=== PATIENT | female | born 1930 | race Hispanic/Latino ===

== ENCOUNTER 2016-08-31 10:36 | Inpatient (IN) | payer MEDICARE ==
[2016-08-31] MEDS ORDERED: Vancomycin 1gm in NS 250ml 250 ML IVPB STA (10:58)
[2016-08-31] MEDS ORDERED: Piperacill/Tazo 4.5gm in NS 100 ML IVPB STA (10:58)
--- NOTE | 2016-08-31 11:06 | ED PDOC ---
Arrival/HPI - General Chief Complaint: Altered Mental Status Time Seen by Provider: 08/31/16 10:58 Historian: EMS - History of Present Illness Narrative History of Present Illness (Text): 08/31/16 11:06 A 86 year old female was brought into the emergency department by EMS for lethargy, weakness and unresponsiveness. Patient unable to provide further detail. History and ROS limited. Charts reviewed, patient has a history of colon cancer. PMD: Dr. Sylvester Oncologist: Dr. Lomas Time/Duration: Prior to Arrival Symptom Course: Unchanged Quality: Other Context: Other Past Medical History - Provider Review Nursing Documentation Reviewed: Yes - Infectious Disease Hx of Infectious Diseases: None - Tetanus Immunization Tetanus Immunization: Unknown - Cardiac Hx Hypertension: Yes - Pulmonary Hx Respiratory Disorders: No - Neurological Hx Neurological Disorder: No - HEENT Hx HEENT Disorder: No - Renal Hx Renal Disorder: No - Endocrine/Metabolic Hx Endocrine Disorders: No - Hematological/Oncological Hx Anemia: Yes Hx Cancer: Yes (cecal mass) - Integumentary Hx Dermatological Disorder: No - Musculoskeletal/Rheumatological Hx Musculoskeletal Disorders: No - Gastrointestinal Hx Colostomy: Yes (colon resection, cecal mass) - Genitourinary/Gynecological Hx Incontinence: Yes (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) Other/Comment: stage III colon ca - Psychiatric Hx Psychophysiologic Disorder: No Hx Substance Use: No - Surgical History Other/Comment: colon resection/colostomy - Anesthesia Hx Anesthesia Reactions: No Hx Malignant Hyperthermia: No - Suicidal Assessment Feels Threatened In Home Enviroment: No Family/Social History - Physician Review Nursing Documentation Reviewed: Yes Family/Social History: No Known Family HX Smoking Status: Never Smoked Hx Alcohol Use: No Hx Substance Use: No Hx Substance Use Treatment: No Allergies/Home Meds Allergies/Adverse Reactions: Allergies No Known Allergies Allergy (Verified 08/31/15 11:40) Review of Systems - Review of Systems Systems not reviewed;Unavailable: Other (Unresponsive) Physical Exam Vital Signs Reviewed: Yes Vital Signs Temp Pulse Resp BP Pulse Ox 08/31/16 13:58 72 18 125/74 99 08/31/16 13:45 83 16 133/76 100 08/31/16 13:20 74 16 121/71 100 08/31/16 13:05 80 16 143/80 100 08/31/16 12:45 78 20 142/78 100 08/31/16 12:33 88 20 128/77 100 08/31/16 12:13 88 20 121/67 100 08/31/16 12:10 14 08/31/16 12:00 90 20 121/67 99 08/31/16 11:45 88 16 143/66 98 08/31/16 11:20 90 16 141/88 97 08/31/16 11:00 96.5 F L 102 H 24 141/69 97 Temperature: Afebrile Blood Pressure: Normal Pulse: Tachycardic Respiratory Rate: Normal Appearance: Positive for: Other (Foul odor) Mental Status: Positive for: other (Unresponisve) Finger Stick Blood Glucose: 191 - Systems Exam Head: Present: Atraumatic, Normocephalic Pupils: Present: Other (2-3 ml pupils, reactive to light) Conjunctiva: Present: Normal Mouth: Present: Moist Mucous Membranes Pharnyx: Present: Normal Respiratory/Chest: Present: Good Air Exchange, Other (Crackles to right lung). No: Respiratory Distress, Accessory Muscle Use Cardiovascular: Present: Regular Rate and Rhythm, Normal S1, S2. No: Murmurs Abdomen: No: Tenderness, Distention Upper Extremity: Present: NORMAL PULSES. No: Edema Lower Extremity: Present: Edema, NORMAL PULSES Neurological: Present: Other (responds to painful stimuli) Skin: Present: Warm Psychiatric: Present: Lethargic, Other (Not responding to painful stimuli) Medical Decision Making ED Course and Treatment: 08/31/16 11:06 Impression: A 86 year old female brought in unresponsive Differential Diagnosis included but are not limited to: Altered Mental Status / Unresponsive r/o Sepsis, CVA/TIA Plan: -- Head CT -- Chest xray -- EKG -- Labs -- Blood and Urine culture -- Urinalysis -- IV fluids, Vancomycin and Zosyn -- Reassess and disposition Progress Notes: 08/31/16 11:15 Spoke with patients son, who states he last saw patient well yesterday evening. He reports patient complained of feeling weak. He confirms patient has a history of colon cancer with metastasis. Spoke with patients brothers, Junior and Chandler, who state patient does not have end of life care. No DNR/DNI. They if needed to intubate her. 08/31/16 11:30 On re-evaluation, patient is responding to painful stimuli, she opens her eyes. When asked what her name is patient responds yes and nods her head. Breathing patterns mildly improved. Report Date : 08/31/2016 11:35:53 PROCEDURE: CT HEAD WITHOUT CONTRAST. Dictator : Baldev Allen MD IMPRESSION: No acute intracranial findings 08/31/2016 11:45 on reevaluation, patient is not responding well to painful stimuli. Slow breathing patter. pCO2 in the 90's. Will intubate for concern of impending respiratory failure. PROCEDURE: INTUBATION Performed by the emergency provider Time: 11:45 Timeout: A timeout to verify the correct patient, procedure, and site was performed. Pre-oxygenation: [id number] Medications: 50 of Propofol ETT Size: 7.5 mm Procedure: First attempt unsuccessful by resident Fantasma. Second attempt successful. Confirmation: Cords directly visualized as tube passed, good bilateral breath sounds, positive CO2 detector color change, tube fogging, adequate chest rise, improving pulse oximetry reading, improved skin color, and absence of gastric sounds,. ETT Secured: The cuff was inflated and the tube was secured appropriately at a distance of 22 cm at the lip. Post-Procedure: There were no immediate complications. CXR Confirmation: ET tube above magali 08/31/16 12:29\ NGT was placed by RN. Victoria placed by RN. Started on a Propofol drip. Case discussed with Dr. Tran, who accepts admission. Case discussed with Dr. Lomas, who accepts admission. Place admission under Dr. Leighton Hyatt Report Date : 08/31/2016 12:30:25 Procedure: Chest xray Dictator : Baldev Allen MD IMPRESSION: Endotracheal tube and nasogastric tube in satisfactory position Report Date : 08/31/2016 12:33:27 Procedure: Chest xray Dictator : Baldev Allen MD IMPRESSION: Small bilateral pleural effusions. Mild to moderate vascular congestion - Critical Care Critical Care Minutes: 60 minutes - Lab Interpretations Lab Results: 08/31/16 11:02 08/31/16 11:02 Lab Results 08/31/16 11:02: WBC 9.2 D, RBC 3.44 L, Hgb 10.6 L, Hct 35.4 L, MCV 102.9, MCH 30.8, MCHC 29.9 L, RDW 30.3 H, Plt Count 321, Neutrophils % (Manual) 82 H, Band Neutrophils % 6 H, Lymphocytes % (Manual) 5 L, Atypical Lymphs % 2 H, Monocytes % (Manual) 3, Eosinophils % (Manual) 1, Basophils % (Manual) 1, Toxic Granulation Slight, Platelet Evaluation Normal, Large Platelets Present, Giant Platelets Present, Polychromasia Slight, Hypochromasia 1+, Poikilocytosis ( manual 1+, Anisocytosis (manual) 2+, Macrocytosis (manual) Slight, Tear Drop Cells Slight, Ovalocytes 1+, Stomatocytes Slight, Acanthocytes (Spur) Slight, PT 11.5, INR 1.06, APTT 27.5, pO2 61 H, VBG pH 7.23 L, VBG pCO2 99.0 H*, VBG HCO3 41.5 H, VBG Total CO2 44.5 H, VBG O2 Sat (Calc) 90.8 H, VBG Base Excess 9.8 H, VBG Potassium 4.4, Glucose 176 H, Lactate 1.0, FiO2 21.0, Sodium 141.0, Potassium 4.0, Chloride 102.0, Carbon Dioxide 38 H, Anion Gap 10, BUN 28 H, Creatinine 0.5, Est GFR ( Amer) > 60, Est GFR (Non-Af Amer) > 60, Random Glucose 167 H, Calcium 8.9, Phosphorus 4.1, Magnesium 2.0, Total Bilirubin 0.8, AST 32, ALT 16, Alkaline Phosphatase 74, Troponin I 0.04, NT-Pro-B Natriuret Pep 1580 H, Total Protein 6.9, Albumin 3.9, Globulin 3.0, Albumin/Globulin Ratio 1.3, Venous Blood Potassium 4.4 08/31/16 10:55: POC Glucose (mg/dL) 191 H I have reviewed the lab results: Yes Interpretation: Abnormal lab values - RAD Interpretation Radiology Orders: 08/31/16 10:59 CHEST PORTABLE [RAD] Stat 08/31/16 11:01 HEAD W/O CONTRAST [CT] Stat 08/31/16 12:03 CHEST PORTABLE [RAD] Stat Transcription Coordinator: Radiologist - Medication Orders Current Medication Orders: Enoxaparin Sodium (Lovenox) 40 mg SC DAILY MEGAN PRN Reason: Protocol Last Admin: 08/31/16 15:21 Dose: 40 MG Subcutaneous Administrations Document 08/31/16 15:21 RAMOM (Rec: 08/31/16 15:21 RAMOM [facility]) Injection Site MAR Injection Site Left Abdomen Charges for Administration # of Subcutaneous Administrations 1 Vancomycin HCl (Vancomycin 1gm) 250 mls @ 167 mls/hr IVPB Q12H MEGAN PRN Reason: Protocol Piperacillin Sod/Tazobactam Sod (Zosyn 3.375 In Ns 100ml) 100 mls @ 200 mls/hr IV Q6H MEGAN PRN Reason: Protocol Doxycycline Hyclate 100 mg/ (Sodium Chloride) 100 mls @ 100 mls/hr IVPB Q12 MEGAN PRN Reason: Protocol Last Admin: 08/31/16 15:18 Dose: 100 MLS/HR eMAR Start Stop Document 08/31/16 15:18 RAMOM (Rec: 08/31/16 15:18 RAMOM [facility]) Intravenous Solution Start Date 08/31/16 Start Time 15:20 End Date 08/31/16 End time 16:20 Total Infusion Time 60 Propofol (Diprivan) 100 mls @ 2.041 mls/hr IV .Q24H PRN; Protocol; 5 MCG/KG/MIN PRN Reason: TITRATE PER MD ORDER Last Admin: 08/31/16 12:10 Dose: 2.041 MLS/HR Titration Intervention Document 08/31/16 12:10 FARZANA (Rec: 08/31/16 14:20 [facility] [id number]) Titration Intake Container Volume 100 Titration Dosing Titration Dose 5 IV Rate 2.041 Intake/Decrease Start eMAR Start Stop Document 08/31/16 12:10 FARZANA (Rec: 08/31/16 14:20 [facility] [id number]) Intravenous Solution Start Date 08/31/16 Start Time 12:10 Methylprednisolone (Solu-Medrol) 20 mg IVP Q12 [facility] Last Admin: 08/31/16 14:00 Dose: 20 MG IVP Administration Document 08/31/16 14:00 FARZANA (Rec: 08/31/16 14:00 [facility] [id number]) Charges for Administration # of IVP Administrations 1 Pantoprazole Sodium (Protonix Inj) 40 mg IVP DAILY [facility] Last Admin: 08/31/16 13:58 Dose: 40 MG IVP Administration Document 08/31/16 13:58 [place] (Rec: 08/31/16 13:58 [id number] Charges for Administration # of IVP Administrations 1 Discontinued Medications Furosemide (Lasix) 40 mg IVP STAT STA Stop: 08/31/16 13:23 Last Admin: 08/31/16 13:58 Dose: 40 MG MAR Blood Pressure Document 08/31/16 13:58 FARZANA (Rec: 08/31/16 14:00 [id number] Blood Pressure Blood Pressure (100/60-150/90) 125/74 IVP Administration Document 08/31/16 13:58 [place] (Rec: 08/31/16 14:00 [id number] Charges for Administration # of IVP Administrations 1 Sodium Chloride 2,040 ml/ IV (SUPPLIES) 2,040 mls @ 4,082.34 mls/hr IV ONCE ONE PRN Reason: 60 ML/KG/HR Stop: 08/31/16 10:59 Last Admin: 08/31/16 11:49 Dose: 4,082.34 MLS/HR eMAR Start Stop Document 08/31/16 11:49 SS (Rec: 08/31/16 11:49 SS [id number]) Intravenous Solution Start Date 08/31/16 Start Time 11:49 Piperacillin Sod/Tazobactam Sod (Zosyn 4.5 Gm In Ns 100ml) 100 mls @ 200 mls/ hr IVPB STAT STA PRN Reason: Protocol Stop: 08/31/16 11:27 Last Admin: 08/31/16 14:02 Dose: 200 MLS/HR eMAR Start Stop Document 08/31/16 14:02 [place] (Rec: 08/31/16 14:02 [facility] [id number]) Intravenous Solution Start Date 08/31/16 Start Time 14:02 End Date 08/31/16 End time 15:02 Total Infusion Time 60 Vancomycin HCl (Vancomycin 1gm) 250 mls @ 167 mls/hr IVPB STAT STA PRN Reason: Protocol Stop: 08/31/16 12:27 Last Admin: 08/31/16 11:44 Dose: 167 MLS/HR eMAR Start Stop Document 08/31/16 11:44 SS (Rec: 08/31/16 11:44 SS [id number]) Intravenous Solution Start Date 08/31/16 Start Time 11:44 End Date 08/31/16 End time 12:14 Total Infusion Time 30 Propofol (Diprivan) Confirm Administered Dose 100 mls @ ud .ROUTE .STK-MED ONE Stop: 08/31/16 11:57 Last Admin: 08/31/16 12:30 Dose: Propofol (Diprivan) Confirm Administered Dose 200 mg .ROUTE .STK-MED ONE Stop: 08/31/16 11:57 Last Admin: 08/31/16 12:00 Dose: 50 MG - Scribe Statement The provider has reviewed the documentation as recorded by the Kiana Bravo Provider Scribe Attestation: All medical record entries made by the Scribe were at my direction and personally dictated by me. I have reviewed the chart and agree that the record accurately reflects my personal performance of the history, physical exam, medical decision making, and the department course for this patient. I have also personally directed, reviewed, and agree with the discharge instructions and disposition. Disposition/Present on Arrival - Present on Arrival Any Indicators Present on Arrival: No History of DVT/PE: No History of Uncontrolled Diabetes: No Urinary Catheter: No History of Decub. Ulcer: No History Surgical Site Infection Following: None - Disposition Have Diagnosis and Disposition been Completed?: Yes Diagnosis: Altered mental status, Respiratory distress, Sepsis Disposition: HOSPITALIZED Disposition Time: 12:06 Patient Plan: Admission, ICU Patient Problems: Current Active Problems Problem Status Diagnosed Altered mental status Acute Cellulitis Acute Respiratory distress Acute Sepsis Acute Condition: CRITICAL
--- NOTE | 2016-08-31 11:37 | CT ---
PROCEDURE: CT HEAD WITHOUT CONTRAST. HISTORY: altered mental status COMPARISON: None available. TECHNIQUE: Axial computed tomography images were obtained through the head/brain without intravenous contrast. Radiation dose: Total exam DLP = 774 mGy-cm. FINDINGS: HEMORRHAGE: No intracranial hemorrhage. BRAIN: No mass effect or edema. Chronic microvascular changes are seen as well as moderate atrophy VENTRICLES: Unremarkable. No hydrocephalus. CALVARIUM: Unremarkable. PARANASAL SINUSES: Unremarkable as visualized. No significant inflammatory changes. MASTOID AIR CELLS: Unremarkable as visualized. No inflammatory changes. OTHER FINDINGS: None. IMPRESSION: No acute intracranial findings
[2016-08-31 11:42] LABS: HEMATOCRIT 35.4 % (36.0-48.0); MEAN CELL VOLUME 102.9 fL (80.0-105.0); MEAN CORPUSCULAR HEMOGLOBIN 30.8 pg (25.0-35.0); MEAN CORPUSCULAR HGB CONC 29.9 g/dl (31.0-37.0); PLATELET COUNT 321 10^3/uL (120.0-450.0); RED CELL DISTRIBUTION WIDTH 30.3 % (11.5-14.5); WHITE BLOOD COUNT 9.2 10^3/ul (4.5-11.0)
[2016-08-31 11:43] LABS: ADD MANUAL DIFF? YES; VENOUS BLOOD GAS BASE EXCESS 9.8 mmol/L (0.0-2.0); VENOUS BLOOD PH 7.23 (7.32-7.43)
[2016-08-31 11:53] LABS: INR 1.06 (0.93-1.08); PARTIAL THROMBOPLASTIN TIME 27.5 Seconds (23.7-30.8)
[2016-08-31 11:55] LABS: ALB/GLOB RATIO 1.3 (1.1-1.8); ALKALINE PHOSPHATASE 74 U/L (38-133); ALT/SGPT 16 U/L (7-56); AST/SGOT 32 U/L (15-39); BILIRUBIN,TOTAL 0.8 mg/dL (0.2-1.3); BLOOD UREA NITROGEN 28 mg/dL (7-21); CALCIUM 8.9 mg/dL (8.4-10.5); CARBON DIOXIDE 38 mmol/L (21-33); CHLORIDE 97 mmol/L (95-110); GFR AFRICAN-AMERICAN > 60; GLUCOSE,RANDOM 167 mg/dL (70-110); PHOSPHOROUS 4.1 mg/dL (2.5-4.5); SODIUM 141 mmol/L (132-148); TOTAL PROTEIN 6.9 g/dL (5.8-8.3)
[2016-08-31] MEDS ORDERED: Propofol 10 mg/ml Inj (20 ML) ONE (11:56)
--- NOTE | 2016-08-31 12:31 | RAD ---
HISTORY: ett placement COMPARISON: 08/31/2016 earlier FINDINGS: LUNGS: The endotracheal tube and nasogastric tube are in satisfactory position. There is no focal consolidation. Chronic interstitial changes are seen PLEURA: No significant pleural effusion identified, no pneumothorax apparent. CARDIOVASCULAR: Normal. OSSEOUS STRUCTURES: No significant abnormalities. VISUALIZED UPPER ABDOMEN: Normal. OTHER FINDINGS: None. IMPRESSION: Endotracheal tube and nasogastric tube in satisfactory position
--- NOTE | 2016-08-31 12:34 | RAD ---
HISTORY: Sepsis Patient COMPARISON: No prior. FINDINGS: LUNGS: No active pulmonary disease. PLEURA: Small bilateral pleural effusions and pleural thickening. CARDIOVASCULAR: Mild cardiomegaly with mild to moderate vascular congestion OSSEOUS STRUCTURES: No significant abnormalities. VISUALIZED UPPER ABDOMEN: Normal. OTHER FINDINGS: None. IMPRESSION: Small bilateral pleural effusions. Mild to moderate vascular congestion
[2016-08-31 12:44] LABS: ANISOCYTOSIS 2+; ATYPICAL LYMPHOCYTE 2 % (0.0-0.0); BAND 6 % (0-2); BASOPHIL 1 % (0.0-1.0); EOSINOPHIL 1 % (0.0-3.0); HYPOCHROMIA 1+; NEUTROPHIL 82 % (50.0-70.0); PLATELET ESTIMATE NORMAL (NORMAL); POIKILOCYTOSIS 1+; POLYCHROMASIA SLIGHT
[2016-08-31 12:45] LABS: GIANT PLATELETS PRESENT; LARGE PLATELETS PRESENT; OVALOCYTES 1+; TEAR DROP CELLS SLIGHT; TOXIC GRANULATION SLIGHT
[2016-08-31 12:46] LABS: STOMATOCYTE SLIGHT
[2016-08-31 12:49] LABS: URINE BILIRUBIN NEGATIVE (NEGATIVE); URINE BLOOD TRACE-INTACT (NEGATIVE); URINE GLUCOSE (UA) NEGATIVE (NEGATIVE); URINE KETONE NEGATIVE (NEGATIVE); URINE LEUKOCYTE ESTERASE NEGATIVE Leu/uL (NEGATIVE); URINE PROTEIN 100 mg/dL (<30 mg/dL)
[2016-08-31 12:54] LABS: TROPONIN I 0.04 ng/mL
[2016-08-31 12:54] LABS: URINE APPEARANCE CLEAR (CLEAR); URINE COLOR YELLOW (YELLOW)
[2016-08-31 13:03] LABS: URINE WBC 0 - 2 /hpf (0-6)
[2016-08-31 13:04] LABS: URINE BACTERIA MANY (NEG)
[2016-08-31 13:07] LABS: URINE AMORPHOUS SEDIMENT FEW
[2016-08-31 13:33] LABS: ABG MECHANICAL RATE 16; ARTERIAL BLOOD GAS HCO3 33.9 mmol/L (21-28); ARTERIAL BLOOD GAS PH 7.36 (7.35-7.45); ATERIAL BLOOD GAS PEEP 5
[2016-08-31] MEDS: Enoxaparin 40 mg Syringe SC SCH ×2 (13:58→15:21)
[2016-08-31] MEDS: MethylPREDNISolone 40 mg Vial IVP SCH ×2 (14:00→22:01)
--- NOTE | 2016-08-31 15:06 | CARD ---
APPROVED REPORT EKG Measurement Heart [id number] AL [id number] <Conclusion> Sinus rhythm with premature supraventricular complexes ST abnormality, Abnormal ECG
--- NOTE | 2016-08-31 15:38 | CON ---
DATE: 08/31/2016 HISTORY OF PRESENT ILLNESS: The patient seen and examined at bedside. She is intubated now. She is on propofol drip at 11 mcg per kilogram per minute. She is on PRVC 400/16/5/40. Her heart rate is 79, her blood pressure 143/80, her respiratory rate 16. She is not overbreathing vent. This is an 86-year-old lady with history of colon cancer and breast cancer, who presented to [facility] ER with lethargy, weakness and unresponsiveness. She was brought in by her family member. She was unable to provide any further detail. Was found to have severe acute respiratory acidosis and was emergently intubated. Subsequent workup in the Emergency Room revealed chronic interstitial changes, reticular nodular infiltrate. Blood gas revealed pH of 7.23 and pCO2, even though on VBG, was 99. After discussion with patient's family member by Er physician, decision was made to proceed with FULL CODE at present time and patient was intubated. PAST MEDICAL HISTORY: Colon cancer, breast cancer, hypertension, anemia. PAST SURGICAL HISTORY: Colon resection and colostomy. FAMILY HISTORY: Noncontributory. SOCIAL HISTORY: No alcohol or illicit drug abuse. No tobacco smoking. ALLERGIES: NKDA. REVIEW OF SYSTEMS: Revealed 12 organ systems other than mentioned in history of present illness is negative. PHYSICAL EXAMINATION: VITAL SIGNS: Temperature 96.5, heart rate 88, blood pressure 121/67, respiratory rate 20, oxygen saturation 100% on PRVC. HEAD AND NECK: Atraumatic. LUNGS: Few crackles bilaterally. HEART: Regular rate and rhythm. S1, S2 distant. ABDOMEN: Soft, nontender, nondistended. MUSCULOSKELETAL: Trace bilateral pedal and ankle edema. NEUROLOGIC: The patient is sedated. SKIN: Moist. PSYCHIATRIC: The patient is sedated. LABORATORIES: WBC 9.2, hemoglobin 10.6, platelet count 321. Sodium 141, potassium 4, chloride 97, carbon dioxide 38, BUN 28, creatinine 0.5, glucose 167 , calcium 8.9. AST 32, ALT 16. ProBNP 1580. VBG is 7.23 and lactic acid 1. INR 1.06. Urine showed positive nitrites and negative leukocyte esterase. ASSESSMENT AND PLAN: This is an 86-year-old lady with breast and colon cancer. The patient presented with what appears to be acute onset of respiratory failure with likely acute respiratory component. However, the blood gas was done as a VBG, thus may not reflect pCO2 correctly at the time of intubation. Differential diagnosis at present time includes infectious etiology/pneumonia, pneumonitis, cardiogenic pulmonary edema and a lymphangitic spread of the breast cancer. As patient has active reticular nodular opacities, possibility of community-acquired pneumonia cannot be ruled out at present time. We will proceed with broad-spectrum antibiotics, septic workup, procalcitonin level, low dose steroids, conservative fluid and oxygen therapy. We will continue with protective lung ventilation strategy, tidal volume 6-8 mL per predicted body weight and plateau pressure less than 30 to avoid VILI. We will continue with head of bed elevated at more than 35 degrees, VAP bundle and deep venous thrombosis/gastrointestinal prophylaxis. One of the differential diagnosis of radiographic and clinical picture would be acute congestive heart failure with cardiogenic pulmonary edema. Thus, we will proceed with echocardiogram and diuresis as hemodynamics allows, especially provided that proBNP is elevated. We will trend troponin level to ascertain absence of acute coronary syndrome. There are no clearcut signs of specific ischemic changes on patient's EKG. Possibility of lymphangitic spread of the breast cancer cannot be ruled out and will be discussed with Hem/Onc once potentially reversible causes (infection, CHF) are addressed. It is however unclear whether more aggressive pursuit of diagnosis of lymphangitic mets would change outcome if potentially reversible causes are ruled out. We will continue to target euvolemia, euglycemia, normothermia and oxygen saturation more than 90%. We will start enteral nutrition. We will maintain blood glucose within 140-180 range according to NICE-SUGAR trial. The patient's renal function appears to be within normal limits. She is making urine and her creatinine level is 0.5. ccm time 40 min Marty Roberson MD cc: [id number] TT: 08/31/2016 15:38:02 Confirmation # [id number] Dictation # [id number] MTDD
[2016-08-31] MEDS ORDERED: Aspirin 325 mg EC Tablets PO STA (17:41)
[2016-08-31 17:58] VITALS: BMI 31.4
[2016-08-31 19:00] LABS: BLOOD UREA NITROGEN 21 mg/dL (7-21); CALCIUM 8.2 mg/dL (8.4-10.5); CARBON DIOXIDE 33 mmol/L (21-33); CHLORIDE 101 mmol/L (98-107); GFR AFRICAN-AMERICAN > 60; GLUCOSE,RANDOM 111 mg/dL (70-110); POTASSIUM 3.4 mmol/L (3.6-5.0); SODIUM 140 mmol/L (132-148)
[2016-08-31] MEDS ORDERED: Sodium Chloride 0.9% 1,000 ML IV SCH (19:00)
[2016-08-31 19:11] LABS: TROPONIN I 0.05 ng/mL
[2016-08-31] MEDS: Piperacillin/Tazobact 3.375 gm 100 ML IV SCH (19:41)
[2016-08-31] MEDS: Vancomycin 1gm in NS 250ml 250 ML IVPB SCH (22:01)
--- NOTE | 2016-09-01 00:23 | HP ---
The patient is currently in the CCU, bed 2. HISTORY OF PRESENT ILLNESS: This is an 86-year-old female with history of colon cancer stage III, st atus post colostomy, history of nonmetastatic breast cancer, bilateral on aromatase inhibitor, histor y of macrocytic anemia requiring intermittent blood transfusions and is Procrit responsive, was broug ht to the [facility] Emergency Room with lethargy, weakness and unresponsiveness. The patient was brought in by a family member. The patient was unable to provide any further details. S he was found to be in severe acute respiratory acidosis and was emergently intubated. Subsequent wor kup in the ER revealed chronic interstitial changes, reticulonodular infiltrates in the lungs. Blood gases showed pH of 7.2-7.3 and pCO2, even though was a VBG, was 99. After the patient's family memb er was talked to by the ER physician, decision was made to intubate the patient as the patient did no t have any significant advanced directives. The patient is being followed by us as an outpatient and had been getting intermittent blood transfusions including transfusions just recently in the last 10 days when she was noted to have a hemoglobin of 7.6. PAST MEDICAL HISTORY: Stage III colon carcinoma, which was resected with a [id number] carcinoma of the c olon for which she did not get any postoperative therapy. Colostomy performed as she could not withs tand reversal procedure medically speaking. The patient has a history of nonmetastatic breast cancer involving both breasts for which she has been placed on aromatase inhibitors. History of hypertensi on, history of Procrit responsive anemia with progressive macrocytic indices clinically suggestive of myelodysplastic syndrome, but the patient has refused a bone marrow aspiration biopsy as an outpatie nt. PAST SURGICAL HISTORY: Significant for resection of colon cancer 3 years ago with a diverting colost alejandra done by Dr. Acuna. FAMILY HISTORY: Noncontributory. The patient does not drink, has an anxiety disorder for which she takes Xanax. No history of exposure to tobacco or alcohol. ALLERGIES: No known allergies. REVIEW OF SYSTEMS: Twelve organ system other than that mentioned in the history was negative. PHYSICAL EXAMINATION: GENERAL: The patient is currently intubated. She is on a propofol drip 11 mcg per kilogram per isacc te. VITAL SIGNS: She has PRVC 400/16/5/40, heart rate is 70, blood pressure is 143/80, respirations 16. She is not overbreathing at this time. Vital signs revealed a T-max of 96.4, heart rate 88, blood p ressure 121/67, respirations 20, O2 sat 100% on PRVC. HEENT: Head is normocephalic, atraumatic. LUNGS: Reveals few crackles bilaterally. HEART: Reveals S1 and S2 to be distant, regular rate and rhythm. ABDOMEN: Soft, nontender and nondistended. No rebound, rigidity or guarding is noted. Colostomy is on the left side, functioning. MUSCULOSKELETAL: Trace bilateral pedal edema and ankle edema noted. NEUROLOGIC: The patient is sedated. SKIN: Moist. No skin lesions are noted. PSYCHIATRIC: The patient is sedated. LABORATORY DATA: Reveals a white count of 9.2 with a hemoglobin of 10.6, platelet count 321,000. So dium 141, potassium 4, chloride of 97, CO2 of 38, BUN of 28, creatinine 0.5, glucose 167, calcium of 8.9, AST of 32, ALT of 16, proBNP of 1580. ABG shows pH of 7.23 with a lactic acid of 1, INR is 1.06 . Urine is positive for nitrites and negative for leukocyte esterase. ASSESSMENT NOTES: The patient is in acute respiratory failure, etiology for it could be infectious. I doubt this is related to the breast as patient has nonmetastatic breast CA, which was just diagnos ed recently in the last 6 months. The patient has history of colon CA, which has not spread, [facility] medical complaints at the time we have been managing her as an outpatient for symptomatic anemia requiring blood transfusions about twice a month. The patient has active reticular nodular opacitie s on the x-ray of the chest, which could account for the possibility of community-acquired pneumonia, which cannot be ruled out at this time. PLAN: The patient has been started on broad spectrum antibiotics. Septic workup including procalcit onin, low level steroids, conservative fluid management and oxygen therapy has been instituted. The patient is being monitored by the director center where the management as far as respiratory and ventilat or management is concerned. The patient is also on broad spectrum antibiotics. Congestive heart yanet lure and cardiogenic pulmonary edema also in the differential diagnosis, especially with the proBNP b eing elevated. The patient has had troponin levels done and is going to be monitored for any cardiac issues presenting in this fashion. Speak to Dr. Roberson, the director center who has seen her also. A t this point in time, to keep the patient , normothermic and keep the oxygen saturation ab ove 90%. The patient will also be started on enteral nutrition, but keeping the blood sugars between 140 and 180s range. The patient is making urine and creatinine is 0.5, which are good signs. ID is on the case. I will make sure we get the other consultants involved as well. Will speak to the camron chappell and decide which direction we should proceed over the next 72 hours. Shanta Lomas MD cc: [id number] TT: 09/01/2016 00:22:59 simon
[2016-09-01] MEDS: Piperacillin/Tazobact 3.375 gm 100 ML IV SCH ×2 (02:37→07:22)
[2016-09-01 04:20] LABS: MEAN CELL VOLUME 99.6 fL (80.0-105.0); MEAN CORPUSCULAR HEMOGLOBIN 31.3 pg (25.0-35.0); MEAN CORPUSCULAR HGB CONC 31.4 g/dl (31.0-37.0); PLATELET COUNT 224 10^3/uL (120.0-450.0); RED CELL DISTRIBUTION WIDTH 29.6 % (11.5-14.5)
[2016-09-01 04:36] LABS: ADD MANUAL DIFF? YES
[2016-09-01 04:49] LABS: BLOOD UREA NITROGEN 24 mg/dL (7-21); CALCIUM 8.1 mg/dL (8.4-10.5); CARBON DIOXIDE 30 mmol/L (21-33); CHLORIDE 103 mmol/L (98-107); GFR AFRICAN-AMERICAN > 60; GLUCOSE,RANDOM 120 mg/dL (70-110); POTASSIUM 3.3 mmol/L (3.6-5.0); SODIUM 142 mmol/L (132-148)
[2016-09-01 05:28] LABS: ARTERIAL BLOOD GAS HCO3 31.2 mmol/L (21-28); ARTERIAL BLOOD GAS O2 CAPACITY 12.4 mL/dl (16-24); ARTERIAL BLOOD GAS PH 7.49 (7.35-7.45); ARTERIAL BLOOD HGB O2 SAT 95.3 % (95.0-98.0); CARBOXYHEMOGLOBIN 0.9 % (0.5-1.5); HHB 2.9 % (0-5); METHEMOGLOBIN 0.8 % (0.0-3.0)
[2016-09-01 05:41] LABS: BAND 9 % (0-2)
[2016-09-01 05:42] LABS: ANISOCYTOSIS 2+; GIANT PLATELETS PRESENT; HYPOCHROMIA 2+; PLATELET ESTIMATE NORMAL (NORMAL); POLYCHROMASIA 1+
[2016-09-01 05:43] LABS: HELMET CELLS SLIGHT
[2016-09-01 05:49] LABS: NEUTROPHIL 88 % (50.0-70.0)
[2016-09-01] MEDS ORDERED: Sodium Chloride 0.9% 1,000 ML IV SCH (08:24)
[2016-09-01] MEDS ORDERED: methylPREDNISolone 1 GM in Sodium Chloride 0.9% 250 ML IV ONE (08:27)
--- NOTE | 2016-09-01 08:42 | RAD ---
HISTORY: intubated COMPARISON: 08/31/2016 FINDINGS: Endotracheal tube terminates 2.5 cm proximal to the magali. The nasogastric tube terminates in the stomach. LUNGS: There are persistent chronic changes in both lungs. There is pulmonary hyperinflation and peribronchial thickening. There is no focal consolidation. PLEURA: No significant pleural effusion identified, no pneumothorax apparent. CARDIOVASCULAR: Normal. OSSEOUS STRUCTURES: No significant abnormalities. VISUALIZED UPPER ABDOMEN: Normal. OTHER FINDINGS: None. IMPRESSION: Stable position of endotracheal and nasogastric tubes. COPD. No active disease.
[2016-09-01] MEDS: Enoxaparin 40 mg Syringe SC SCH (09:57)
[2016-09-01] MEDS: Vancomycin 1gm in NS 250ml 250 ML IVPB SCH (10:02)
--- NOTE | 2016-09-01 10:19 | CP.CCUPN ---
<David Pinedo - Last Filed: 09/01/16 12:40> CCU Subjective - Physician Review Subjective (Free Text): 09/01/16 09:55 Pt s&e w ICU attending. Pt is extubated this AM and on NC O2. Pt is doing well. Denies F/C/N/V/D/CP/SOB/GREGORIO/dizziness. Pt tolerating CLD 09/01/16 09:57 CCU Objective - Vital Signs / Intake & Output Vital Signs (Last 4 hours): Vital Signs Pulse Resp BP Pulse Ox 09/01/16 08:26 97 H 98 09/01/16 08:00 91 H 118/57 L 97 09/01/16 07:45 16 98 09/01/16 07:00 89 21 127/84 99 09/01/16 06:00 87 16 116/65 98 Intake and Output (Last 8hrs): Intake & Output 08/31/16 09/01/16 09/01/16 22:59 06:59 14:59 Intake Total 1510 Output Total 500 Balance 1010 Weight 160 lb 14.4 oz Intake: IV 1510 Left Antecubital 1400 Right Hand 110 Output: Urine 500 Urethral ([place]) 500 Other: Voiding Method Indwelling Catheter Indwelling Catheter # Bowel Movements 1 - Physical Exam Head: Positive for: Atraumatic, Normocephalic Pupils: Positive for: PERRL Extroacular Muscles: Positive for: EOMI Conjunctiva: Positive for: Normal Mouth: Positive for: Moist Mucous Membranes Pharnyx: Positive for: Normal Respiratory/Chest: Positive for: Good Air Exchange, Other (Crackles to right lung). Negative for: Respiratory Distress, Accessory Muscle Use Cardiovascular: Positive for: Regular Rate and Rhythm, Normal S1, S2. Negative for: Murmurs Abdomen: Positive for: Ostomy Tubes. Negative for: Tenderness, Distention, Peritoneal Signs, Rebound Upper Extremity: Positive for: NORMAL PULSES. Negative for: Edema Lower Extremity: Positive for: Edema, NORMAL PULSES Skin: Positive for: Warm Psychiatric: Positive for: Alert, Oriented x 3, Normal Insight, Normal Concentration - Medications Active Medications: Active Medications Generic Name Dose Route Start Last Admin Trade Name Freq PRN Reason Stop Dose Admin Enoxaparin Sodium 40 mg 08/31/16 13:15 08/31/16 15:21 Lovenox SC 40 mg DAILY MEGAN Administration Protocol Hydrocortisone Sodium Succinate 50 mg 09/01/16 08:45 Solu-Cortef IVP Q8 MEGAN Vancomycin HCl 250 mls @ 167 mls/hr 08/31/16 23:00 08/31/16 22:01 Vancomycin 1gm IVPB 167 mls/hr Q12H MEGAN Administration Protocol Piperacillin Sod/Tazobactam Sod 100 mls @ 200 mls/hr 08/31/16 20:00 09/01/16 07 :22 Zosyn 3.375 In Ns 100ml IV 200 mls/hr Q6H MEGAN Administration Protocol Doxycycline Hyclate 100 mg/ 100 mls @ 100 mls/hr 08/31/16 13:15 08/31/16 23:00 Sodium Chloride IVPB 100 mls/hr Q12 MEGAN Administration Protocol Sodium Chloride 1,000 mls @ 50 mls/hr 09/01/16 08:24 Sodium Chloride 0.9% IV .Q20H MEGAN Pantoprazole Sodium 40 mg 08/31/16 13:15 08/31/16 13:58 Protonix Inj IVP 40 mg DAILY MEGAN Administration - Patient Studies Lab Studies: Lab Studies 09/01/16 09/01/16 09/01/16 Range/Units 05:15 04:10 03:05 WBC 8.0 (4.5-11.0) 10^3/ul RBC 2.81 L (3.5-6.1) 10^6/uL Hgb 8.8 L (12.0-16.0) gm/dL Hct 28.0 L (36.0-48.0) % MCV 99.6 (80.0-105.0) fL MCH 31.3 (25.0-35.0) pg MCHC 31.4 (31.0-37.0) g/dl RDW 29.6 H (11.5-14.5) % Plt Count 224 (120.0-450.0) 10^3/uL Neutrophils % (Manual) 88 H (50.0-70.0) % Band Neutrophils % 9 H (0-2) % Lymphocytes % (Manual) 2 L (22.0-35.0) % Monocytes % (Manual) 1 (1.0-6.0) % Platelet Evaluation Normal (NORMAL) Giant Platelets Present Polychromasia 1+ Hypochromasia 2+ Anisocytosis (manual) 2+ Macrocytosis (manual) 1+ Helmet Cells Slight pCO2 41 (35-45) mm/Hg pO2 113.0 H (80-100) mm/Hg HCO3 31.2 H (21-28) mmol/L ABG pH 7.49 H (7.35-7.45) ABG Total CO2 32.5 H (22-28) mmol.L ABG O2 Saturation 97.0 (95-98) % ABG O2 Content 12.0 L (15-23) ML/dl ABG Base Excess 7.2 H (-2.0-3.0) mmol/L ABG Hemoglobin 8.8 L (11.7-17.4) g/dL ABG Carboxyhemoglobin 0.9 (0.5-1.5) % POC ABG HHb (Measured) 2.9 (0-5) % ABG Methemoglobin 0.8 (0.0-3.0) % ABG O2 Capacity 12.4 L (16-24) mL/dl ABG Potassium (3.6-5.2) mmol/L Hgb O2 Saturation 95.3 (95.0-98.0) % Glucose (65-105) mg/dl Lactate (0.7-2.1) mmol/L Mechanical Rate FiO2 40.0 % Tidal Volume PEEP Sodium 142 (132-148) mmol/L Potassium 3.3 L (3.6-5.0) mmol/L Chloride 103 (98-107) mmol/L Carbon Dioxide 30 (21-33) mmol/L Anion Gap 12 (10-20) BUN 24 H (7-21) mg/dL Creatinine 0.6 (0.5-1.4) mg/dL Est GFR ( Amer) > 60 Est GFR (Non-Af Amer) > 60 Random Glucose 120 H (70-110) mg/dL Calcium 8.1 L (8.4-10.5) mg/dL Troponin I 0.05 ng/mL Arterial Blood Potassium (3.6-5.2) mmol/L Urine Color (YELLOW) Urine Appearance (CLEAR) Urine pH (4.7-8.0) Ur Specific [place] (1.005-1.035) Urine Protein (<30 mg/dL) mg/dL Urine Glucose (UA) (NEGATIVE) mg/dL Urine Ketones (NEGATIVE) mg/dL Urine Blood (NEGATIVE) Urine Nitrate (NEGATIVE) Urine Bilirubin (NEGATIVE) Urine Urobilinogen (<1 E.U./dL) E.U./dL Ur Leukocyte Esterase (NEGATIVE) Feliz/uL Urine RBC (0-2) /hpf Urine WBC (0-6) /hpf Ur Epithelial Cells (0-5) /hpf Amorphous Sediment Urine Bacteria (NEG) Hyaline Casts /hpf Urine Other 08/31/16 08/31/16 08/31/16 Range/Units 18:44 13:30 12:30 WBC (4.5-11.0) 10^3/ul RBC (3.5-6.1) 10^6/uL Hgb (12.0-16.0) gm/dL Hct (36.0-48.0) % MCV (80.0-105.0) fL MCH (25.0-35.0) pg MCHC (31.0-37.0) g/dl RDW (11.5-14.5) % Plt Count (120.0-450.0) 10^3/uL Neutrophils % (Manual) (50.0-70.0) % Band Neutrophils % (0-2) % Lymphocytes % (Manual) (22.0-35.0) % Monocytes % (Manual) (1.0-6.0) % Platelet Evaluation (NORMAL) Giant Platelets Polychromasia Hypochromasia Anisocytosis (manual) Macrocytosis (manual) Helmet Cells pCO2 60 H (35-45) mm/Hg pO2 99.0 (80-100) mm/Hg HCO3 33.9 H (21-28) mmol/L ABG pH 7.36 (7.35-7.45) ABG Total CO2 35.7 H (22-28) mmol.L ABG O2 Saturation 96.9 (95-98) % ABG O2 Content (15-23) ML/dl ABG Base Excess 6.5 H (-2.0-3.0) mmol/L ABG Hemoglobin (11.7-17.4) g/dL ABG Carboxyhemoglobin (0.5-1.5) % POC ABG HHb (Measured) (0-5) % ABG Methemoglobin (0.0-3.0) % ABG O2 Capacity (16-24) mL/dl ABG Potassium 3.6 (3.6-5.2) mmol/L Hgb O2 Saturation (95.0-98.0) % Glucose 109 H (65-105) mg/dl Lactate 0.7 (0.7-2.1) mmol/L Mechanical Rate 16 FiO2 40.0 % Tidal Volume 400 PEEP 5 Sodium 140 142.0 (132-148) mmol/L Potassium 3.4 L (3.6-5.0) mmol/L Chloride 101 110.0 H (98-107) mmol/L Carbon Dioxide 33 (21-33) mmol/L Anion Gap 9 L (10-20) BUN 21 (7-21) mg/dL Creatinine 0.5 (0.5-1.4) mg/dL Est GFR ( Amer) > 60 Est GFR (Non-Af Amer) > 60 Random Glucose 111 H (70-110) mg/dL Calcium 8.2 L (8.4-10.5) mg/dL Troponin I 0.05 D ng/mL Arterial Blood Potassium 3.6 (3.6-5.2) mmol/L Urine Color Yellow (YELLOW) Urine Appearance Clear (CLEAR) Urine pH 7.0 (4.7-8.0) Ur Specific [place] 1.025 (1.005-1.035) Urine Protein 100 H (<30 mg/dL) mg/dL Urine Glucose (UA) Negative (NEGATIVE) mg/dL Urine Ketones Negative (NEGATIVE) mg/dL Urine Blood Trace-intact H (NEGATIVE) Urine Nitrate Positive H (NEGATIVE) Urine Bilirubin Negative (NEGATIVE) Urine Urobilinogen 1.0 H (<1 E.U./dL) E.U./dL Ur Leukocyte Esterase Negative (NEGATIVE) Feliz/uL Urine RBC 2 - 5 (0-2) /hpf Urine WBC 0 - 2 (0-6) /hpf Ur Epithelial Cells 4 - 5 (0-5) /hpf Amorphous Sediment Few Urine Bacteria Many (NEG) Hyaline Casts 0 - 2 /hpf Urine Other Uyeast Laboratory Results - last 24 hr 08/31/16 08/31/16 08/31/16 12:30 13:30 18:44 WBC RBC Hgb Hct MCV MCH MCHC RDW Plt Count Neutrophils % (Manual) Band Neutrophils % Lymphocytes % (Manual) Monocytes % (Manual) Platelet Evaluation Giant Platelets Polychromasia Hypochromasia Anisocytosis (manual) Macrocytosis (manual) Helmet Cells pCO2 60 H pO2 99.0 HCO3 33.9 H ABG pH 7.36 ABG Total CO2 35.7 H ABG O2 Saturation 96.9 ABG O2 Content ABG Base Excess 6.5 H ABG Hemoglobin ABG Carboxyhemoglobin POC ABG HHb (Measured) ABG Methemoglobin ABG O2 Capacity ABG Potassium 3.6 Hgb O2 Saturation Sodium 142.0 140 Chloride 110.0 H 101 Glucose 109 H Lactate 0.7 Mechanical Rate 16 FiO2 40.0 Tidal Volume 400 PEEP 5 Potassium 3.4 L Carbon Dioxide 33 Anion Gap 9 L BUN 21 Creatinine 0.5 Est GFR ( Amer) > 60 Est GFR (Non-Af Amer) > 60 Random Glucose 111 H Calcium 8.2 L Troponin I 0.05 D Arterial Blood Potassium 3.6 Urine Color Yellow Urine Appearance Clear Urine pH 7.0 Ur Specific [place] 1.025 Urine Protein 100 H Urine Glucose (UA) Negative Urine Ketones Negative Urine Blood Trace-intact H Urine Nitrate Positive H Urine Bilirubin Negative Urine Urobilinogen 1.0 H Ur Leukocyte Esterase Negative Urine RBC 2 - 5 Urine WBC 0 - 2 Ur Epithelial Cells 4 - 5 Amorphous Sediment Few Urine Bacteria Many Hyaline Casts 0 - 2 Urine Other Uyeast 09/01/16 09/01/16 09/01/16 03:05 04:10 05:15 WBC 8.0 RBC 2.81 L Hgb 8.8 L Hct 28.0 L MCV 99.6 MCH 31.3 MCHC 31.4 RDW 29.6 H Plt Count 224 Neutrophils % (Manual) 88 H Band Neutrophils % 9 H Lymphocytes % (Manual) 2 L Monocytes % (Manual) 1 Platelet Evaluation Normal Giant Platelets Present Polychromasia 1+ Hypochromasia 2+ Anisocytosis (manual) 2+ Macrocytosis (manual) 1+ Helmet Cells Slight pCO2 41 pO2 113.0 H HCO3 31.2 H ABG pH 7.49 H ABG Total CO2 32.5 H ABG O2 Saturation 97.0 ABG O2 Content 12.0 L ABG Base Excess 7.2 H ABG Hemoglobin 8.8 L ABG Carboxyhemoglobin 0.9 POC ABG HHb (Measured) 2.9 ABG Methemoglobin 0.8 ABG O2 Capacity 12.4 L ABG Potassium Hgb O2 Saturation 95.3 Sodium 142 Chloride 103 Glucose Lactate Mechanical Rate FiO2 40.0 Tidal Volume PEEP Potassium 3.3 L Carbon Dioxide 30 Anion Gap 12 BUN 24 H Creatinine 0.6 Est GFR ( Amer) > 60 Est GFR (Non-Af Amer) > 60 Random Glucose 120 H Calcium 8.1 L Troponin I 0.05 Arterial Blood Potassium Urine Color Urine Appearance Urine pH Ur Specific [place] Urine Protein Urine Glucose (UA) Urine Ketones Urine Blood Urine Nitrate Urine Bilirubin Urine Urobilinogen Ur Leukocyte Esterase Urine RBC Urine WBC Ur Epithelial Cells Amorphous Sediment Urine Bacteria Hyaline Casts Urine Other Fingerstick Blood Sugar Results: 191 Review of Systems - Review of Systems Review of Systems: see HPI - Constitutional Constitutional: absent: Fever, Weakness - EENT Eyes: UNREMARKABLE Ears: UNREMARKABLE Nose/Mouth/Throat: UNREMARKABLE - Breasts Breasts: UNREMARKABLE - Cardiovascular Cardiovascular: UNREMARKABLE - Respiratory Respiratory: UNREMARKABLE - Gastrointestinal Gastrointestinal: UNREMARKABLE. absent: Abdominal Pain - Genitourinary Genitourinary: UNREMARKABLE Critical Care Progress Note - Ventilator Checklist Head of Bed 30 Degrees: Yes Daily Sedation Vacation: No - Nutrition Nutrition: Nutrition Category Date Time Status Liquid Diet [DIET] Diets 09/01/16 Lunch Ordered NPO Diet [DIET] Diets 08/31/16 Dinner Ordered Assessment/Plan - Assessment and Plan (Free Text) Assessment: 86 F w PMH of colon CA, Breast CA, HTN Acute respiratory failure 2/ penumonia v pneumonitis: extubated Neuro: AAOx3 -off sadation CV: Echo: EF 50% , Trop neg x3 -Keep MAP 65+ -NS 75 Puml: Keep saO2 90% + -Extubated -NC O2 -Hydrocortisone GI: PTX -CLD -Swallow eval Renal: Urine output 0.5L (+1L fluid balance) -Keep euvolemia ID: CAP v UTI Urine cx gram neg johnnie , UA + -Rocephin DVT ppx: LVX Dispo: Watch and possible Transfer to floor today or tomorrow DW ICU attending <Osiris Espitia MD H - Last Filed: 09/01/16 15:15> CCU Objective - Vital Signs / Intake & Output Vital Signs (Last 4 hours): Vital Signs Temp Pulse Resp BP Pulse Ox 09/01/16 13:45 157 H 151/63 H 09/01/16 12:00 99.3 F 108 H 26 H 143/61 94 L Intake and Output (Last 8hrs): Intake & Output 09/01/16 09/01/16 09/01/16 06:59 14:59 22:59 Intake Total 1510 Output Total 500 Balance 1010 Weight 160 lb 14.4 oz Intake: IV 1510 Left Antecubital 1400 Right Hand 110 Output: Urine 500 Urethral ([place]) 500 Other: Voiding Method Indwelling Catheter # Bowel Movements 1 - Medications Active Medications: Active Medications Generic Name Dose Route Start Last Admin Trade Name Freq PRN Reason Stop Dose Admin Enoxaparin Sodium 40 mg 08/31/16 13:15 09/01/16 09:57 Lovenox SC 40 mg DAILY MEGAN Administration Protocol Hydrocortisone Sodium Succinate 50 mg 09/01/16 08:45 09/01/16 14:06 Solu-Cortef IVP 50 mg Q8 MEGAN Administration Sodium Chloride 1,000 mls @ 50 mls/hr 09/01/16 08:24 09/01/16 08:30 Sodium Chloride 0.9% IV 50 mls/hr .Q20H MEGAN Administration Meropenem 1 gm/ Sodium 100 mls @ 100 mls/hr 09/01/16 15:15 Chloride IVPB 09/08/16 15:16 Q8 MEGAN Protocol Pantoprazole Sodium 40 mg 08/31/16 13:15 09/01/16 09:59 Protonix Inj IVP 40 mg DAILY MEGAN Administration - Patient Studies Lab Studies: Microbiology Studies 08/31/16 23:45 Gram Stain - Final Trachasp 08/31/16 12:30 Urine Culture - Preliminary Urine Gram Negative Johnnie Lab Studies 09/01/16 09/01/16 09/01/16 Range/Units 05:15 04:10 03:05 WBC 8.0 (4.5-11.0) 10^3/ul RBC 2.81 L (3.5-6.1) 10^6/uL Hgb 8.8 L (12.0-16.0) gm/dL Hct 28.0 L (36.0-48.0) % MCV 99.6 (80.0-105.0) fL MCH 31.3 (25.0-35.0) pg MCHC 31.4 (31.0-37.0) g/dl RDW 29.6 H (11.5-14.5) % Plt Count 224 (120.0-450.0) 10^3/uL Neutrophils % (Manual) 88 H (50.0-70.0) % Band Neutrophils % 9 H (0-2) % Lymphocytes % (Manual) 2 L (22.0-35.0) % Monocytes % (Manual) 1 (1.0-6.0) % Platelet Evaluation Normal (NORMAL) Giant Platelets Present Polychromasia 1+ Hypochromasia 2+ Anisocytosis (manual) 2+ Macrocytosis (manual) 1+ Helmet Cells Slight pCO2 41 (35-45) mm/Hg pO2 113.0 H (80-100) mm/Hg HCO3 31.2 H (21-28) mmol/L ABG pH 7.49 H (7.35-7.45) ABG Total CO2 32.5 H (22-28) mmol.L ABG O2 Saturation 97.0 (95-98) % ABG O2 Content 12.0 L (15-23) ML/dl ABG Base Excess 7.2 H (-2.0-3.0) mmol/L ABG Hemoglobin 8.8 L (11.7-17.4) g/dL ABG Carboxyhemoglobin 0.9 (0.5-1.5) % POC ABG HHb (Measured) 2.9 (0-5) % ABG Methemoglobin 0.8 (0.0-3.0) % ABG O2 Capacity 12.4 L (16-24) mL/dl Hgb O2 Saturation 95.3 (95.0-98.0) % FiO2 40.0 % Sodium 142 (132-148) mmol/L Potassium 3.3 L (3.6-5.0) mmol/L Chloride 103 (98-107) mmol/L Carbon Dioxide 30 (21-33) mmol/L Anion Gap 12 (10-20) BUN 24 H (7-21) mg/dL Creatinine 0.6 (0.5-1.4) mg/dL Est GFR ( Amer) > 60 Est GFR (Non-Af Amer) > 60 Random Glucose 120 H (70-110) mg/dL Calcium 8.1 L (8.4-10.5) mg/dL Troponin I 0.05 ng/mL Procalcitonin (0.19-0.49) NG/ML 08/31/16 08/31/16 Range/Units 18:44 16:00 WBC (4.5-11.0) 10^3/ul RBC (3.5-6.1) 10^6/uL Hgb (12.0-16.0) gm/dL Hct (36.0-48.0) % MCV (80.0-105.0) fL MCH (25.0-35.0) pg MCHC (31.0-37.0) g/dl RDW (11.5-14.5) % Plt Count (120.0-450.0) 10^3/uL Neutrophils % (Manual) (50.0-70.0) % Band Neutrophils % (0-2) % Lymphocytes % (Manual) (22.0-35.0) % Monocytes % (Manual) (1.0-6.0) % Platelet Evaluation (NORMAL) Giant Platelets Polychromasia Hypochromasia Anisocytosis (manual) Macrocytosis (manual) Helmet Cells pCO2 (35-45) mm/Hg pO2 (80-100) mm/Hg HCO3 (21-28) mmol/L ABG pH (7.35-7.45) ABG Total CO2 (22-28) mmol.L ABG O2 Saturation (95-98) % ABG O2 Content (15-23) ML/dl ABG Base Excess (-2.0-3.0) mmol/L ABG Hemoglobin (11.7-17.4) g/dL ABG Carboxyhemoglobin (0.5-1.5) % POC ABG HHb (Measured) (0-5) % ABG Methemoglobin (0.0-3.0) % ABG O2 Capacity (16-24) mL/dl Hgb O2 Saturation (95.0-98.0) % FiO2 % Sodium 140 (132-148) mmol/L Potassium 3.4 L (3.6-5.0) mmol/L Chloride 101 (98-107) mmol/L Carbon Dioxide 33 (21-33) mmol/L Anion Gap 9 L (10-20) BUN 21 (7-21) mg/dL Creatinine 0.5 (0.5-1.4) mg/dL Est GFR ( Amer) > 60 Est GFR (Non-Af Amer) > 60 Random Glucose 111 H (70-110) mg/dL Calcium 8.2 L (8.4-10.5) mg/dL Troponin I 0.05 D ng/mL Procalcitonin 0.05 L (0.19-0.49) NG/ML Laboratory Results - last 24 hr 08/31/16 08/31/16 09/01/16 16:00 18:44 03:05 WBC RBC Hgb Hct MCV MCH MCHC RDW Plt Count Neutrophils % (Manual) Band Neutrophils % Lymphocytes % (Manual) Monocytes % (Manual) Platelet Evaluation Giant Platelets Polychromasia Hypochromasia Anisocytosis (manual) Macrocytosis (manual) Helmet Cells pCO2 pO2 HCO3 ABG pH ABG Total CO2 ABG O2 Saturation ABG O2 Content ABG Base Excess ABG Hemoglobin ABG Carboxyhemoglobin POC ABG HHb (Measured) ABG Methemoglobin ABG O2 Capacity Hgb O2 Saturation FiO2 Sodium 140 Potassium 3.4 L Chloride 101 Carbon Dioxide 33 Anion Gap 9 L BUN 21 Creatinine 0.5 Est GFR ( Amer) > 60 Est GFR (Non-Af Amer) > 60 Random Glucose 111 H Calcium 8.2 L Troponin I 0.05 D 0.05 Procalcitonin 0.05 L 09/01/16 09/01/16 04:10 05:15 WBC 8.0 RBC 2.81 L Hgb 8.8 L Hct 28.0 L MCV 99.6 MCH 31.3 MCHC 31.4 RDW 29.6 H Plt Count 224 Neutrophils % (Manual) 88 H Band Neutrophils % 9 H Lymphocytes % (Manual) 2 L Monocytes % (Manual) 1 Platelet Evaluation Normal Giant Platelets Present Polychromasia 1+ Hypochromasia 2+ Anisocytosis (manual) 2+ Macrocytosis (manual) 1+ Helmet Cells Slight pCO2 41 pO2 113.0 H HCO3 31.2 H ABG pH 7.49 H ABG Total CO2 32.5 H ABG O2 Saturation 97.0 ABG O2 Content 12.0 L ABG Base Excess 7.2 H ABG Hemoglobin 8.8 L ABG Carboxyhemoglobin 0.9 POC ABG HHb (Measured) 2.9 ABG Methemoglobin 0.8 ABG O2 Capacity 12.4 L Hgb O2 Saturation 95.3 FiO2 40.0 Sodium 142 Potassium 3.3 L Chloride 103 Carbon Dioxide 30 Anion Gap 12 BUN 24 H Creatinine 0.6 Est GFR ( Amer) > 60 Est GFR (Non-Af Amer) > 60 Random Glucose 120 H Calcium 8.1 L Troponin I Procalcitonin EKG/Cardiology Studies: Cardiology / EKG Studies 09/01/16 13:13 EKG [ELECTROCARDIOGRAM] Routine Comment: Reason For Exam: tachycardia PRE OP:: N Critical Care Progress Note - Nutrition Nutrition: Nutrition Category Date Time Status Liquid Diet [DIET] Diets 09/01/16 Lunch Ordered Attending/Attestation - Attestation I have personally seen and examined this patient.: Yes I have fully participated in the care of the patient.: Yes I have reviewed all pertinent clinical information: Yes Notes (Text): 09/01/16 15:13 Pt seen intubated this a.m ABG reviewed from prior shows elevated PCO2 without cause. Possibly secondary to Xanax and hypoventilation? Pt does not have any history of SOB, asthma or COPD. CXR reviewed does show some increased vascular markings without consolidations Hx of colon and Breast CA without current treatment. Extubated this a.m after SBT trial passed . Awake alert, speaking without distress. Oncology following patient . dvt P Heparin sq tid. cc time 55 min
[2016-09-01] MEDS ORDERED: cefTRIAXone 1 gm 100 ML IVPB SCH (11:15)
[2016-09-01] MEDS ORDERED: Amiodarone 360 mg/D5W 200 ml 200 ML IV SCH (13:45)
[2016-09-01] MEDS ORDERED: Albuterol-Ipratrop 3 mg / 0.5 (3 ml) UD IH SCH (14:00)
--- NOTE | 2016-09-01 15:04 | CP.PCM.CON ---
History of Present Illness - History of Present Illness History of Present Illness: 86 year old female with PMH of HTN, colon cancer stage 3 S/P colon resection and colostomy was brought in by EMS to [facility] because of lethargy, and the patient eventually became poorly responsive. There was no note of convulsions, no vomiting, no diarrhea, no fevers. The patient is now intubated and on the ventilator. Infectious Diseases consult is requested to further evaluate for the possibility of sepsis in this patient. Full review of systems in unobtainable because of the patient's mental status and being on the ventilator. Review of Systems - Review of Systems Systems not reviewed;Unavailable: Intubated Past Patient History - Infectious Disease Hx of Infectious Diseases: None - Tetanus Immunizations Tetanus Immunization: Unknown - Past Medical History & Family History Past Medical History?: Yes Past Family History: Reviewed and not pertinent - Past Social History Smoking Status: Never Smoked Alcohol: None Drugs: Denies - CARDIAC Hx Hypertension: Yes - PULMONARY Hx Respiratory Disorders: No - NEUROLOGICAL Hx Neurological Disorder: No - HEENT Hx HEENT Problems: No - RENAL Hx Chronic Kidney Disease: No - ENDOCRINE/METABOLIC Hx Endocrine Disorders: No - HEMATOLOGICAL/ONCOLOGICAL Hx Anemia: Yes Hx Cancer: Yes (cecal mass) - INTEGUMENTARY Hx Dermatological Problems: No - MUSCULOSKELETAL/RHEUMATOLOGICAL Hx Musculoskeletal Disorders: No - GASTROINTESTINAL Hx Colostomy: Yes (colon resection, cecal mass) - GENITOURINARY/GYNECOLOGICAL Hx Incontinence: Yes (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) Other/Comment: stage III colon ca - PSYCHIATRIC Hx Psychophysiologic Disorder: No Hx Substance Use: No - SURGICAL HISTORY Other/Comment: colon resection/colostomy - ANESTHESIA Hx Anesthesia Reactions: No Hx Malignant Hyperthermia: No Meds Allergies/Adverse Reactions: Allergies Allergy/AdvReac Type Severity Reaction Status Date / Time No Known Allergies Allergy Verified 08/31/15 11:40 - Medications Medications: Current Medications Enoxaparin Sodium (Lovenox) 40 mg SC DAILY [facility] PRN Reason: Protocol Last Admin: 08/31/16 15:21 Dose: 40 mg Vancomycin HCl (Vancomycin 1gm) 250 mls @ 167 mls/hr IVPB Q12H [facility] PRN Reason: Protocol Piperacillin Sod/Tazobactam Sod (Zosyn 3.375 In Ns 100ml) 100 mls @ 200 mls/hr IV Q6H [facility] PRN Reason: Protocol Doxycycline Hyclate 100 mg/ (Sodium Chloride) 100 mls @ 100 mls/hr IVPB Q12 [facility] PRN Reason: Protocol Last Admin: 08/31/16 15:18 Dose: 100 mls/hr Propofol (Diprivan) 100 mls @ 2.041 mls/hr IV .Q24H PRN; Protocol; 5 MCG/KG/MIN PRN Reason: TITRATE PER MD ORDER Last Admin: 08/31/16 12:10 Dose: 2.041 mls/hr Methylprednisolone (Solu-Medrol) 20 mg IVP Q12 [facility] Last Admin: 08/31/16 14:00 Dose: 20 mg Pantoprazole Sodium (Protonix Inj) 40 mg IVP DAILY [facility] Last Admin: 08/31/16 13:58 Dose: 40 mg Physical Exam - Constitutional Appears: Other (Intubated and sedated) - Neck Exam Neck exam: Negative for: Lymphadenopathy, Meningismus - Respiratory Exam Respiratory Exam: Decreased Breath Sounds, Rales (scattered) - Cardiovascular Exam Cardiovascular Exam: +S1, +S2 - GI/Abdominal Exam GI & Abdominal Exam: Soft. absent: Tenderness Results - Vital Signs Recent Vital Signs: Last Vital Signs Temp 96.5 F L 08/31/16 11:00 Pulse 72 08/31/16 13:58 Resp 18 08/31/16 13:58 BP 125/74 08/31/16 13:58 Pulse Ox 99 08/31/16 13:58 - Labs Result Diagrams: 09/01/16 04:10 09/01/16 04:10 Labs: Laboratory Results - last 24 hr 08/31/16 08/31/16 12:30 13:30 pCO2 60 H pO2 99.0 HCO3 33.9 H ABG pH 7.36 ABG Total CO2 35.7 H ABG O2 Saturation 96.9 ABG Base Excess 6.5 H ABG Potassium 3.6 Sodium 142.0 Chloride 110.0 H Glucose 109 H Lactate 0.7 Mechanical Rate 16 FiO2 40.0 Tidal Volume 400 PEEP 5 Arterial Blood Potassium 3.6 Urine Color Yellow Urine Appearance Clear Urine pH 7.0 Ur Specific [place] 1.025 Urine Protein 100 H Urine Glucose (UA) Negative Urine Ketones Negative Urine Blood Trace-intact H Urine Nitrate Positive H Urine Bilirubin Negative Urine Urobilinogen 1.0 H Ur Leukocyte Esterase Negative Urine RBC 2 - 5 Urine WBC 0 - 2 Ur Epithelial Cells 4 - 5 Amorphous Sediment Few Urine Bacteria Many Hyaline Casts 0 - 2 Urine Other [place] Assessment & Plan - Assessment and Plan (Free Text) Plan: Assessment Consider severe sepsis with acute metabolic encephalopathy and ventilator- dependent respiratory failure, consider secondary to upper urinary tract infection R/O pneumonia HTN colon cancer stage 3 S/P colon resection and colostomy Plan Started the patient on Vancomycin, Doxycycline and will change Zosyn to Meropenem pending blood, urine cx; PCT is noted; CXR is reviewed Will monitor clinically
[2016-09-01] MEDS ORDERED: Potassium Chl 10 mEq in D5-1/2 1,000 ML IV SCH (15:45)
[2016-09-01] MEDS: Meropenem 1 GM in Sodium Chloride 0.9% 100 ML IVPB SCH ×2 (15:56→22:24)
[2016-09-01] MEDS: diltiaZEM IVPB 100mg in NS 100 ML IV PRN (20:42)
--- NOTE | 2016-09-02 00:03 | PN ---
DATE: 09/01/2016 The patient is in the CCU, bed 2. SUBJECTIVE: This is an 86-year-old female with past medical history of hypertension, colon CA, nonme tastatic breast CA, status post colon resection and diverting colostomy, which was never reversed bec ause of the patient's comorbid medical condition, was brought to the ER of [facility] bec ause of lethargy. In the Emergency Room, the patient became poorly responsive, noted to have respira tory acidosis and chest x-ray scan suggestive of either cardiovascular related central venous congest ion versus increasing infiltrates related to either an infection which could be community-acquired or progressive metastatic cancer even though that appeared to be less likely. Infectious disease consu ltation was obtained while the patient was started on antibiotics. This morning, the patient was ext ubated successfully. She is awake and alert and responsive. The patient is examined in bed. She is oriented to time, place and person. Denies any history of fevers, chills, nausea, vomiting, diarrhe a, chest pain, shortness of breath, headache or dizziness. OBJECTIVE: VITAL SIGNS: Reveal a pulse of 97, blood pressure 118/57, pulse ox is 97% on room air. HEENT: Head is normocephalic, atraumatic. Pupils are equally reactive to light and accommodation. Extraocular muscles are within normal limits. Conjunctivae pale. Sclerae are anicteric. LUNGS: Reveals good air exchange with crackles in the right lung posteriorly at the base. The patie nt is not in any respiratory distress. CARDIOVASCULAR: Reveals S1 and S2 to be normal. No gallop or murmur is heard. ABDOMEN: Soft. The patient has a colostomy in left lower quadrant. There is no evidence of tendern ess or hepatomegaly, but there is no rebound, rigidity or guarding noted. EXTREMITIES: Reveals normal pulses. Negative for edema. Lower extremity also is negative for any s ignificant edema, cyanosis, . NEUROLOGIC: The patient is awake, alert, and oriented x 3. Normal insight and normal concentration. MEDICATIONS: The patient's medications were reviewed. She is on Lovenox 40 mg subQ daily, Solu-Joseph ef 40 mg IV q. 8 hours, vancomycin 1 gram IV q. 12 hours. She is on Zosyn 3.375 mg IV q. 6 hours, do xycycline 100 mg IV q. 12 hours. She is on IV fluids at 50 mL an hour, pantoprazole 40 mg IV daily. LABORATORY DATA: From today were reviewed. White count is 8; hemoglobin 8.8; hematocrit 28; platele t count is 224,000. Chemistries reveal a sodium of 142, K is 3.3, chloride 103, CO2 of 30, BUN of 24 , creatinine 0.6. ASSESSMENT NOTES AND PLAN: The patient is clinically better since yesterday after being extubated. The etiology of the respiratory failure is unclear, especially with respiratory acidosis, whether inf ection related or it was over medication of tranquilizes unclear. The patient does have a history of anxiety disorder, is on Xanax, whether by mistake she took more than necessary is unclear. The silvia ent is off sedation. Echo revealed an ejection fraction of 50%. Troponin x 3 is negative. The silvia ent is on GI prophylaxis. has been requested. Renal output is good. The patient has been kep t euvolemic. She is on DVT prophylaxis. If the patient continues to do better, we will transfer her out to the regular med/surg floor and manage things accordingly. If the H and H starts drifting sagar n, the patient will require transfusion prior to discharge. We will discuss with the ICU/CCU residen t in a.m. depending on the labs. We will speak to the family as well. Shanta Lomas MD cc: [id number] TT: 09/02/2016 00:03:38 Confirmation # [id number] Dictation # [id number] mn
[2016-09-02 05:39] LABS: BASO # 0.01 K/mm3 (0.0-2.0); BASO % 0.1 % (0.0-3.0); EOS # 0.3 (0.0-0.7); EOS % 3.7 % (1.5-5.0); GRAN # 6.97 (1.4-6.5); GRAN % 84.2 % (50.0-68.0); HEMATOCRIT 31.3 % (36.0-48.0); LYMPH # 0.4 (1.2-3.4); LYMPH % 5.2 % (22.0-35.0); MEAN CELL VOLUME 102.3 fL (80.0-105.0); MEAN CORPUSCULAR HEMOGLOBIN 31.7 pg (25.0-35.0); MONO # 0.6 (0.1-0.6); MONO % 6.8 % (1.0-6.0); PLATELET COUNT 203 10^3/uL (120.0-450.0); RED CELL DISTRIBUTION WIDTH 30.3 % (11.5-14.5); WHITE BLOOD COUNT 8.3 10^3/ul (4.5-11.0)
[2016-09-02] MEDS: Meropenem 1 GM in Sodium Chloride 0.9% 100 ML IVPB SCH (05:46)
[2016-09-02 05:51] LABS: ARTERIAL BLOOD GAS HCO3 30.6 mmol/L (21-28); ARTERIAL BLOOD GAS O2 CAPACITY 12.8 mL/dl (16-24); ARTERIAL BLOOD GAS O2 CONTENT 12.3 ML/dl (15-23); ARTERIAL BLOOD GAS PH 7.33 (7.35-7.45); CARBOXYHEMOGLOBIN 1.1 % (0.5-1.5); HHB 3.6 % (0-5); METHEMOGLOBIN 0.3 % (0.0-3.0)
[2016-09-02] MEDS: diltiaZEM IVPB 100mg in NS 100 ML IV PRN (05:58)
[2016-09-02 06:06] LABS: BLOOD UREA NITROGEN 37 mg/dL (7-21); CALCIUM 8.3 mg/dL (8.4-10.5); CARBON DIOXIDE 30 mmol/L (21-33); CHLORIDE 103 mmol/L (98-107); GFR AFRICAN-AMERICAN > 60; GLUCOSE,RANDOM 132 mg/dL (70-110); POTASSIUM 3.5 mmol/L (3.6-5.0); SODIUM 140 mmol/L (132-148)
[2016-09-02 06:48] LABS: ADD MANUAL DIFF? NO
[2016-09-02 08:52] LABS: MAGNESIUM 2.1 mg/dL (1.7-2.2); PHOSPHOROUS 3.7 mg/dL (2.5-4.5)
--- NOTE | 2016-09-02 08:55 | CP.PCM.PN ---
Subjective - Date & Time of Evaluation Date of Evaluation: 09/02/16 Time of Evaluation: 08:00 - Subjective Subjective: Patient is comfortable on a chair, not in distress, no fevers overnight, now extubated and breathing well. Objective - Vital Signs/Intake and Output Vital Signs (last 24 hours): Temp Pulse Resp BP Pulse Ox 98.1 F 107 H 26 H 109/56 L 98 09/02/16 00:00 09/02/16 06:32 09/02/16 06:32 09/02/16 06:00 09/02/16 06:32 Intake and Output: 09/02/16 09/02/16 06:59 18:59 Intake Total 900 Output Total 300 Balance 600 - Medications Medications: Current Medications Aspirin (Aspirin Chewable) 81 mg PO DAILY [facility] Enoxaparin Sodium (Lovenox) 40 mg SC DAILY [facility] PRN Reason: Protocol Last Admin: 09/01/16 09:57 Dose: 40 mg Hydrocortisone Sodium Succinate (Solu-Cortef) 50 mg IVP Q8 [facility] Last Admin: 09/02/16 05:59 Dose: 50 mg Meropenem 1 gm/ Sodium (Chloride) 100 mls @ 100 mls/hr IVPB Q8 [facility] PRN Reason: Protocol Stop: 09/08/16 15:16 Last Admin: 09/02/16 05:46 Dose: 100 mls/hr Potassium Chloride/Dextrose/Sod Cl (Potassium Chl 10 Meq In D5-1/2ns) 1,000 mls @ 50 mls/hr IV .Q20H [facility] Last Admin: 09/01/16 15:56 Dose: 50 mls/hr diltiaZEM IVPB 100mg in NS (Cardizem 100mg In Ns) 100 mls @ 5 mls/hr IV .Q20H PRN; Protocol; 5 MG/HR PRN Reason: TITRATE PER MD ORDER Last Admin: 09/02/16 05:58 Dose: 10 mls/hr Pantoprazole Sodium (Protonix Inj) 40 mg IVP DAILY [facility] Last Admin: 09/01/16 09:59 Dose: 40 mg - Labs Labs: 09/02/16 05:00 09/02/16 05:00 PT 11.5 Seconds (9.9-11.8) 08/31/16 11:02 INR 1.06 (0.93-1.08) 08/31/16 11:02 APTT 27.5 Seconds (23.7-30.8) 08/31/16 11:02 - Constitutional Appears: Non-toxic, No Acute Distress - Head Exam Head Exam: NORMAL INSPECTION - ENT Exam ENT Exam: Mucous Membranes Moist - Neck Exam Neck Exam: absent: Lymphadenopathy, Meningismus - Respiratory Exam Respiratory Exam: Decreased Breath Sounds (with some crackles at the bases) - Cardiovascular Exam Cardiovascular Exam: +S1, +S2 - GI/Abdominal Exam GI & Abdominal Exam: Soft. absent: Tenderness Assessment and Plan - Assessment and Plan (Free Text) Plan: Assessment Consider severe sepsis with acute metabolic encephalopathy now S/P ventilator- dependent respiratory failure, consider secondary to upper urinary tract infection R/O pneumonia; clinically improving HTN colon cancer stage 3 S/P colon resection and colostomy Plan will d/c Vancomycin and continue Doxycycline, Meropenem (day 2); blood cx negative, urine cx showing gram negative bacilli; PCT is noted; CXR is reviewed Will continue to monitor clinically
[2016-09-02] MEDS: Enoxaparin 40 mg Syringe SC SCH (09:43)
--- NOTE | 2016-09-02 09:52 | RAD ---
HISTORY: intubated COMPARISON: 09/01/2016 at 5:21 a.m. FINDINGS: LUNGS: Inferolateral bilateral pleural-parenchymal opacities have slightly increased. Here pleural thickening and pleural effusions are suspect. Elsewhere pulmonary venous congestion and chronic interstitial lung disease is probable. Some minimal pulmonary venous increased congestion is probable PLEURA: Interval increased small bilateral pleural effusions left greater than right CARDIOVASCULAR: Mild cardiomegaly aortic knob and mitral annular calcifications OSSEOUS STRUCTURES: Thoracic spondylosis and high-riding right humeral head -chronic rotator cuff pathology inferred VISUALIZED UPPER ABDOMEN: Normal. OTHER FINDINGS: Prior endotracheal tube and nasogastric tube removed IMPRESSION: Interval increased small bilateral pleural effusions left greater than right. Probable mild increased pulmonary venous congestion -likely superimposed on chronic status with chronic interstitial lung disease
--- NOTE | 2016-09-02 09:55 | CARD ---
APPROVED REPORT EXAM: Two-dimensional and M-mode echocardiogram with Doppler and color Doppler. INDICATION Congestive Heart Failure 2D DIMENSIONS Left Atrium (2D)4.2 (1.6-4.0cm)IVSd1.2 (0.7-1.1cm) LVDd4.7 (3.9-5.9cm)PWd1.1 (0.7-1.1cm) LVDs3.6 (2.5-4.0cm)FS (%) 24.6 % LVEF (%)48.5 (>50%) M-Mode DIMENSIONS Aortic Root2.80 (2.2-3.7cm)Aortic Cusp Exc.0.60 (1.5-2.0cm) Aortic Valve AoV Peak Wvablimd692.0cm/Reina Peak GR.13mmHgLVOT Peak Ihwttesu05.2cm/s LVOT VTI22.50cm Mitral Valve MV E Fqfeudlh46.9cm/sMV A Alrmxpnz771.0cm/sE/A ratio0.9 TDI E/Lateral E'0.0E/Medial E'0.0 Tricuspid Valve TR Peak [id number]/sRAP [id number] Peak Gr.26mmHg [id number] LEFT VENTRICLE The left ventricle is normal size. There is mild to moderate concentric left ventricular hypertrophy. The systolic function is mildly impaired.EF-45-50% There is mild global hypokinesis of the left ventricle. Transmitral Doppler flow pattern is Grade III-reversible restrictive diastolic dysfunction. No left ventricle thrombus noted on this study. There is no ventricular septal defect visualized. There is no left ventricular aneurysm. There is no mass noted in the left ventricle. RIGHT VENTRICLE The right ventricle is mildly to moderately dilated. The right ventricle is mildly hypertrophied. Systolic function is moderately reduced. ATRIA The left atrium is mildly dilated. The right atrium is mildly dilated. The interatrial septum is intact with no evidence for an atrial septal defect. AORTIC VALVE The aortic valve is calcified and displays decreased opening. The aortic valve is moderately sclerotic. There is trace aortic regurgitation. There is moderate valvular aortic stenosis. There is no aortic valvular vegetation. MITRAL VALVE The mitral valve is calcified but opens well. Mitral annular calcification is severe. Mitral regurgitation is moderate. There is no mitral valve stenosis. There is no evidence of mitral valve prolapse. TRICUSPID VALVE The tricuspid valve leaflets are thickened or calcified, but open well. There is mild to moderate tricuspid regurgitation.RVSP-36 mmof hg. There is no tricuspid valve stenosis. There is no tricuspid valve prolapse or vegetation. PULMONIC VALVE The pulmonic valve is not well visualized. GREAT VESSELS The aortic root is normal in size. The ascending aorta is normal in size. The pulmonary artery is normal. The IVC is severely dilated. PERICARDIAL EFFUSION There is no pleural effusion. There is a trace pericardial effusion. <Conclusion> The left ventricle is normal size. There is mild to moderate concentric left ventricular hypertrophy. The systolic function is mildly impaired.EF-45-50% There is trace aortic regurgitation. There is moderate valvular aortic stenosis. Mitral regurgitation is moderate. There is mild to moderate tricuspid regurgitation.RVSP-36 mmof hg. The IVC is severely dilated. There is a trace pericardial effusion. No Vegetation or thrombus noted.
[2016-09-02] MEDS ORDERED: MethylPREDNISolone 40 mg Vial IVP SCH (10:00)
--- NOTE | 2016-09-02 10:09 | CP.CCUPN ---
<Ariana Fletcher - Last Filed: 09/02/16 10:01> CCU Subjective - Physician Review Events Since Last Encounter (Free Text): 09/02/16 10:01 Patient seen and examined bedside. No acute events overnight. Tolerating HHD, comfortable on NC. Denies CP, SOB, abd pain, n/v, fevers, chills. Critical Care Time Spent (in minutes): 30 CCU Objective - Vital Signs / Intake & Output Vital Signs (Last 4 hours): Vital Signs Temp Pulse Resp BP Pulse Ox 09/02/16 09:43 125 H 107/43 L 09/02/16 08:00 98.2 F 116 H 36 H 119/53 L 93 L 09/02/16 06:32 107 H 26 H 98 Intake and Output (Last 8hrs): Intake & Output 09/01/16 09/02/16 09/02/16 22:59 06:59 14:59 Intake Total 1380 900 Output Total 400 300 Balance 980 600 Weight 156 lb 9 oz Intake: IV 1200 800 Right Antecubital 550 Left Antecubital 650 200 Left Forearm 600 Oral 180 100 Output: Urine 400 300 Urethral (Victoria) 400 300 Other: Voiding Method Indwelling Catheter Indwelling Catheter # Bowel Movements 2 - Physical Exam Head: Positive for: Atraumatic, Normocephalic Pupils: Positive for: PERRL Extroacular Muscles: Positive for: EOMI Conjunctiva: Positive for: Normal Mouth: Positive for: Moist Mucous Membranes Pharnyx: Positive for: Normal Respiratory/Chest: Positive for: Good Air Exchange. Negative for: Respiratory Distress, Accessory Muscle Use Cardiovascular: Positive for: Regular Rate and Rhythm, Normal S1, S2. Negative for: Murmurs Abdomen: Positive for: Ostomy Tubes. Negative for: Tenderness, Distention, Peritoneal Signs, Rebound Upper Extremity: Positive for: NORMAL PULSES. Negative for: Edema Lower Extremity: Positive for: Edema, NORMAL PULSES Neurological: Positive for: Other (responds to painful stimuli) Skin: Positive for: Warm Psychiatric: Positive for: Alert, Oriented x 3, Normal Insight, Normal Concentration - Medications Active Medications: Active Medications Generic Name Dose Route Start Last Admin Trade Name Freq PRN Reason Stop Dose Admin Aspirin 81 mg 09/02/16 10:00 09/02/16 09:43 Aspirin Chewable PO 81 mg DAILY MEGAN Administration Diltiazem HCl 60 mg 09/02/16 10:00 09/02/16 09:43 Cardizem PO 60 mg QID MEGAN Administration Enoxaparin Sodium 40 mg 08/31/16 13:15 09/02/16 09:43 Lovenox SC 40 mg DAILY MEGAN Administration Protocol Potassium Chloride/Dextrose/Sod Cl 1,000 mls @ 50 mls/hr 09/01/16 15:45 15:56 Potassium Chl 10 Meq In D5-1/2ns IV 50 mls/hr .Q20H MEGAN Administration diltiaZEM IVPB 100mg in NS 100 mls @ 5 mls/hr 09/01/16 19:59 09/02/16 05:58 Cardizem 100mg In Ns IV 10 mls/hr .Q20H PRN Administration TITRATE PER MD ORDER Protocol 5 MG/HR Meropenem 1g/NS 100mL IVPB 100 mls @ 100 mls/hr 09/02/16 14:00 Meropenem 1g/Ns 100ml Ivpb IVPB 09/08/16 15:16 Q8 MEGAN Pantoprazole Sodium 40 mg 08/31/16 13:15 09/02/16 09:43 Protonix Inj IVP 40 mg DAILY MEGAN Administration - Patient Studies Lab Studies: Microbiology Studies 08/31/16 14:10 MRSA Culture (Admit) - Final Naris MRSA NOT DETECTED 08/31/16 23:45 Gram Stain - Final Trachasp 08/31/16 12:30 Urine Culture - Preliminary Urine Gram Negative Johnnie Lab Studies 09/02/16 09/02/16 09/02/16 Range/Units 06:30 05:20 05:00 WBC 8.3 (4.5-11.0) 10^3/ul RBC 3.06 L (3.5-6.1) 10^6/uL Hgb 9.7 L (12.0-16.0) gm/dL Hct 31.3 L (36.0-48.0) % MCV 102.3 (80.0-105.0) fL MCH 31.7 (25.0-35.0) pg MCHC 31.0 (31.0-37.0) g/dl RDW 30.3 H (11.5-14.5) % Plt Count 203 (120.0-450.0) 10^3/uL Gran % 84.2 H (50.0-68.0) % Lymph % (Auto) 5.2 L (22.0-35.0) % Bladen % (Auto) 6.8 H (1.0-6.0) % Eos % (Auto) 3.7 (1.5-5.0) % Baso % (Auto) 0.1 (0.0-3.0) % Gran # 6.97 H (1.4-6.5) Lymph # 0.4 L (1.2-3.4) Bladen # 0.6 (0.1-0.6) Eos # 0.3 (0.0-0.7) Baso # 0.01 (0.0-2.0) K/mm3 pCO2 58 H (35-45) mm/Hg pO2 83.0 (80-100) mm/Hg HCO3 30.6 H (21-28) mmol/L ABG pH 7.33 L (7.35-7.45) ABG Total CO2 32.4 H (22-28) mmol.L ABG O2 Saturation 96.3 (95-98) % ABG O2 Content 12.3 L (15-23) ML/dl ABG Base Excess 3.8 H (-2.0-3.0) mmol/L ABG Hemoglobin 9.1 L (11.7-17.4) g/dL ABG Carboxyhemoglobin 1.1 (0.5-1.5) % POC ABG HHb (Measured) 3.6 (0-5) % ABG Methemoglobin 0.3 (0.0-3.0) % ABG O2 Capacity 12.8 L (16-24) mL/dl Hgb O2 Saturation 95.0 (95.0-98.0) % FiO2 32.0 % Sodium 140 (132-148) mmol/L Potassium 3.5 L (3.6-5.0) mmol/L Chloride 103 (98-107) mmol/L Carbon Dioxide 30 (21-33) mmol/L Anion Gap 11 (10-20) BUN 37 H (7-21) mg/dL Creatinine 0.7 (0.5-1.4) mg/dL Est GFR ( Amer) > 60 Est GFR (Non-Af Amer) > 60 Random Glucose 132 H (70-110) mg/dL Calcium 8.3 L (8.4-10.5) mg/dL Phosphorus 3.7 (2.5-4.5) mg/dL Magnesium 2.1 (1.7-2.2) mg/dL Procalcitonin (0.19-0.49) NG/ML 08/31/16 Range/Units 16:00 WBC (4.5-11.0) 10^3/ul RBC (3.5-6.1) 10^6/uL Hgb (12.0-16.0) gm/dL Hct (36.0-48.0) % MCV (80.0-105.0) fL MCH (25.0-35.0) pg MCHC (31.0-37.0) g/dl RDW (11.5-14.5) % Plt Count (120.0-450.0) 10^3/uL Gran % (50.0-68.0) % Lymph % (Auto) (22.0-35.0) % Bladen % (Auto) (1.0-6.0) % Eos % (Auto) (1.5-5.0) % Baso % (Auto) (0.0-3.0) % Gran # (1.4-6.5) Lymph # (1.2-3.4) Bladen # (0.1-0.6) Eos # (0.0-0.7) Baso # (0.0-2.0) K/mm3 pCO2 (35-45) mm/Hg pO2 (80-100) mm/Hg HCO3 (21-28) mmol/L ABG pH (7.35-7.45) ABG Total CO2 (22-28) mmol.L ABG O2 Saturation (95-98) % ABG O2 Content (15-23) ML/dl ABG Base Excess (-2.0-3.0) mmol/L ABG Hemoglobin (11.7-17.4) g/dL ABG Carboxyhemoglobin (0.5-1.5) % POC ABG HHb (Measured) (0-5) % ABG Methemoglobin (0.0-3.0) % ABG O2 Capacity (16-24) mL/dl Hgb O2 Saturation (95.0-98.0) % FiO2 % Sodium (132-148) mmol/L Potassium (3.6-5.0) mmol/L Chloride (98-107) mmol/L Carbon Dioxide (21-33) mmol/L Anion Gap (10-20) BUN (7-21) mg/dL Creatinine (0.5-1.4) mg/dL Est GFR ( Amer) Est GFR (Non-Af Amer) Random Glucose (70-110) mg/dL Calcium (8.4-10.5) mg/dL Phosphorus (2.5-4.5) mg/dL Magnesium (1.7-2.2) mg/dL Procalcitonin 0.05 L (0.19-0.49) NG/ML Laboratory Results - last 24 hr 08/31/16 09/02/16 09/02/16 16:00 05:00 05:20 WBC 8.3 RBC 3.06 L Hgb 9.7 L Hct 31.3 L MCV 102.3 MCH 31.7 MCHC 31.0 RDW 30.3 H Plt Count 203 Gran % 84.2 H Lymph % (Auto) 5.2 L Bladen % (Auto) 6.8 H Eos % (Auto) 3.7 Baso % (Auto) 0.1 Gran # 6.97 H Lymph # 0.4 L Bladen # 0.6 Eos # 0.3 Baso # 0.01 pCO2 58 H pO2 83.0 HCO3 30.6 H ABG pH 7.33 L ABG Total CO2 32.4 H ABG O2 Saturation 96.3 ABG O2 Content 12.3 L ABG Base Excess 3.8 H ABG Hemoglobin 9.1 L ABG Carboxyhemoglobin 1.1 POC ABG HHb (Measured) 3.6 ABG Methemoglobin 0.3 ABG O2 Capacity 12.8 L Hgb O2 Saturation 95.0 FiO2 32.0 Sodium 140 Potassium 3.5 L Chloride 103 Carbon Dioxide 30 Anion Gap 11 BUN 37 H Creatinine 0.7 Est GFR ( Amer) > 60 Est GFR (Non-Af Amer) > 60 Random Glucose 132 H Calcium 8.3 L Phosphorus Magnesium Procalcitonin 0.05 L 09/02/16 06:30 WBC RBC Hgb Hct MCV MCH MCHC RDW Plt Count Gran % Lymph % (Auto) Bladen % (Auto) Eos % (Auto) Baso % (Auto) Gran # Lymph # Bladen # Eos # Baso # pCO2 pO2 HCO3 ABG pH ABG Total CO2 ABG O2 Saturation ABG O2 Content ABG Base Excess ABG Hemoglobin ABG Carboxyhemoglobin POC ABG HHb (Measured) ABG Methemoglobin ABG O2 Capacity Hgb O2 Saturation FiO2 Sodium Potassium Chloride Carbon Dioxide Anion Gap BUN Creatinine Est GFR ( Amer) Est GFR (Non-Af Amer) Random Glucose Calcium Phosphorus 3.7 Magnesium 2.1 Procalcitonin EKG/Cardiology Studies: Cardiology / EKG Studies 09/01/16 13:13 EKG [ELECTROCARDIOGRAM] Routine Comment: Reason For Exam: tachycardia PRE OP:: N Fingerstick Blood Sugar Results: 191 Review of Systems - Constitutional Constitutional: absent: Fever, Chills - EENT Eyes: absent: Change in Vision, Diplopia Ears: absent: Dizziness - Cardiovascular Cardiovascular: absent: Chest Pain, Dyspnea - Respiratory Respiratory: absent: Cough, Dyspnea, Pain on Inspiration - Gastrointestinal Gastrointestinal: absent: Abdominal Pain, Diarrhea, Nausea, Vomiting - Genitourinary Genitourinary: absent: Flank Pain - Reproductive: Female Reproductive:Female: Post Menopausal - Menstruation Menstruation: Post Menopausal Critical Care Progress Note - Ventilator Checklist PUD Prophalyxis: Yes DVT Prophylaxis: Yes - Prophylaxis GI Prophylaxis GI: PPI - Prophylaxis DVT Prophylaxis DVT: Lovenox - Nutrition Nutrition: Nutrition Category Date Time Status Heart Healthy Diet [DIET] Diets 09/02/16 Breakfast Ordered Assessment/Plan - Assessment and Plan (Free Text) Assessment: 86 yo F w h/o breast and colon CA admitted to ICU s/p acute respiratory acidosis requiring intubation now s/p extubation Plan: Neuro: AAOx3, NAD Maintain normothermia CV: A fib RVR. Cardio following. Start PO cardizem 60mg QID. Wean Cardizem drip Maintain MAP>65 Pulm: Acute respiratory acidosis resolved. s/p extubation yesterday. Patient doing well on NC. Solumedrol 20mg Q12hr. Will need to be tapered over ~3 weeks Maintain spo2>90 Renal: Hypokalemia replaced. Monitor with AM labs. GI/: DC Victoria GI ppx Endo: Maintain euglycemia 140-180 ID: Meropenem for CAP and UTI Blood cultures negative at 24 hours. Continue to follow Urine cultures significant for Proteus Mirabilis Heme: No acute issues. Hb stable. No signs of bleeding DVT/GI ppx: SQL, Protonix, HHD Dispo: Transfer to telemetry - Date & Time Date: 09/02/16 Time: 10:11 <Marty Roberson - Last Filed: 09/02/16 13:41> CCU Objective - Vital Signs / Intake & Output Vital Signs (Last 4 hours): Vital Signs Temp Pulse Resp BP Pulse Ox 09/02/16 12:00 97.9 F 136 H 26 H 96 09/02/16 09:43 125 H 107/43 L Intake and Output (Last 8hrs): Intake & Output 09/01/16 09/02/16 09/02/16 22:59 06:59 14:59 Intake Total 1380 900 Output Total 400 300 Balance 980 600 Weight 156 lb 9 oz 156 lb 9 oz Intake: IV 1200 800 Right Antecubital 550 Left Antecubital 650 200 Left Forearm 600 Oral 180 100 Output: Urine 400 300 Urethral (Victor[place]) 400 300 Other: Voiding Method Indwelling Catheter Indwelling Catheter # Bowel Movements 2 - Medications Active Medications: Active Medications Generic Name Dose Route Start Last Admin Trade Name Freq PRN Reason Stop Dose Admin Aspirin 81 mg 09/02/16 10:00 09/02/16 09:43 Aspirin Chewable PO 81 mg DAILY MEGAN Administration Diltiazem HCl 60 mg 09/02/16 10:00 09/02/16 09:43 Cardizem PO 60 mg QID MEGAN Administration Enoxaparin Sodium 40 mg 08/31/16 13:15 09/02/16 09:43 Lovenox SC 40 mg DAILY MEGAN Administration Protocol diltiaZEM IVPB 100mg in NS 100 mls @ 5 mls/hr 09/01/16 19:59 09/02/16 10:46 Cardizem 100mg In Ns IV 5 mg/hr .Q20H PRN Titration TITRATE PER MD ORDER Protocol 5 MG/HR Meropenem 1g/NS 100mL IVPB 100 mls @ 100 mls/hr 09/02/16 14:00 Meropenem 1g/Ns 100ml Ivpb IVPB 09/08/16 15:16 Q8 MEGAN Methylprednisolone 20 mg 09/02/16 10:15 09/02/16 10:46 Solu-Medrol IVP 20 mg Q12 MEGAN Administration Pantoprazole Sodium 40 mg 08/31/16 13:15 09/02/16 09:43 Protonix Inj IVP 40 mg DAILY MEGAN Administration - Patient Studies Lab Studies: Microbiology Studies 08/31/16 23:45 Gram Stain - Final Trachasp Sputum Culture - Preliminary Gram Negative Johnnie 08/31/16 12:30 Urine Culture - Final Urine Proteus Mirabilis 08/31/16 14:10 MRSA Culture (Admit) - Final Naris MRSA NOT DETECTED Lab Studies 09/02/16 09/02/16 09/02/16 Range/Units 06:30 05:20 05:00 WBC 8.3 (4.5-11.0) 10^3/ul RBC 3.06 L (3.5-6.1) 10^6/uL Hgb 9.7 L (12.0-16.0) gm/dL Hct 31.3 L (36.0-48.0) % MCV 102.3 (80.0-105.0) fL MCH 31.7 (25.0-35.0) pg MCHC 31.0 (31.0-37.0) g/dl RDW 30.3 H (11.5-14.5) % Plt Count 203 (120.0-450.0) 10^3/uL Gran % 84.2 H (50.0-68.0) % Lymph % (Auto) 5.2 L (22.0-35.0) % Bladen % (Auto) 6.8 H (1.0-6.0) % Eos % (Auto) 3.7 (1.5-5.0) % Baso % (Auto) 0.1 (0.0-3.0) % Gran # 6.97 H (1.4-6.5) Lymph # 0.4 L (1.2-3.4) Bladen # 0.6 (0.1-0.6) Eos # 0.3 (0.0-0.7) Baso # 0.01 (0.0-2.0) K/mm3 pCO2 58 H (35-45) mm/Hg pO2 83.0 (80-100) mm/Hg HCO3 30.6 H (21-28) mmol/L ABG pH 7.33 L (7.35-7.45) ABG Total CO2 32.4 H (22-28) mmol.L ABG O2 Saturation 96.3 (95-98) % ABG O2 Content 12.3 L (15-23) ML/dl ABG Base Excess 3.8 H (-2.0-3.0) mmol/L ABG Hemoglobin 9.1 L (11.7-17.4) g/dL ABG Carboxyhemoglobin 1.1 (0.5-1.5) % POC ABG HHb (Measured) 3.6 (0-5) % ABG Methemoglobin 0.3 (0.0-3.0) % ABG O2 Capacity 12.8 L (16-24) mL/dl Hgb O2 Saturation 95.0 (95.0-98.0) % FiO2 32.0 % Sodium 140 (132-148) mmol/L Potassium 3.5 L (3.6-5.0) mmol/L Chloride 103 (98-107) mmol/L Carbon Dioxide 30 (21-33) mmol/L Anion Gap 11 (10-20) BUN 37 H (7-21) mg/dL Creatinine 0.7 (0.5-1.4) mg/dL Est GFR ( Amer) > 60 Est GFR (Non-Af Amer) > 60 Random Glucose 132 H (70-110) mg/dL Calcium 8.3 L (8.4-10.5) mg/dL Phosphorus 3.7 (2.5-4.5) mg/dL Magnesium 2.1 (1.7-2.2) mg/dL Laboratory Results - last 24 hr 09/02/16 09/02/16 09/02/16 05:00 05:20 06:30 WBC 8.3 RBC 3.06 L Hgb 9.7 L Hct 31.3 L MCV 102.3 MCH 31.7 MCHC 31.0 RDW 30.3 H Plt Count 203 Gran % 84.2 H Lymph % (Auto) 5.2 L Bladen % (Auto) 6.8 H Eos % (Auto) 3.7 Baso % (Auto) 0.1 Gran # 6.97 H Lymph # 0.4 L Bladen # 0.6 Eos # 0.3 Baso # 0.01 pCO2 58 H pO2 83.0 HCO3 30.6 H ABG pH 7.33 L ABG Total CO2 32.4 H ABG O2 Saturation 96.3 ABG O2 Content 12.3 L ABG Base Excess 3.8 H ABG Hemoglobin 9.1 L ABG Carboxyhemoglobin 1.1 POC ABG HHb (Measured) 3.6 ABG Methemoglobin 0.3 ABG O2 Capacity 12.8 L Hgb O2 Saturation 95.0 FiO2 32.0 Sodium 140 Potassium 3.5 L Chloride 103 Carbon Dioxide 30 Anion Gap 11 BUN 37 H Creatinine 0.7 Est GFR ( Amer) > 60 Est GFR (Non-Af Amer) > 60 Random Glucose 132 H Calcium 8.3 L Phosphorus 3.7 Magnesium 2.1 EKG/Cardiology Studies: Cardiology / EKG Studies 09/01/16 13:13 EKG [ELECTROCARDIOGRAM] Routine Comment: Reason For Exam: tachycardia PRE OP:: N Critical Care Progress Note - Nutrition Nutrition: Nutrition Category Date Time Status Heart Healthy Diet [DIET] Diets 09/02/16 Breakfast Ordered Addendum Addendum: 09/02/16 13:37 patient was seen, examined and discussed shoulder to shoulder with dr. Fletcher. Her note reflects my exam, assessement and plan, except as below. meds/Labs/ONE reviewed 86 yo female recovering from HCRF requiring intubation. Now extubated, hemodynamically and respiratory quach stable. Needs to complete course of abx, solumedrol 20 mg IV q12 for 5 days, with subsequent taper over 14 days. afib: will start cardizem 60 mg po q8 hrs with subsequent cardizem drip taper. cardio service follow up. TAC if wont spontaneously cardiovert within 48 hrs ccm time 40 min
[2016-09-02] MEDS ORDERED: Potassium Chloride 20 mEq ER Tab PO STA (10:17)
[2016-09-02] MEDS: MethylPREDNISolone 40 mg Vial IVP SCH ×2 (10:46→21:39)
--- NOTE | 2016-09-02 14:24 | CON ---
DATE: 09/02/2016 REASON FOR CONSULTATION: Rapid atrial fibrillation. HISTORY OF PRESENT ILLNESS: The patient is an 86-year-old female who has history of stage III colon cancer, status post colostomy, history of nonmetastatic breast cancer and history of microcytic anemi a requiring intermittent blood transfusion. She presented to [facility] because of unresponsiv eness and lethargy. The patient required intubation, mechanical ventilation and was extubated after 1 day. The patient subsequently, while in ICU, developed rapid atrial fibrillation and required intr avenous Cardizem infusion. According to the patient and the son who is sitting at the bedside, the p atsanna is unaware of any prior cardiac history. She denies any chest pain and has no history of fall at home. SOCIAL HISTORY: The patient is a nonsmoker. She lives with her son and she ambulates freely at home and takes good care of herself. MEDICATIONS: Aspirin 81 mg once a day, Cardizem 60 mg q. 6 hours orally and Cardizem infusion at 5 m g per hour, Lovenox 40 mg subcutaneously once a day, meropenem 1 gram intravenously q. 8 hours, Priscila nix 40 mg intravenously daily, Solu-Medrol 20 mg intravenously q. 12 hours. REVIEW OF SYSTEMS: Neither the patient or the son are aware of any fever or chills. No nausea or vo miting. No retrosternal chest pain at least at this time. PHYSICAL EXAMINATION: GENERAL: The patient is an elderly female who does not appear to be in acute distress. VITAL SIGNS: Blood pressure 107/43, heart rate 125, rapid atrial fibrillation on monitor, temperatur e 98.2, respiration 26. HEENT: Pale conjunctivae. CHEST: Bilateral rhonchi and diminished breath sounds over the bases. HEART: S1, S2 irregular. ABDOMEN: Soft. EXTREMITIES: No edema. LABORATORY DATA: CBC: WBC 8.3, hemoglobin 9.7, hematocrit 31.3, platelet count 203,000. SMA-7: So dium 140, potassium 3.5, chloride 103, CO2 30, glucose 132, BUN 37, creatinine 0.7. Two sets of trop onins were 0.05. PT and INR are within normal limits. EKG revealed sinus rhythm. Head CT scan with out contrast revealed no acute findings. Echocardiographic study revealed mild to moderate concentri c LVH with ejection fraction estimated in the range of 40-50%, trace aortic insufficiency, moderate v alvular aortic stenosis and mild pulmonary hypertension. Chest x-ray today revealed interval increas ed small bilateral pleural effusion, left greater than right. Probable mild increased pulmonary veno us congestion. ASSESSMENT: 1. Status post respiratory failure. 2. New onset atrial fibrillation. 3. Moderate aortic stenosis. 4. Consider acute systolic heart failure. 5. Stage III colon cancer. 6. Nonmetastatic breast cancer. 7. Macrocytic anemia. RECOMMENDATIONS: Continue aspirin 81 mg once a day, oral Cardizem at 60 mg q. 6 hours. Consider the rapeutic subcutaneous Lovenox if the overall clinical condition of the patient remains stable. Potas sium has been replaced. The patient is currently slightly in prerenal azotemia and diuresis would no t be justified at this time. Start Coreg at 3.125 mg twice a day and Cozaar at 12.5 mg once a day. Alexei Saha MD cc: [id number] TT: 09/02/2016 14:23:47 Confirmation # [id number] Dictation # [id number] tn
[2016-09-02] MEDS: Meropenem 1g/NS 100mL IVPB 100 ML IVPB SCH ×2 (14:50→21:38)
[2016-09-03 05:38] LABS: HEMATOCRIT 32.9 % (36.0-48.0); MEAN CELL VOLUME 103.5 fL (80.0-105.0); MEAN CORPUSCULAR HEMOGLOBIN 31.1 pg (25.0-35.0); MEAN CORPUSCULAR HGB CONC 30.1 g/dl (31.0-37.0); PLATELET COUNT 242 10^3/uL (120.0-450.0); RED CELL DISTRIBUTION WIDTH 29.6 % (11.5-14.5); WHITE BLOOD COUNT 7.3 10^3/ul (4.5-11.0)
[2016-09-03 05:40] LABS: ALB/GLOB RATIO 1.3 (1.1-1.8); ALKALINE PHOSPHATASE 49 U/L (38-133); ALT/SGPT 31 U/L (7-56); AST/SGOT 22 U/L (15-39); BILIRUBIN,TOTAL 0.6 mg/dL (0.2-1.3); BLOOD UREA NITROGEN 39 mg/dL (7-21); CALCIUM 9.1 mg/dL (8.4-10.5); CARBON DIOXIDE 32 mmol/L (21-33); CHLORIDE 104 mmol/L (95-110); GFR AFRICAN-AMERICAN > 60; GLUCOSE,RANDOM 165 mg/dL (70-110); MAGNESIUM 2.2 mg/dL (1.7-2.2); PHOSPHOROUS 3.1 mg/dL (2.5-4.5); SODIUM 141 mmol/L (132-148)
[2016-09-03 05:42] LABS: ADD MANUAL DIFF? YES
[2016-09-03] MEDS: Meropenem 1g/NS 100mL IVPB 100 ML IVPB SCH (06:15)
[2016-09-03 06:28] LABS: NEUTROPHIL 81 % (50.0-70.0)
[2016-09-03 06:32] LABS: BAND 9 % (0-2)
[2016-09-03 06:33] LABS: ANISOCYTOSIS 2+; BASOPHIL 1 % (0.0-1.0); EOSINOPHIL 1 % (0.0-3.0); HYPOCHROMIA 2+; METAMYELOCYTE 1 %; NUCLEATED RED BLOOD CELL 2 %; PLATELET ESTIMATE NORMAL (NORMAL); POIKILOCYTOSIS 1+
[2016-09-03 06:34] LABS: HELMET CELLS SLIGHT; OVALOCYTES SLIGHT; TARGET CELLS SLIGHT
[2016-09-03 06:36] LABS: ARTERIAL BLOOD GAS HCO3 26.6 mmol/L (21-28); ARTERIAL BLOOD GAS O2 CAPACITY 12.3 mL/dl (16-24); ARTERIAL BLOOD GAS O2 CONTENT 11.9 ML/dl (15-23); ARTERIAL BLOOD GAS PH 7.27 (7.35-7.45); CARBOXYHEMOGLOBIN 1.4 % (0.5-1.5); HHB 3.1 % (0-5); METHEMOGLOBIN 0.5 % (0.0-3.0)
[2016-09-03 06:36] LABS: GIANT PLATELETS PRESENT; POLYCHROMASIA SLIGHT; STOMATOCYTE SLIGHT
--- NOTE | 2016-09-03 09:02 | CP.PCM.PN ---
Subjective - Date & Time of Evaluation Date of Evaluation: 09/03/16 Time of Evaluation: 08:20 - Subjective Subjective: Comfortable on a chair, not in distress, no fevers overnight, no acute shortness of breath. Objective - Vital Signs/Intake and Output Vital Signs (last 24 hours): Temp Pulse Resp BP Pulse Ox 98.5 F 131 H 21 126/60 97 09/03/16 04:00 09/03/16 06:07 09/03/16 06:07 09/03/16 06:07 09/03/16 06:07 Intake and Output: 09/03/16 09/03/16 06:59 18:59 Intake Total 350 Balance 350 - Medications Medications: Current Medications Aspirin (Aspirin Chewable) 81 mg PO DAILY [facility] Last Admin: 09/02/16 09:43 Dose: 81 mg Carvedilol (Coreg) 3.125 mg PO BID [facility] Last Admin: 09/02/16 17:42 Dose: 3.125 mg Diltiazem HCl (Cardizem) 60 mg PO Q6H [facility] Last Admin: 09/03/16 03:00 Dose: 60 mg Enoxaparin Sodium (Lovenox) 40 mg SC DAILY [facility] PRN Reason: Protocol Last Admin: 09/02/16 09:43 Dose: 40 mg Meropenem 1g/NS 100mL IVPB (Meropenem 1g/Ns 100ml Ivpb) 100 mls @ 100 mls/hr IVPB Q8 [facility] Stop: 09/08/16 15:16 Last Admin: 09/03/16 06:15 Dose: 100 mls/hr Losartan Potassium (Cozaar) 12.5 mg PO DAILY [facility] Last Admin: 09/02/16 14:50 Dose: 12.5 mg Methylprednisolone (Solu-Medrol) 20 mg IVP Q12 [facility] Last Admin: 09/02/16 21:39 Dose: 20 mg Pantoprazole Sodium (Protonix Inj) 40 mg IVP DAILY [facility] Last Admin: 09/02/16 09:43 Dose: 40 mg - Labs Labs: 09/03/16 05:00 09/03/16 05:00 PT 11.5 Seconds (9.9-11.8) 08/31/16 11:02 INR 1.06 (0.93-1.08) 08/31/16 11:02 APTT 27.5 Seconds (23.7-30.8) 08/31/16 11:02 - Constitutional Appears: Non-toxic, No Acute Distress - Head Exam Head Exam: NORMAL INSPECTION - Neck Exam Neck Exam: absent: Lymphadenopathy, Meningismus - Respiratory Exam Respiratory Exam: Decreased Breath Sounds - Cardiovascular Exam Cardiovascular Exam: +S1, +S2 - GI/Abdominal Exam GI & Abdominal Exam: Soft. absent: Tenderness Assessment and Plan - Assessment and Plan (Free Text) Plan: Assessment Consider severe sepsis with acute metabolic encephalopathy now S/P ventilator- dependent respiratory failure, consider secondary to upper urinary tract infection as well as pneumonia; clinically improving; urine growing Proteus and sputum cx growing gram negative bacilli HTN colon cancer stage 3 S/P colon resection and colostomy Plan continue Doxycycline, Meropenem (day 3); blood cx negative,; PCT is noted; CXR is reviewed; follow identification and sensitivities of the gram negative bacilli in the sputum Will continue to monitor clinically
--- NOTE | 2016-09-03 09:23 | PQF SEPSIS ---
This form is a permanent part of the medical record Clarification of your documentation is requested to better reflect the severity of illness and intensity of treatment of your patient. Indicators present ID consult " consider severe sepsis" Do you agree that Sepsis was POA? [] Temp < 96.8 or > 100.4 NO temp [] WBC count > 12,000/mm3 or <000/mm3 or 10% immature neutrophils WBC on admission- 9.2, Bands- 6 [x] Heart Rate > 90 [] Respiratory Rate > 20 [] Fever or hypothermia [] Chills [] Positive blood cultures + Urine culture [] Hypotension NO [] Metabolic acidosis (Elevated lactate level, anion gap or reduced blood pH) [] Acute confusion /Altered Mental Status [] Shock [] Other: [] Resp failure requiring Vent Location in the medical record that reflects the above clinical findings: [x]ID consult Treatment Provided: [x]IV Zosyn, Vanco Doxycycline PHYSICIAN'S RESPONSE Based on your medical judgment of the clinical indicators outlined above, are you treating this patient for a known or suspected: [] Sepsis / Septicemia Please specify organism if known [] [] SIRS (Systemic Inflammatory Response Syndrome) [] Severe Sepsis (Sepsis with Associated Organ Dysfunction) [] Fever of Unknown Origin [] Other, please indicate: [] [] If Unable to Determine, please check the box, sign and date. Present On Admission (POA) Indicator: [] Present at the time of admission [] Not present at the time of admission [] Clinically Undetermined In responding to this query, please exercise your independent professional judgment. The fact that a question is asked does not imply that any particular answer is desired or expected. Thank you for your clarification on this documentation. If you have any questions please call:[ ][phone] * Thank you, [ ]Edith West RN CDS hydrographical technical officer JENNIFER
[2016-09-03] MEDS: MethylPREDNISolone 40 mg Vial IVP SCH ×2 (10:21→23:35)
[2016-09-03] MEDS: Enoxaparin 40 mg Syringe SC SCH (10:22)
--- NOTE | 2016-09-03 11:31 | RAD ---
PROCEDURE: Single-view chest. HISTORY: intubated COMPARISON: Multiple serial examinations preceding the most recent study: September 02, 2016. TECHNIQUE: Technique: Single view portable semi erect @ 05:17 FINDINGS: Cardiomegaly and pulmonary vascular congestion. Stable bilateral pleural effusions. IMPRESSION: No significant interval change compared to the prior examination(s).
[2016-09-03] MEDS ORDERED: Meropenem 1 GM in Sodium Chloride 0.9% 100 ML IVPB SCH (14:00)
--- NOTE | 2016-09-03 14:07 | PN ---
DATE: 09/03/2016 SUBJECTIVE: The patient is still in rapid atrial fibrillation. She denies any chest pain, dizziness or palpitations. PHYSICAL EXAMINATION: VITAL SIGNS: Blood pressure 111/64, heart rate 108, temperature 98.1, respirations 20. HEENT: Pale conjunctivae. CHEST: Minimal basal rhonchi. HEART: S1, S2 irregular. ABDOMEN: Soft. EXTREMITIES: 1+ pitting edema. LABORATORIES: Hemoglobin and hematocrit 9.9 and 32.9, white count and platelet count are within norm al limits. Today's SMA-7 is within normal limits except for glucose 165 and BUN of 39. Today's ches t x-ray revealed cardiomegaly with moderate vascular congestion. ASSESSMENT: 1. Status post respiratory failure. 2. New onset atrial fibrillation. 3. Moderate aortic stenosis. 4. Acute systolic heart failure. 5. Stage III colon cancer. 6. History of microcytic anemia requiring blood transfusion in the past. 7. Nonmetastatic breast cancer. RECOMMENDATIONS: Continue aspirin 81 mg once a day, Cardizem 60 mg q. 8 hours. Continue IV meropene m at 1 gram q. 8 hours. Continue Solu-Medrol at 20 mg intravenous twice a day, Cozaar at 12.5 mg onc e a day, start Lasix at 40 mg intravenously once a day. Alexei Saha MD cc: [id number] TT: 09/03/2016 14:06:18 Confirmation # [id number] Dictation # [id number] tn
[2016-09-03] MEDS: Meropenem 1 GM in Sodium Chloride 0.9% 100 ML IVPB SCH (23:34)
--- NOTE | 2016-09-04 01:19 | PN ---
DATE: 09/03/2016 The patient is in CCU bed 2. PROBLEMS: This is an 86-year-old female who was admitted through the Emergency Room with acute respi ratory failure, respiratory acidosis, had to be mented and was able to be extubated over a period of 24 hours, started on broad spectrum antibiotics. Etiology of the respiratory failure, unclear. The patient has been improving and during the course of stay in the unit has developed new onset of atria l fibrillation. She is still in atrial fibrillation for which she has been getting IV Cardizem. The patient denies any chest pain, dizziness, or palpitations. The patient has been following up with u s for macrocytic anemia for which she would not allow us to do but the patient is clinically tr eated as Procrit responsive anemia which has been requiring increasing transfusions despite lack of e vidence of any gastrointestinal bleeding at this point in time. The patient was requiring transfusio ns at least every couple of weeks with 2 units of blood. The patient does have moderate aortic steno sis, coronary artery disease. She also has a history of carcinoma of the colon, stage III, for which she had primary resection of the sigmoid colon tumor, but could not have the colon resected because of multiple medical issues. The patient is also extremely anxious and is on Xanax for the same. SUBJECTIVE: The patient denies any history of chest pain, dizziness, palpitations, but overall feels better and definitely not as short of breath as she was when she first came in. PHYSICAL EXAMINATION: VITAL SIGNS: Stable. Blood pressure is 111/64, heart rate is 108. T-max is 98.4, respirations 20. HEENT: Examination of the oropharynx reveals no oropharyngeal lesions. Conjunctivae pale. LUNGS: Reveal minimal basal rhonchi. HEART: Reveals S1 and S2 to be normal. No gallop is heard. ABDOMEN: Soft. The patient has 1+ pitting edema of the lower extremities. NEUROLOGIC: Higher functions are normal. No focal deficits are noted. EXTREMITIES: Upper extremities reveals no cyanosis, clubbing or edema. LABORATORY DATA: Reveals a hemoglobin 9.9, hematocrit 32, white count and platelet count are within normal limits. Chemistry showed glucose of 165, BUN of 39. Chest x-ray shows cardiomegaly with mode rate vascular congestion. ASSESSMENT NOTES AND PLAN: The patient is status post respiratory failure, had new onset of atrial f ibrillation, acute systolic heart failure with moderate aortic stenosis, history of stage III colon w hich she did not require any chemotherapy, history of anemia requiring intermittent transfusions. N onmetastatic bilateral breast CA for which she is on aromatase inhibitors. The review the cassandra consultant s' notes, will continue aspirin for now 81 mg daily. She is on Cardizem 60 mg every 8 hours. She is on IV antibiotics consisting of meropenem and also 1 gram q. 8 hours. She is on Solu-Medrol 20 mg IV twice a day, Cozaar 12.5 mg daily. She has been started on Lasix 40 mg IV once daily. We will co ntinue to monitor the patient from the heme point of view and make appropriate recommendations depend ing upon the drop or stabilization of the count. We will discuss with the patient's family as well a s to her overall prognosis and her progress in the unit. Shanta Lomas MD cc: [id number] TT: 09/04/2016 01:19:06 Confirmation # [id number] Dictation # [id number] jn
[2016-09-04] MEDS: Meropenem 1g/NS 100mL IVPB 100 ML IVPB SCH ×3 (05:30→21:43)
--- NOTE | 2016-09-04 09:13 | CP.PCM.PN ---
Subjective - Date & Time of Evaluation Date of Evaluation: 09/04/16 Time of Evaluation: 08:10 - Subjective Subjective: Comfortable in bed, not in distress, afebrile, eating well, no nausea, no diarrhea. Objective - Vital Signs/Intake and Output Vital Signs (last 24 hours): Temp Pulse Resp BP Pulse Ox 98.1 F 117 H 21 124/74 94 L 09/04/16 04:00 09/04/16 05:30 09/04/16 05:00 09/04/16 05:30 09/04/16 05:00 Intake and Output: 09/04/16 09/04/16 06:59 18:59 Intake Total 250 Balance 250 - Medications Medications: Current Medications Aspirin (Aspirin Chewable) 81 mg PO DAILY [facility] Last Admin: 09/03/16 10:17 Dose: 81 mg Carvedilol (Coreg) 3.125 mg PO BID [facility] Last Admin: 09/03/16 17:21 Dose: 3.125 mg Diltiazem HCl (Cardizem) 60 mg PO Q6 [facility] Last Admin: 09/04/16 05:30 Dose: 60 mg Enoxaparin Sodium (Lovenox) 40 mg SC DAILY [facility] PRN Reason: Protocol Last Admin: 09/03/16 10:22 Dose: 40 mg Furosemide (Lasix) 40 mg IVP DAILY [facility] Last Admin: 09/03/16 14:50 Dose: 40 mg Meropenem 1g/NS 100mL IVPB (Meropenem 1g/Ns 100ml Ivpb) 100 mls @ 100 mls/hr IVPB Q8 [facility] PRN Reason: Protocol Stop: 09/10/16 14:01 Last Admin: 09/04/16 05:30 Dose: 100 mls/hr Losartan Potassium (Cozaar) 12.5 mg PO DAILY [facility] Last Admin: 09/03/16 10:16 Dose: 12.5 mg Methylprednisolone (Solu-Medrol) 20 mg IVP Q12 [facility] Last Admin: 09/03/16 23:35 Dose: 20 mg Pantoprazole Sodium (Protonix Inj) 40 mg IVP DAILY [facility] Last Admin: 09/03/16 10:25 Dose: 40 mg - Labs Labs: 09/03/16 05:00 09/03/16 05:00 PT 11.5 Seconds (9.9-11.8) 08/31/16 11:02 INR 1.06 (0.93-1.08) 08/31/16 11:02 APTT 27.5 Seconds (23.7-30.8) 08/31/16 11:02 - Constitutional Appears: Non-toxic, No Acute Distress - Head Exam Head Exam: NORMAL INSPECTION - ENT Exam ENT Exam: Mucous Membranes Moist - Neck Exam Neck Exam: absent: Lymphadenopathy, Meningismus - Respiratory Exam Respiratory Exam: Decreased Breath Sounds - Cardiovascular Exam Cardiovascular Exam: +S1, +S2 - GI/Abdominal Exam GI & Abdominal Exam: Soft. absent: Tenderness Assessment and Plan - Assessment and Plan (Free Text) Plan: Assessment Consider severe sepsis with acute metabolic encephalopathy now S/P ventilator- dependent respiratory failure, consider secondary to upper urinary tract infection as well as pneumonia; patient continues to clinically improve; urine growing Proteus mirabilis and sputum cx growing gram negative bacilli HTN colon cancer stage 3 S/P colon resection and colostomy Plan continue Doxycycline, Meropenem (day 4); blood cx negative,; PCT is noted; CXR is reviewed; follow identification and sensitivities of the gram negative bacilli in the sputum Will continue to monitor clinically
[2016-09-04] MEDS: Enoxaparin 40 mg Syringe SC SCH (09:20)
[2016-09-04] MEDS: MethylPREDNISolone 40 mg Vial IVP SCH ×2 (09:21→21:43)
[2016-09-04] MEDS ORDERED: Digoxin 500 mcg/2ml (0.5 mg/2ml) Inj IVP ONE (16:03)
--- NOTE | 2016-09-04 16:56 | PN ---
DATE: 09/04/2016 SUBJECTIVE: The patient is still in rapid atrial fibrillation in the 130s. She denies any dizziness or palpitations. PHYSICAL EXAMINATION: VITAL SIGNS: Blood pressure 118/61, heart rate 134, respirations 17, temperature 97.8. HEENT: Pale conjunctivae. CHEST: Diminished breath sounds over the bases. HEART: S1, S2 irregular. ABDOMEN: Soft. EXTREMITIES: 1+ to 2+ pitting edema. ASSESSMENT: 1. Status post respiratory failure. 2. New onset atrial fibrillation. 3. Moderate aortic stenosis. 4. Stage III colon cancer. 5. Nonmetastatic breast cancer. RECOMMENDATIONS: Continue current aspirin 81 mg once a day, Cardizem at 60 mg q. 8 hours, Cozaar at 12.5 mg once a day, Lasix at 40 mg intravenously once a day, Lovenox at 40 mg subcutaneously once a d ay. I will administer digoxin 0.25 mg intravenously as a single dose now and start daily dose of 0.2 5 mg orally once a day while continuing Coreg at 3.125 mg twice a day. Alexei Saha MD cc: [id number] TT: 09/04/2016 16:56:25 Confirmation # [id number] Dictation # [id number]
[2016-09-04] MEDS ORDERED: diltiaZEM IVPB 100mg in NS 100 ML IV PRN (19:41)
--- NOTE | 2016-09-04 22:57 | PN ---
DATE: 09/04/2016 The patient is in CCU bed 2. The patient was examined earlier in CCU bed 2. SUBJECTIVE: The patient is comfortable in bed, not in any distress, afebrile, eating well. No nause a. No vomiting. No diarrhea. The patient is still in atrial fib, rate around 130 on IV digoxin whi ch is going to be converted to p.o. later on along with her other cardiac medicines. OBJECTIVE VITAL SIGNS: Stable. T-max is 98.4, pulse is 117, respirations 21, blood pressure is 124/74, O2 sat is 94%. CURRENT MEDICATIONS: Reviewed. She is on aspirin 81 mg daily, carvedilol 3.125 mg p.o. b.i.d., Card izem 60 mg p.o. q. 6 h, Lovenox 40 mg subQ daily, furosemide 40 mg IVP daily. She is on meropenem 1 gram IV q. 8 hours, she come in septic. Losartan 12.5 mg p.o. daily. She is on methylprednisolone 2 0 mg IV q. 12 hours and pantoprazole 40 mg IV daily. LABORATORY DATA: From today reveals a white count 7.3, hemoglobin 9.9, hematocrit 32.9, platelet cou nt 242,000. Sodium is 141, K is 5, chloride is 104, CO2 is 32, BUN is 39, creatinine 0.6, blood suga r is 165. PHYSICAL EXAMINATION: HEENT: Within normal limits. Mucous membranes are moist. Ear, nose, and throat: No oropharyngeal lesions are noted. Tongue is moist. NECK: Supple. There is no adenopathy. No jugular venous distention noted. LUNGS: Reveals distant breath sounds. HEART: Reveals heart rate to be in the 120s. S1 and S2 are normal. The patient has irregular heart beat. ABDOMEN: Soft, nontender. Bowel sounds are present. The patient has a colostomy in the left lower quadrant. ASSESSMENT NOTES AND PLAN: The patient has a history of stage III carcinoma of the colon, history of nonmetastatic bilateral breast carcinoma, status post acute metabolic encephalopathy, status post ve ntilator-dependent respiratory failure, upper respiratory tract and the patient was continuing to imp rove. Currently on antibiotics. Urine is growing Proteus mirabilis and sputum being positive for gr am-negative bacilli. The plan will be to continue the patient on meropenem day 4. Blood cultures villagomez ve been negative. She is also on doxycycline. Chest x-ray is negative. We will follow the identity of the organisms, and she is being monitored by cardiology for her atrial fibrillation. Labs for a. m. have been requested. The patient may need blood transfusion prior to her discharge. Routine post exam instructions have been given to the patient. The patient continues to improve and her rate is better. We will plan on transferring her to the TCU, and then once rehab is done, we can plan early discharge. I have spoken to the patient's son, who was with the patient today, and will make accordi ngly arrangements. Shanta Lomas MD cc: [phone] TT: 09/04/2016 22:57:12 Confirmation # [id number] Dictation # [id number] tn
[2016-09-05] MEDS ORDERED: diltiaZEM IVPB 100mg in NS 100 ML IV PRN (00:57)
[2016-09-05] MEDS: Meropenem 1g/NS 100mL IVPB 100 ML IVPB SCH (06:02)
[2016-09-05] MEDS: Enoxaparin 40 mg Syringe SC SCH (09:11)
[2016-09-05] MEDS: MethylPREDNISolone 40 mg Vial IVP SCH ×2 (09:11→21:25)
[2016-09-05] MEDS: cefTRIAXone 1 gm 100 ML IVPB SCH (09:12)
--- NOTE | 2016-09-05 13:49 | PN ---
DATE: 09/05/2016 The patient denies chest pain or shortness of breath. Her atrial fibrillation rate is controlled and she is off IV Cardizem which was initiated yesterday at 5 mg per hour. PHYSICAL EXAMINATION: VITAL SIGNS: Blood pressure 110/56, heart rate 100, temperature 97.4, respirations 20. HEENT: Pale conjunctivae. CHEST: Clear. HEART: S1, S2 regular. EXTREMITIES: 1+ pitting edema. ASSESSMENT: 1. Persistent atrial fibrillation. 2. Systolic heart failure. 3. Stage III colon cancer. 4. Nonmetastatic breast cancer. 5. Macrocytic anemia requiring transfusion in the past. RECOMMENDATIONS: Continue aspirin 81 mg once a day, Cardizem 60 mg q. 8 hours. Increase Coreg to 6. 25 mg twice a day. Continue Cozaar at 12.5 mg once a day, Lanoxin 0.25 mg orally once a day, Lasix a t 40 mg intravenously once a day, Solu-Medrol 20 mg intravenously twice a day. Alexei Saha MD cc: [id number] TT: 09/05/2016 13:48:13 Confirmation # [id number] Dictation # [id number] marysol
[2016-09-05] MEDS: Digoxin 250 mcg (0.25 mg) Tab PO SCH (14:12)
--- NOTE | 2016-09-05 15:32 | CP.PCM.PN ---
Subjective - Date & Time of Evaluation Date of Evaluation: 09/05/16 Time of Evaluation: 10:40 - Subjective Subjective: Comfortable in bed, not in distress, no fevers overnight, no nausea, no diarrhea , breathing well, no cough. Objective - Vital Signs/Intake and Output Vital Signs (last 24 hours): Temp Pulse Resp BP Pulse Ox 98.7 F 90 19 120/74 97 09/05/16 06:00 09/05/16 06:02 09/05/16 06:00 09/05/16 06:02 09/05/16 06:00 Intake and Output: 09/05/16 09/05/16 06:59 18:59 Intake Total 385 Balance 385 - Medications Medications: Current Medications Aspirin (Aspirin Chewable) 81 mg PO DAILY [facility] Last Admin: 09/04/16 09:16 Dose: 81 mg Carvedilol (Coreg) 3.125 mg PO BID [facility] Last Admin: 09/04/16 17:51 Dose: 3.125 mg Digoxin (Lanoxin) 0.25 mg PO 1400 [facility] Diltiazem HCl (Cardizem) 60 mg PO Q6 [facility] Last Admin: 09/05/16 06:02 Dose: 60 mg Enoxaparin Sodium (Lovenox) 40 mg SC DAILY [facility] PRN Reason: Protocol Last Admin: 09/04/16 09:20 Dose: 40 mg Furosemide (Lasix) 40 mg IVP DAILY [facility] Last Admin: 09/04/16 09:17 Dose: 40 mg diltiaZEM IVPB 100mg in NS (Cardizem 100mg In Ns) 100 mls @ 10 mls/hr IV .Q10H PRN; Protocol; 10 MG/HR PRN Reason: TITRATE PER MD ORDER Last Admin: 09/05/16 01:00 Dose: 10 mls/hr Ceftriaxone Sodium (Rocephin 1 Gram Ivpb) 100 mls @ 100 mls/hr IVPB DAILY [facility] PRN Reason: Protocol Losartan Potassium (Cozaar) 12.5 mg PO DAILY [facility] Last Admin: 09/04/16 09:16 Dose: 12.5 mg Methylprednisolone (Solu-Medrol) 20 mg IVP Q12 [facility] Last Admin: 09/04/16 21:43 Dose: 20 mg Pantoprazole Sodium (Protonix Inj) 40 mg IVP DAILY [facility] Last Admin: 09/04/16 09:21 Dose: 40 mg - Labs Labs: 09/03/16 05:00 09/03/16 05:00 PT 11.5 Seconds (9.9-11.8) 08/31/16 11:02 INR 1.06 (0.93-1.08) 08/31/16 11:02 APTT 27.5 Seconds (23.7-30.8) 08/31/16 11:02 - Constitutional Appears: Non-toxic, No Acute Distress - Head Exam Head Exam: NORMAL INSPECTION - ENT Exam ENT Exam: Mucous Membranes Moist - Neck Exam Neck Exam: absent: Lymphadenopathy, Meningismus - Respiratory Exam Respiratory Exam: Decreased Breath Sounds - Cardiovascular Exam Cardiovascular Exam: +S1, +S2 - GI/Abdominal Exam GI & Abdominal Exam: Soft. absent: Tenderness Assessment and Plan - Assessment and Plan (Free Text) Plan: Assessment Consider severe sepsis with acute metabolic encephalopathy now S/P ventilator- dependent respiratory failure, consider secondary to upper urinary tract infection as well as pneumonia; patient continues to clinically improve; urine growing Proteus mirabilis and sputum cx growing E. coli HTN colon cancer stage 3 S/P colon resection and colostomy Plan we have changed antibiotics to Rocephin (day 5), to continue up to 10 days of antibiotics to treat the UTI (this also treats the pneumonia); blood cx negative ,; PCT is noted; CXR is reviewed Will continue to monitor clinically
[2016-09-05] MEDS ORDERED: Digoxin 500 mcg/2ml (0.5 mg/2ml) Inj IVP ONE (18:13)
--- NOTE | 2016-09-05 23:58 | PN ---
DATE: 09/05/2016 PROBLEMS: This is an 86-year-old female, who came in with severe progressive respiratory distress, w ent on into respiratory failure, had to be intubated, and severe respiratory acidosis with the findin gs of possible sepsis as a causative factor both in the tracheobronchial tree and in the urinary trac t. The patient was placed on broad-spectrum antibiotics, was able to get off the ventilator. During the hospital course, developed atrial fibrillation, which was controlled with IV medications, and sloan armendariz is now off Cardizem IV and is on p.o. meds. Subjectively, the patient denies any history of chest pain, shortness of breath. No fever, no chills, no nausea or vomiting. Complaining about the food t hat they are receiving in the hospital. PHYSICAL EXAMINATION: GENERAL: The patient is awake, alert, and oriented, examined in bed. VITAL SIGNS: Blood pressure is 110/56, heart rate is 100, T-max is 98.4, respirations 20. HEENT: Head is normocephalic, atraumatic. Conjunctivae pale. Examination of the oropharynx reveals no oropharyngeal lesions. LUNGS: Clear to percussion and auscultation. HEART: Reveals S1 and S2 to be normal. EXTREMITIES: Reveal 1+ pitting edema. LABORATORY DATA: Labs were noted and the last labs we have are from 09/03, and we will repeat the la bs at 4 a.m., but the chemistries and CBC were within normal limits. The patient is anemic, but cont inue to monitor her red cell count, as she does require intermittent blood transfusions. ASSESSMENT: The patient is status post respiratory failure, sepsis, on intravenous antibiotics, curr ently on Rocephin, which she has to continue for another 5 days. The patient also has a history of s tage III carcinoma of colon with a colostomy in the left lower quadrant, history of non-metastatic st age IV carcinoma , and non-metastatic carcinoma breast, on letrozole, which is off at this time while in the hospital. A history of anxiety disorder as well. CURRENT MEDICATIONS: Reviewed. The patient is on aspirin 81 mg daily, Cardizem 60 mg p.o. q. 6 hour s, carvedilol 6.25 mg b.i.d., losartan, Cozaar 12.5 mg daily, Lanoxin 0.25 daily, Lasix 40 mg IV edil y, Lovenox 40 mg subcu daily, Protonix 40 mg daily. She is on methylprednisolone 20 mg IV q. 12 hour s, which was switched over to prednisone and tapered off gradually. I discussed my findings with the patient's son and the plan is to try to see if we can get her to [facility] once the so that we can complete the antibiotics and start her on physical therapy prior to l etting her go home. Shanta Lomas MD cc: [phone] TT: 09/05/2016 23:58:03 Confirmation # [id number] Dictation # [id number] dn
[2016-09-06 08:25] LABS: MEAN CELL VOLUME 102.7 fL (80.0-105.0); MEAN CORPUSCULAR HEMOGLOBIN 31.4 pg (25.0-35.0); MEAN CORPUSCULAR HGB CONC 30.6 g/dl (31.0-37.0); PLATELET COUNT 239 10^3/uL (120.0-450.0); WHITE BLOOD COUNT 8.9 10^3/ul (4.5-11.0)
[2016-09-06 08:35] LABS: ADD MANUAL DIFF? YES; ALB/GLOB RATIO 1.3 (1.1-1.8); ALKALINE PHOSPHATASE 50 U/L (38-133); ALT/SGPT 41 U/L (7-56); AST/SGOT 28 U/L (15-39); BILIRUBIN,TOTAL 0.7 mg/dL (0.2-1.3); BLOOD UREA NITROGEN 45 mg/dL (7-21); CALCIUM 9.1 mg/dL (8.4-10.5); CHLORIDE 96 mmol/L (95-110); GFR AFRICAN-AMERICAN > 60; GLUCOSE,RANDOM 157 mg/dL (70-110); POTASSIUM 4.5 mmol/L (3.6-5.0); SODIUM 141 mmol/L (132-148); TOTAL PROTEIN 5.7 g/dL (5.8-8.3)
[2016-09-06 08:50] LABS: CARBON DIOXIDE 42 mmol/L (21-33)
[2016-09-06] MEDS: MethylPREDNISolone 40 mg Vial IVP SCH ×2 (09:33→21:34)
[2016-09-06] MEDS: cefTRIAXone 1 gm 100 ML IVPB SCH (09:33)
[2016-09-06] MEDS: Enoxaparin 40 mg Syringe SC SCH (09:34)
[2016-09-06 09:51] LABS: BAND 5 % (0-2); NEUTROPHIL 87 % (50.0-70.0); NUCLEATED RED BLOOD CELL 3 %
[2016-09-06 09:52] LABS: ANISOCYTOSIS 2+; GIANT PLATELETS PRESENT; HYPOCHROMIA 1+; LARGE PLATELETS PRESENT; MICROCYTOSIS 1+; POIKILOCYTOSIS 1+; POLYCHROMASIA SLIGHT
--- NOTE | 2016-09-06 10:25 | PN ---
DATE: 09/06/2016 The patient seen in [facility], bed 1. No fevers and no chills. No abdominal pain. Review of the cultures reveals Proteus mirabilis in the urine. The blood cultures have no growth. T he urine Proteus mirabilis is pansensitive. The Escherichia coli in the sputum culture is also panse nsitive. Review of the orders reveals the patient to be on ceftriaxone and Solu-Medrol. ASSESSMENT AND PLAN: An 86-year-old female with severe sepsis, acute metabolic encephalopathy, statu s post respiratory failure, ventilator-dependent respiratory failure and upper respiratory tract infe ction as well as pneumonia and urinary tract infection with Proteus mirabilis in a patient with colon cancer stage III, status post colon resection and colostomy, on ceftriaxone day #6. May be able to switch to p.o. upon discharge. The patient's procalcitonin is 0.05. We will follow with you. Alberto Fagan MD cc: [id number] TT: 09/06/2016 10:25:00 Confirmation # [id number] Dictation # [id number] en
[2016-09-06] MEDS: Digoxin 250 mcg (0.25 mg) Tab PO SCH (13:02)
--- NOTE | 2016-09-06 13:58 | PN ---
DATE: 09/06/2016 The patient still in slightly rapid atrial fibrillation. She did receive an additional dose of 0.25 of IV digoxin yesterday. PHYSICAL EXAMINATION: VITAL SIGNS: Blood pressure 136/62, heart rate 113, temperature 98.6, respirations 20. HEENT: Pale conjunctivae. CHEST: Diminished breath sounds over the bases. HEART: S1, S2 regular. EXTREMITIES: 1+ pitting edema. LABORATORIES: Hemoglobin and hematocrit 10.4 and 34.0. White count and platelet count are within no rmal limit. Today's BUN and creatinine are 45 and 0.5 and CO2 is 42. Digoxin level yesterday was 0. 7. ASSESSMENT: 1. Rapid atrial fibrillation. 2. Prerenal azotemia. 3. Stage III colon cancer. 4. Nonmetastatic breast cancer. 5. Microcytic anemia. 6. Systolic heart failure. RECOMMENDATIONS: Discontinue Lasix. Continue digoxin 0.25 mg daily, Cozaar at 12.5 mg once a day. Increase Coreg to 12.5 mg twice a day and continue Cardizem at 60 mg once a day. Alexei Saha MD cc: [id number] TT: 09/06/2016 13:58:15 Confirmation # [id number] Dictation # [id number] en
--- NOTE | 2016-09-06 20:45 | PN ---
DATE: 09/06/2016 The patient is in room 276, bed A. SUBJECTIVE: The patient is an 86-year-old female who was initially admitted to the unit after being intubated in the Emergency Room for acute respiratory failure, has improved dramatically on antibioti cs, was in atrial fibrillation, which is being controlled initially with IV Cardizem and then switche d over to oral medications. The patient is still in atrial fibrillation, but has received additional doses of digoxin today. The patient is on ceftriaxone for infection in the urine and in the sputum. Procalcitonin is within normal range. The patient denies any history of fevers, chills, nausea, or vomiting. Colostomy is functioning. The patient is complaining about the food in the hospital. OBJECTIVE: VITAL SIGNS: Are stable. Blood pressure is 136/72, heart rate is 113, T-max is 98.4, respirations 2 0. HEENT: Head is normocephalic, atraumatic. Conjunctivae pale. Sclerae are anicteric. Pupils are eq ually reactive to light and accommodation. Examination of the oropharynx reveals no oropharyngeal le sions. NECK: Supple. There is no adenopathy. No jugular venous distention noted. LUNGS: Reveals decreased breath sounds at the bases. HEART: Reveals S1 and S2 to be normal. No gallop or murmur is heard. ABDOMEN: Soft. The patient has a colostomy in the left lower quadrant. EXTREMITIES: Revealed 1+ pitting edema. LABORATORY DATA: Reveal a hemoglobin and hematocrit of 10.4 and 34, white count and platelet count a re within normal limits. BUN is 45, creatinine 0.5. Digoxin level is 0.7. ASSESSMENT NOTES AND PLAN: Status post intubation for respiratory acidosis, recovered; sepsis, on an tibiotics; positive infection in the urine and in the sputum for which she is appropriately covered w ith antibiotics, which could be shifted over to oral drugs upon discharge; atrial fibrillation, which is gradually getting better; prerenal azotemia, nonmetastatic bilateral breast carcinoma, stage III colon cancer, macrocytic anemia, systolic heart failure. PLAN: Continue the current medications and will make a request for the discharge planning nurses to see if she can go to the TCU for deconditioning. Continue current medications including digoxin, Coz aar, Coreg, Cardizem as per cardiology recommendation and IV antibiotics for now. Shanta Lomas MD cc: [id number] TT: 09/06/2016 20:44:27 Confirmation # [id number] Dictation # [id number] dn
--- NOTE | 2016-09-07 03:16 | CP.PCM.PN ---
Subjective - Date & Time of Evaluation Date of Evaluation: 09/07/16 Time of Evaluation: 03:01 - Subjective Subjective: Patient was seen at bedside because of Rapid atrial fibrillation. Heart rate has been in the 150's for past one hour. Heart rate been in 150's all day yesterday and cardiolgist is allegedly aware of that. She has no complaints now. Denies chest pain, sob, nausea, palpitations. Medical record was reviewed. This 86 year old woman was admitted with lethargy , weakness , unresponsiveness,acute respiratory acidosis,AMS,Sepsis, new onset atrial fibrillation,CHF. Has PMH of HTN,anemia, colon cancer , breast cancer, colon resection , colostomy. Objective - Vital Signs/Intake and Output Vital Signs (last 24 hours): Temp Pulse Resp BP Pulse Ox 98.7 F 113 H 22 146/97 H 90 L 09/07/16 00:01 09/07/16 02:00 09/07/16 00:01 09/07/16 00:01 09/07/16 00:01 - Medications Medications: Current Medications Aspirin (Aspirin Chewable) 81 mg PO DAILY [facility] Last Admin: 09/06/16 09:32 Dose: 81 mg Carvedilol (Coreg) 12.5 mg PO BID [facility] Last Admin: 09/06/16 17:02 Dose: 12.5 mg Digoxin (Lanoxin) 0.25 mg PO 1400 [facility] Last Admin: 09/06/16 13:02 Dose: 0.25 mg Diltiazem HCl (Cardizem) 90 mg PO TID [facility] Enoxaparin Sodium (Lovenox) 40 mg SC DAILY [facility] PRN Reason: Protocol Last Admin: 09/06/16 09:34 Dose: 40 mg diltiaZEM IVPB 100mg in NS (Cardizem 100mg In Ns) 100 mls @ 10 mls/hr IV .Q10H PRN; Protocol; 10 MG/HR PRN Reason: TITRATE PER MD ORDER Last Admin: 09/05/16 01:00 Dose: 10 mls/hr Ceftriaxone Sodium (Rocephin 1 Gram Ivpb) 100 mls @ 100 mls/hr IVPB DAILY [facility] PRN Reason: Protocol Last Admin: 09/06/16 09:33 Dose: 100 mls/hr Losartan Potassium (Cozaar) 12.5 mg PO DAILY [facility] Last Admin: 09/06/16 09:32 Dose: 12.5 mg Methylprednisolone (Solu-Medrol) 20 mg IVP Q12 [facility] Last Admin: 09/06/16 21:34 Dose: 20 mg Pantoprazole Sodium (Protonix Inj) 40 mg IVP DAILY [facility] Last Admin: 09/06/16 09:33 Dose: 40 mg - Labs Labs: 09/06/16 07:00 09/06/16 07:00 PT 11.5 Seconds (9.9-11.8) 08/31/16 11:02 INR 1.06 (0.93-1.08) 08/31/16 11:02 APTT 27.5 Seconds (23.7-30.8) 08/31/16 11:02 - Constitutional Appears: Well, No Acute Distress - Head Exam Head Exam: ATRAUMATIC, NORMAL INSPECTION, NORMOCEPHALIC - Eye Exam Eye Exam: Normal appearance - ENT Exam ENT Exam: Mucous Membranes Moist - Neck Exam Neck Exam: Normal Inspection - Respiratory Exam Respiratory Exam: NORMAL BREATHING PATTERN - Cardiovascular Exam Cardiovascular Exam: Tachycardia, Irregular Rhythm - GI/Abdominal Exam GI & Abdominal Exam: absent: Distended - Rectal Exam Rectal Exam: Deferred - Extremities Exam Extremities Exam: Normal Inspection - Back Exam Back Exam: NORMAL INSPECTION - Neurological Exam Neurological Exam: Alert, Oriented x3 - Psychiatric Exam Psychiatric exam: Normal Affect, Normal Mood - Skin Skin Exam: Normal Color Assessment and Plan - Assessment and Plan (Free Text) Assessment: A/P:Atrial fibrillation with RVR. S/P Sepsis. S/P AMS. Anemia. HTN. Colon cancer. Breast cancer. Anemia. Cardizem 10 mg IV x 1. Continue present management. Troponin,BMP,Magnesium , digoxin levels.
[2016-09-07 04:03] LABS: BLOOD UREA NITROGEN 39 mg/dL (7-21); CALCIUM 9.1 mg/dL (8.4-10.5); CHLORIDE 91 mmol/L (95-110); GFR AFRICAN-AMERICAN > 60; GLUCOSE,RANDOM 189 mg/dL (70-110); MAGNESIUM 2.2 mg/dL (1.7-2.2); POTASSIUM 4.4 mmol/L (3.6-5.0); SODIUM 135 mmol/L (132-148)
[2016-09-07 04:10] LABS: CARBON DIOXIDE 44 mmol/L (21-33)
[2016-09-07 04:13] LABS: TROPONIN I 0.06 ng/mL
[2016-09-07] MEDS: cefTRIAXone 1 gm 100 ML IVPB SCH (09:45)
[2016-09-07] MEDS: MethylPREDNISolone 40 mg Vial IVP SCH ×2 (09:47→22:05)
[2016-09-07] MEDS: Enoxaparin 40 mg Syringe SC SCH (09:48)
--- NOTE | 2016-09-07 12:15 | PN ---
DATE: 09/07/2016 The patient is still in slightly rapid atrial fibrillation; however, she is asymptomatic, comfortable . Denies any palpitation. PHYSICAL EXAMINATION: VITAL SIGNS: Blood pressure 112/77, heart rate, the most recent one on the monitor is 112, temperatu re 98.6, respirations 18. HEENT: Pale conjunctivae. CHEST: Diminished breath sounds over the bases. HEART: S1, S2 irregular. EXTREMITIES: 1-2+ pitting edema. LABORATORIES: Today's BUN and creatinine are 39 and 0.5 with slight improvement compared to yesterda y. Potassium is 4.4. ASSESSMENT: 1. Persistent atrial fibrillation. 2. Prerenal azotemia. 3. Stage III colon cancer. 4. Non-metastatic breast cancer. RECOMMENDATIONS: Continue Cardizem at 90 mg t.i.d., aspirin 81 mg once a day, Cozaar at 12.5 mg once a day, Lanoxin 0.25 mg once a day, subcutaneous Lovenox at 40 mg once a day, Solu-Medrol 20 mg intra venously twice a day. Increase Coreg to 25 mg twice a day. lAexei Saha MD cc: [id number] TT: 09/07/2016 12:14:34 Confirmation # [id number] Dictation # [id number]
[2016-09-07] MEDS: Digoxin 250 mcg (0.25 mg) Tab PO SCH (15:26)
[2016-09-07 15:29] VITALS: PULSE 110
--- NOTE | 2016-09-07 16:13 | CP.PCM.PN ---
Subjective - Date & Time of Evaluation Date of Evaluation: 09/07/16 Time of Evaluation: 10:45 - Subjective Subjective: Comfortable, afebrile, not in distress. Objective - Vital Signs/Intake and Output Vital Signs (last 24 hours): Temp Pulse Resp BP Pulse Ox 98 F 120 H 19 138/77 94 L 09/07/16 12:00 09/07/16 12:33 09/07/16 12:00 09/07/16 15:27 09/07/16 05:58 Intake and Output: 09/07/16 09/07/16 06:59 18:59 Intake Total 960 Balance 960 - Medications Medications: Current Medications Aspirin (Aspirin Chewable) 81 mg PO DAILY [facility] Last Admin: 09/07/16 09:48 Dose: 81 mg Carvedilol (Coreg) 25 mg PO BID [facility] Digoxin (Lanoxin) 0.25 mg PO 1400 [facility] Last Admin: 09/07/16 15:26 Dose: 0.25 mg Diltiazem HCl (Cardizem) 90 mg PO TID [facility] Last Admin: 09/07/16 15:27 Dose: 90 mg Enoxaparin Sodium (Lovenox) 40 mg SC DAILY [facility] PRN Reason: Protocol Last Admin: 09/07/16 09:48 Dose: 40 mg diltiaZEM IVPB 100mg in NS (Cardizem 100mg In Ns) 100 mls @ 10 mls/hr IV .Q10H PRN; Protocol; 10 MG/HR PRN Reason: TITRATE PER MD ORDER Last Admin: 09/05/16 01:00 Dose: 10 mls/hr Ceftriaxone Sodium (Rocephin 1 Gram Ivpb) 100 mls @ 100 mls/hr IVPB DAILY [facility] PRN Reason: Protocol Last Admin: 09/07/16 09:45 Dose: 100 mls/hr Losartan Potassium (Cozaar) 12.5 mg PO DAILY [facility] Last Admin: 09/07/16 09:48 Dose: 12.5 mg Methylprednisolone (Solu-Medrol) 20 mg IVP Q12 [facility] Last Admin: 09/07/16 09:47 Dose: 20 mg Pantoprazole Sodium (Protonix Inj) 40 mg IVP DAILY [facility] Last Admin: 09/07/16 09:47 Dose: 40 mg - Labs Labs: 09/06/16 07:00 09/07/16 03:30 PT 11.5 Seconds (9.9-11.8) 08/31/16 11:02 INR 1.06 (0.93-1.08) 08/31/16 11:02 APTT 27.5 Seconds (23.7-30.8) 08/31/16 11:02 - Constitutional Appears: Non-toxic, No Acute Distress - Head Exam Head Exam: NORMAL INSPECTION - ENT Exam ENT Exam: Mucous Membranes Moist - Neck Exam Neck Exam: absent: Lymphadenopathy, Meningismus - Respiratory Exam Respiratory Exam: Decreased Breath Sounds - Cardiovascular Exam Cardiovascular Exam: +S1, +S2 - GI/Abdominal Exam GI & Abdominal Exam: Soft. absent: Tenderness Assessment and Plan - Assessment and Plan (Free Text) Plan: Assessment Consider severe sepsis with acute metabolic encephalopathy now S/P ventilator- dependent respiratory failure, consider secondary to upper urinary tract infection as well as pneumonia; patient continues to clinically improve; urine growing Proteus mirabilis and sputum cx growing E. coli HTN colon cancer stage 3 S/P colon resection and colostomy Plan continue Rocephin (day 8), to continue up to 10 days of antibiotics to treat the UTI (this also treats the pneumonia); blood cx negative,; PCT is noted; CXR is reviewed Will continue to monitor clinically
--- NOTE | 2016-09-07 23:46 | PN ---
DATE: 09/07/2016 The patient is in room 276, bed 1. SUBJECTIVE: The patient is feeling more comfortable, afebrile. No history of nausea, vomiting, feve rs, chills. Not in any significant distress. OBJECTIVE: The patient is examined in bed. VITAL SIGNS: T-max is 98.4, pulse is 120, respirations 19. Blood pressure is 138/77, pulse ox is 94 , patient still is in atrial fibrillation. MEDICATIONS: The patient's medications were reviewed. She is on aspirin 81 mg daily, carvedilol 25 mg b.i.d., digoxin 0.25 mg p.o. daily, Cardizem 90 mg p.o. t.i.d., Lovenox 40 mg subQ daily. She is on dilt , Cardizem 100 mg and normal saline every 10 hours p.r.n., titrate to MDs order, ceftriax one 1 gram IV every 24 hours, Cozaar 12.5 mg daily, Solu-Medrol 20 mg IV every 12 hours, pantoprazole 40 mg IV daily. LABORATORY DATA: From today reveal a white count of 8.9, hemoglobin 10.4, hematocrit 34, platelet co unt 239. Sodium is 135, K is 4.4, chloride 91, CO2 44, BUN of 39, creatinine 0.5 and blood sugar of 189. PHYSICAL EXAMINATION: GENERAL: The patient is awake, alert, and oriented, in no acute distress. HEENT: Head is normocephalic, atraumatic. Conjunctivae pale. Sclerae are anicteric. Pupils are eq ually reactive to light and accommodation. Examination of the oropharynx reveals no oropharyngeal le sions. NECK: Supple. There is no adenopathy. No jugular venous distention is noted. LUNGS: Clear to percussion and auscultation. CARDIOVASCULAR: Reveals S1 and S2 to be normal. No gallop or murmur is heard. ABDOMEN: Soft, nontender. Colostomy is noted in the left lower quadrant. No other masses are felt. ASSESSMENT NOTES AND PLAN: The patient is status post acute metabolic encephalopathy, status post ve ntilator dependent respiratory failure, status post urinary tract infection, as well as pneumonia, cu rrently on antibiotics as the urine grew Proteus mirabilis, sputum grew E. coli, both of which are se nsitive to the current antibiotics. Colon cancer stage III, status post resection and colostomy, non metastatic bilateral breast cancer. PLAN: Continue Rocephin day #8 for total of 10 days of antibiotics. Continue to monitor the patient 's heart rate closely. We will check with the research lab assistant regarding further treatment plans as an o utpatient. In the meantime, continue the current medicines. Taper steroids gradually. Shanta Lomas MD cc: [id number] TT: 09/07/2016 23:45:50 Confirmation # [id number] Dictation # [id number] mn
[2016-09-08 05:57] VITALS: O2SAT 94
[2016-09-08] MEDS: Enoxaparin 40 mg Syringe SC SCH (09:04)
[2016-09-08] MEDS: MethylPREDNISolone 40 mg Vial IVP SCH (09:05)
[2016-09-08] MEDS: cefTRIAXone 1 gm 100 ML IVPB SCH (09:58)
--- NOTE | 2016-09-08 12:13 | PN ---
DATE: 09/08/2016 The patient is currently in AFib with controlled heart rate. She denies any dizziness. No chest najma n or shortness of breath. PHYSICAL EXAMINATION: VITAL SIGNS: Blood pressure 118/56, heart rate 86, temperature 98.2. HEENT: Pale conjunctivae. CHEST: Bibasilar rhonchi. HEART: S1, S2 regular. EXTREMITIES: 1-2+ pitting edema. LABORATORIES: Digoxin level yesterday was 1.2. ASSESSMENT: 1. Moderate aortic stenosis. 2. Mildly depressed left ventricular systolic function. 3. Persistent atrial fibrillation. 4. Stage III colon cancer. 5. Nonmetastatic breast cancer. 6. Anemia. 7. Prerenal azotemia. 8. Uncontrolled diabetes mellitus. RECOMMENDATIONS: Continue aspirin 81 mg once a day. Change Cardizem to CD at 240 mg once a day. Co ntinue Coreg at 25 mg twice a day. Change digoxin to 0.125 mg daily. Continue Solu-Medrol 20 mg int ravenously twice a day. Alexei Saha MD cc: [id number] TT: 09/08/2016 12:12:18 Confirmation # [id number] Dictation # [id number] marysol
[2016-09-08 13:52] VITALS: BP 106/43; RESP 19; TEMP 98.9
[2016-09-08 13:55] VITALS: PULSE 68
[2016-09-08] MEDS ORDERED: Digoxin 125 mcg (0.125 mg) Tab PO SCH (14:00)
--- NOTE | 2016-09-08 14:48 | CP.PCM.PN ---
Subjective - Date & Time of Evaluation Date of Evaluation: 09/08/16 Time of Evaluation: 08:45 - Subjective Subjective: Comfortable in bed, afebrile, not in respiratory distress, no cough, no nausea, no diarrhea. Objective - Vital Signs/Intake and Output Vital Signs (last 24 hours): Temp Pulse Resp BP Pulse Ox 98.9 F 68 19 106/43 L 94 L 09/08/16 12:00 09/08/16 13:55 09/08/16 12:00 09/08/16 12:00 09/08/16 05:56 Intake and Output: 09/08/16 09/08/16 06:59 18:59 Intake Total 240 Balance 240 - Medications Medications: Current Medications Aspirin (Aspirin Chewable) 81 mg PO DAILY [facility] Last Admin: 09/08/16 09:02 Dose: 81 mg diltiaZEM IVPB 100mg in NS (Cardizem 100mg In Ns) 100 mls @ 10 mls/hr IV .Q10H PRN; Protocol; 10 MG/HR PRN Reason: TITRATE PER MD ORDER Last Admin: 09/05/16 01:00 Dose: 10 mls/hr Ceftriaxone Sodium (Rocephin 1 Gram Ivpb) 100 mls @ 100 mls/hr IVPB DAILY [facility] PRN Reason: Protocol Last Admin: 09/08/16 09:58 Dose: 100 mls/hr Losartan Potassium (Cozaar) 12.5 mg PO DAILY [facility] Last Admin: 09/08/16 09:03 Dose: 12.5 mg Pantoprazole Sodium (Protonix Inj) 40 mg IVP DAILY [facility] Last Admin: 09/08/16 09:04 Dose: 40 mg Prednisone (Prednisone Tab) 20 mg PO DAILY [facility] Stop: 09/11/16 05:00 Prednisone (Prednisone Tab) 10 mg PO DAILY [facility] Stop: 09/13/16 05:00 - Labs Labs: 09/06/16 07:00 09/07/16 03:30 PT 11.5 Seconds (9.9-11.8) 08/31/16 11:02 INR 1.06 (0.93-1.08) 08/31/16 11:02 APTT 27.5 Seconds (23.7-30.8) 08/31/16 11:02 - Constitutional Appears: Non-toxic, No Acute Distress - Head Exam Head Exam: NORMAL INSPECTION - Neck Exam Neck Exam: absent: Lymphadenopathy, Meningismus - Respiratory Exam Respiratory Exam: Decreased Breath Sounds - Cardiovascular Exam Cardiovascular Exam: +S1, +S2 - GI/Abdominal Exam GI & Abdominal Exam: Soft. absent: Tenderness Assessment and Plan - Assessment and Plan (Free Text) Plan: Assessment Consider severe sepsis with acute metabolic encephalopathy now S/P ventilator- dependent respiratory failure, consider secondary to upper urinary tract infection as well as pneumonia; the patient continues to clinically improve; urine growing Proteus mirabilis and sputum cx growing E. coli HTN colon cancer stage 3 S/P colon resection and colostomy Plan continue Rocephin (day 9), to continue up to 10 days of antibiotics to treat the UTI (this also treats the pneumonia); blood cx negative,; PCT is noted; CXR is reviewed - will d/c antibiotics after tomorrow Will continue to monitor clinically
--- NOTE | 2016-09-09 00:57 | DS ---
This is an 86-year-old female who was admitted through the Emergency Room with worsening respiratory failure, respiratory acidosis had to be intubated and then started getting better. Treated with IV an tibiotics for presumed infection in the lung and in the urine and is going to be completing her antib iotics in the next 2 days. The patient is on Rocephin right now 1 gram q. 12 hours which has been d iscontinued. She has been seen by ID prior to transfer to the TCU Rocephin, which is on day 9 , will continue for 10 days for the UTI and for the lung while she is being transferred to TCU. The patient's heart rate which was significantly elevated secondary to atrial fibrillation was initially treated with IV Cardizem and patient has been gradually switched over to oral medications and current ly she is on Cardizem-CD 240 mg once a day, Coreg 25 b.i.d., digoxin 0.125 mg daily for her cardiac s ymptoms. PHYSICAL EXAMINATION: VITAL SIGNS: Stable. Blood pressure is 118/56, heart rate is 86, T-max is 98.4. HEENT: The patient has pale conjunctivae. LUNGS: Reveal bibasilar rhonchi. CARDIOVASCULAR: Reveals S1 and S2 to be irregular. The patient has 1+ pitting edema of the lower ex tremities. Digoxin level was 1.2 recently. ASSESSMENT NOTES AND PLAN: The patient has nonmetastatic bilateral breast cancer, history of stage I II colon CA status post diverting colostomy after primary resection, moderate aortic stenosis, mild d epressed left ventricular function, persistent atrial fibrillation, anemia, prerenal azotemia, uncont rolled diabetes. The patient was continued on current medications and a heart healthy diet. She is being transferred to TCU for deconditioning, gait strengthening while we are tapering the steroids and monitoring for f r[place] as an outpatient once she leaves the TCU. I have explained in detail to the patient's family about what our treatment plans for the near future. Shanta Lomas MD cc: [id number] TT: 09/09/2016 00:56:31 jn
[2016-09-09] MEDS ORDERED: diltiaZEM 240 mg/24 Hours CD Cap PO SCH (10:00)
== END 2016-09-08 16:28 | DRG 871 ==
LOC: ED 10:36 → ERH 12:06 → CCU 14:30 → 2RSO 09-04 16:04
PROVIDERS: ADMIT Family Medicine; ATTEND Family Medicine
PROC: 5A1935Z Respiratory Ventilation, Less than 24 Consecutive Hours (ICD-10-PCS; principal; 2016-08-31)
PROC: 0BH17EZ Insertion of Endotracheal Airway into Trachea, Via Natural or Artificial Opening (ICD-10-PCS; 2016-08-31)
DX: A41.9 Sepsis, unspecified organism (principal); J18.9 Pneumonia, unspecified organism; N39.0 Urinary tract infection, site not specified; J96.00 Acute respiratory failure, unspecified whether with hypoxia or hypercapnia; R65.20 Severe sepsis without septic shock; G93.41 Metabolic encephalopathy; I50.21 Acute systolic (congestive) heart failure; E87.2 Acidosis; E11.65 Type 2 diabetes mellitus with hyperglycemia; I48.1 Persistent atrial fibrillation; I11.0 Hypertensive heart disease with heart failure; I35.0 Nonrheumatic aortic (valve) stenosis; F41.9 Anxiety disorder, unspecified; D50.9 Iron deficiency anemia, unspecified; I25.10 Atherosclerotic heart disease of native coronary artery without angina pectoris; C50.911 Malignant neoplasm of unspecified site of right female breast; C50.912 Malignant neoplasm of unspecified site of left female breast; B96.4 Proteus (mirabilis) (morganii) as the cause of diseases classified elsewhere; R79.89 Other specified abnormal findings of blood chemistry; D53.9 Nutritional anemia, unspecified; Z85.038 Personal history of other malignant neoplasm of large intestine; Z93.3 Colostomy status; Z90.49 Acquired absence of other specified parts of digestive tract

== ENCOUNTER 2016-09-08 16:33 | Inpatient (IN) | payer OTHER ==
[2016-09-05 18:26] VITALS: PULSE 130
[2016-09-08 17:21] VITALS: BMI 31.0
--- NOTE | 2016-09-08 19:53 | CARD ---
APPROVED REPORT EKG Measurement Heart [id number] <Conclusion> Atrial fibrillation ST & T wave abnormality, consider anterior ischemia or digitalis effect Abnormal ECG
[2016-09-09] MEDS: Pantoprazole 40 mg EC Tab PO SCH (05:53)
[2016-09-09] MEDS: cefTRIAXone 1 gm 100 ML IVPB SCH ×2 (05:53→10:24)
[2016-09-09 08:04] LABS: ADD MANUAL DIFF? NO
[2016-09-09 08:21] LABS: ALKALINE PHOSPHATASE 38 U/L (38-133); ALT/SGPT 47 U/L (7-56); AST/SGOT 19 U/L (15-39); BILIRUBIN,TOTAL 0.5 mg/dL (0.2-1.3); BLOOD UREA NITROGEN 74 mg/dL (7-21); CALCIUM 8.4 mg/dL (8.4-10.5); CHLORIDE 95 mmol/L (95-110); GFR AFRICAN-AMERICAN > 60; GLUCOSE,RANDOM 136 mg/dL (70-110); POTASSIUM 3.9 mmol/L (3.6-5.0); SODIUM 139 mmol/L (132-148); TOTAL PROTEIN 4.2 g/dL (5.8-8.3)
[2016-09-09 08:26] LABS: BASO # 0.01 K/mm3 (0.0-2.0); BASO % 0.1 % (0.0-3.0); EOS # 0.1 (0.0-0.7); EOS % 0.9 % (1.5-5.0); GRAN # 14.31 (1.4-6.5); GRAN % 93.7 % (50.0-68.0); LYMPH # 0.2 (1.2-3.4); LYMPH % 1.6 % (22.0-35.0); MEAN CELL VOLUME 101.3 fL (80.0-105.0); MEAN CORPUSCULAR HEMOGLOBIN 31.9 pg (25.0-35.0); MEAN CORPUSCULAR HGB CONC 31.5 g/dl (31.0-37.0); MONO # 0.6 (0.1-0.6); MONO % 3.7 % (1.0-6.0); PLATELET COUNT 176 10^3/uL (120.0-450.0); RED CELL DISTRIBUTION WIDTH 29.2 % (11.5-14.5); WHITE BLOOD COUNT 15.3 10^3/ul (4.5-11.0)
[2016-09-09 08:28] LABS: CARBON DIOXIDE 42 mmol/L (21-33)
[2016-09-09 08:39] LABS: ALB/GLOB RATIO 1.3 (1.1-1.8)
[2016-09-09 08:43] LABS: HEMATOCRIT 23.8 % (36.0-48.0)
[2016-09-09] MEDS ORDERED: diltiaZEM 240 mg/24 Hours CD Cap PO SCH (10:00)
[2016-09-09] MEDS ORDERED: Digoxin 125 mcg (0.125 mg) Tab PO SCH (14:00)
--- NOTE | 2016-09-09 14:29 | PN ---
DATE: 09/09/2016 SUBJECTIVE: The patient was transferred to TCU. She denies any chest pain. She is still on nasal O 2. She is confused according to the family. PHYSICAL EXAMINATION: VITAL SIGNS: Blood pressure 91/47, heart rate 56, temperature 97.8, respirations 18. HEENT: Pale conjunctivae. CHEST: Bilateral rhonchi. HEART: S1, S2 regular. ABDOMEN: Soft. EXTREMITIES: Improved leg edema. LABORATORIES: Today's hemoglobin and hematocrit 7.5 and 23.8, white count 15.3, platelet count 176,0 00. Today's SMA-7: Sodium 139, potassium , chloride 95, CO2 42, glucose 136, BUN 74, creatini ne 0.7. ASSESSMENT: 1. Stage III metastatic colon cancer. 2. Atrial fibrillation. The patient was in slow ventricular response with 2-3 second pauses. Digox in, Coreg and Cardizem were withheld yesterday. 3. Dehydration, prerenal azotemia. 4. Aortic stenosis. 5. Mildly to moderately depressed left ventricular systolic function. 6. Anemia. 7. Nonmetastatic breast cancer. RECOMMENDATIONS: Continue current IV Rocephin. Resume Cardizem 120 mg daily, hold for heart rate be low 60. Obtain repeat digitalis level. Optimize hydration. The case was discussed with the patient 's son at the bedside. Alexei Saha MD cc: [id number] TT: 09/09/2016 14:28:15 Confirmation # [id number] Dictation # [id number]
--- NOTE | 2016-09-09 17:11 | CP.PCM.CON ---
History of Present Illness - History of Present Illness History of Present Illness: 86 year old female with PMH of HTN, colon cancer stage 3 S/P colon resection and colostomy was initially admitted in [facility] because of upper UTI and pneumonia. She was initially admitted in the ICU was briefly intubated. She has done well clinically and is now transferred to [facility] for continued medical therapy and physical rehabilitation. Infectious Diseases consult is requested to further continue her antibiotic therapy. Currently the patient is comfortable in bed, not in distress, no fevers or chills, no nausea or vomiting , no abdominal pain, no diarrhea, no dysuria, no SOB, no chest pain, no SOB. Review of Systems - Review of Systems All systems: reviewed and no additional remarkable complaints except (as per HPI ) Past Patient History - Infectious Disease Hx of Infectious Diseases: None - Tetanus Immunizations Tetanus Immunization: Unknown - Past Medical History & Family History Past Medical History?: Yes Past Family History: Reviewed and not pertinent - Past Social History Smoking Status: Never Smoked Alcohol: None Drugs: Denies Home Situation {Lives}: With Family - CARDIAC Hx Hypertension: Yes - PULMONARY Hx Respiratory Disorders: No - NEUROLOGICAL Hx Neurological Disorder: No - HEENT Hx HEENT Problems: No - RENAL Hx Chronic Kidney Disease: No - ENDOCRINE/METABOLIC Hx Endocrine Disorders: No - HEMATOLOGICAL/ONCOLOGICAL Hx Cancer: Yes (colon) - INTEGUMENTARY Hx Dermatological Problems: No - MUSCULOSKELETAL/RHEUMATOLOGICAL Hx Musculoskeletal Disorders: No - GASTROINTESTINAL Hx Colostomy: Yes (colon resection, cecal mass) - GENITOURINARY/GYNECOLOGICAL Hx Incontinence: Yes (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) Other/Comment: stage III colon ca - PSYCHIATRIC Hx Psychophysiologic Disorder: No Hx Substance Use: No - SURGICAL HISTORY Other/Comment: colon resection/colostomy - ANESTHESIA Hx Anesthesia Reactions: No Hx Malignant Hyperthermia: No Meds Allergies/Adverse Reactions: Allergies Allergy/AdvReac Type Severity Reaction Status Date / Time No Known Allergies Allergy Verified 09/08/16 16:46 - Medications Medications: Current Medications Aspirin (Aspirin Chewable) 81 mg PO DAILY [facility] PRN Reason: Protocol Ceftriaxone Sodium (Rocephin 1 Gram Ivpb) 100 mls @ 100 mls/hr IVPB DAILY [facility] PRN Reason: Protocol Stop: 09/11/16 10:59 Losartan Potassium (Cozaar) 12.5 mg PO DAILY [facility] PRN Reason: Protocol Pantoprazole Sodium (Protonix Ec Tab) 40 mg PO 30 [facility] PRN Reason: Protocol Prednisone (Prednisone Tab) 20 mg PO DAILY [facility] PRN Reason: Protocol Stop: 09/10/16 07:30 Prednisone (Prednisone Tab) 10 mg PO DAILY [facility] PRN Reason: Protocol Stop: 09/12/16 10:01 Physical Exam - Constitutional Appears: Non-toxic, No Acute Distress - Head Exam Head Exam: NORMAL INSPECTION - ENT Exam ENT Exam: Mucous Membranes Moist - Neck Exam Neck exam: Negative for: Lymphadenopathy, Meningismus - Respiratory Exam Respiratory Exam: Decreased Breath Sounds - Cardiovascular Exam Cardiovascular Exam: +S1, +S2 - GI/Abdominal Exam GI & Abdominal Exam: Soft. absent: Tenderness Results - Labs Result Diagrams: 09/09/16 09:34 09/09/16 06:30 Assessment & Plan - Assessment and Plan (Free Text) Plan: Assessment severe sepsis with acute metabolic encephalopathy now S/P ventilator-dependent respiratory failure, consider secondary to upper urinary tract infection as well as pneumonia; the patient is clinically improving; urine growing Proteus mirabilis and sputum cx growing E. coli HTN colon cancer stage 3 S/P colon resection and colostomy Plan continue Rocephin (day 10), to continue up to 10 days of antibiotics to treat the UTI (this also treats the pneumonia); blood cx negative,; PCT is noted; CXR is reviewed - will d/c antibiotics after today Will continue to monitor clinically
--- NOTE | 2016-09-10 00:11 | HP ---
The patient is in TRCU 321, bed 1. HISTORY OF PRESENT ILLNESS: This is an 86-year-old female with past medical history of hypertension; colon cancer stage III, status post colon resection and a diverting colostomy, who was initially adm itted to [facility] because of upper respiratory tract infection/ pneumonia and urinary t ract infection. She was initially admitted in respiratory failure to the ICU, was briefly intubated, did, clinically, very well and then was transferred to [facility]. The patient also had rapid onset of at rial fibrillation which was monitored by cardiology and now is on, currently, oral medicines. The pa michael is noted to be anemic for which she will be getting a transfusion tomorrow. REVIEW OF SYSTEMS: All systems are reviewed, and no additional remarkable complaints except for what is mentioned in HPI. MEDICATIONS: The patient's medications were reviewed. She is on aspirin 81 mg daily. She is on cef triaxone 1 gram IV piggyback daily. She is on Cozaar 12.5 mg daily. She is on pantoprazole 40 mg da ta, prednisone 20 mg daily for 2 days and then 10 mg daily for 1 day. The patient's cardiac medicin es include the following: She is on Cardizem 120 mg p.o. daily, losartan 12.5 mg p.o. daily. Hopefu lly with a combination of these medications, her heart rate be kept controlled. PHYSICAL EXAMINATION: GENERAL: The patient is awake, alert, and oriented. More alert today than yesterday. HEENT: Head is normocephalic, atraumatic. Conjunctivae pale. Sclerae anicteric. Pupils are equall y reactive to light and accommodation. Examination of the oropharynx reveals no oropharyngeal lesion s. NECK: Supple. There is no adenopathy. LUNGS: Clear to percussion and auscultation with scattered wheezes bilaterally. CARDIOVASCULAR: Reveals S1 and S2 to be normal. No gallop is heard. HEART: Rate is definitely decreased now and appears to be in sinus rhythm. ABDOMEN: Soft, nontender. Bowel sounds are present. No rebound, rigidity, or guarding is noted. T he patient has a colostomy in the left lower quadrant. EXTREMITIES: Reveals trace ankle edema, but otherwise no significant findings. No evidence of cyano sis or clubbing. NEUROLOGIC: Higher functions are normal. No focal deficits are discernible. LABORATORY DATA: From today were reviewed and they revealed the following: The patient's white coun t is 15.3; hemoglobin 7.5, repeat one was 7.6 with a hematocrit of 23.8, platelet count is 176,000. Chemistries reveal a sodium of 139, K of 3.9, chloride 95, CO2 of 42, BUN is 74 with a creatinine of 0.7. ASSESSMENT NOTES AND PLAN: The patient is gradually improving. She had significant anemia which she has required blood transfusions almost once a month, now requiring every 3 weeks. The last blood tr ansfusion she was just before she came on to the TRCU. The patient has no active evidence of bleedin g, but she had increasing transfusion requirements, and my suspicion, patient could have very early m yelodysplastic syndrome that is affecting her counts at this time because she has macrocytic indices, and patient had refused workup on this, including a bone marrow which we had wanted to offer her. I n view of the patient's other comorbid symptoms, we just continued with a symptomatic transfusion as needed. I have taken consent from the patient, spoke to the patient and her son, who was a witness f or the transfusion. We have requested 2 units of PRBCs to be given in the outpatient clinic in a.m., and we will do post-transfusion CBC and chemistries as well. Shanta Lomas MD cc: [id number] TT: 09/10/2016 00:10:41 mo
[2016-09-10] MEDS ORDERED: cefTRIAXone 1 gm 100 ML IVPB SCH (06:03)
[2016-09-10] MEDS: Pantoprazole 40 mg EC Tab PO SCH (06:05)
[2016-09-10] MEDS: cefTRIAXone 1 gm 100 ML IVPB SCH (06:12)
[2016-09-10] MEDS: diltiaZEM 120 mg/24 Hours CD Cap PO SCH (09:44)
--- NOTE | 2016-09-10 14:41 | PN ---
DATE: 09/10/2016 The patient is currently undergoing blood transfusion. She denies any shortness of breath. At that time, she is confused according to the son who is at the bedside. PHYSICAL EXAMINATION: VITAL SIGNS: Blood pressure 97/52, heart rate 69, temperature 97.8, respirations 18. HEENT: Pale conjunctivae. CHEST: Clear. HEART: S1, S2 regular. EXTREMITIES: 1+ pitting edema. ASSESSMENT: 1. Mildly depressed ejection fraction. 2. Persistent atrial fibrillation. 3. Moderate aortic stenosis. 4. Anemia. 5. Status post respiratory failure. 6. Prerenal azotemia. RECOMMENDATIONS: Continue current aspirin 81 mg once a day, Cardizem at 120 mg once a day, Cozaar at 12.5 mg once a day, prednisone 10 mg once a day, Protonix at 40 mg once a day, IV Rocephin at 1 gram intravenously daily. I will administer Lasix 20 mg IV push after the completion of blood transfusio n. The case was discussed with the patient's son at the bedside. Alexei Saha MD cc: [id number] TT: 09/10/2016 14:41:34 Confirmation # [id number] Dictation # [id number] tn
--- NOTE | 2016-09-10 19:29 | CP.PCM.PN ---
Subjective - Date & Time of Evaluation Date of Evaluation: 09/10/16 Time of Evaluation: 10:25 - Subjective Subjective: Comfortable in bed, not in distress, no fevers overnight, no diarrhea. Objective - Vital Signs/Intake and Output Vital Signs (last 24 hours): Temp Pulse Resp BP Pulse Ox 65 F L 69 18 97/52 L 94 L 09/10/16 10:00 09/10/16 10:00 09/10/16 10:00 09/10/16 10:00 09/10/16 10:00 - Medications Medications: Current Medications Aspirin (Aspirin Chewable) 81 mg PO DAILY@0800 [facility] PRN Reason: Protocol Last Admin: 09/10/16 08:19 Dose: 81 mg Diltiazem HCl (Cardizem Cd) 120 mg PO DAILY [facility] Last Admin: 09/10/16 09:44 Dose: Not Given Losartan Potassium (Cozaar) 12.5 mg PO DAILY [facility] PRN Reason: Protocol Last Admin: 09/10/16 09:44 Dose: Not Given Pantoprazole Sodium (Protonix Ec Tab) 40 mg PO 0630 [facility] PRN Reason: Protocol Last Admin: 09/10/16 06:05 Dose: 40 mg Prednisone (Prednisone Tab) 10 mg PO DAILY@0730 [facility] PRN Reason: Protocol - Labs Labs: 09/09/16 09:34 09/09/16 06:30 - Constitutional Appears: Non-toxic, No Acute Distress - Head Exam Head Exam: NORMAL INSPECTION - ENT Exam ENT Exam: Mucous Membranes Moist - Neck Exam Neck Exam: absent: Lymphadenopathy, Meningismus - Respiratory Exam Respiratory Exam: Decreased Breath Sounds - Cardiovascular Exam Cardiovascular Exam: +S1, +S2 - GI/Abdominal Exam GI & Abdominal Exam: Soft. absent: Tenderness Assessment and Plan - Assessment and Plan (Free Text) Plan: Assessment severe sepsis with acute metabolic encephalopathy now S/P ventilator-dependent respiratory failure, consider secondary to upper urinary tract infection as well as pneumonia; the patient is clinically improved; urine growing Proteus mirabilis and sputum cx growing E. coli HTN colon cancer stage 3 S/P colon resection and colostomy Plan continue to monitor off antibiotics since she is at risk for nosocomial infections Will continue to monitor clinically
--- NOTE | 2016-09-11 00:35 | PN ---
DATE: 09/10/2016 LOCATION: The patient is in room 321, bed 1. PROBLEMS: This is an 86-year-old female who was transferred from the acute side to the transitional care side for continuation and completion of antibiotics and also deconditioning with therapy so that we can do gait strengthening while also adjusting medications for her rapid atrial fibrillation , wh ich is new, that may have been precipitated by the lung and urinary infections. SUBJECTIVE: The patient is feeling better. Denies any shortness of breath, no chest pain, no nausea or vomiting. Exam is by the bedside. PHYSICAL EXAMINATION: VITAL SIGNS: Stable. Blood pressure is 97/52, heart rate is 69, T-max is 98.4, respirations 18. HEAD: Normocephalic, atraumatic. LUNGS: Reveals it to be clear to percussion and auscultation. Prolonged expiratory phase. HEART: Reveals S1, S2 to be regular. ABDOMEN: Soft. The patient has a colostomy in the left lower quadrant. Liver and spleen not palpab le. There is no rebound, rigidity or guarding noted. EXTREMITIES: 1+ pitting edema. ASSESSMENT NOTES AND PLAN: The patient has mild depressed ejection fraction, persistent atrial fibri llation, moderate aortic stenosis, anemia, status post sepsis, respiratory failure. Known azotemia, who is getting 2 units of blood today. We will continue the current regimen of aspirin 81 mg a day, Cardizem 120 mg p.o. once a day, Cozaar 12.5 mg once a day, prednisone 10 mg once a day, Protonix 40 mg once a day, Rocephin 1 gram IV daily. The patient will also get 20 mg of Lasix IV push after the second unit of transfusion. Routine post exam instructions have been given to the patient. Plan is to make the patient as independent as is feasible under her current comorbid conditions prior to leav ing the TCU. Routine post exam instructions have been given and spoken at length with the patient's son as well. Shanta Lomas MD cc: [id number] TT: 09/11/2016 00:34:53 Confirmation # [id number] Dictation # [id number] mn
[2016-09-11] MEDS: Pantoprazole 40 mg EC Tab PO SCH (05:40)
[2016-09-11] MEDS: diltiaZEM 120 mg/24 Hours CD Cap PO SCH (09:58)
[2016-09-11 15:25] LABS: ADD MANUAL DIFF? NO
[2016-09-11 15:28] LABS: BASO # 0.01 K/mm3 (0.0-2.0); BASO % 0.1 % (0.0-3.0); EOS # 0.1 (0.0-0.7); EOS % 0.5 % (1.5-5.0); GRAN # 13.89 (1.4-6.5); GRAN % 92.9 % (50.0-68.0); HEMATOCRIT 30.9 % (36.0-48.0); LYMPH # 0.3 (1.2-3.4); LYMPH % 1.7 % (22.0-35.0); MEAN CELL VOLUME 94.8 fL (80.0-105.0); MEAN CORPUSCULAR HGB CONC 32.7 g/dl (31.0-37.0); MONO # 0.7 (0.1-0.6); MONO % 4.8 % (1.0-6.0); PLATELET COUNT 187 10^3/uL (120.0-450.0); RED CELL DISTRIBUTION WIDTH 27.4 % (11.5-14.5); WHITE BLOOD COUNT 14.9 10^3/ul (4.5-11.0)
[2016-09-11 15:41] LABS: BLOOD UREA NITROGEN 47 mg/dL (7-21); CALCIUM 8.2 mg/dL (8.4-10.5); CARBON DIOXIDE 38 mmol/L (21-33); CHLORIDE 93 mmol/L (98-107); GFR AFRICAN-AMERICAN > 60; GLUCOSE,RANDOM 202 mg/dL (70-110); POTASSIUM 3.7 mmol/L (3.6-5.0); SODIUM 133 mmol/L (132-148)
--- NOTE | 2016-09-11 16:10 | PN ---
DATE: 09/11/2016 The patient is in TRCU 321, bed 1. This is an 86-year-old female who was transferred from the acute side to the transitional care side f or continuation and completion of antibiotics, which finishes today, also for deconditioning with phy siotherapy so she can gait strengthening while also adjusting the medications for atrial fibrillation . The atrial fibrillation may have been precipitated from the long urinary tract infection which was discovered when she was in the acute side. SUBJECTIVE: The patient is feeling better. She received 2 units of blood yesterday and that has mad e a big improvement in her overall sense of wellbeing. Denies any shortness of breath, chest pain, n ausea, vomiting. The patient is requesting to go home as soon as it is feasible. PHYSICAL EXAMINATION: GENERAL: The patient is examined at the bedside. VITAL SIGNS: Stable. T-max is 98.4, blood pressure is 97/52, heart rate is 69, T-max is 98.4, respi rations were 18 per minute. HEENT: Head is normocephalic, atraumatic. Conjunctivae pale. Sclerae are anicteric. Pupils are eq ually reactive to light and accommodation. Examination of the oropharynx reveals no oropharyngeal le sions. NECK: Supple. There is no adenopathy. LUNGS: Clear to percussion and auscultation. CARDIOVASCULAR: Reveals S1 and S2 are normal. No gallop or murmur is heard. ABDOMEN: Soft, nontender. The patient has a colostomy in the left lower quadrant. Liver and spleen are not palpable. No other masses felt. The patient has no rebound, rigidity or guarding noted. EXTREMITIES: Reveals no cyanosis, clubbing. The patient has faint ankle edema. NEUROLOGIC: Higher functions are normal. No focal deficits are noted. LABORATORY DATA: Reviewed. White count is 14.9, hemoglobin 10.1, hematocrit 30.9, platelet count 19 7,000. Labs reviewed. Chemistry shows sodium of 133, K 3.7, chloride 93, BUN 47, creatinine 0.5, ra ndom sugar of 200 with a calcium of 8.2. ASSESSMENT NOTES AND PLAN: Detailed discussion with the patient, even though she is slightly forgetf ul, spoke with the son, spoke to the social media marketing analyst and discharge planning nurses. The patient will c omplete antibiotic today. We will continue TRCU and rehabilitation. She will be ready for discharge by Wednesday or Wednesday. Home visiting nurses and home physical therapy is also being set up at this t [facility]. Shanta Lomas MD cc: [id number] TT: 09/11/2016 16:09:50 Confirmation # [id number] Dictation # [id number] jn
[2016-09-12] MEDS: Pantoprazole 40 mg EC Tab PO SCH (05:56)
[2016-09-12] MEDS: diltiaZEM 120 mg/24 Hours CD Cap PO SCH (10:21)
--- NOTE | 2016-09-12 14:36 | CP.PCM.PN ---
Subjective - Date & Time of Evaluation Date of Evaluation: 09/12/16 Time of Evaluation: 14:05 - Subjective Subjective: Comfortable, afebrile, not in distress. Objective - Vital Signs/Intake and Output Vital Signs (last 24 hours): Temp Pulse Resp BP Pulse Ox 98.2 F 84 18 114/70 94 L 09/12/16 10:00 09/12/16 10:22 09/12/16 10:00 09/12/16 10:22 09/12/16 10:00 Intake and Output: 09/12/16 09/12/16 06:59 18:59 Intake Total 120 420 Balance 120 420 - Medications Medications: Current Medications Aspirin (Aspirin Chewable) 81 mg PO DAILY@0800 [facility] PRN Reason: Protocol Last Admin: 09/12/16 08:27 Dose: 81 mg Diltiazem HCl (Cardizem Cd) 120 mg PO DAILY [facility] Last Admin: 09/12/16 10:21 Dose: 120 mg Losartan Potassium (Cozaar) 12.5 mg PO DAILY [facility] PRN Reason: Protocol Last Admin: 09/12/16 10:22 Dose: 12.5 mg Pantoprazole Sodium (Protonix Ec Tab) 40 mg PO 0630 [facility] PRN Reason: Protocol Last Admin: 09/12/16 05:56 Dose: 40 mg Prednisone (Prednisone Tab) 10 mg PO DAILY@0730 [facility] PRN Reason: Protocol Last Admin: 09/12/16 08:28 Dose: 10 mg - Labs Labs: 09/11/16 15:25 09/11/16 15:25 - Constitutional Appears: Non-toxic, No Acute Distress - Head Exam Head Exam: NORMAL INSPECTION - ENT Exam ENT Exam: Mucous Membranes Moist - Neck Exam Neck Exam: absent: Lymphadenopathy, Meningismus - Respiratory Exam Respiratory Exam: Decreased Breath Sounds - Cardiovascular Exam Cardiovascular Exam: +S1, +S2 - GI/Abdominal Exam GI & Abdominal Exam: Soft. absent: Tenderness Assessment and Plan - Assessment and Plan (Free Text) Plan: Assessment S/P severe sepsis with acute metabolic encephalopathy now S/P ventilator- dependent respiratory failure, consider secondary to upper urinary tract infection as well as pneumonia; the patient is clinically improved; urine growing Proteus mirabilis and sputum cx growing E. coli - S/P treatment HTN colon cancer stage 3 S/P colon resection and colostomy Plan continue to monitor off antibiotics since she is at risk for hospital-acquired infections Will continue to monitor clinically
--- NOTE | 2016-09-12 20:21 | CP.PCM.PN ---
Subjective - Date & Time of Evaluation Date of Evaluation: 09/12/16 Time of Evaluation: 15:00 - Subjective Subjective: No acute complaints ROS: no fevers; chills; n/v; bowel/urinary changes; headaches; visual changes; focal weakness Objective - Vital Signs/Intake and Output Vital Signs (last 24 hours): Temp Pulse Resp BP Pulse Ox 97.9 F 80 20 109/59 L 100 09/12/16 16:00 09/12/16 16:00 09/12/16 16:00 09/12/16 16:00 09/12/16 16:00 Intake and Output: 09/12/16 09/13/16 18:59 06:59 Intake Total 420 Balance 420 - Medications Medications: Current Medications Aspirin (Aspirin Chewable) 81 mg PO DAILY@0800 [facility] PRN Reason: Protocol Last Admin: 09/12/16 08:27 Dose: 81 mg Diltiazem HCl (Cardizem Cd) 120 mg PO DAILY [facility] Last Admin: 09/12/16 10:21 Dose: 120 mg Losartan Potassium (Cozaar) 12.5 mg PO DAILY [facility] PRN Reason: Protocol Last Admin: 09/12/16 10:22 Dose: 12.5 mg Pantoprazole Sodium (Protonix Ec Tab) 40 mg PO 0630 [facility] PRN Reason: Protocol Last Admin: 09/12/16 05:56 Dose: 40 mg Prednisone (Prednisone Tab) 10 mg PO DAILY@0730 [facility] PRN Reason: Protocol Last Admin: 09/12/16 08:28 Dose: 10 mg - Labs Labs: 09/11/16 15:25 09/11/16 15:25 - Constitutional Appears: Well - Respiratory Exam Respiratory Exam: Clear to Ausculation Bilateral, NORMAL BREATHING PATTERN - Cardiovascular Exam Cardiovascular Exam: REGULAR RHYTHM, +S1, +S2. absent: Murmur - GI/Abdominal Exam GI & Abdominal Exam: Soft, Normal Bowel Sounds. absent: Tenderness - Extremities Exam Extremities Exam: Full ROM, Normal Capillary Refill, Normal Inspection. absent : Joint Swelling, Pedal Edema - Back Exam Back Exam: NORMAL INSPECTION Assessment and Plan - Assessment and Plan (Free Text) Plan: Ms. Colin suleiman 86 y/o woman with pmhx significant for HTN, colon cancer stage III s/p hemicolectomy and diverting colostomy who was admitted b/c of sepsis physiology (urosepsis vs URI) requiring intubation for respiratory failure and whose hospital course has been complicated by afib with [facility] who has now been stabilized and currently completing abx course in [facility]. The patient's urine and sputum cultures were notable for growth of proteus and ecoli (respectfully). She has completed her abx course and is currently undergoing physiotherapy and being evaluated for any possible recurrence of infection. CBC appears wnl and will continue to have involvement of ID team.
[2016-09-13] MEDS: Pantoprazole 40 mg EC Tab PO SCH (05:39)
[2016-09-13] MEDS: diltiaZEM 120 mg/24 Hours CD Cap PO SCH (10:19)
--- NOTE | 2016-09-13 13:28 | CP.PCM.PN ---
Subjective - Date & Time of Evaluation Date of Evaluation: 09/13/16 Time of Evaluation: 12:00 - Subjective Subjective: Patient is comfortable in bed, not in distress, afebrile, no fevers overnight. Objective - Vital Signs/Intake and Output Vital Signs (last 24 hours): Temp Pulse Resp BP Pulse Ox 98.4 F 89 18 117/66 94 L 09/13/16 10:00 09/13/16 10:19 09/13/16 10:00 09/13/16 10:19 09/13/16 10:00 - Medications Medications: Current Medications Aspirin (Aspirin Chewable) 81 mg PO DAILY@0800 [facility] PRN Reason: Protocol Last Admin: 09/13/16 08:12 Dose: 81 mg Diltiazem HCl (Cardizem Cd) 120 mg PO DAILY [facility] Last Admin: 09/13/16 10:19 Dose: 120 mg Losartan Potassium (Cozaar) 12.5 mg PO DAILY [facility] PRN Reason: Protocol Last Admin: 09/13/16 10:19 Dose: 12.5 mg Pantoprazole Sodium (Protonix Ec Tab) 40 mg PO 0630 [facility] PRN Reason: Protocol Last Admin: 09/13/16 05:39 Dose: 40 mg Prednisone (Prednisone Tab) 10 mg PO DAILY@0730 [facility] PRN Reason: Protocol Last Admin: 09/13/16 08:11 Dose: 10 mg - Labs Labs: 09/11/16 15:25 09/11/16 15:25 - Constitutional Appears: Non-toxic, No Acute Distress - Head Exam Head Exam: NORMAL INSPECTION - Respiratory Exam Respiratory Exam: Decreased Breath Sounds - Cardiovascular Exam Cardiovascular Exam: +S1, +S2 - GI/Abdominal Exam GI & Abdominal Exam: Soft. absent: Tenderness Assessment and Plan - Assessment and Plan (Free Text) Plan: Assessment S/P severe sepsis with acute metabolic encephalopathy now S/P ventilator- dependent respiratory failure, consider secondary to upper urinary tract infection as well as pneumonia; the patient is clinically improved; urine growing Proteus mirabilis and sputum cx growing E. coli - S/P treatment HTN colon cancer stage 3 S/P colon resection and colostomy Plan continue to monitor off antibiotics since she is at risk for healthcare- associated infections Will continue to monitor clinically
--- NOTE | 2016-09-14 00:14 | PN ---
DATE: 09/13/2016 The patient is in room 321, bed 1. SUBJECTIVE: This is an 86-year-old female who was transferred from the acute side of the [facility] for de conditioning completion of antibiotics, is currently doing well off antibiotics. The patient w as admitted to the acute side in acute respiratory failure, found to have urinary tract infection and possible infection of the lung in the form of pneumonitis, improved with broad spectrum antibiotics and also was noted to be extremely anemic requiring transfusion and the patient has been feeling bett er at this time. The patient has anemia, probably based on findings of complete marrow shutdown, nic vated MCV that is compatible with evolving MDS, but the patient would not allow for us to do a bone m arrow, but this is what the assumption is but she has been getting blood transfusions intermittently to keep her going. Subjectively, the patient is comfortable in bed without any fevers, chills, nause a or vomiting. PHYSICAL EXAMINATION: GENERAL: The patient is examined in bed. VITAL SIGNS: T-max is 98.4, pulse is 89, respirations 18, blood pressure is 118/66, pulse ox is 94% on oxygen. The patient appears in no acute distress. HEENT: Head is normocephalic, atraumatic. Examination of the oropharynx reveals no oropharyngeal le sions. NECK: Supple. There is no adenopathy. No jugular venous distention noted. LUNGS: Reveals decreased breath sounds in the bases. CARDIOVASCULAR: Reveals S1 and S2 to be normal. No gallop or murmur is heard. ABDOMEN: Soft, nontender. The patient has a colostomy in the left lower quadrant. No rebound, rigi dity or guarding is noted. EXTREMITIES: Reveals no cyanosis, clubbing or edema. LABORATORY DATA: From the last few days were reviewed; they are unchanged. We will request for more labs in a.m. ASSESSMENT NOTES AND PLAN: The patient is status post severe sepsis with acute metabolic encephalopa thy, now improved. Status post ventilator dependent respiratory failure, now improved. History of s tage III colon cancer, status post resection and colostomy. History of nonmetastatic breast cancer, bilateral, aromatase inhibitor. History of atrial fibrillation, controlled now with cardiac medicine s. The patient is off antibiotics. We will monitor the patient for another day while she is continu ing rehab in [facility] and their plan is for potential discharge by [facility]. Shanta Lomas MD cc: [phone] TT: 09/14/2016 00:13:49 Confirmation # [id number] Dictation # [id number] mn
[2016-09-14] MEDS: Pantoprazole 40 mg EC Tab PO SCH (05:47)
[2016-09-14] MEDS: diltiaZEM 120 mg/24 Hours CD Cap PO SCH (11:00)
--- NOTE | 2016-09-14 23:01 | PN ---
DATE: 09/14/2016 The patient seen earlier today in no acute distress, nontoxic. PHYSICAL EXAMINATION: VITAL SIGNS: Temperature is 97, blood pressure is 120/70, respiratory rate of 16. HEENT: Unremarkable. NECK: Supple. LUNGS: Have decreased breath sounds. HEART: Normal S1, S2. ABDOMEN: Soft, nontender. LABORATORY DATA: Reveals a white count of 14,900, hemoglobin is noted. Chemistries are noted. ASSESSMENT AND PLAN: She is an 86-year-old female with status post severe sepsis with acute metaboli c encephalopathy, status post ventilatory dependent respiratory failure, status post treatment, colon cancer stage III and status post resection, currently off of antibiotics, afebrile; however, patient is at risk for developing nosocomial infections. The patient is also on prednisone which places her on a higher risk for developing nosocomial infections. Alberto Fagan MD cc: [id number] TT: 09/14/2016 23:00:15 Confirmation # [id number] Dictation # [id number] jn
--- NOTE | 2016-09-14 23:36 | PN ---
DATE: 09/14/2016 HISTORY OF PRESENT ILLNESS: The patient is in TRCU for deconditioning. The patient completed antibiot ics and her atrial fibrillation is better controlled She was admitted to the acute side of the [facility] with an acute respiratory failure, found to have urinary tract infection and pneumonitis, for whi ch she was treated with broad spectrum antibiotics. The patient also received blood transfusion and has been feeling better at this time. Patient has anemia probably based on findings of complete marro w shut-down with an elevated MCV suggestive of MDS. The patient has refused bone marrows in the past. The patient has a diagnosis of nonmetastatic bilateral breast cancer and a diagnosis of stage III c olon cancer, status post primary resection and diverting colostomy. The patient is comfortable in be d without any fevers, chills, nausea or vomiting. PHYSICAL EXAMINATION: GENERAL: The patient is examined in bed. VITAL SIGNS: Stable as stated in the chart. HEENT: Head is normocephalic, atraumatic. Conjunctivae pale. Sclerae are anicteric. Pupils are e qually reactive to light and accommodation. Examination of the oropharynx reveals no oropharyngeal l esions. NECK: Supple. There is no adenopathy. No jugular venous distention is noted. LUNGS: Reveals decreased breath sounds in both bases. CARDIOVASCULAR: Reveals S1 and S2 to be normal. No gallop or murmur is heard. ABDOMEN: Soft, nontender. The patient has left lower quadrant colostomy. No rebound, rigidity or g uarding is noted. EXTREMITIES: Reveals no cyanosis, clubbing or edema. ASSESSMENT AND PLAN: Laboratory data from the last visit shows labs to be within normal limits. H an d H is holding at this time. The last labs were done on 09/11/2016 and repeat the blood work a gain in a.m. plans for discharge. In the meantime, we will continue aggressive physical thera py. She can become independent with the activities of daily living and we will set up for home visit ing nurses and home physical therapy as well. I have discussed my findings in detail with the fou[place] rivers, also trying to coordinate the discharge with the discharge planners and the social work nurse. Shanta Lomas MD cc: [id number] TT: 09/14/2016 23:35:37 Confirmation # [id number] Dictation # [id number] ln
[2016-09-15] MEDS: Pantoprazole 40 mg EC Tab PO SCH (05:50)
[2016-09-15 07:44] LABS: ADD MANUAL DIFF? NO
[2016-09-15 07:52] LABS: BASO # 0.01 K/mm3 (0.0-2.0); BASO % 0.1 % (0.0-3.0); EOS % 0.1 % (1.5-5.0); GRAN # 8.41 (1.4-6.5); GRAN % 88.6 % (50.0-68.0); HEMATOCRIT 27.8 % (36.0-48.0); LYMPH # 0.8 (1.2-3.4); LYMPH % 8.4 % (22.0-35.0); MEAN CELL VOLUME 98.9 fL (80.0-105.0); MEAN CORPUSCULAR HGB CONC 31.3 g/dl (31.0-37.0); MONO # 0.3 (0.1-0.6); MONO % 2.8 % (1.0-6.0); PLATELET COUNT 218 10^3/uL (120.0-450.0); RED CELL DISTRIBUTION WIDTH 26.3 % (11.5-14.5); WHITE BLOOD COUNT 9.5 10^3/ul (4.5-11.0)
[2016-09-15 08:18] LABS: ALB/GLOB RATIO 1.1 (1.1-1.8); ALKALINE PHOSPHATASE 43 U/L (38-133); ALT/SGPT 37 U/L (7-56); AST/SGOT 22 U/L (15-39); BILIRUBIN,TOTAL 0.7 mg/dL (0.2-1.3); BLOOD UREA NITROGEN 28 mg/dL (7-21); CARBON DIOXIDE 39 mmol/L (21-33); CHLORIDE 96 mmol/L (95-110); GFR AFRICAN-AMERICAN > 60; GLUCOSE,RANDOM 117 mg/dL (70-110); POTASSIUM 3.3 mmol/L (3.6-5.0); SODIUM 138 mmol/L (132-148); TOTAL PROTEIN 4.5 g/dL (5.8-8.3)
[2016-09-15] MEDS: diltiaZEM 120 mg/24 Hours CD Cap PO SCH (10:06)
--- NOTE | 2016-09-15 13:39 | PN ---
DATE: 09/15/2016 The patient seen earlier today in 321, bed 1. The patient is seen in bed, in no acute distress, nont oxic. No fevers. PHYSICAL EXAMINATION: VITAL SIGNS: Temperature is 97, blood pressure is 120/50, respiratory rate of 16. HEENT: Unremarkable. NECK: Supple. LUNGS: Have decreased breath sounds. HEART: Normal S1, S2. ABDOMEN: Soft, nontender. LABORATORY EXAMINATION: Reveals a white count of 9.5, hemoglobin of 8. The chemistries reveals the BUN of 28, creatinine of 0.4. Toxicology is noted with a digoxin level 0.9. Microbiology is noted. Review of orders reveals the patient to be on prednisone. ASSESSMENT AND PLAN: An 86-year-old female with status post severe sepsis, acute metabolic encephalo andreas and status post ventilatory-dependent respiratory failure, treatment for colon cancer stage III and status post resection. Currently, patient is off of antibiotics, on prednisone. The patient is at risk for developing nosocomial infections. Alberto Fagan MD cc: [id number] TT: 09/15/2016 13:38:17 Confirmation # [id number] Dictation # [id number] en
--- NOTE | 2016-09-16 00:09 | PN ---
DATE: 09/15/2016 LOCATION: The patient is in room 321, bed 1. PROBLEM: This is an 86-year-old female who was admitted to the acute side with respiratory failure, urinary tract and lung infection, improved and transferred over to the [facility] for continuation of the a ntibiotics and active physical therapy. The patient also received 2 units of blood since transferred to [facility]. SUBJECTIVE: The patient is feeling better, more awake and alert, participating in therapy. PHYSICAL EXAMINATION: VITAL SIGNS: T-max is 98.4, blood pressure is 125/80, respirations 16. HEENT: Head is normocephalic, atraumatic. Conjunctivae pale. Sclerae are anicteric. Pupils are eq ually reactive to light and accommodation. Examination of the oropharynx reveals no oropharyng eal lesions. NECK: Supple. There is no adenopathy. LUNGS: Reveal decreased breath sounds at bases. HEART: Reveals PMI to be in the 5th intercostal space inside the midclavicular line. S1 and S2 are normal. No gallop or murmur is heard. ABDOMEN: Soft, nontender. The patient has a colostomy in the left lower quadrant. EXTREMITIES: The patient has erythematous changes and the skin is lower in supervisor the vulvovaginal area. Storm s been started on for the same. LABORATORY DATA: Reveals a white count of 9.5, hemoglobin of 8. Chemistries reveal BUN of 28, creat inine 0.4. Digoxin level is 0.9. Microbiology is noted. ASSESSMENT NOTES AND PLAN: Will continue active physical therapy. The patient is off antibiotics. We will try to monitor her counts. In the meantime, we will make arrangements for discharge plan as well. Routine post exam instructions have been given to the patient. Shanta Lomas MD cc: [id number] TT: 09/16/2016 00:09:24 Confirmation # [id number] Dictation # [id number] simon
[2016-09-16] MEDS: Pantoprazole 40 mg EC Tab PO SCH (05:59)
[2016-09-16] MEDS: diltiaZEM 120 mg/24 Hours CD Cap PO SCH (10:12)
[2016-09-16 11:42] VITALS: O2SAT 96
--- NOTE | 2016-09-16 15:12 | PN ---
DATE: 09/16/2016 The patient is in bed in no acute distress, nontoxic. PHYSICAL EXAMINATION: VITAL SIGNS: Temperature is 98, blood pressure is 120/70, respiratory rate of 18. HEENT: Unremarkable. NECK: Supple. LUNGS: Decreased breath sounds. HEART: Normal S1, S2. ABDOMEN: Soft. LABORATORY EXAMINATION: Reveals a white count of 9.5. Chemistries are noted. ASSESSMENT AND PLAN: An 86-year-old female with status post severe sepsis, acute metabolic encephalo andreas, status post ventilatory dependent respiratory failure, treatment for colon cancer stage III an d status post resection. Currently off of antibiotics, afebrile and on prednisone. At risk for rafitae jose armando nosocomial infections. Alberto Fagan MD cc: [id number] TT: 09/16/2016 15:11:06 Confirmation # [id number] Dictation # [id number] sn
[2016-09-16 17:07] VITALS: BP 114/61; PULSE 81; RESP 14; TEMP 97
== END 2016-09-16 18:55 | disposition home health service (06) | DRG 871 ==
LOC: TRCU 16:33
PROVIDERS: ADMIT Family Medicine; ATTEND Family Medicine
PROC: F07Z9FZ Gait Training/Functional Ambulation Treatment using Assistive, Adaptive, Supportive or Protective Equipment (ICD-10-PCS; principal; 2016-09-09)
PROC: F08Z4FZ Home Management Treatment using Assistive, Adaptive, Supportive or Protective Equipment (ICD-10-PCS; 2016-09-09)
DX: A41.9 Sepsis, unspecified organism (principal); J18.9 Pneumonia, unspecified organism; G93.41 Metabolic encephalopathy; N39.0 Urinary tract infection, site not specified; Z79.2 Long term (current) use of antibiotics; I48.1 Persistent atrial fibrillation; C50.911 Malignant neoplasm of unspecified site of right female breast; C50.912 Malignant neoplasm of unspecified site of left female breast; I10 Essential (primary) hypertension; D64.9 Anemia, unspecified; I35.0 Nonrheumatic aortic (valve) stenosis; Z93.3 Colostomy status; Z85.038 Personal history of other malignant neoplasm of large intestine; Z90.49 Acquired absence of other specified parts of digestive tract

== ENCOUNTER 2016-09-18 17:16 | Inpatient (IN) | payer MEDICARE, BC ==
[2016-09-18] MEDS ORDERED: Cefepime IV 2 gm in NS 100 ML IVPB STA (17:42)
[2016-09-18] MEDS ORDERED: Vancomycin 1gm in NS 250ml 250 ML IVPB STA (17:43)
[2016-09-18] MEDS ORDERED: Sodium Chloride 0.9% 1,000 ML IV ONE (17:45)
--- NOTE | 2016-09-18 17:52 | ED PDOC ---
Arrival/HPI - General Historian: Family (Son) <Ariana Fletcher - Last Filed: 09/18/16 18:51> <AlonaJasson Matty - Last Filed: 09/18/16 19:16> - General Chief Complaint: Altered Mental Status Time Seen by Provider: 09/18/16 17:24 - History of Present Illness Narrative History of Present Illness (Text): 09/18/16 17:40 86 yo F w h/o colon and breast CA, , CAF, HTN, COPD was brought to ER by her son due to AMS. Patient was discharged from [facility] 09/16 after treatment for Proteus mirabilis UTI and PNA course complicated by respiratory acidosis requiring intubation; patient was subsequently extubated. Patient's son states she never fully regained her baseline functionality after that admission and has been nonambulatory since discharge 2 days ago. Patient's son states he went to have lunch with her today and noticed she was "not acting like herself." Son states patient appeared to have a difficult time breathing and was trying to cough without success. Patient is currently lethargic but responsive to voice, oriented x 0, denies any pain, unable to answer most questions. (Ariana Fletcher) Past Medical History - Provider Review Nursing Documentation Reviewed: Yes - Travel History Have you recently traveled outside [place] w/in the past 3 mons?: No - Infectious Disease Hx of Infectious Diseases: None - Tetanus Immunization Tetanus Immunization: Unknown - Cardiac Hx Cardiac Disorders: No Hx Congestive Heart Failure: No - Pulmonary Hx Respiratory Disorders: No - Neurological Hx Neurological Disorder: No - HEENT Hx HEENT Disorder: No - Renal Hx Renal Disorder: No - Endocrine/Metabolic Hx Endocrine Disorders: No - Hematological/Oncological Hx Cancer: Yes (colon) - Integumentary Hx Dermatological Disorder: No - Musculoskeletal/Rheumatological Hx Musculoskeletal Disorders: No - Gastrointestinal Hx Colostomy: Yes (colon resection, cecal mass) - Genitourinary/Gynecological Hx Incontinence: Yes (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) Other/Comment: stage III colon ca - Psychiatric Hx Anxiety: Yes Hx Substance Use: No - Surgical History Other/Comment: colon resection/colostomy - Anesthesia Hx Anesthesia: No Hx Anesthesia Reactions: No Hx Malignant Hyperthermia: No - Suicidal Assessment Feels Threatened In Home Enviroment: No <Ariana Fletcher - Last Filed: 09/18/16 18:51> Family/Social History - Physician Review Nursing Documentation Reviewed: Yes Family/Social History: No Known Family HX Smoking Status: Never Smoked Hx Alcohol Use: No Hx Substance Use: No Hx Substance Use Treatment: No <Ariana Fletcher - Last Filed: 09/18/16 18:51> Allergies/Home Meds <Ariana Fletcher - Last Filed: 09/18/16 18:51> <Jasson Sage - Last Filed: 09/18/16 19:16> Allergies/Adverse Reactions: Allergies No Known Allergies Allergy (Verified 09/08/16 16:46) Review of Systems - Review of Systems Systems not reviewed;Unavailable: Altered Mental Status Respiratory: Cough Cardiovascular: absent: Chest Pain Gastrointestinal: absent: Abdominal Pain Neurological: absent: Headache <Ariana Fletcher - Last Filed: 09/18/16 18:51> Physical Exam - Physical Exam Physical Exam Limitations: Altered Mental Status Temperature: Afebrile Blood Pressure: Normal Pulse: Regular Respiratory Rate: Normal Appearance: Positive for: Ill-Appearing, Cachectic Pain Distress: None Mental Status: No: Alert and Oriented X 3 (Alert, not oriented to self, place or time) - Systems Exam Head: Present: Atraumatic, Normocephalic Pupils: Present: PERRL Extroacular Muscles: Present: EOMI. No: Gaze Palsy Conjunctiva: Present: Normal. No: Injected, Icteric Ears: Present: Normal Mouth: Present: Dry Neck: Present: Normal Range of Motion. No: Meningeal Signs, JVD Respiratory/Chest: Present: Good Air Exchange. No: Respiratory Distress, Accessory Muscle Use, Wheezes Cardiovascular: Present: Regular Rate and Rhythm, Murmurs (3/6 RSB) Abdomen: Present: Normal Bowel Sounds. No: Tenderness, Distention, Peritoneal Signs, Rebound, Guarding Upper Extremity: Present: Other (diffuse echymoses). No: Cyanosis Lower Extremity: Present: Normal Inspection, Edema (2+ BL nonpitting) Neurological: No: GCS=15 (10), CN II-XII Intact (unable to assess) Skin: Present: Dry, Pale Psychiatric: Present: Alert, Lethargic. No: Oriented x 3 (x0) <ChanceAriana - Last Filed: 09/18/16 18:51> Vital Signs Temp Pulse Resp BP Pulse Ox 09/18/16 17:20 97.2 F L 76 19 132/82 100 Medical Decision Making Re-evaluation Time: 18:35 Reassessment Condition: Unchanged - Lab Interpretations I have reviewed the lab results: Yes Interpretation: Abnormal lab values - RAD Interpretation Statistical Geneticist: Radiologist - EKG Interpretation Interpreted by ED Physician: Yes Type: 12 lead EKG Comparison: Similar to previous EKG <Ariana Fletcher - Last Filed: 09/18/16 18:51> - Critical Care Critical Care Minutes: 60 minutes - Lab Interpretations I have reviewed the lab results: Yes Interpretation: Abnormal lab values - RAD Interpretation Statistical Geneticist: ED Physician <Jasson Sage - Last Filed: 09/18/16 19:16> ED Course and Treatment: 09/18/16 18:20 86 yo F w h/o breast and colon CA with recent discharge after sepsis with UTI and PNA presents with AMS. CT head without contrast to r/o bleed/acute CVA, labs , ABG, cultures, CXR, EKG, sepsis workup. IVF, vanc, cefepime. 09/18/16 18:[address] Chamorro, covering ICU overnight. Discussed findings, he will come evaluate patient. (Ariana Fletcher) 09/18/16 19:11 86 yo female presents to the ED with son who states she is not acting like herself. I agree with resident history, physical, assessment, dispostion and plan. Assessment: Respiratory Distress r/o Hypercapnea r/o Pneumonia Plan: -- Labs -- CXR -- EKG -- Cefepime IV, Vancomycin IV -- IVF -- Oxygen EKG: Atrial Fibrillation at [address] elevations CXR: New RLL infiltrate ABG noted with PCO2 elevated. BiPap ordered. Discussed case with Dr. Chamorro who will accept patient to ICU. I discussed case with Dr. Stephen Stallworth who will place on his service. I discussed with the son about end of life care. He states that he has to decided with his older brother. I discussed this with Dr. Chamorro who is also speaking to the family. (Jasson Sage) - Lab Interpretations Lab Results: 09/18/16 17:53 Lab Results 09/18/16 18:25: pCO2 81 H*, pO2 118.0 H, HCO3 36.3 H, ABG pH 7.26 L, ABG Total CO2 38.8 H, ABG O2 Saturation 98.1 H, ABG Base Excess 6.2 H, ABG Potassium 3.9, Sodium 141.0, Chloride 108.0 H, Glucose 136 H, Lactate 0.6 L, FiO2 100.0, Arterial Blood Potassium 3.9 09/18/16 17:53: WBC 13.2 H D, RBC 3.24 L, Hgb 9.8 L, Hct 32.1 L, MCV 99.1, MCH 30.2, MCHC 30.5 L, RDW 27.8 H, Plt Count 347, Neutrophils % (Manual) 92 H, Band Neutrophils % 2, Lymphocytes % (Manual) 4 L, Monocytes % (Manual) 2, Platelet Evaluation Normal, Large Platelets Present, Giant Platelets Present, Poikilocytosis (manual 1+, Anisocytosis (manual) 1+, Target Cells Slight, Helmet Cells Slight, Yesenia Cells Slight, PT 12.1 H, INR 1.12 H, APTT 25.5, pO2 118 H, VBG pH 7.27 L, VBG pCO2 87.0 H*, VBG HCO3 40.0 H, VBG Total CO2 42.7 H, VBG O2 Sat (Calc) 97.9 H, VBG Base Excess 9.4 H, VBG Potassium 4.8, Sodium 139.0 , Chloride 104.0, Glucose 167 H, Lactate 1.8, FiO2 21.0, Venous Blood Potassium 4.8 - RAD Interpretation Narrative RAD Interpretations (Text): 09/18/16 18:46 CXR - Infiltrate RLL compared to 09/[address] head without contrast - No acute intracranial abnormality. Moderate chronic microangiopathic changes and moderate age-related global parenchymal volume loss. 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 (Ariana Fletcher) Radiology Orders: 09/18/16 17:44 CXR [CHEST PORTABLE] [RAD] Stat 09/18/16 18:15 HEAD W/O CONTRAST [CT] Stat - EKG Interpretation EKG Interpretation (Text): 09/18/16 18:25 Afib rate 88, pacemaker, No new changes vs EKG 09/08/2016 (Ariana Fletcher) - Medication Orders Current Medication Orders: Vancomycin HCl (Vancomycin 1gm) 250 mls @ 167 mls/hr IVPB STAT STA PRN Reason: Protocol Stop: 09/18/16 19:12 Discontinued Medications Albuterol/Ipratropium (Duoneb 3 Mg/0.5 Mg (3 Ml) Ud) 3 ml IH STAT STA Stop: 09/18/16 18:46 Cefepime HCl (Maxipime 2gm) 100 mls @ 100 mls/hr IVPB STAT STA PRN Reason: Protocol Stop: 09/18/16 18:41 Last Admin: 09/18/16 18:12 Dose: 100 MLS/HR eMAR Start Stop Document 09/18/16 18:12 SRE (Rec: 09/18/16 18:12 SRE [id number]) Intravenous Solution Start Date 09/18/16 Start Time 18:12 End Date 09/18/16 End time 19:10 Total Infusion Time 58 Sodium Chloride (Sodium Chloride 0.9%) 1,000 mls @ 999 mls/hr IV .Q1H1M ONE Stop: 09/18/16 18:45 Last Admin: 09/18/16 18:11 Dose: 999 MLS/HR eMAR Start Stop Document 09/18/16 18:11 SRE (Rec: 09/18/16 18:12 SRE [id number]) Intravenous Solution Start Date 09/18/16 Start Time 18:00 End Date 09/18/16 End time 19:00 Total Infusion Time 60 Disposition/Present on Arrival - Present on Arrival Any Indicators Present on Arrival: No History of DVT/PE: No History of Uncontrolled Diabetes: No Urinary Catheter: No History of Decub. Ulcer: No History Surgical Site Infection Following: None - Disposition Have Diagnosis and Disposition been Completed?: Yes Disposition Time: 19:00 Patient Plan: ICU <Ariana Fletcher - Last Filed: 09/18/16 18:51> - Present on Arrival Any Indicators Present on Arrival: No - Disposition Have Diagnosis and Disposition been Completed?: Yes Disposition Time: 19:16 Patient Plan: Admission <Jasson Sage - Last Filed: 09/18/16 19:16> - Disposition Diagnosis: Pneumonia, Sepsis, Altered mental status, Hypercapnia Disposition: HOSPITALIZED Patient Problems: Current Active Problems Problem Status Diagnosed Altered mental status Acute Cellulitis Acute Pneumonia Acute Sepsis Acute Condition: CRITICAL Discharge Instructions (ExitCare): Sepsis (ED) Referrals: Shanta Lomas MD [Primary Care Provider] - Follow up with primary
[2016-09-18 18:03] LABS: HEMATOCRIT 32.1 % (36.0-48.0); MEAN CELL VOLUME 99.1 fL (80.0-105.0); MEAN CORPUSCULAR HEMOGLOBIN 30.2 pg (25.0-35.0); MEAN CORPUSCULAR HGB CONC 30.5 g/dl (31.0-37.0); PLATELET COUNT 347 10^3/uL (120.0-450.0); RED CELL DISTRIBUTION WIDTH 27.8 % (11.5-14.5); WHITE BLOOD COUNT 13.2 10^3/ul (4.5-11.0)
[2016-09-18 18:04] LABS: VENOUS BLOOD GAS BASE EXCESS 9.4 mmol/L (0.0-2.0); VENOUS BLOOD PH 7.27 (7.32-7.43)
[2016-09-18 18:11] LABS: ADD MANUAL DIFF? YES
[2016-09-18 18:16] LABS: INR 1.12 (0.93-1.08); PARTIAL THROMBOPLASTIN TIME 25.5 Seconds (23.7-30.8)
[2016-09-18 18:29] LABS: ANISOCYTOSIS 1+; BAND 2 % (0-2); NEUTROPHIL 92 % (50.0-70.0); POIKILOCYTOSIS 1+
[2016-09-18 18:30] LABS: BURR CELLS SLIGHT; GIANT PLATELETS PRESENT; HELMET CELLS SLIGHT; LARGE PLATELETS PRESENT; PLATELET ESTIMATE NORMAL (NORMAL); TARGET CELLS SLIGHT
[2016-09-18 18:33] LABS: ARTERIAL BLOOD GAS HCO3 36.3 mmol/L (21-28); ARTERIAL BLOOD GAS PH 7.26 (7.35-7.45)
[2016-09-18] MEDS ORDERED: Albuterol-Ipratrop 3 mg / 0.5 (3 ml) UD IH STA (18:45)
--- NOTE | 2016-09-18 18:46 | CT ---
PROCEDURE: CT HEAD WITHOUT CONTRAST. HISTORY: AMS COMPARISON: None available. TECHNIQUE: Axial computed tomography images were obtained through the head/brain without intravenous contrast. Radiation dose: Total exam DLP = 984.20 mGy-cm. This CT exam was performed using one or more of the following dose reduction techniques: Automated exposure control, adjustment of the mA and/or kV according to patient size, and/or use of iterative reconstruction technique. FINDINGS: HEMORRHAGE: No intracranial hemorrhage. BRAIN: There are moderate chronic microangiopathic changes. There is no mass, mass effect or abnormal extra-axial fluid collection. There are old lacunar infarctions in the left basal ganglia and external capsule. There are coarse atherosclerotic calcifications in the cavernous carotid arteries. VENTRICLES: There is moderate age-related global parenchymal volume loss and proportionate enlargement of the ventricles and cortical sulci. CALVARIUM: The skull base and calvarium are normal. PARANASAL SINUSES: Predominantly clear. MASTOID AIR CELLS: The right mastoid air cells are clear. There is cerumen in the left external auditory canal and partial loss of pneumatization of the left mastoid air cells. OTHER FINDINGS: None. IMPRESSION: No acute intracranial abnormality. Moderate chronic microangiopathic changes and moderate age-related global parenchymal volume loss. 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
[2016-09-18 19:17] LABS: URINE APPEARANCE SL CLOUDY (CLEAR); URINE BILIRUBIN NEGATIVE (NEGATIVE); URINE BLOOD TRACE-INTACT (NEGATIVE); URINE COLOR YELLOW (YELLOW); URINE GLUCOSE (UA) NEGATIVE (NEGATIVE); URINE KETONE NEGATIVE (NEGATIVE); URINE LEUKOCYTE ESTERASE NEGATIVE Leu/uL (NEGATIVE); URINE PROTEIN 30 mg/dL (<30 mg/dL); URINE UROBILINOGEN 0.2 E.U./dL (<1 E.U./dL)
[2016-09-18 19:29] LABS: URINE BACTERIA MOD (NEG); URINE RBC 0 - 2 /hpf (0-2)
[2016-09-18] MEDS ORDERED: Sodium Chloride 0.9% 1,000 ML IV SCH ×2 (19:30→23:00)
[2016-09-18] MEDS: Albuterol-Ipratrop 3 mg / 0.5 (3 ml) UD IH SCH ×2 (19:40→23:30)
--- NOTE | 2016-09-18 19:51 | CP.PCM.CON ---
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 Pt was recently hospitalized for UTI and PNA treatment complicated by respiratory acidosis requiring intubation and successfully extubated the following day. Pt was d/c 09/16/16. Patient's son states she never fully regained her baseline functionality stated he went to have lunch with her today and noticed she was confused and having difficulties catching her breath. ICU was consulted on account of pt's AMS and respiratory acidosis. Patient is currently lethargic, somnolent, arousable, responsive to voice, however unable to answer questions. Hx obtained by family at bedside PMHx: Breast & Colon Ca, Anemia, HTN PSHx: Colon Resection & Colostomy Family Hx: Noncontributory SHx: Denied tobacco/Etoh/illicit drug abuse Allergies: NKDA Meds: Xanax, diltiazem, prednisone, losartan, protonix Review of Systems - Review of Systems Systems not reviewed;Unavailable: Altered Mental Status Past Patient History - Infectious Disease Hx of Infectious Diseases: None - Tetanus Immunizations Tetanus Immunization: Unknown - Past Medical History & Family History Past Medical History?: Yes - Past Social History Smoking Status: Never Smoked - CARDIAC Hx Cardiac Disorders: No Hx Congestive Heart Failure: No - PULMONARY Hx Respiratory Disorders: No - NEUROLOGICAL Hx Neurological Disorder: No - HEENT Hx HEENT Problems: No - RENAL Hx Chronic Kidney Disease: No - ENDOCRINE/METABOLIC Hx Endocrine Disorders: No - HEMATOLOGICAL/ONCOLOGICAL Hx Cancer: Yes (colon) - INTEGUMENTARY Hx Dermatological Problems: No - MUSCULOSKELETAL/RHEUMATOLOGICAL Hx Musculoskeletal Disorders: No - GASTROINTESTINAL Hx Colostomy: Yes (colon resection, cecal mass) - GENITOURINARY/GYNECOLOGICAL Hx Incontinence: Yes (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) Other/Comment: stage III colon ca - PSYCHIATRIC Hx Anxiety: Yes Hx Substance Use: No - SURGICAL HISTORY Other/Comment: colon resection/colostomy - ANESTHESIA Hx Anesthesia: No Hx Anesthesia Reactions: No Hx Malignant Hyperthermia: No Meds Allergies/Adverse Reactions: Allergies Allergy/AdvReac Type Severity Reaction Status Date / Time No Known Allergies Allergy Verified 09/18/16 22:10 - Medications Medications: Current Medications Albuterol/Ipratropium (Duoneb 3 Mg/0.5 Mg (3 Ml) Ud) 3 ml IH [id number] MEGAN Levofloxacin/Dextrose (Levaquin 750mg) 150 mls @ 100 mls/hr IVPB DAILY [facility] Sodium Chloride (Sodium Chloride 0.9%) 1,000 mls @ 75 mls/hr IV .[id number] MEGAN Piperacillin Sod/Tazobactam Sod (Zosyn 3.375 In Ns 100ml) 100 mls @ 200 mls/hr IVPB Q6 MEGAN PRN Reason: Protocol Stop: 09/19/16 06:29 Vancomycin HCl (Vancomycin 1gm) 250 mls @ 167 mls/hr IVPB Q12H MEGAN PRN Reason: Protocol Methylprednisolone (Solu-Medrol) 40 mg IVP Q8 MEGAN Physical Exam - Constitutional Appears: Confused - Head Exam Head Exam: ATRAUMATIC, NORMAL INSPECTION, NORMOCEPHALIC - Eye Exam Eye Exam: EOMI, Normal appearance, PERRL Pupil Exam: NORMAL ACCOMODATION, PERRL - ENT Exam ENT Exam: Mucous Membranes Dry - Neck Exam Neck exam: Positive for: Full Rom, Normal Inspection. Negative for: Meningismus , Tenderness - Respiratory Exam Respiratory Exam: Decreased Breath Sounds - Cardiovascular Exam Cardiovascular Exam: REGULAR RHYTHM, +S1, +S2 - GI/Abdominal Exam GI & Abdominal Exam: Normal Bowel Sounds, Soft. absent: Tenderness - Extremities Exam Extremities exam: Positive for: normal inspection - Neurological Exam Neurological exam: Altered - Skin Skin Exam: Dry, Intact, Normal Color, Warm Results - Vital Signs Recent Vital Signs: Last Vital Signs Temp 97.2 F L 09/18/16 17:20 Pulse 76 09/18/16 17:20 Resp 19 09/18/16 17:20 BP 132/82 09/18/16 17:20 Pulse Ox 100 09/18/16 17:20 - Labs Result Diagrams: 09/18/16 17:53 Labs: Laboratory Results - last 24 hr 09/18/16 09/18/16 09/18/16 17:53 18:25 18:50 WBC 13.2 H D RBC 3.24 L Hgb 9.8 L Hct 32.1 L MCV 99.1 MCH 30.2 MCHC 30.5 L RDW 27.8 H Plt Count 347 Neutrophils % (Manual) 92 H Band Neutrophils % 2 Lymphocytes % (Manual) 4 L Monocytes % (Manual) 2 Platelet Evaluation Normal Large Platelets Present Giant Platelets Present Poikilocytosis (manual 1+ Anisocytosis (manual) 1+ Target Cells Slight Helmet Cells Slight Sandstone Cells Slight PT 12.1 H INR 1.12 H APTT 25.5 pCO2 81 H* pO2 118 H 118.0 H HCO3 36.3 H ABG pH 7.26 L ABG Total CO2 38.8 H ABG O2 Saturation 98.1 H ABG Base Excess 6.2 H ABG Potassium 3.9 VBG pH 7.27 L VBG pCO2 87.0 H* VBG HCO3 40.0 H VBG Total CO2 42.7 H VBG O2 Sat (Calc) 97.9 H VBG Base Excess 9.4 H VBG Potassium 4.8 Sodium 139.0 141.0 Chloride 104.0 108.0 H Glucose 167 H 136 H Lactate 1.8 0.6 L FiO2 21.0 100.0 Arterial Blood Potassium 3.9 Venous Blood Potassium 4.8 Urine Color Yellow Urine Appearance Sl cloudy Urine pH 6.0 Ur Specific [place] >= 1.030 Urine Protein 30 H Urine Glucose (UA) Negative Urine Ketones Negative Urine Blood Trace-intact H Urine Nitrate Negative Urine Bilirubin Negative Urine Urobilinogen 0.2 Ur Leukocyte Esterase Negative Urine RBC 0 - 2 Urine WBC 1 - 3 Urine Bacteria Mod Hyaline Casts 0 - 2 Urine Opiates Screen Negative Urine Methadone Screen Negative Ur Barbiturates Screen Negative Ur Phencyclidine Scrn Negative Ur Amphetamines Screen Negative U Benzodiazepines Scrn Negative U Oth Cocaine Metabols Negative U Cannabinoids Screen Negative Assessment & Plan - Assessment and Plan (Free Text) Assessment: 86 F with PMHx breast and colon ca recently hospitalized for UTI and PNA treatment presents to [facility] ED with complaints of AMS found to have respiratory acidosis admitted to ICU. Neuro: - AMS - C02 Narcosis with C02 of 81 on ABG - Neurochecks q1h - CTH negative - Bipap 10/6 40% - Repeat ABG - Lactic acid/ PCT - Fu UA, BCx - CXR: New RLL - Fall precautions Pulm: - HCAP - CXR: New RLL - Respiratory Acidosis, C02 81; Bipap 10/6/40, Reassess - ABx: Vanc/zosyn/levaquin - Lactic acid/ PCT - Fu septic workup - HOB >35 - Maintain 02 sat >90 CVS: - HD stable - Continue to monitor - Maintain Map > 70 GI: - GI ppx - NPO, IVF NS @75ml/hr - Swallow eval Renal: - dehydrated - Continue to monitor renal function - IVF NS @ 75ml/hr ID: - HCAP on broad spec abx - Fu UA, UCx, BCx, lactic acid, pct GI and DVT ppx reviewed Seen reviewed and discussed with attending <Rowdy Chamorro MD - Last Filed: 09/19/16 05:35> Meds - Medications Medications: Current Medications Albuterol/Ipratropium (Duoneb 3 Mg/0.5 Mg (3 Ml) Ud) 3 ml IH [id number] [facility] Last Admin: 09/19/16 04:03 Dose: 3 ml Heparin Sodium (Porcine) (Heparin) 5,000 units SC Q12H MEGAN PRN Reason: Protocol Last Admin: 09/18/16 23:34 Dose: 5,000 units Levofloxacin/Dextrose (Levaquin 750mg) 150 mls @ 100 mls/hr IVPB DAILY [facility] Piperacillin Sod/Tazobactam Sod (Zosyn 3.375 In Ns 100ml) 100 mls @ 200 mls/hr IVPB Q6 MEGAN PRN Reason: Protocol Stop: 09/19/16 06:29 Last Admin: 09/19/16 02:38 Dose: 200 mls/hr Vancomycin HCl (Vancomycin 1gm) 250 mls @ 167 mls/hr IVPB Q12H MEGAN PRN Reason: Protocol Sodium Chloride (Sodium Chloride 0.9%) 1,000 mls @ 75 mls/hr IV .[id number] [facility] Last Admin: 09/18/16 23:30 Dose: 75 mls/hr Methylprednisolone (Solu-Medrol) 40 mg IVP Q12 MEGAN Pantoprazole Sodium (Protonix Inj) 40 mg IVP DAILY [facility] Results - Vital Signs Recent Vital Signs: Last Vital Signs Temp 97.2 F L 09/18/16 22:59 Pulse 69 09/19/16 05:01 Resp 20 09/19/16 05:01 BP 102/34 L 09/19/16 05:01 Pulse Ox 100 09/19/16 05:01 - Labs Result Diagrams: 09/18/16 17:53 09/18/16 20:45 Labs: Laboratory Results - last 24 hr 09/18/16 09/19/16 09/19/16 20:45 00:09 02:08 pCO2 65 H pO2 106.0 H HCO3 38.5 H ABG pH 7.38 ABG Total CO2 40.5 H ABG O2 Saturation 98.2 H ABG Base Excess 10.7 H ABG Potassium 4.0 Glucose 114 H Lactate 0.7 FiO2 35.0 Sodium 138 141.0 Potassium 4.3 Chloride 98 109.0 H Carbon Dioxide 37 H Anion Gap 7 L BUN 34 H Creatinine 0.4 L Est GFR ( Amer) > 60 Est GFR (Non-Af Amer) > 60 Random Glucose 130 H Lactic Acid 1.7 Calcium 8.4 Phosphorus 3.6 Magnesium 2.0 Total Bilirubin 1.0 AST 50 H ALT 49 Alkaline Phosphatase 58 Troponin I 0.07 NT-Pro-B Natriuret Pep 3000 H Total Protein 5.1 L Albumin 2.7 L Globulin 2.4 Albumin/Globulin Ratio 1.1 Arterial Blood Potassium 4.0 Attending/Attestation - Attestation I have personally seen and examined this patient.: Yes I have fully participated in the care of the patient.: Yes I have reviewed all pertinent clinical information: Yes Notes (Text): 09/19/16 05:35 -I agree with the above consult H&P done by the resident physician with the following additions: The patient is an 86 year old woman with a history of non-metastatic bilateral breast cancer, stage III colon cancer (s/p resection and colostomy), moderate aortic stenosis, paroxysmal atrial fibrillation (not on anticoagulation), HTN and chronic anemia, who was recently admitted to [facility] from to 09/08/16 for acute hypercapenic respiratory failure (requiring intubation) and pneumonia. She was brought to the ED by her son this evening after he noticed her to have increased work of breathing and altered mental status. Of note, due to patient s altered mentation, the history was obtained from the son who states that her mentation suddenly became altered earlier during the day. He also reports that she took 0.125mg of Xanax earlier in the morning for anxiousness. Currently, the patient is only responsive to name but otherwise cannot follow commands and is disoriented. In the ED, she was found to have respiratory acidosis (pH=7.26 and PCO2=81). As a result, she will be admitted to the ICU overnight and started on Bipap therapy. We will also monitor hourly neuro checks and start empiric treatment for healthcare-associated PNA. Also, because the patient appears clinically dehydrated (BUN/Cr=34/0.4) and has low-normal BPs, she will be placed on gentle IVFs at 75cc/hr. We will monitor serial ABGs to assess progress of Bipap therapy. Of note, the patients CT-head was negative for acute findings and she doesnt demonstrate any signs or symptoms to suggest meningitis.
[2016-09-18 21:17] LABS: ALB/GLOB RATIO 1.1 (1.1-1.8); ALKALINE PHOSPHATASE 58 U/L (38-133); ALT/SGPT 49 U/L (7-56); AST/SGOT 50 U/L (15-39); BLOOD UREA NITROGEN 34 mg/dL (7-21); CALCIUM 8.4 mg/dL (8.4-10.5); CARBON DIOXIDE 37 mmol/L (21-33); CHLORIDE 98 mmol/L (98-107); GFR AFRICAN-AMERICAN > 60; GLUCOSE,RANDOM 130 mg/dL (70-110); PHOSPHOROUS 3.6 mg/dL (2.5-4.5); POTASSIUM 4.3 mmol/L (3.6-5.0); SODIUM 138 mmol/L (132-148); TOTAL PROTEIN 5.1 g/dL (5.8-8.3)
[2016-09-18 21:28] LABS: TROPONIN I 0.07 ng/mL
[2016-09-18 23:38] VITALS: BMI 27.3
[2016-09-18] MEDS ORDERED: Pneumococcal 23-Valent Vaccine IM ONE (23:38)
[2016-09-19 00:12] LABS: ARTERIAL BLOOD GAS HCO3 38.5 mmol/L (21-28); ARTERIAL BLOOD GAS PH 7.38 (7.35-7.45)
[2016-09-19] MEDS: Piperacillin/Tazobact 3.375 gm 100 ML IVPB SCH ×2 (02:38→07:04)
[2016-09-19] MEDS: Albuterol-Ipratrop 3 mg / 0.5 (3 ml) UD IH SCH ×5 (04:03→20:45)
[2016-09-19 06:53] LABS: HEMATOCRIT 28.7 % (36.0-48.0); MEAN CELL VOLUME 100.3 fL (80.0-105.0); MEAN CORPUSCULAR HEMOGLOBIN 30.8 pg (25.0-35.0); MEAN CORPUSCULAR HGB CONC 30.7 g/dl (31.0-37.0); PLATELET COUNT 251 10^3/uL (120.0-450.0); RED CELL DISTRIBUTION WIDTH 27.3 % (11.5-14.5); WHITE BLOOD COUNT 16.9 10^3/ul (4.5-11.0)
[2016-09-19 07:09] LABS: ADD MANUAL DIFF? NO
[2016-09-19 07:12] LABS: ALB/GLOB RATIO 1.1 (1.1-1.8); ALKALINE PHOSPHATASE 55 U/L (38-133); ALT/SGPT 46 U/L (7-56); AST/SGOT 28 U/L (15-39); BILIRUBIN,TOTAL 1.2 mg/dL (0.2-1.3); BLOOD UREA NITROGEN 32 mg/dL (7-21); CALCIUM 8.2 mg/dL (8.4-10.5); CARBON DIOXIDE 35 mmol/L (21-33); CHLORIDE 101 mmol/L (98-107); GFR AFRICAN-AMERICAN > 60; GLUCOSE,RANDOM 90 mg/dL (70-110); POTASSIUM 4.1 mmol/L (3.6-5.0); SODIUM 138 mmol/L (132-148)
[2016-09-19 07:17] LABS: TROPONIN I 0.08 ng/mL
[2016-09-19] MEDS ORDERED: Magnesium Sulfate 2 GM in Sodium Chloride 0.9% 100 ML IVPB ONE (08:23)
[2016-09-19] MEDS ORDERED: Potassium Chloride 20 mEq ER Tab PO ONE (08:23)
[2016-09-19] MEDS ORDERED: Potassium Chloride 20 mEq 100 ML IVPB SCH (08:30)
[2016-09-19] MEDS ORDERED: DiphenhydrAMINE 50 mg/ml Inj IVP ONE (08:30)
[2016-09-19] MEDS ORDERED: Vancomycin 1gm in NS 250ml 250 ML IVPB SCH (09:00)
--- NOTE | 2016-09-19 09:17 | CP.CCUPN ---
<Jacqueline Andrade - Last Filed: 09/19/16 10:22> CCU Subjective - Physician Review Events Since Last Encounter (Free Text): 09/19/16 09:11 Pt was off Bipap 7AM, resting POx 90-92% on 3L NC. While pt speaks, POx goes down to 85%. Pt received 25 Benadryl for suspected red man syndrome. Pt is back on bipap 9AM. I/E/RR/Ox = 03/12/16. Now Satting 91%. CCU Objective - Vital Signs / Intake & Output Vital Signs (Last 4 hours): Vital Signs Temp Pulse Resp BP Pulse Ox 09/19/16 08:15 98.1 F 09/19/16 08:09 78 20 89 L 09/19/16 08:00 85 22 108/84 81 L 09/19/16 07:00 71 19 102/38 L 93 L 09/19/16 06:00 86 20 97/36 L 90 L 09/19/16 05:30 73 23 99 Intake and Output (Last 8hrs): Intake & Output 09/18/16 09/19/16 09/19/16 22:59 06:59 14:59 Intake Total 575 Output Total 400 Balance 175 Weight 154 lb 154 lb 4 oz Intake: IV 375 Left Wrist 375 Other 200 Output: Urine 400 Urethral (Victoria) 400 Other: Voiding Method Indwelling Catheter Indwelling Catheter # Bowel Movements 1 - Physical Exam Physical Exam Limitations: Positive for: Other (Arouse to verbal) Head: Positive for: Atraumatic, Normocephalic, Abrasion (on bridge of nose likely from mask) Pupils: Positive for: PERRL Extroacular Muscles: Positive for: EOMI. Negative for: Gaze Palsy Conjunctiva: Positive for: Normal. Negative for: Injected, Icteric Ears: Positive for: Normal Mouth: Positive for: Dry Neck: Positive for: Normal Range of Motion, MIDLINE TENDERNESS. Negative for: Meningeal Signs, JVD Respiratory/Chest: Positive for: Good Air Exchange, Decreased Breath Sounds. Negative for: Respiratory Distress, Accessory Muscle Use, Wheezes, Rales, Rhonchi Cardiovascular: Positive for: Regular Rate and Rhythm, Murmurs (3/6 heard best at RSB. ) Abdomen: Positive for: Normal Bowel Sounds. Negative for: Tenderness, Distention, Peritoneal Signs, Rebound, Guarding Upper Extremity: Positive for: Other (diffuse echymoses). Negative for: Cyanosis Lower Extremity: Positive for: Normal Inspection, Edema (2+ BL nonpitting) Neurological: Positive for: Speech Normal (one or two words). Negative for: GCS =15 (10), CN II-XII Intact (unable to assess) Skin: Positive for: Dry, Rashes (papular rash around b/l 76 to t12 dermatome anterior and posterior; rash in labial majora, no creptitus on peritoneum. Stage 2 sacral ulcer, dressing d/c/i), Pale Psychiatric: Positive for: Alert, Lethargic. Negative for: Oriented x 3 (x0) - Medications Active Medications: Active Medications Generic Name Dose Route Start Last Admin Trade Name Freq PRN Reason Stop Dose Admin Albuterol/Ipratropium 3 ml 09/18/16 19:30 09/19/16 07:13 Duoneb 3 Mg/0.5 Mg (3 Ml) Ud IH 3 ml [id number] MEGAN Administration Aspirin 600 mg 09/19/16 10:00 09/19/16 08:59 Aspirin Supp RC 600 mg DAILY MEGAN Administration Heparin Sodium (Porcine) 5,000 units 09/18/16 22:45 09/18/16 23:34 Heparin SC 5,000 units Q12H MEGAN Administration Protocol Levofloxacin/Dextrose 150 mls @ 100 mls/hr 09/19/16 10:00 09/19/16 09:00 Levaquin 750mg IVPB 100 mls/hr DAILY MEGAN Administration Vancomycin HCl 250 mls @ 167 mls/hr 09/19/16 09:00 09/19/16 08:48 Vancomycin 1gm IVPB 167 mls/hr Q12H MEGAN Administration Protocol Methylprednisolone 40 mg 09/19/16 10:00 09/19/16 09:01 Solu-Medrol IVP 40 mg Q12 MEGAN Administration Pantoprazole Sodium 40 mg 09/19/16 10:00 09/19/16 09:01 Protonix Inj IVP 40 mg DAILY MEGAN Administration - Patient Studies Lab Studies: Lab Studies 09/19/16 09/19/16 09/19/16 Range/Units 05:30 02:08 00:09 WBC 16.9 H D (4.5-11.0) 10^3/ul RBC 2.86 L (3.5-6.1) 10^6/uL Hgb 8.8 L (12.0-16.0) gm/dL Hct 28.7 L (36.0-48.0) % MCV 100.3 (80.0-105.0) fL MCH 30.8 (25.0-35.0) pg MCHC 30.7 L (31.0-37.0) g/dl RDW 27.3 H (11.5-14.5) % Plt Count 251 (120.0-450.0) 10^3/uL pCO2 65 H (35-45) mm/Hg pO2 106.0 H (80-100) mm/Hg HCO3 38.5 H (21-28) mmol/L ABG pH 7.38 (7.35-7.45) ABG Total CO2 40.5 H (22-28) mmol.L ABG O2 Saturation 98.2 H (95-98) % ABG Base Excess 10.7 H (-2.0-3.0) mmol/L ABG Potassium 4.0 (3.6-5.2) mmol/L Glucose 114 H (65-105) mg/dl Lactate 0.7 (0.7-2.1) mmol/L FiO2 35.0 % Sodium 138 141.0 (132-148) mmol/L Potassium 4.1 (3.6-5.0) mmol/L Chloride 101 109.0 H (98-107) mmol/L Carbon Dioxide 35 H (21-33) mmol/L Anion Gap 6 L (10-20) BUN 32 H (7-21) mg/dL Creatinine 0.4 L (0.5-1.4) mg/dL Est GFR ( Amer) > 60 Est GFR (Non-Af Amer) > 60 Random Glucose 90 (70-110) mg/dL Lactic Acid 1.7 (0.7-2.1) mmol/L Calcium 8.2 L (8.4-10.5) mg/dL Phosphorus (2.5-4.5) mg/dL Magnesium (1.7-2.2) mg/dL Total Bilirubin 1.2 (0.2-1.3) mg/dL AST 28 (15-39) U/L ALT 46 (7-56) U/L Alkaline Phosphatase 55 (38-133) U/L Troponin I 0.08 ng/mL NT-Pro-B Natriuret Pep (0-450) pg/mL Total Protein 5.0 L (5.8-8.3) g/dL Albumin 2.6 L (3.0-4.8) g/dL Globulin 2.4 gm/dL Albumin/Globulin Ratio 1.1 (1.1-1.8) Arterial Blood Potassium 4.0 (3.6-5.2) mmol/L 09/18/16 Range/Units 20:45 WBC (4.5-11.0) 10^3/ul RBC (3.5-6.1) 10^6/uL Hgb (12.0-16.0) gm/dL Hct (36.0-48.0) % MCV (80.0-105.0) fL MCH (25.0-35.0) pg MCHC (31.0-37.0) g/dl RDW (11.5-14.5) % Plt Count (120.0-450.0) 10^3/uL pCO2 (35-45) mm/Hg pO2 (80-100) mm/Hg HCO3 (21-28) mmol/L ABG pH (7.35-7.45) ABG Total CO2 (22-28) mmol.L ABG O2 Saturation (95-98) % ABG Base Excess (-2.0-3.0) mmol/L ABG Potassium (3.6-5.2) mmol/L Glucose (65-105) mg/dl Lactate (0.7-2.1) mmol/L FiO2 % Sodium 138 (132-148) mmol/L Potassium 4.3 (3.6-5.0) mmol/L Chloride 98 (98-107) mmol/L Carbon Dioxide 37 H (21-33) mmol/L Anion Gap 7 L (10-20) BUN 34 H (7-21) mg/dL Creatinine 0.4 L (0.5-1.4) mg/dL Est GFR ( Amer) > 60 Est GFR (Non-Af Amer) > 60 Random Glucose 130 H (70-110) mg/dL Lactic Acid (0.7-2.1) mmol/L Calcium 8.4 (8.4-10.5) mg/dL Phosphorus 3.6 (2.5-4.5) mg/dL Magnesium 2.0 (1.7-2.2) mg/dL Total Bilirubin 1.0 (0.2-1.3) mg/dL AST 50 H (15-39) U/L ALT 49 (7-56) U/L Alkaline Phosphatase 58 (38-133) U/L Troponin I 0.07 ng/mL NT-Pro-B Natriuret Pep 3000 H (0-450) pg/mL Total Protein 5.1 L (5.8-8.3) g/dL Albumin 2.7 L (3.0-4.8) g/dL Globulin 2.4 gm/dL Albumin/Globulin Ratio 1.1 (1.1-1.8) Arterial Blood Potassium (3.6-5.2) mmol/L Laboratory Results - last 24 hr 09/18/16 09/19/16 09/19/16 20:45 00:09 02:08 WBC RBC Hgb Hct MCV MCH MCHC RDW Plt Count pCO2 65 H pO2 106.0 H HCO3 38.5 H ABG pH 7.38 ABG Total CO2 40.5 H ABG O2 Saturation 98.2 H ABG Base Excess 10.7 H ABG Potassium 4.0 Glucose 114 H Lactate 0.7 FiO2 35.0 Sodium 138 141.0 Potassium 4.3 Chloride 98 109.0 H Carbon Dioxide 37 H Anion Gap 7 L BUN 34 H Creatinine 0.4 L Est GFR ( Amer) > 60 Est GFR (Non-Af Amer) > 60 Random Glucose 130 H Lactic Acid 1.7 Calcium 8.4 Phosphorus 3.6 Magnesium 2.0 Total Bilirubin 1.0 AST 50 H ALT 49 Alkaline Phosphatase 58 Troponin I 0.07 NT-Pro-B Natriuret Pep 3000 H Total Protein 5.1 L Albumin 2.7 L Globulin 2.4 Albumin/Globulin Ratio 1.1 Arterial Blood Potassium 4.0 09/19/16 05:30 WBC 16.9 H D RBC 2.86 L Hgb 8.8 L Hct 28.7 L MCV 100.3 MCH 30.8 MCHC 30.7 L RDW 27.3 H Plt Count 251 pCO2 pO2 HCO3 ABG pH ABG Total CO2 ABG O2 Saturation ABG Base Excess ABG Potassium Glucose Lactate FiO2 Sodium 138 Potassium 4.1 Chloride 101 Carbon Dioxide 35 H Anion Gap 6 L BUN 32 H Creatinine 0.4 L Est GFR ( Amer) > 60 Est GFR (Non-Af Amer) > 60 Random Glucose 90 Lactic Acid Calcium 8.2 L Phosphorus Magnesium Total Bilirubin 1.2 AST 28 ALT 46 Alkaline Phosphatase 55 Troponin I 0.08 NT-Pro-B Natriuret Pep Total Protein 5.0 L Albumin 2.6 L Globulin 2.4 Albumin/Globulin Ratio 1.1 Arterial Blood Potassium Fingerstick Blood Sugar Results: 206 Assessment/Plan - Assessment and Plan (Free Text) Plan: 86 F with non-metastatic bilateral breast cancer, stage III colon cancer (s/p resection and colostomy), moderate aortic stenosis, paroxysmal atrial fibrillation (not on anticoagulation), HTN and chronic anemia, who was recently admitted to [facility] from to 09/08/16 for acute hypercapenic respiratory failure (requiring intubation) and pneumonia/UTI, arrived at [facility] ED on 09/19/16 with AMS , baseline AAOx3, found to have respiratory acidosis (pH=7.26 and PCO2=81) started bipap, admitted to ICU. T on arrival was 97.2 rectal. On arrival pt was dehydrated (BUN/Cr=34/0.4) and had low-normal BP in 80s, she was placed on NS @ 75cc/hr. Overnight, acidosis improves. Neuro: - Lethargic. Arousable to verbal. Baseline AAOx3. - Neurochecks q1h - CTH negative - Fall precautions - Avoid xanax or benadryl that further decreases mentation Pulm: - HCAP; CXR: New RLL; On ABx - Hx COPD. - Pro-BNP 3000 - Bipap: Ipap 10, Epap 6, RR 16, O2 40. - Respiratory Acidosis improves - Duoneb Q4 --> Q6 - solumedrol 40q12 - HOB >35; Maintain 02 sat >90 CVS: - Hx paroxysmal atrial fibrillation (not on anticoagulation) - Occasional PAC and a-fib, non-sustained, on [id number] - Maintain Map > 70 - 600 ASA rectal daily - trops 0.07, 0.08, no CP. await 3rd trop GI: - GI ppx - NPO - Swallow eval - Dietital referral Renal: - dehydration and low BP resolved. IVF stopped - U/O 250cc last 12 hrs, adequate Heme: - Hb 8.8, macrocytic, vital stable - Anemia work up: Fe study, B12, folate, Retic - Hypoalbumenia ID: - Leukocytosis 16.9. Lactate 0.7. T Oral 98.1. BP stable. SIRS x 1 - HCAP on Vanc/zosyn/levaquin, day 2 - Fu UA, UCx, BCx, SputumCx, pct Skin: - fungal rash - clotrimazole top - stage 2 sacral ulcer - wound care referral, air mattress, dietitian on board, consider nutritional optimization, turn q2 GI and DVT ppx Heparin 500q12, protonix S/R/D/w. Dr. Bullock - Date & Time Date: 09/19/16 Time: 09:30 <Waqar Bullock - Last Filed: 09/19/16 11:42> CCU Objective - Vital Signs / Intake & Output Vital Signs (Last 4 hours): Vital Signs Temp Pulse Resp BP Pulse Ox 09/19/16 11:29 98 F 09/19/16 08:15 98.1 F 09/19/16 08:09 78 20 89 L 09/19/16 08:00 85 22 108/84 81 L Intake and Output (Last 8hrs): Intake & Output 09/18/16 09/19/16 09/19/16 22:59 06:59 14:59 Intake Total 575 Output Total 400 Balance 175 Weight 154 lb 154 lb 4 oz Intake: IV 375 Left Wrist 375 Other 200 Output: Urine 400 Urethral (Victoria) 400 Other: Voiding Method Indwelling Catheter Indwelling Catheter # Bowel Movements 1 - Medications Active Medications: Active Medications Generic Name Dose Route Start Last Admin Trade Name Freq PRN Reason Stop Dose Admin Albuterol/Ipratropium 3 ml 09/19/16 13:00 Duoneb 3 Mg/0.5 Mg (3 Ml) Ud IH [id number] [facility] Aspirin 600 mg 09/19/16 10:00 09/19/16 08:59 Aspirin Supp RC 600 mg DAILY MEGAN Administration Clotrimazole 0.1 gm 09/19/16 18:00 Lotrimin 1% TOP BID [facility] Doxycycline Hyclate 100 mg 09/19/16 22:00 Doryx PO 04/23/17 22:01 Q12 MEGAN Protocol Heparin Sodium (Porcine) 5,000 units 09/18/16 22:45 09/19/16 11:01 Heparin SC 5,000 units Q12H MEGAN Administration Protocol Meropenem 1g/NS 100mL IVPB 100 mls @ 100 mls/hr 09/19/16 14:00 Meropenem 1g/Ns 100ml Ivpb IVPB 09/28/16 14:01 Q8 MEGAN Protocol Methylprednisolone 40 mg 09/19/16 10:00 09/19/16 09:01 Solu-Medrol IVP 40 mg Q12 MEGAN Administration Pantoprazole Sodium 40 mg 09/19/16 10:00 09/19/16 09:01 Protonix Inj IVP 40 mg DAILY MEGAN Administration - Patient Studies Lab Studies: Lab Studies 09/19/16 09/19/16 09/19/16 Range/Units 05:30 02:08 00:09 WBC 16.9 H D (4.5-11.0) 10^3/ul RBC 2.86 L (3.5-6.1) 10^6/uL Hgb 8.8 L (12.0-16.0) gm/dL Hct 28.7 L (36.0-48.0) % MCV 100.3 (80.0-105.0) fL MCH 30.8 (25.0-35.0) pg MCHC 30.7 L (31.0-37.0) g/dl RDW 27.3 H (11.5-14.5) % Plt Count 251 (120.0-450.0) 10^3/uL pCO2 65 H (35-45) mm/Hg pO2 106.0 H (80-100) mm/Hg HCO3 38.5 H (21-28) mmol/L ABG pH 7.38 (7.35-7.45) ABG Total CO2 40.5 H (22-28) mmol.L ABG O2 Saturation 98.2 H (95-98) % ABG Base Excess 10.7 H (-2.0-3.0) mmol/L ABG Potassium 4.0 (3.6-5.2) mmol/L Glucose 114 H (65-105) mg/dl Lactate 0.7 (0.7-2.1) mmol/L FiO2 35.0 % Sodium 138 141.0 (132-148) mmol/L Potassium 4.1 (3.6-5.0) mmol/L Chloride 101 109.0 H (98-107) mmol/L Carbon Dioxide 35 H (21-33) mmol/L Anion Gap 6 L (10-20) BUN 32 H (7-21) mg/dL Creatinine 0.4 L (0.5-1.4) mg/dL Est GFR ( Amer) > 60 Est GFR (Non-Af Amer) > 60 Random Glucose 90 (70-110) mg/dL Lactic Acid 1.7 (0.7-2.1) mmol/L Calcium 8.2 L (8.4-10.5) mg/dL Phosphorus (2.5-4.5) mg/dL Magnesium (1.7-2.2) mg/dL Total Bilirubin 1.2 (0.2-1.3) mg/dL AST 28 (15-39) U/L ALT 46 (7-56) U/L Alkaline Phosphatase 55 (38-133) U/L Troponin I 0.08 ng/mL NT-Pro-B Natriuret Pep (0-450) pg/mL Total Protein 5.0 L (5.8-8.3) g/dL Albumin 2.6 L (3.0-4.8) g/dL Globulin 2.4 gm/dL Albumin/Globulin Ratio 1.1 (1.1-1.8) Arterial Blood Potassium 4.0 (3.6-5.2) mmol/L 09/18/16 Range/Units 20:45 WBC (4.5-11.0) 10^3/ul RBC (3.5-6.1) 10^6/uL Hgb (12.0-16.0) gm/dL Hct (36.0-48.0) % MCV (80.0-105.0) fL MCH (25.0-35.0) pg MCHC (31.0-37.0) g/dl RDW (11.5-14.5) % Plt Count (120.0-450.0) 10^3/uL pCO2 (35-45) mm/Hg pO2 (80-100) mm/Hg HCO3 (21-28) mmol/L ABG pH (7.35-7.45) ABG Total CO2 (22-28) mmol.L ABG O2 Saturation (95-98) % ABG Base Excess (-2.0-3.0) mmol/L ABG Potassium (3.6-5.2) mmol/L Glucose (65-105) mg/dl Lactate (0.7-2.1) mmol/L FiO2 % Sodium 138 (132-148) mmol/L Potassium 4.3 (3.6-5.0) mmol/L Chloride 98 (98-107) mmol/L Carbon Dioxide 37 H (21-33) mmol/L Anion Gap 7 L (10-20) BUN 34 H (7-21) mg/dL Creatinine 0.4 L (0.5-1.4) mg/dL Est GFR ( Amer) > 60 Est GFR (Non-Af Amer) > 60 Random Glucose 130 H (70-110) mg/dL Lactic Acid (0.7-2.1) mmol/L Calcium 8.4 (8.4-10.5) mg/dL Phosphorus 3.6 (2.5-4.5) mg/dL Magnesium 2.0 (1.7-2.2) mg/dL Total Bilirubin 1.0 (0.2-1.3) mg/dL AST 50 H (15-39) U/L ALT 49 (7-56) U/L Alkaline Phosphatase 58 (38-133) U/L Troponin I 0.07 ng/mL NT-Pro-B Natriuret Pep 3000 H (0-450) pg/mL Total Protein 5.1 L (5.8-8.3) g/dL Albumin 2.7 L (3.0-4.8) g/dL Globulin 2.4 gm/dL Albumin/Globulin Ratio 1.1 (1.1-1.8) Arterial Blood Potassium (3.6-5.2) mmol/L Laboratory Results - last 24 hr 09/18/16 09/19/16 09/19/16 20:45 00:09 02:08 WBC RBC Hgb Hct MCV MCH MCHC RDW Plt Count pCO2 65 H pO2 106.0 H HCO3 38.5 H ABG pH 7.38 ABG Total CO2 40.5 H ABG O2 Saturation 98.2 H ABG Base Excess 10.7 H ABG Potassium 4.0 Glucose 114 H Lactate 0.7 FiO2 35.0 Sodium 138 141.0 Potassium 4.3 Chloride 98 109.0 H Carbon Dioxide 37 H Anion Gap 7 L BUN 34 H Creatinine 0.4 L Est GFR ( Amer) > 60 Est GFR (Non-Af Amer) > 60 Random Glucose 130 H Lactic Acid 1.7 Calcium 8.4 Phosphorus 3.6 Magnesium 2.0 Total Bilirubin 1.0 AST 50 H ALT 49 Alkaline Phosphatase 58 Troponin I 0.07 NT-Pro-B Natriuret Pep 3000 H Total Protein 5.1 L Albumin 2.7 L Globulin 2.4 Albumin/Globulin Ratio 1.1 Arterial Blood Potassium 4.0 09/19/16 05:30 WBC 16.9 H D RBC 2.86 L Hgb 8.8 L Hct 28.7 L MCV 100.3 MCH 30.8 MCHC 30.7 L RDW 27.3 H Plt Count 251 pCO2 pO2 HCO3 ABG pH ABG Total CO2 ABG O2 Saturation ABG Base Excess ABG Potassium Glucose Lactate FiO2 Sodium 138 Potassium 4.1 Chloride 101 Carbon Dioxide 35 H Anion Gap 6 L BUN 32 H Creatinine 0.4 L Est GFR ( Amer) > 60 Est GFR (Non-Af Amer) > 60 Random Glucose 90 Lactic Acid Calcium 8.2 L Phosphorus Magnesium Total Bilirubin 1.2 AST 28 ALT 46 Alkaline Phosphatase 55 Troponin I 0.08 NT-Pro-B Natriuret Pep Total Protein 5.0 L Albumin 2.6 L Globulin 2.4 Albumin/Globulin Ratio 1.1 Arterial Blood Potassium Attending/Attestation - Attestation I have personally seen and examined this patient.: Yes I have fully participated in the care of the patient.: Yes I have reviewed all pertinent clinical information: Yes Notes (Text): 09/19/16 11:39 The patient was seen and examined at the bedside. Patient care was discussed with resident Medical records, lab studies, and imaging were reviewed and management issues were discussed and formulated. Last 24H events reviewed. Agree with above treatment plans as outlined in 's note with addition of the following: -hemodynamic monitoring to maintain MAP>65; currently stable -o2 supplementation to maintain Spo2 90-92 Pao2>60; currently comfortable on NC -continue Bipap PRN and when sleeps -ETCo2 in Am 38; monitor airway closely -ABG and CXR reviewed -continue broad spectrum abx as per ID team and f\u cultures -f\u Bun\Cr and U\o; d\c IVF -NPO diet and aspiration precautions -DVT \ PUD prophylaxis CCM f\u 35min
[2016-09-19] MEDS ORDERED: Enoxaparin 40 mg Syringe SC SCH (10:00)
[2016-09-19] MEDS ORDERED: MethylPREDNISolone 40 mg Vial IVP SCH (10:00)
--- NOTE | 2016-09-19 11:26 | CARD ---
APPROVED REPORT EKG Measurement Heart [id number] <Conclusion> Atrial fibrillation NSSTW changes No change
--- NOTE | 2016-09-19 12:00 | RAD ---
HISTORY: AMS, PNA COMPARISON: Comparison made with prior chest radiograph 09/03/2016 FINDINGS: LUNGS: Mild central pulmonary vascular congestion with diffuse infiltrate changes throughout the left lung and to a lesser degree right lung base. Bilateral effusions left greater than right. Findings consistent with on pulmonary edema/ CHF than right. Findings consistent with pulmonary edema however superimposed pneumonia not excluded PLEURA: No significant pleural effusion identified, no pneumothorax apparent. CARDIOVASCULAR: Cardiomegaly. Dense mitral valve calcification. OSSEOUS STRUCTURES: No significant abnormalities. VISUALIZED UPPER ABDOMEN: Normal. OTHER FINDINGS: None. IMPRESSION: Pulmonary vascular congestion with bilateral effusions as described. Cardiomegaly.
--- NOTE | 2016-09-19 12:01 | RAD ---
HISTORY: evaluate for effusion and PNA COMPARISON: Comparison made with prior study dated 09/18/2016 at 18:05 hours. FINDINGS: LUNGS: Central pulmonary vascular congestion with diffuse bilateral infiltrates with bilateral effusions left greater than right. Findings consistent with pulmonary edema however superimposed pneumonia not excluded PLEURA: No pneumothorax apparent. CARDIOVASCULAR: Cardiomegaly. Dense mitral valve calcification OSSEOUS STRUCTURES: No significant abnormalities. VISUALIZED UPPER ABDOMEN: Normal. OTHER FINDINGS: None. IMPRESSION: Pulmonary vascular congestion with bilateral effusions left greater than right Cardiomegaly.
[2016-09-19] MEDS: Meropenem 1g/NS 100mL IVPB 100 ML IVPB SCH ×2 (13:46→22:09)
--- NOTE | 2016-09-19 14:52 | CON ---
DATE: 09/19/2016 The patient seen earlier this morning in the ICU bed #4. CHIEF COMPLAINT: Weakness and change of mental status x 1 day duration. HISTORY OF PRESENT ILLNESS: An 86-year-old female with a history of hypertension, coronary artery di sease, history of chronic obstructive lung disease, Crohn's disease, history of stage III adenocarcin yi of the colon, recently hospitalized, seen by our service in patient with Proteus urinary tract in fection, which was pansensitive and Escherichia coli, the sputum culture is also pansensitive, histor y of renal disease, now admitted with the diagnosis of hypercapnia, respiratory failure. Infectious disease consultation requested. The patient is a poor historian. She is weak. She has had low-grad e fevers. There is mild shortness of breath. No chest pain. There has been no abdominal pain repor alex. No diarrhea or constipation. No dysuria or frequency. PAST MEDICAL HISTORY: Notable hypertension, COPD and coronary artery disease, gastrointestinal bleed , Crohn's disease, adenocarcinoma of the colon stage III, renal disease and Proteus urinary tract inf ection, Escherichia coli in sputum. PAST SURGICAL HISTORY: Significant for colon resection, colostomy, cystoscopy with a urethral stent. ALLERGIES: The patient has no known allergies. MEDICATIONS: At home are reviewed and include the patient to be on prednisone 10 mg a day, ____, Pro tonix, Cozaar, aspirin, and Xanax. PHYSICAL EXAMINATION: GENERAL: The patient is in bed with a temperature of 98, blood pressure is 105/30, respiratory rate of 22, heart rate of 86. Saturation reveals an 81% oxygen saturation. HEENT: Unremarkable. NECK: Supple. LUNGS: Have decreased breath sounds. HEART: Normal S1, S2. ABDOMEN: Soft, nontender. LABORATORY EXAMINATION: Reveals a white count of 13,200, it is up to 16,900. Hemoglobin of 9, plate lets of 347. Coagulation is noted. BUN of 32, creatinine of 0.4. BNP is 3,000. Microbiology is pe nding. Chest x-ray report is reviewed, which showed congestion and diffuse interstitial infiltrates and bilateral effusion, left greater than the right with pulmonary edema, underlying pneumonia cannot be excluded. CAT scan of the head is reviewed and shows no acute findings. An earlier chest x-ray from yesterday also was reviewed. ASSESSMENT AND PLAN: An 86-year-old female with hypertension, chronic obstructive lung disease, cliff nary artery disease, gastrointestinal bleed, Crohn's disease, adenocarcinoma of the colon stage III, recent hospitalization with Proteus urinary tract infection, Escherichia coli in the sputum pansensit janes organisms now admitted with leukocytosis and dyspnea, change of mental status, hypoxia, infiltrat es on x-ray, severe sepsis with healthcare-associated possible gram-positive cocci, possible gram-neg ative melissa, pneumonia in face of acute systolic congestive heart failure on top of chronic congestive heart failure with reduced ejection fraction from an echo that was done a month ago, which showed 48% ejection fraction in a patient's EKG with a QTC of 423. We will treat the patient with meropenem an d doxycycline. Check on the her culture results. We will check on the procalcitonin and check on a fold blood cultures, urine cultures. We will make further recommendations upon availability of initi al results. Discontinue the vancomycin and discontinue the Levaquin and Maxipime. Alberto Fagan MD cc: [id number] TT: 09/19/2016 14:52:17 Confirmation # [id number] Dictation # [id number]
--- NOTE | 2016-09-19 14:57 | HP ---
For Dr. Lomas. CHIEF COMPLAINT: Altered mental status. HISTORY OF PRESENT ILLNESS: The patient is an 86-year-old female discharged from [facility] on , now admitted via the Emergency Room on for pneumonia. As per her son, she had acute mental status change at home with the patient reporting the patient has been nonambulatory for 2 days and with the patient reported that she had difficulty breathing with poor effort for cough with the patient being lethargic. She was then admitted via the Emergency Room to the intensive care unit as per Dr. Sage, the Emergency Room director. At present, she is seen with her son at the bedside in the intensive care unit, more alert, but still lethargic, being treated for pneumonia with the patient a full code after long conversation with the patient and the patient's son who reports he has a brother who has power of state attorney and a second brother who will also need to be consulted for any decisions to be made as far the patient's future care. With this, the patient is otherwise in no acute distress at this time, denying any pain. PAST MEDICAL HISTORY: Significant for colon cancer with colostomy, breast cancer, arteriosclerosis, hypertension, COPD, aortic stenosis, atrial fibrillation, anemia, uncontrolled diabetes, status post intubation for respiratory failure 10 days prior with the patient transferred to transitional care unit for deconditioning and gait strengthening while tapering steroids. FAMILY HISTORY AND SOCIAL HISTORY: Nonsmoker, nonethanolic, 3 sons alive and well. ALLERGIES: No known allergies. MEDICATIONS: From home included (see below list) with the patient noncompliant. It should be noted, the patient was admitted to the transitional care floor with her medications at that time aspirin, Cozaar, Protonix, prednisone, Cardizem, losartan for which she was discharged home from TCU and now readmitted 2 days later to the intensive care unit. PHYSICAL EXAMINATION: VITAL SIGNS: Temperature 98, pulse 77, respirations 16, blood pressure 95/38, pulse ox 95%. HEENT: Unremarkable. NECK: Supple. HEART: Irregularly irregular. LUNGS: Scattered rhonchi bilaterally with decreased breath sounds. ABDOMEN: Soft, nontender. Positive colostomy viable. EXTREMITIES: No edema. SKIN: Warm and dry. NEUROLOGIC: Somnolent, but arousable. LABORATORY DATA: The patient's labs were done. White blood cell count of 16.9 , hemoglobin 8.8, hematocrit 28.7, platelet count 251,000 with a chem metabolic panel showing a BUN of 32, creatinine of 0.4, carbon dioxide 35, albumin of 2.6 , troponin 0.08. A procalcitonin was done yesterday, less than 0.05. INR yesterday 1.12. ABG showed a pO2 of 106 with a pCO2 of 65, pH 7.38. Urinalysis showed trace of ketones. Drug screen was negative. 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 Chest x-ray initially in the Emergency Room showed pulmonary vascular congestion, bilateral effusions, cardiomegaly. Repeat chest x-ray today showed no change, cardiomegaly. 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 PLAN: To admit to the intensive care unit with consults with Dr. Fagan, infectious diseases; Dr. Salinas, pulmonary, and Dr. Saha, cardiology. We will continue present medical regimen as per depalletizer operator, Dr. Bullock along with medications with a swallowing evaluation and to advance her diet once possible. In the interim, we will give IV fluids at a blas rate with monitoring clinically and with labs. Consider transfusion as per Dr Lomas after eval with Dr Saha. Stephen Almonte MD cc: [id number] TT: 09/19/2016 14:57:16 zion [email or web address]
[2016-09-19 16:53] LABS: URINE BILIRUBIN NEGATIVE (NEGATIVE); URINE BLOOD MODERATE (NEGATIVE); URINE GLUCOSE (UA) NEGATIVE (NEGATIVE); URINE KETONE 15 mg/dL (NEGATIVE); URINE LEUKOCYTE ESTERASE NEGATIVE Leu/uL (NEGATIVE); URINE PROTEIN TRACE mg/dL (<30 mg/dL); URINE UROBILINOGEN 0.2 E.U./dL (<1 E.U./dL)
[2016-09-19 16:55] LABS: URINE APPEARANCE CLEAR (CLEAR); URINE COLOR YELLOW (YELLOW)
[2016-09-19 17:27] LABS: URINE AMORPHOUS SEDIMENT FEW; URINE BACTERIA MANY (NEG); URINE RBC 20 - 25 /hpf (0-2)
[2016-09-19] MEDS: Clotrimazole 1% Cream(30 gm) TOP SCH (17:34)
--- NOTE | 2016-09-19 19:20 | CON ---
DATE: 09/19/2016 REASON FOR CONSULTATION: Sinus tachycardia and shortness of breath, congestive heart failure and aor tic stenosis. HISTORY OF PRESENT ILLNESS: The patient is an 86-year-old female who has a history of stage III colo n cancer with colostomy, history of metastatic breast cancer, history of systolic heart failure. The most recent echo revealed an ejection fraction in the range of 40%-50%. The patient was also known to have moderate valvular aortic stenosis and mild pulmonary hypertension, was recently admitted to [facility] because of shortness of breath and respiratory failure, intubation, and was in ICU. F rom there, the patient was transferred to TCU. The patient has a history of megaloblastic anemia clayton t required blood transfusion and she did receive a transfusion during her last admission to the TCU. The patient was not considered a suitable candidate for long-term anticoagulation for that reason. The patient presented because of shortness of breath and altered mental status. The patient was admi tted to ICU with a diagnosis of pneumonia. The patient was lethargic and confused and required BiPAP . The patient's condition slightly improved. At this time, the patient denies any chest pain and sh kala is aware of the fact that she in the hospital, but does not know which hospital. SOCIAL HISTORY: Nonsmoker, nondrinker. She lives with her son. MEDICATIONS: Doxycycline 100 mg p.o. twice a day, albuterol inhaler q. 6 hours, heparin 5000 units s ubcutaneously q. 12 hours, meropenem 1 gram intravenously q. 8 hours, meropenem 1 gram intravenously q. 8 hours, Protonix 40 mg intravenously daily, Solu-Medrol 40 mg intravenously q. 12 hours. REVIEW OF SYSTEMS: No reported ventricular arrhythmia. No reported hypertension. PHYSICAL EXAMINATION: GENERAL: The patient is an elderly female who does not appear to be in acute distress. VITAL SIGNS: Blood pressure 98/40, heart rate 92, temperature 98.8, respirations 16. HEENT: Pale conjunctivae. CHEST: Absent breath sounds over the bases. HEART: S1, S2 regular. ABDOMEN: Soft. EXTREMITIES: Trace leg edema. LABORATORY DATA: CBC of 16.9, hemoglobin 8.8, hematocrit 28.7, platelet count 251,000. Today's SMA- 7: Sodium 138, potassium 4.1, chloride 101, CO2 of 35, glucose 90, BUN 32, creatinine 0.4. ProBNP 3 000. Two sets of troponins were 0.08 and 0.06. INR is 1.12, PTT 25.5. Chest x-ray report, pulmonary vascular congestion with bilateral effusions, left greater than right. EKG was officially read as a trial fibrillation; however, in reality is sinus rhythm with atrial bigeminy with a heart rate of 88. ASSESSMENT: 1. Pneumonia and bilateral pleural effusions. 2. Paroxysmal atrial fibrillation. 3. Moderate aortic stenosis. 4. Systolic heart failure. 5. Anemia. 6. Stage III colon cancer. RECOMMENDATIONS: Continue current oral doxycycline and IV meropenem besides subcutaneous heparin and intravenous Solu-Medrol. Start Lasix at 20 mg intravenously daily and Cozaar at 12.5 mg orally edil y. The patient is not a suitable candidate for long-term anticoagulation. Alexei Saha MD cc: [id number] TT: 09/19/2016 19:19:48 Confirmation # [id number] Dictation # [id number] marysol
--- NOTE | 2016-09-19 19:39 | CON ---
DATE: 09/19/2016 REFERRING PHYSICIAN: Dr. Almonte. REASON FOR CONSULT: Shortness of breath and change in mental status. HISTORY OF PRESENT ILLNESS: This is an 86-year-old female with a past medical history significant fo r colon cancer, had a hemicolectomy with colostomy. Also found to have breast cancer, hypertension, aortic stenosis, chronic obstructive lung disease. Recently had pneumonia and brought to the Emergen cy Room by the son with change in mental status, not feeling well, having shortness of breath. At pr esent, she feels a little better. Admitted to intensive care unit. According to her son, she does h ave snoring at nighttime and has episodes of choking at night. No chest pain. No nausea or vomiting . PAST MEDICAL HISTORY: Colon cancer status post hemicolectomy with colostomy, breast cancer, atrial f ibrillation, aortic stenosis, diabetes and anxiety disorder. ALLERGIES: None known. SOCIAL HISTORY: Nonsmoker, nondrinker. FAMILY HISTORY: No cardiopulmonary disease reported. MEDICATIONS: She is on Cozaar 12.5 mg daily, doxycycline 100 mg twice a day, DuoNeb q.6 hours, hepar in 5000 units subQ q.12 hours, Lasix 20 mg IV daily, Lotrimin 1% to affected area twice a day, starte d on meropenem 1 g IV q.8 hours, Protonix 40 mg daily, Solu-Medrol 40 mg q.12 hours. REVIEW OF SYSTEMS: No headache, no rhinitis. Has shortness breath and mild cough. No chest pain. No nausea, no vomiting, no diarrhea. No dysuria. There is trace leg swelling. PHYSICAL EXAMINATION: GENERAL: She is lying in the bed, in no acute distress, has some cough. VITAL SIGNS: Temperature is 98, heart rate is 85, respiratory rate is 20, blood pressure 112/36, pul se ox 94% on nasal cannula. HEENT: Moist mucous membranes. Small oral cavity. NECK: Supple. No JVD. LUNGS: Has scattered rhonchi and a few crackles at the bases. HEART: S1 and S2. ABDOMEN: Soft, nontender. No organomegaly. EXTREMITIES: Trace edema. NEUROLOGIC: Awake, alert, follows simple commands. LABORATORY DATA: Shows hemoglobin 8.8, hematocrit 28.7, WBC 16.9, platelet is 251. INR 1.12, PTT is 26. Blood gases shows pH 7.38, pCO2 65 and O2 of 106. On admission her pCO2 was 81. Sodium 138, p otassium 4.1, chloride 101, bicarbonate 35, BUN 32, creatinine 0.4, glucose is 90, calcium is 8.2, T 28, ALT 46, alkaline phosphatase is 55. Albumin is 2.6. Urine culture shows WBC 1-3, RBCs 20-25. Drug screen was negative. Chest x-ray done in the Emergency Room shows pulmonary vascular congestio n and bilateral effusions with left greater and the right cardiomegaly. CAT scan of the head is done from the Emergency Room, which shows moderate chronic microangiopathic changes, moderate age-related global parenchymal volume loss or lacunar infarct in the left basal ganglia and external capsule. H ad an echocardiogram done in 08/2016 showing right ventricle systolic pressure is 36, LV ejection frac tion is 45-50 with moderate valvular aortic stenosis, IVC was severely dilated. IMPRESSION AND PLAN: Respiratory failure requiring noninvasive ventilation, has cardiomyopathy with decreased left ventricular function and has mild pulmonary hypertension. Also, has valvular heart di sease, history of atrial fibrillation, history of colon cancer with colostomy. Also found to have br east cancer and anemia requiring transfusions in the past. I agree with the present management. Charles l continue noninvasive ventilation as needed basis. Keep head elevated at 45 degree. Need to start her on diuretics, afterload quality technician, beta blockers. Gastric prophylaxis. Deep venous thrombosis pro phylaxis. Sleep apnea precaution. May need a sleep study upon discharge as an outpatient. Follow u p labs in the morning. Thank you and will follow with you. Camron Salinas MD cc: [id number] TT: 09/19/2016 19:38:42 Confirmation # [id number] Dictation # [id number] dn
[2016-09-19] MEDS: MethylPREDNISolone 40 mg Vial IVP SCH (22:10)
[2016-09-20] MEDS: Albuterol-Ipratrop 3 mg / 0.5 (3 ml) UD IH SCH ×4 (02:10→13:07)
[2016-09-20 05:55] LABS: ARTERIAL BLOOD GAS HCO3 37.2 mmol/L (21-28); ARTERIAL BLOOD GAS O2 CAPACITY 10.7 mL/dl (16-24); ARTERIAL BLOOD GAS O2 CONTENT 10.3 ML/dl (15-23); ARTERIAL BLOOD GAS PH 7.43 (7.35-7.45); ARTERIAL BLOOD HGB O2 SAT 94.4 % (95.0-98.0); CARBOXYHEMOGLOBIN 1.7 % (0.5-1.5); HHB 3.4 % (0-5); METHEMOGLOBIN 0.5 % (0.0-3.0)
[2016-09-20 06:08] LABS: HEMATOCRIT 26.6 % (36.0-48.0); MEAN CELL VOLUME 98.9 fL (80.0-105.0); MEAN CORPUSCULAR HEMOGLOBIN 30.9 pg (25.0-35.0); MEAN CORPUSCULAR HGB CONC 31.2 g/dl (31.0-37.0); PLATELET COUNT 221 10^3/uL (120.0-450.0); RED CELL DISTRIBUTION WIDTH 27.6 % (11.5-14.5); RETIC% 1.44 % (0.5-1.5); WHITE BLOOD COUNT 14.9 10^3/ul (4.5-11.0)
[2016-09-20 06:17] LABS: ADD MANUAL DIFF? YES
[2016-09-20] MEDS: Meropenem 1g/NS 100mL IVPB 100 ML IVPB SCH ×3 (06:30→21:43)
[2016-09-20 06:35] LABS: ALKALINE PHOSPHATASE 48 U/L (38-133); ALT/SGPT 47 U/L (7-56); AST/SGOT 18 U/L (15-39); BILIRUBIN,TOTAL 0.8 mg/dL (0.2-1.3); BLOOD UREA NITROGEN 28 mg/dL (7-21); CALCIUM 7.9 mg/dL (8.4-10.5); CARBON DIOXIDE 37 mmol/L (21-33); CHLORIDE 100 mmol/L (98-107); GFR AFRICAN-AMERICAN > 60; GLUCOSE,RANDOM 170 mg/dL (70-110); MAGNESIUM 1.8 mg/dL (1.7-2.2); PHOSPHOROUS 2.4 mg/dL (2.5-4.5); POTASSIUM 3.6 mmol/L (3.6-5.0); SODIUM 139 mmol/L (132-148); TOTAL PROTEIN 4.5 g/dL (5.8-8.3)
[2016-09-20 07:03] LABS: IRON 83 ug/dL (45-180)
[2016-09-20 07:22] LABS: BAND 9 % (0-2); NEUTROPHIL 90 % (50.0-70.0); PLATELET ESTIMATE NORMAL (NORMAL)
[2016-09-20 07:23] LABS: ANISOCYTOSIS 2+; HELMET CELLS SLIGHT; HYPOCHROMIA 2+; OVALOCYTES SLIGHT; POIKILOCYTOSIS 1+; TARGET CELLS SLIGHT; TOXIC GRANULATION SLIGHT
[2016-09-20] MEDS ORDERED: Sodium Phosphate 15 MMOLE in Sodium Chloride 0.9% 250 ML IVPB ONE (09:22)
[2016-09-20] MEDS ORDERED: Magnesium Sulfate 2 GM in Sodium Chloride 0.9% 100 ML IVPB ONE (09:22)
[2016-09-20] MEDS ORDERED: Potassium Chloride 40 mEq/30 ml LIQ UD PO ONE (09:22)
[2016-09-20] MEDS: MethylPREDNISolone 40 mg Vial IVP SCH ×2 (09:29→21:42)
--- NOTE | 2016-09-20 09:36 | PN ---
DATE: 09/20/2016 The patient is in bed, was seen earlier this morning in no acute distress, nontoxic. PHYSICAL EXAMINATION: VITAL SIGNS: Temperature is 98. Blood pressure is 96/45, respiratory rate of 16, heart rate of 91. HEENT: Unremarkable. NECK: Supple. LUNGS: Have decreased breath sounds. HEART: Normal S1, S2. ABDOMEN: Soft, nontender. LABORATORY EXAMINATION: Reveals the patient's white count is 16,900, hemoglobin of 8, platelets of 2 21. The chemistries reveal the BUN of 28, creatinine of 0.5. Procalcitonin is less than 0.05. Urin alysis is unremarkable, and 1-3 WBCs. Toxicology is negative. Microbiology reveals the blood cultur es are no-growth. Urine culture is gram-positive cocci in chains, and greater than 100,000 colonies. Review of the orders reveals the patient to be on meropenem. The patient is also on Solu-Medrol. Dr. Salinas's consultation is reviewed, and Dr. Saha's consultation is reviewed. ASSESSMENT AND PLAN: This is an 86-year-old female with hypertension, chronic obstructive lung disea se, coronary artery disease, gastrointestinal bleeding, Crohn's disease, adenocarcinoma of the colon, stage III, recent hospitalization with Proteus urinary tract infection, Escherichia coli in the sput um, which both were pansensitive, admitted on this admission with leukocytosis, dyspnea, change in me ntal status, infiltrates, and diagnosis of severe sepsis with healthcare-associated. I doubt bacteri al infection because of a normal procalcitonin, pneumonia with acute systolic congestive heart failur e on top of chronic congestive heart failure with reduced ejection fraction from an echo that was don e a month ago with ejection fraction of 48% with a QTC of 423. Currently on meropenem, doxycycline. Urine culture has a gram-positive cocci with a normal urinalysis and currently on meropenem. Awaiti final culture results and workup results, and we will follow the WBCs. The patient is also doxycy gage. Both doxycycline and meropenem is day #2 of antibiotics. The patient is also on Solu-Medrol at this point, which may explain increase in leukocytosis. The patient had been admitted with a whit e count of 13,200, and it went up to 16,000. She does have 9% bandemia, and we will also repeat a pr ocalcitonin. Alberto Fagan MD cc: [id number] TT: 09/20/2016 09:35:36 Confirmation # [id number] Dictation # [id number] jn
[2016-09-20] MEDS: Clotrimazole 1% Cream(30 gm) TOP SCH ×2 (10:18→17:06)
[2016-09-20 11:55] LABS: FOLATE 10.7 ng/mL
[2016-09-20] MEDS ORDERED: Digoxin 250 mcg (0.25 mg) Tab PO ONE (11:58)
--- NOTE | 2016-09-20 13:46 | CP.CCUPN ---
<Robert Cisneros - Last Filed: 09/20/16 14:55> CCU Subjective - Physician Review Subjective (Free Text): 09/20/16 13:27 Patient seen and examined at bedside in ICU. Today is hospital day 3. No acute events overnight. Per Nursing, patient refused BiPAP overnight. Heart rate this AM became elevated into the 120's - 150's. Patient resting comfortably in bed, denies chest pain, shortness of breath, palpitations, sensation of rapid heart rate. CCU Objective - Vital Signs / Intake & Output Vital Signs (Last 4 hours): Vital Signs Pulse BP Pulse Ox 09/20/16 11:58 154 H 09/20/16 11:00 154 H 90/57 L 94 L 09/20/16 10:00 131 H 99/37 L 96 09/20/16 09:32 133 H 96/44 L Intake and Output (Last 8hrs): Intake & Output 09/19/16 09/20/16 09/20/16 22:59 06:59 14:59 Intake Total 675 420 Output Total 300 1350 Balance 375 -930 Weight 68.855 kg Intake: IV 350 200 Left Forearm 350 Left Wrist 200 Oral 325 220 Output: Urine 300 1300 Urethral ([place]) 300 1300 Stool 50 Other: Voiding Method Indwelling Catheter # Bowel Movements 200 - Physical Exam Head: Positive for: Atraumatic, Normocephalic, Abrasion (on bridge of nose likely from mask) Pupils: Positive for: PERRL Extroacular Muscles: Positive for: EOMI. Negative for: Gaze Palsy Conjunctiva: Positive for: Normal. Negative for: Injected, Icteric Ears: Positive for: Normal Mouth: Positive for: Moist Mucous Membranes, Other (wearing nasal canula) Neck: Positive for: Normal Range of Motion, MIDLINE TENDERNESS. Negative for: Meningeal Signs, JVD Respiratory/Chest: Positive for: Good Air Exchange, Decreased Breath Sounds. Negative for: Respiratory Distress, Accessory Muscle Use, Wheezes, Rales, Rhonchi Cardiovascular: Positive for: Regular Rate and Rhythm, Murmurs (systolic murmur most prominent at right sternal border) Abdomen: Positive for: Normal Bowel Sounds. Negative for: Tenderness, Distention, Peritoneal Signs, Rebound, Guarding Upper Extremity: Positive for: Other (diffuse echymoses). Negative for: Cyanosis Lower Extremity: Positive for: Normal Inspection, Edema (2+ BL nonpitting), Other (diffuse echymosis) Neurological: Positive for: Speech Normal (one or two words). Negative for: GCS =15 (GCS 14 ([id number])), CN II-XII Intact (unable to assess) Skin: Positive for: Dry, Rashes (Stage 2 sacral ulcer bandaged), Pale, Other ( Scattered Echymosis as noted in Extremities exams) Psychiatric: Positive for: Alert (lethargic but awake/alert), Lethargic. Negative for: Oriented x 3 (intermittently oriented to self, not to location or time) - Medications Active Medications: Active Medications Generic Name Dose Route Start Last Admin Trade Name Freq PRN Reason Stop Dose Admin Albuterol/Ipratropium 3 ml 09/20/16 13:13 Duoneb 3 Mg/0.5 Mg (3 Ml) Ud IH [id number] PRN Shortness of Breath Clotrimazole 0.1 gm 09/19/16 18:00 09/20/16 10:18 Lotrimin 1% TOP 1 applic BID MEGAN Administration Doxycycline Hyclate 100 mg 09/19/16 22:00 09/20/16 09:32 Doryx PO 09/27/16 22:01 100 mg Q12 MEGAN Administration Protocol Heparin Sodium (Porcine) 5,000 units 09/18/16 22:45 09/20/16 10:15 Heparin SC 5,000 units Q12H MEGAN Administration Protocol Meropenem 1g/NS 100mL IVPB 100 mls @ 100 mls/hr 09/19/16 14:00 09/20/16 13:11 Meropenem 1g/Ns 100ml Ivpb IVPB 09/28/16 14:01 100 mls/hr Q8 MEGAN Administration Protocol Sodium Phosphate 15 mmole/ 255 mls @ 42.5 mls/hr 09/20/16 09:22 09/20/16 10:15 Sodium Chloride IVPB 09/20/16 15:21 42.5 mls/hr ONCE ONE Administration diltiaZEM IVPB 100mg in NS 100 mls @ 5 mls/hr 09/20/16 13:19 Cardizem 100mg In Ns IV .Q20H PRN TITRATE PER MD ORDER Protocol 5 MG/HR Losartan Potassium 12.5 mg 09/19/16 17:30 09/20/16 09:32 Cozaar PO 12.5 mg DAILY MEGAN Administration Methylprednisolone 20 mg 09/19/16 17:46 09/20/16 09:29 Solu-Medrol IVP 20 mg Q12 MEGAN Administration Pantoprazole Sodium 40 mg 09/19/16 10:00 09/20/16 09:29 Protonix Inj IVP 40 mg DAILY MEGAN Administration - Patient Studies Lab Studies: Lab Studies 09/20/16 09/19/16 09/19/16 Range/Units 05:30 16:00 15:10 WBC 14.9 H (4.5-11.0) 10^3/ul RBC 2.69 L (3.5-6.1) 10^6/uL Hgb 8.3 L (12.0-16.0) gm/dL Hct 26.6 L (36.0-48.0) % MCV 98.9 (80.0-105.0) fL MCH 30.9 (25.0-35.0) pg MCHC 31.2 (31.0-37.0) g/dl RDW 27.6 H (11.5-14.5) % Plt Count 221 (120.0-450.0) 10^3/uL Neutrophils % (Manual) 90 H (50.0-70.0) % Band Neutrophils % 9 H (0-2) % Lymphocytes % (Manual) 1 L (22.0-35.0) % Monocytes % (Manual) TEST NOT PERFORMED Toxic Granulation Slight Platelet Evaluation Normal (NORMAL) Hypochromasia 2+ Poikilocytosis (manual 1+ Anisocytosis (manual) 2+ Target Cells Slight Ovalocytes Slight Helmet Cells Slight Retic Count 1.44 (0.5-1.5) % pCO2 56 H (35-45) mm/Hg pO2 72.0 L (80-100) mm/Hg HCO3 37.2 H (21-28) mmol/L ABG pH 7.43 (7.35-7.45) ABG Total CO2 38.9 H (22-28) mmol.L ABG O2 Saturation 96.5 (95-98) % ABG O2 Content 10.3 L (15-23) ML/dl ABG Base Excess 11.6 H (-2.0-3.0) mmol/L ABG Hemoglobin 7.7 L (11.7-17.4) g/dL ABG Carboxyhemoglobin 1.7 H (0.5-1.5) % POC ABG HHb (Measured) 3.4 (0-5) % ABG Methemoglobin 0.5 (0.0-3.0) % ABG O2 Capacity 10.7 L (16-24) mL/dl Hgb O2 Saturation 94.4 L (95.0-98.0) % FiO2 32.0 % Sodium 139 (132-148) mmol/L Potassium 3.6 (3.6-5.0) mmol/L Chloride 100 (98-107) mmol/L Carbon Dioxide 37 H (21-33) mmol/L Anion Gap 6 L (10-20) BUN 28 H (7-21) mg/dL Creatinine 0.5 (0.5-1.4) mg/dL Est GFR ( Amer) > 60 Est GFR (Non-Af Amer) > 60 Random Glucose 170 H (70-110) mg/dL Calcium 7.9 L (8.4-10.5) mg/dL Phosphorus 2.4 L (2.5-4.5) mg/dL Magnesium 1.8 (1.7-2.2) mg/dL Iron 83 (45-180) ug/dL TIBC 196 L (265-497) ug/dL % Saturation 43 (20-55) % Total Bilirubin 0.8 (0.2-1.3) mg/dL AST 18 (15-39) U/L ALT 47 (7-56) U/L Alkaline Phosphatase 48 (38-133) U/L Troponin I ng/mL Total Protein 4.5 L (5.8-8.3) g/dL Albumin 2.3 L (3.0-4.8) g/dL Globulin 2.2 gm/dL Albumin/Globulin Ratio 1.0 L (1.1-1.8) Vitamin B12 753 (239-931) pg/mL Folate 10.7 ng/mL Urine Color Yellow (YELLOW) Urine Appearance Clear (CLEAR) Urine pH 6.0 (4.7-8.0) Ur Specific [place] 1.020 (1.005-1.035) Urine Protein Trace H (<30 mg/dL) mg/dL Urine Glucose (UA) Negative (NEGATIVE) mg/dL Urine Ketones 15 H (NEGATIVE) mg/dL Urine Blood Moderate H (NEGATIVE) Urine Nitrate Negative (NEGATIVE) Urine Bilirubin Negative (NEGATIVE) Urine Urobilinogen 0.2 (<1 E.U./dL) E.U./dL Ur Leukocyte Esterase Negative (NEGATIVE) Feliz/uL Urine RBC 20 - 25 (0-2) /hpf Urine WBC 1 - 3 (0-6) /hpf Ur Epithelial Cells 4 - 5 (0-5) /hpf Amorphous Sediment Few Urine Bacteria Many (NEG) Urine Other Uyeast Blood Type A POSITIVE Antibody Screen Negative Crossmatch See Detail BBK History Checked Patient has bt 09/19/16 Range/Units 13:58 WBC (4.5-11.0) 10^3/ul RBC (3.5-6.1) 10^6/uL Hgb (12.0-16.0) gm/dL Hct (36.0-48.0) % MCV (80.0-105.0) fL MCH (25.0-35.0) pg MCHC (31.0-37.0) g/dl RDW (11.5-14.5) % Plt Count (120.0-450.0) 10^3/uL Neutrophils % (Manual) (50.0-70.0) % Band Neutrophils % (0-2) % Lymphocytes % (Manual) (22.0-35.0) % Monocytes % (Manual) Toxic Granulation Platelet Evaluation (NORMAL) Hypochromasia Poikilocytosis (manual Anisocytosis (manual) Target Cells Ovalocytes Helmet Cells Retic Count (0.5-1.5) % pCO2 (35-45) mm/Hg pO2 (80-100) mm/Hg HCO3 (21-28) mmol/L ABG pH (7.35-7.45) ABG Total CO2 (22-28) mmol.L ABG O2 Saturation (95-98) % ABG O2 Content (15-23) ML/dl ABG Base Excess (-2.0-3.0) mmol/L ABG Hemoglobin (11.7-17.4) g/dL ABG Carboxyhemoglobin (0.5-1.5) % POC ABG HHb (Measured) (0-5) % ABG Methemoglobin (0.0-3.0) % ABG O2 Capacity (16-24) mL/dl Hgb O2 Saturation (95.0-98.0) % FiO2 % Sodium (132-148) mmol/L Potassium (3.6-5.0) mmol/L Chloride (98-107) mmol/L Carbon Dioxide (21-33) mmol/L Anion Gap (10-20) BUN (7-21) mg/dL Creatinine (0.5-1.4) mg/dL Est GFR ( Amer) Est GFR (Non-Af Amer) Random Glucose (70-110) mg/dL Calcium (8.4-10.5) mg/dL Phosphorus (2.5-4.5) mg/dL Magnesium (1.7-2.2) mg/dL Iron (45-180) ug/dL TIBC (265-497) ug/dL % Saturation (20-55) % Total Bilirubin (0.2-1.3) mg/dL AST (15-39) U/L ALT (7-56) U/L Alkaline Phosphatase (38-133) U/L Troponin I 0.06 D ng/mL Total Protein (5.8-8.3) g/dL Albumin (3.0-4.8) g/dL Globulin gm/dL Albumin/Globulin Ratio (1.1-1.8) Vitamin B12 (239-931) pg/mL Folate ng/mL Urine Color (YELLOW) Urine Appearance (CLEAR) Urine pH (4.7-8.0) Ur Specific [place] (1.005-1.035) Urine Protein (<30 mg/dL) mg/dL Urine Glucose (UA) (NEGATIVE) mg/dL Urine Ketones (NEGATIVE) mg/dL Urine Blood (NEGATIVE) Urine Nitrate (NEGATIVE) Urine Bilirubin (NEGATIVE) Urine Urobilinogen (<1 E.U./dL) E.U./dL Ur Leukocyte Esterase (NEGATIVE) Feliz/uL Urine RBC (0-2) /hpf Urine WBC (0-6) /hpf Ur Epithelial Cells (0-5) /hpf Amorphous Sediment Urine Bacteria (NEG) Urine Other Blood Type Antibody Screen Crossmatch BBK History Checked Laboratory Results - last 24 hr 09/19/16 09/19/16 09/19/16 13:58 15:10 16:00 WBC RBC Hgb Hct MCV MCH MCHC RDW Plt Count Neutrophils % (Manual) Band Neutrophils % Lymphocytes % (Manual) Monocytes % (Manual) Toxic Granulation Platelet Evaluation Hypochromasia Poikilocytosis (manual Anisocytosis (manual) Target Cells Ovalocytes Helmet Cells Retic Count pCO2 pO2 HCO3 ABG pH ABG Total CO2 ABG O2 Saturation ABG O2 Content ABG Base Excess ABG Hemoglobin ABG Carboxyhemoglobin POC ABG HHb (Measured) ABG Methemoglobin ABG O2 Capacity Hgb O2 Saturation FiO2 Sodium Potassium Chloride Carbon Dioxide Anion Gap BUN Creatinine Est GFR ( Amer) Est GFR (Non-Af Amer) Random Glucose Calcium Phosphorus Magnesium Iron TIBC % Saturation Total Bilirubin AST ALT Alkaline Phosphatase Troponin I 0.06 D Total Protein Albumin Globulin Albumin/Globulin Ratio Vitamin B12 Folate Urine Color Yellow Urine Appearance Clear Urine pH 6.0 Ur Specific [place] 1.020 Urine Protein Trace H Urine Glucose (UA) Negative Urine Ketones 15 H Urine Blood Moderate H Urine Nitrate Negative Urine Bilirubin Negative Urine Urobilinogen 0.2 Ur Leukocyte Esterase Negative Urine RBC 20 - 25 Urine WBC 1 - 3 Ur Epithelial Cells 4 - 5 Amorphous Sediment Few Urine Bacteria Many Urine Other Uyeast Blood Type A POSITIVE Antibody Screen Negative Crossmatch See Detail BBK History Checked Patient has bt 09/20/16 05:30 WBC 14.9 H RBC 2.69 L Hgb 8.3 L Hct 26.6 L MCV 98.9 MCH 30.9 MCHC 31.2 RDW 27.6 H Plt Count 221 Neutrophils % (Manual) 90 H Band Neutrophils % 9 H Lymphocytes % (Manual) 1 L Monocytes % (Manual) TEST NOT PERFORMED Toxic Granulation Slight Platelet Evaluation Normal Hypochromasia 2+ Poikilocytosis (manual 1+ Anisocytosis (manual) 2+ Target Cells Slight Ovalocytes Slight Helmet Cells Slight Retic Count 1.44 pCO2 56 H pO2 72.0 L HCO3 37.2 H ABG pH 7.43 ABG Total CO2 38.9 H ABG O2 Saturation 96.5 ABG O2 Content 10.3 L ABG Base Excess 11.6 H ABG Hemoglobin 7.7 L ABG Carboxyhemoglobin 1.7 H POC ABG HHb (Measured) 3.4 ABG Methemoglobin 0.5 ABG O2 Capacity 10.7 L Hgb O2 Saturation 94.4 L FiO2 32.0 Sodium 139 Potassium 3.6 Chloride 100 Carbon Dioxide 37 H Anion Gap 6 L BUN 28 H Creatinine 0.5 Est GFR ( Amer) > 60 Est GFR (Non-Af Amer) > 60 Random Glucose 170 H Calcium 7.9 L Phosphorus 2.4 L Magnesium 1.8 Iron 83 TIBC 196 L % Saturation 43 Total Bilirubin 0.8 AST 18 ALT 47 Alkaline Phosphatase 48 Troponin I Total Protein 4.5 L Albumin 2.3 L Globulin 2.2 Albumin/Globulin Ratio 1.0 L Vitamin B12 753 Folate 10.7 Urine Color Urine Appearance Urine pH Ur Specific [place] Urine Protein Urine Glucose (UA) Urine Ketones Urine Blood Urine Nitrate Urine Bilirubin Urine Urobilinogen Ur Leukocyte Esterase Urine RBC Urine WBC Ur Epithelial Cells Amorphous Sediment Urine Bacteria Urine Other Blood Type Antibody Screen Crossmatch BBK History Checked Fingerstick Blood Sugar Results: 206 Review of Systems - Review of Systems Systems not reviewed;Unavailable: Altered Mental Status (oriented to self only ( intermittently), not oriented to location/time) All systems: reviewed and no additional remarkable complaints except (as noted in Subjective) Critical Care Progress Note - Nutrition Nutrition: Nutrition Category Date Time Status Heart Healthy Diet [DIET] Diets 09/19/16 Dinner Ordered Assessment/Plan - Assessment and Plan (Free Text) Assessment: This is an 86 yo F with PMH of non-metastatic bilateral breast cancer , stage III colon cancer (s/p resection and colostomy), moderate aortic stenosis , paroxysmal atrial fibrillation (not on anticoagulation), HTN, and chronic anemia who was admitted to the ICU for AMS suspected 2/2 HCAP and respiratory acidosis requiring BiPAP. Plan: Neuro: -Lethargic but easily arousable, awake and alert after arousal -Following some commands and answering some questions appropriately, but answers limited 2/2 disorientation (self only, not time or place) -Neurochecks q1h -CT Head 09/18 negative for acute finding -Fall precautions -Avoid xanax or benadryl to prevent further lethargy/AMS Pulm: -meets old criteria for HCAP (previously admitted to [facility] [place] < 45 days prior to this admission) -CXR on admission: New RLL; CXR 09/19: Pulm vasc congestion with bilateral pleural effusions L>R -Hx COPD. -Pro-BNP 3000 on admit -satting well on NC 3L, previously on BiPAP but patient refused overnight last night -Respiratory Acidosis improves -Duoneb Q6 changed from scheduled to PRN as per Pulm -solumedrol 40q12 -HOB >35; Maintain 02 sat >90 -Pulm (Dr. Salinas) following, appreciate all recs Cardio: -Hx paroxysmal atrial fibrillation (not on anticoagulation as per Cardio) -Rapid afib this AM, not resolved with 5mg IVP x1 Cardizem, started on Cardizem drip and given 1x 0.25mg Digoxin as per Cardio -Maintain Map > 65 -600 ASA rectal daily -trops 0.07, 0.08, 0.06 -Cardio (Dr. Saha) following, appreciate all recs GI: -GI ppx with Protonix -Swallow eval: no change in assessment; dysphagia diet with mechanically- altered finely-chopped consistency & thin liquids. Strict aspiration precautions -Dietitian referral Renal: -dehydration and low BP resolved, continue to hold IVF -Cr 0.5, was 0.4 -avoid nephrotoxic drugs where feasible -monitor and replete electrolytes as needed; repleted K, Phos, and Mag today, f/ u rechecks Heme: -Hb 8.3, was 8.8 -macrocytic anemia -Fe 83, TIBC 196, % Sat 43, B12 753, folate 10.7, Retic 1.44 -Hypoalbumenia -Heparin 5000u SC q12 for DVT ppx ID: -Leukocytosis improved from 16.9 to 14.9. Lactate 0.7 yesterday -Afebrile -HCAP on Vanc/zosyn/levaquin, day 3 -Fu UA, UCx, BCx, SputumCx, pct -ID following (Dr. Fagan), appreciate all recs Skin: -fungal rash - clotrimazole top -stage 2 sacral ulcer, wound care following -air mattress, turn q2 -dietitian on board, consider nutritional optimization Dispo: ICU, pending improvement of rapid Afib on cardizem drip, stable HR so can convert from drip to PO FEN: dysphagia diet with mechanically-altered finely-chopped consistency & thin liquids Access: Peripheral IV x1 Consult: Cardio, ID, Pulm Ppx: Protonix for GI, Heparin for DVT Patient seen, reviewed, and discussed with attending, Dr. Bullock - Date & Time Date: 09/20/16 Time: 15:31 <Waqar Bullock - Last Filed: 09/20/16 15:58> CCU Objective - Vital Signs / Intake & Output Vital Signs (Last 4 hours): Vital Signs Pulse 09/20/16 11:58 154 H Intake and Output (Last 8hrs): Intake & Output 09/20/16 09/20/16 09/20/16 06:59 14:59 22:59 Intake Total 420 Output Total 1350 Balance -930 Weight 151 lb 12.8 oz Intake: IV 200 Left Wrist 200 Oral 220 Output: Urine 1300 Urethral ([place]) 1300 Stool 50 Other: Voiding Method Indwelling Catheter - Medications Active Medications: Active Medications Generic Name Dose Route Start Last Admin Trade Name Freq PRN Reason Stop Dose Admin Albuterol/Ipratropium 3 ml 09/20/16 13:13 Duoneb 3 Mg/0.5 Mg (3 Ml) Ud IH [id number] PRN Shortness of Breath Clotrimazole 0.1 gm 09/19/16 18:00 09/20/16 10:18 Lotrimin 1% TOP 1 applic BID MEGAN Administration Doxycycline Hyclate 100 mg 09/19/16 22:00 09/20/16 09:32 Doryx PO 09/27/16 22:01 100 mg Q12 MEGAN Administration Protocol Heparin Sodium (Porcine) 5,000 units 09/18/16 22:45 09/20/16 10:15 Heparin SC 5,000 units Q12H MEGAN Administration Protocol Meropenem 1g/NS 100mL IVPB 100 mls @ 100 mls/hr 09/19/16 14:00 09/20/16 13:11 Meropenem 1g/Ns 100ml Ivpb IVPB 09/28/16 14:01 100 mls/hr Q8 MEGAN Administration Protocol diltiaZEM IVPB 100mg in NS 100 mls @ 5 mls/hr 09/20/16 13:19 09/20/16 14:30 Cardizem 100mg In Ns IV 5 mls/hr .Q20H PRN Administration TITRATE PER MD ORDER Protocol 5 MG/HR Methylprednisolone 20 mg 09/19/16 17:46 09/20/16 09:29 Solu-Medrol IVP 20 mg Q12 MEGAN Administration Pantoprazole Sodium 20 mg 09/21/16 07:30 Protonix Ec Tab PO 0730 MEGAN - Patient Studies Lab Studies: Lab Studies 09/20/16 09/20/16 09/19/16 Range/Units 14:00 05:30 16:00 WBC 14.9 H (4.5-11.0) 10^3/ul RBC 2.69 L (3.5-6.1) 10^6/uL Hgb 8.3 L (12.0-16.0) gm/dL Hct 26.6 L (36.0-48.0) % MCV 98.9 (80.0-105.0) fL MCH 30.9 (25.0-35.0) pg MCHC 31.2 (31.0-37.0) g/dl RDW 27.6 H (11.5-14.5) % Plt Count 221 (120.0-450.0) 10^3/uL Neutrophils % (Manual) 90 H (50.0-70.0) % Band Neutrophils % 9 H (0-2) % Lymphocytes % (Manual) 1 L (22.0-35.0) % Monocytes % (Manual) TEST NOT PERFORMED Toxic Granulation Slight Platelet Evaluation Normal (NORMAL) Hypochromasia 2+ Poikilocytosis (manual 1+ Anisocytosis (manual) 2+ Target Cells Slight Ovalocytes Slight Helmet Cells Slight Retic Count 1.44 (0.5-1.5) % pCO2 56 H (35-45) mm/Hg pO2 72.0 L (80-100) mm/Hg HCO3 37.2 H (21-28) mmol/L ABG pH 7.43 (7.35-7.45) ABG Total CO2 38.9 H (22-28) mmol.L ABG O2 Saturation 96.5 (95-98) % ABG O2 Content 10.3 L (15-23) ML/dl ABG Base Excess 11.6 H (-2.0-3.0) mmol/L ABG Hemoglobin 7.7 L (11.7-17.4) g/dL ABG Carboxyhemoglobin 1.7 H (0.5-1.5) % POC ABG HHb (Measured) 3.4 (0-5) % ABG Methemoglobin 0.5 (0.0-3.0) % ABG O2 Capacity 10.7 L (16-24) mL/dl Hgb O2 Saturation 94.4 L (95.0-98.0) % FiO2 32.0 % Sodium 139 (132-148) mmol/L Potassium 4.7 3.6 (3.6-5.0) mmol/L Chloride 100 (98-107) mmol/L Carbon Dioxide 37 H (21-33) mmol/L Anion Gap 6 L (10-20) BUN 28 H (7-21) mg/dL Creatinine 0.5 (0.5-1.4) mg/dL Est GFR ( Amer) > 60 Est GFR (Non-Af Amer) > 60 Random Glucose 170 H (70-110) mg/dL Calcium 8.0 L 7.9 L (8.4-10.5) mg/dL Phosphorus 2.7 2.4 L (2.5-4.5) mg/dL Magnesium 2.4 H 1.8 (1.7-2.2) mg/dL Iron 83 (45-180) ug/dL TIBC 196 L (265-497) ug/dL % Saturation 43 (20-55) % Total Bilirubin 0.8 (0.2-1.3) mg/dL AST 18 (15-39) U/L ALT 47 (7-56) U/L Alkaline Phosphatase 48 (38-133) U/L Total Protein 4.5 L (5.8-8.3) g/dL Albumin 2.3 L (3.0-4.8) g/dL Globulin 2.2 gm/dL Albumin/Globulin Ratio 1.0 L (1.1-1.8) Vitamin B12 753 (239-931) pg/mL Folate 10.7 ng/mL Urine Color Yellow (YELLOW) Urine Appearance Clear (CLEAR) Urine pH 6.0 (4.7-8.0) Ur Specific [place] 1.020 (1.005-1.035) Urine Protein Trace H (<30 mg/dL) mg/dL Urine Glucose (UA) Negative (NEGATIVE) mg/dL Urine Ketones 15 H (NEGATIVE) mg/dL Urine Blood Moderate H (NEGATIVE) Urine Nitrate Negative (NEGATIVE) Urine Bilirubin Negative (NEGATIVE) Urine Urobilinogen 0.2 (<1 E.U./dL) E.U./dL Ur Leukocyte Esterase Negative (NEGATIVE) Feliz/uL Urine RBC 20 - 25 (0-2) /hpf Urine WBC 1 - 3 (0-6) /hpf Ur Epithelial Cells 4 - 5 (0-5) /hpf Amorphous Sediment Few Urine Bacteria Many (NEG) Urine Other Uyeast Blood Type Antibody Screen Crossmatch BBK History Checked 09/19/16 Range/Units 15:10 WBC (4.5-11.0) 10^3/ul RBC (3.5-6.1) 10^6/uL Hgb (12.0-16.0) gm/dL Hct (36.0-48.0) % MCV (80.0-105.0) fL MCH (25.0-35.0) pg MCHC (31.0-37.0) g/dl RDW (11.5-14.5) % Plt Count (120.0-450.0) 10^3/uL Neutrophils % (Manual) (50.0-70.0) % Band Neutrophils % (0-2) % Lymphocytes % (Manual) (22.0-35.0) % Monocytes % (Manual) Toxic Granulation Platelet Evaluation (NORMAL) Hypochromasia Poikilocytosis (manual Anisocytosis (manual) Target Cells Ovalocytes Helmet Cells Retic Count (0.5-1.5) % pCO2 (35-45) mm/Hg pO2 (80-100) mm/Hg HCO3 (21-28) mmol/L ABG pH (7.35-7.45) ABG Total CO2 (22-28) mmol.L ABG O2 Saturation (95-98) % ABG O2 Content (15-23) ML/dl ABG Base Excess (-2.0-3.0) mmol/L ABG Hemoglobin (11.7-17.4) g/dL ABG Carboxyhemoglobin (0.5-1.5) % POC ABG HHb (Measured) (0-5) % ABG Methemoglobin (0.0-3.0) % ABG O2 Capacity (16-24) mL/dl Hgb O2 Saturation (95.0-98.0) % FiO2 % Sodium (132-148) mmol/L Potassium (3.6-5.0) mmol/L Chloride (98-107) mmol/L Carbon Dioxide (21-33) mmol/L Anion Gap (10-20) BUN (7-21) mg/dL Creatinine (0.5-1.4) mg/dL Est GFR ( Amer) Est GFR (Non-Af Amer) Random Glucose (70-110) mg/dL Calcium (8.4-10.5) mg/dL Phosphorus (2.5-4.5) mg/dL Magnesium (1.7-2.2) mg/dL Iron (45-180) ug/dL TIBC (265-497) ug/dL % Saturation (20-55) % Total Bilirubin (0.2-1.3) mg/dL AST (15-39) U/L ALT (7-56) U/L Alkaline Phosphatase (38-133) U/L Total Protein (5.8-8.3) g/dL Albumin (3.0-4.8) g/dL Globulin gm/dL Albumin/Globulin Ratio (1.1-1.8) Vitamin B12 (239-931) pg/mL Folate ng/mL Urine Color (YELLOW) Urine Appearance (CLEAR) Urine pH (4.7-8.0) Ur Specific [place] (1.005-1.035) Urine Protein (<30 mg/dL) mg/dL Urine Glucose (UA) (NEGATIVE) mg/dL Urine Ketones (NEGATIVE) mg/dL Urine Blood (NEGATIVE) Urine Nitrate (NEGATIVE) Urine Bilirubin (NEGATIVE) Urine Urobilinogen (<1 E.U./dL) E.U./dL Ur Leukocyte Esterase (NEGATIVE) Feliz/uL Urine RBC (0-2) /hpf Urine WBC (0-6) /hpf Ur Epithelial Cells (0-5) /hpf Amorphous Sediment Urine Bacteria (NEG) Urine Other Blood Type A POSITIVE Antibody Screen Negative Crossmatch See Detail BBK History Checked Patient has bt Laboratory Results - last 24 hr 09/19/16 09/19/16 09/20/16 15:10 16:00 05:30 WBC 14.9 H RBC 2.69 L Hgb 8.3 L Hct 26.6 L MCV 98.9 MCH 30.9 MCHC 31.2 RDW 27.6 H Plt Count 221 Neutrophils % (Manual) 90 H Band Neutrophils % 9 H Lymphocytes % (Manual) 1 L Monocytes % (Manual) TEST NOT PERFORMED Toxic Granulation Slight Platelet Evaluation Normal Hypochromasia 2+ Poikilocytosis (manual 1+ Anisocytosis (manual) 2+ Target Cells Slight Ovalocytes Slight Helmet Cells Slight Retic Count 1.44 pCO2 56 H pO2 72.0 L HCO3 37.2 H ABG pH 7.43 ABG Total CO2 38.9 H ABG O2 Saturation 96.5 ABG O2 Content 10.3 L ABG Base Excess 11.6 H ABG Hemoglobin 7.7 L ABG Carboxyhemoglobin 1.7 H POC ABG HHb (Measured) 3.4 ABG Methemoglobin 0.5 ABG O2 Capacity 10.7 L Hgb O2 Saturation 94.4 L FiO2 32.0 Sodium 139 Potassium 3.6 Chloride 100 Carbon Dioxide 37 H Anion Gap 6 L BUN 28 H Creatinine 0.5 Est GFR ( Amer) > 60 Est GFR (Non-Af Amer) > 60 Random Glucose 170 H Calcium 7.9 L Phosphorus 2.4 L Magnesium 1.8 Iron 83 TIBC 196 L % Saturation 43 Total Bilirubin 0.8 AST 18 ALT 47 Alkaline Phosphatase 48 Total Protein 4.5 L Albumin 2.3 L Globulin 2.2 Albumin/Globulin Ratio 1.0 L Vitamin B12 753 Folate 10.7 Urine Color Yellow Urine Appearance Clear Urine pH 6.0 Ur Specific [place] 1.020 Urine Protein Trace H Urine Glucose (UA) Negative Urine Ketones 15 H Urine Blood Moderate H Urine Nitrate Negative Urine Bilirubin Negative Urine Urobilinogen 0.2 Ur Leukocyte Esterase Negative Urine RBC 20 - 25 Urine WBC 1 - 3 Ur Epithelial Cells 4 - 5 Amorphous Sediment Few Urine Bacteria Many Urine Other Uyeast Blood Type A POSITIVE Antibody Screen Negative Crossmatch See Detail BBK History Checked Patient has bt 09/20/16 14:00 WBC RBC Hgb Hct MCV MCH MCHC RDW Plt Count Neutrophils % (Manual) Band Neutrophils % Lymphocytes % (Manual) Monocytes % (Manual) Toxic Granulation Platelet Evaluation Hypochromasia Poikilocytosis (manual Anisocytosis (manual) Target Cells Ovalocytes Helmet Cells Retic Count pCO2 pO2 HCO3 ABG pH ABG Total CO2 ABG O2 Saturation ABG O2 Content ABG Base Excess ABG Hemoglobin ABG Carboxyhemoglobin POC ABG HHb (Measured) ABG Methemoglobin ABG O2 Capacity Hgb O2 Saturation FiO2 Sodium Potassium 4.7 Chloride Carbon Dioxide Anion Gap BUN Creatinine Est GFR ( Amer) Est GFR (Non-Af Amer) Random Glucose Calcium 8.0 L Phosphorus 2.7 Magnesium 2.4 H Iron TIBC % Saturation Total Bilirubin AST ALT Alkaline Phosphatase Total Protein Albumin Globulin Albumin/Globulin Ratio Vitamin B12 Folate Urine Color Urine Appearance Urine pH Ur Specific [place] Urine Protein Urine Glucose (UA) Urine Ketones Urine Blood Urine Nitrate Urine Bilirubin Urine Urobilinogen Ur Leukocyte Esterase Urine RBC Urine WBC Ur Epithelial Cells Amorphous Sediment Urine Bacteria Urine Other Blood Type Antibody Screen Crossmatch BBK History Checked Critical Care Progress Note - Nutrition Nutrition: Nutrition Category Date Time Status Heart Healthy Diet [DIET] Diets 09/19/16 Dinner Ordered Attending/Attestation - Attestation I have personally seen and examined this patient.: Yes I have fully participated in the care of the patient.: Yes I have reviewed all pertinent clinical information: Yes Notes (Text): 09/20/16 15:57 The patient was seen and examined at the bedside. Patient care was discussed with resident Medical records, lab studies, and imaging were reviewed and management issues were discussed and formulated. Last 24H events reviewed. Agree with above treatment plans as outlined in 's note with addition of the following: -hemodynamic monitoring to maintain MAP>65; currently stable -afib with RVR noted; continue cardizem drip as per cardiology team -o2 supplementation to maintain Spo2 90-92 Pao2>60; currently comfortable on NC -continue Bipap PRN -ABG and CXR reviewed -continue broad spectrum abx as per ID team and f\u cultures (VRE in urine noted ) -f\u Bun\Cr and U\o; hold diuresis -monitor and replace e-lites -PO diet as per dysphagia eval and aspiration precautions -DVT \ PUD prophylaxis CCM f\u 35min
[2016-09-20 14:23] LABS: MAGNESIUM 2.4 mg/dL (1.7-2.2); PHOSPHOROUS 2.7 mg/dL (2.5-4.5); POTASSIUM 4.7 mmol/L (3.6-5.0)
[2016-09-20] MEDS: diltiaZEM IVPB 100mg in NS 100 ML IV PRN (14:30)
--- NOTE | 2016-09-20 15:38 | PN ---
DATE: 09/20/2016 This is the patient's hospital visit in the intensive care unit. For Dr. Lomas. SUBJECTIVE: The patient is an 86-year-old female discharged from [facility] 2 days prior , now readmitted with congestive failure, mental status change, shortness of breath, pneumonia, parox ysmal atrial fibrillation, suffers from aortic stenosis with significant anemia. Also, pulmonary hyp ertension. With this, the patient was admitted to the intensive care unit very lethargic, more alert at this visit. OBJECTIVE/PHYSICAL EXAMINATION: VITAL SIGNS: Temperature 98.2, pulse 154. Respirations are not charted; however, they are approxima tely 20 per minute. Oxygen saturation 94% and blood pressure 90/57. HEENT: Unremarkable. NECK: Supple. HEART: Tachy rate, irregular irregular. LUNGS: Scattered rhonchi. Occasional crackles. ABDOMEN: Viable colostomy. EXTREMITIES: +1 edema. NEUROLOGIC: Awake and alert this visit. SKIN: Warm, dry and clear. LABORATORY DATA: The patient's labs were done showing a white blood cell count of 14.9, hemoglobin o f 8.3, hematocrit of 26.6, platelet count of 221,000 with a chem metabolic panel showing a BUN of 28, creatinine of 0.5, phosphorus 2.4, with an otherwise normal chem metabolic panel. Her ABG was done showing a pO2 of 72, pCO2 of 56 with a pH of 7.43. INR of 1.1 done 2 days ago. ASSESSMENT: Rapid atrial fibrillation, congestive heart failure, pneumonia, pleural effusions, aorti c stenosis, anemia, respiratory failure, without intubation; cardiomyopathy, valvular heart disease, history of cancer with colostomy, history of breast cancer. PLAN: After conversation with Dr. Saha, is to continue present medical regimen with transfusion as per Dr. Lomas with IV diuretics as indicated. Diltiazem was begun. She is on Solu-Medrol as p er Dr. Salinas with Protonix as GI prophylaxis, which we will change to p.o. Will monitor clinically and with labs. Prognosis for this patient is guarded. She is full code as per her most recent conversation with her family and patient. Stephen Almonte MD cc: [id number] TT: 09/20/2016 15:37:43 Confirmation # [id number] Dictation # [id number] dn
--- NOTE | 2016-09-20 16:40 | PN ---
DATE: 09/20/2016 REFERRING PHYSICIAN: Dr. Stephen Almonte SUBJECTIVE: She is lying in the bed, head at 45 degree, on nasal cannula oxygen. Family is at [facility]. She is in atrial fibrillation with rapid ventricular response, heart rate is varying from 140 to 160, systolic blood pressure is 90 and short of breath. No nausea, no vomiting, no diarrhea reporte d. OBJECTIVE: GENERAL: Mild to moderate distress. VITAL SIGNS: Temp is 98, heart rate is 150, respiratory rate is 20, blood pressure 90/57, pulse ox 9 4% on nasal cannula. HEENT: Small oral cavity. NECK: Supple. No JVD. LUNGS: Has decreased breath sounds at the bases. HEART: Irregularly irregular. ABDOMEN: Soft, nontender. No organomegaly. EXTREMITIES: There is not much edema. NEUROLOGIC: Awake, alert, follows simple commands. MEDICATIONS: She is on doxycycline 100 mg twice a day, albuterol/Atrovent nebulizer we changed to p. r.n., heparin 5000 units subQ q. 12 hours, Lotrimin 1% to affected area twice a day, meropenem 1 gra m q. 8 hours, Protonix 40 mg daily, Solu-Medrol 20 mg q. 12 hours. LABORATORY DATA: Shows hemoglobin 8.3, hematocrit 26.6, WBC 14.9, platelet count is 221. Blood gase s show pH 7.43, pCO2 of 56, O2 of 72; that is on nasal cannula. Sodium 139, potassium repeat is 12.7 , chloride 100, bicarbonate 37, BUN 28, creatinine 0.5, glucose 170, calcium is 8.0, phosphorus 2.7, magnesium 2.4. Iron is 83, albumin is 2.3. AST 18, ALT 47, alkaline phosphatase is 48. Troponin 0. 06. Urine has Enterococcus faecium. IMPRESSION AND PLAN: Respiratory failure, presently extubated on nasal cannula, has cardiomyopathy w ith decreased left ventricular function, mild pulmonary hypertension, valvular heart disease, history of atrial fibrillation, history of colon cancer, history of breast cancer, anemia requiring transfu danya in the past. At present, the patient is in atrial fibrillation with rapid ventricular response. I spoke to family. I also spoke to speech therapy. Case discussed with cardiology. cardiology wi ll try Cardizem drip. Hopefully we can keep her with the blood pressure. May need to consider furthe r digoxin and also even amiodarone, if cannot control her heart rate and keep her with blood pressure . Pulmonary point of view, continue nasal cannula. Keep head elevated at 45 degrees. She may use B iPAP while sleeping and/or lethargic. Follow up chest x-ray, ABG, CBC, CMP in the morning. CRITICAL CARE TIME SPENT: More than 35 minutes. Camron Salinas MD cc: [id number] TT: 09/20/2016 16:40:06 Confirmation # [id number] Dictation # [id number] ln
[2016-09-21] MEDS: diltiaZEM IVPB 100mg in NS 100 ML IV PRN ×2 (02:12→09:26)
[2016-09-21 05:38] LABS: EOS % 0.1 % (1.5-5.0); GRAN # 14.91 (1.4-6.5); GRAN % 97.2 % (50.0-68.0); HEMATOCRIT 28.4 % (36.0-48.0); LYMPH # 0.4 (1.2-3.4); LYMPH % 2.4 % (22.0-35.0); MEAN CELL VOLUME 99.3 fL (80.0-105.0); MEAN CORPUSCULAR HEMOGLOBIN 30.8 pg (25.0-35.0); MONO % 0.3 % (1.0-6.0); PLATELET COUNT 243 10^3/uL (120.0-450.0); RED CELL DISTRIBUTION WIDTH 27.5 % (11.5-14.5); WHITE BLOOD COUNT 15.3 10^3/ul (4.5-11.0)
[2016-09-21 05:48] LABS: ALKALINE PHOSPHATASE 54 U/L (38-133); ALT/SGPT 40 U/L (7-56); AST/SGOT 15 U/L (15-39); BILIRUBIN,TOTAL 0.8 mg/dL (0.2-1.3); BLOOD UREA NITROGEN 36 mg/dL (7-21); CALCIUM 8.1 mg/dL (8.4-10.5); CARBON DIOXIDE 35 mmol/L (21-33); CHLORIDE 101 mmol/L (98-107); GFR AFRICAN-AMERICAN > 60; GLUCOSE,RANDOM 155 mg/dL (70-110); POTASSIUM 4.6 mmol/L (3.6-5.0); SODIUM 137 mmol/L (132-148)
[2016-09-21 05:57] LABS: ARTERIAL BLOOD GAS HCO3 36.5 mmol/L (21-28); ARTERIAL BLOOD GAS O2 CAPACITY 11.2 mL/dl (16-24); ARTERIAL BLOOD GAS O2 CONTENT 10.7 ML/dl (15-23); ARTERIAL BLOOD HGB O2 SAT 92.8 % (95.0-98.0); CARBOXYHEMOGLOBIN 1.8 % (0.5-1.5); HHB 4.2 % (0-5); METHEMOGLOBIN 1.2 % (0.0-3.0)
[2016-09-21] MEDS: Meropenem 1g/NS 100mL IVPB 100 ML IVPB SCH ×3 (06:27→22:27)
[2016-09-21 06:39] LABS: ADD MANUAL DIFF? NO
[2016-09-21 07:11] LABS: MAGNESIUM 2.3 mg/dL (1.7-2.2); PHOSPHOROUS 2.6 mg/dL (2.5-4.5)
[2016-09-21] MEDS: Pantoprazole 20 mg EC Tab PO SCH (08:21)
--- NOTE | 2016-09-21 08:27 | PN ---
DATE: 09/20/2016 The patient developed rapid atrial fibrillation today. She is mildly short of breath. She denies an y chest pain. PHYSICAL EXAMINATION: VITAL SIGNS: Blood pressure 90/57, heart rate 154, temperature 98.2. HEENT: Pale conjunctivae. CHEST: Absent breath sounds over the bases. HEART: S1, S2 regular. ABDOMEN: Soft. EXTREMITIES: 1+ pitting edema. LABORATORIES: Today's hemoglobin and hematocrit 8.3 and 26.6, white count 14.9, platelet count 221,0 00. Today's SMA-7: Sodium 139, potassium 3.6, chloride 100, CO2 37, glucose 170, BUN 28, creatinine 0.5. Two sets of troponin, 0.08 and 0.06. Chest x-ray was consistent with bilateral pleural effusion, left more than right, as well as mild int erstitial congestion. ASSESSMENT: 1. Paroxysmal atrial fibrillation. 2. Mild congestive heart failure. 3. Mild to moderate aortic stenosis. 4. Anemia. 5. Stage III colon cancer with colostomy. 6. Nonmetastatic breast cancer. 7. Bilateral pleural effusion. RECOMMENDATIONS: The case was discussed with both the primary physician, the resident as well as the radiotelegraph operator servicer. The patient was given digoxin 0.25 mg intravenously as a single dose today and will be started on IV Cardizem infusion at 5 mg per hour. Hold Cozaar for now because of potential hypote nsion. Continue Solu-Medrol at 20 mg intravenously twice a day, subcutaneous heparin 5000 units twic e a day. I did order Lasix yesterday; however, it was withheld by the thermal cutting tracer machine operator. Overall prognosi s is very poor and supportive medical management is justified. Alexei Saha MD cc: [id number] TT: 09/20/2016 14:03:40 Confirmation # [id number] Dictation # [id number] en
[2016-09-21] MEDS: MethylPREDNISolone 40 mg Vial IVP SCH ×2 (09:27→22:26)
[2016-09-21] MEDS: Clotrimazole 1% Cream(30 gm) TOP SCH ×2 (09:39→18:41)
--- NOTE | 2016-09-21 09:49 | RAD ---
HISTORY: chf COMPARISON: 09/19/2016 FINDINGS: LUNGS: There is vascular and interstitial congestion which has increased PLEURA: Small pleural effusions CARDIOVASCULAR: Moderate cardiomegaly OSSEOUS STRUCTURES: No significant abnormalities. VISUALIZED UPPER ABDOMEN: Normal. OTHER FINDINGS: None. IMPRESSION: Increased vascular and interstitial congestion
[2016-09-21] MEDS: diltiaZEM 120 mg/24 Hours CD Cap PO SCH (12:04)
--- NOTE | 2016-09-21 13:52 | CP.CCUPN ---
<Robert Cisneros - Last Filed: 09/21/16 14:32> CCU Subjective - Physician Review Subjective (Free Text): 09/21/16 13:48 Patient seen and examined at bedside in ICU. Today is hospital day 4. No acute events overnight. Per Nursing, patient refused BiPAP overnight again. Heart rate remained elevated, but improved after increasing cardizem drip. Patient resting comfortably in bed, denies chest pain, shortness of breath, palpitations, sensation of rapid heart rate. She is more oriented and alert, now oriented to self and to location, but not to time. CCU Objective - Vital Signs / Intake & Output Vital Signs (Last 4 hours): Vital Signs Pulse BP Pulse Ox 09/21/16 12:04 112 H 117/70 09/21/16 10:00 73 120/65 91 L Intake and Output (Last 8hrs): Intake & Output 09/20/16 09/21/16 09/21/16 22:59 06:59 14:59 Intake Total 1380 540 Output Total 300 380 Balance 1080 160 Weight 68.492 kg Intake: IV 400 340 Left Hand 400 340 Oral 980 200 Output: Urine 300 350 Urethral ([place]) 300 350 Stool 0 30 Other: Voiding Method Indwelling Catheter Indwelling Catheter - Physical Exam Head: Positive for: Atraumatic, Normocephalic, Abrasion (on bridge of nose likely from mask) Extroacular Muscles: Positive for: EOMI. Negative for: Gaze Palsy Conjunctiva: Positive for: Normal. Negative for: Injected, Icteric Ears: Positive for: Normal Mouth: Positive for: Moist Mucous Membranes, Other (wearing nasal canula) Neck: Positive for: Normal Range of Motion, MIDLINE TENDERNESS. Negative for: Meningeal Signs, JVD Respiratory/Chest: Positive for: Good Air Exchange, Decreased Breath Sounds ( but improved as compared to yesterday). Negative for: Respiratory Distress, Accessory Muscle Use, Wheezes, Rales, Rhonchi Cardiovascular: Positive for: Murmurs (systolic murmur most prominent at right sternal border), Normal S1, S2, Irregular Rhythm (irregularly irregular, HR ranging from 80's - 100's on bedside monitor) Abdomen: Positive for: Normal Bowel Sounds, Ostomy Tubes (left abdominal ostomy bag present). Negative for: Tenderness, Distention, Peritoneal Signs, Rebound, Guarding Back: Positive for: Other (Rash present on back, now extending to abdomen anteriorly) Upper Extremity: Positive for: Other (diffuse echymoses). Negative for: Cyanosis Lower Extremity: Positive for: Normal Inspection, Edema (+1 pitting ), Other ( diffuse echymosis) Neurological: Positive for: Speech Normal (one or two words). Negative for: GCS =15 (GCS 14 ([id number])), CN II-XII Intact (unable to assess) Skin: Positive for: Dry, Rashes (Stage 2 sacral ulcer bandaged), Pale, Other ( Scattered Echymosis as noted in Extremities exams) Psychiatric: Positive for: Alert (lethargic but awake/alert), Normal Concentration, Normal Affect, Normal Mood, Lethargic. Negative for: Oriented x 3 (now oriented to self and location, not to time), Anxious, Agitated - Medications Active Medications: Active Medications Generic Name Dose Route Start Last Admin Trade Name Freq PRN Reason Stop Dose Admin Albuterol/Ipratropium 3 ml 09/20/16 13:13 Duoneb 3 Mg/0.5 Mg (3 Ml) Ud IH [id number] PRN Shortness of Breath Clotrimazole 0.1 gm 09/19/16 18:00 09/21/16 09:39 Lotrimin 1% TOP 1 applic BID MEGAN Administration Diltiazem HCl 120 mg 09/21/16 12:00 09/21/16 12:04 Cardizem Cd PO 120 mg DAILY MEGAN Administration Doxycycline Hyclate 100 mg 09/19/16 22:00 09/21/16 09:27 Doryx PO 09/27/16 22:01 100 mg Q12 MEGAN Administration Protocol Heparin Sodium (Porcine) 5,000 units 09/18/16 22:45 09/21/16 10:11 Heparin SC 5,000 units Q12H MEGAN Administration Protocol Meropenem 1g/NS 100mL IVPB 100 mls @ 100 mls/hr 09/19/16 14:00 09/21/16 13:42 Meropenem 1g/Ns 100ml Ivpb IVPB 09/28/16 14:01 100 mls/hr Q8 MEGAN Administration Protocol diltiaZEM IVPB 100mg in NS 100 mls @ 5 mls/hr 09/20/16 13:19 09/21/16 12:04 Cardizem 100mg In Ns IV 10 mg/hr .Q20H PRN Titration TITRATE PER MD ORDER Protocol 5 MG/HR Methylprednisolone 20 mg 09/19/16 17:46 09/21/16 09:27 Solu-Medrol IVP 20 mg Q12 MEGAN Administration Pantoprazole Sodium 20 mg 09/21/16 07:30 09/21/16 08:21 Protonix Ec Tab PO 20 mg 0730 MEGAN Administration - Patient Studies Lab Studies: Microbiology Studies 09/18/16 23:00 MRSA Culture (Admit) - Final Nose MRSA NOT DETECTED 09/19/16 15:47 Urine Culture - Final Urine No Growth (<1,000 CFU/ML) Lab Studies 09/21/16 09/21/16 09/21/16 Range/Units 07:00 05:30 05:00 WBC 15.3 H (4.5-11.0) 10^3/ul RBC 2.86 L (3.5-6.1) 10^6/uL Hgb 8.8 L (12.0-16.0) gm/dL Hct 28.4 L (36.0-48.0) % MCV 99.3 (80.0-105.0) fL MCH 30.8 (25.0-35.0) pg MCHC 31.0 (31.0-37.0) g/dl RDW 27.5 H (11.5-14.5) % Plt Count 243 (120.0-450.0) 10^3/uL Gran % 97.2 H (50.0-68.0) % Lymph % (Auto) 2.4 L (22.0-35.0) % Pacific % (Auto) 0.3 L (1.0-6.0) % Eos % (Auto) 0.1 L (1.5-5.0) % Baso % (Auto) 0.0 (0.0-3.0) % Gran # 14.91 H (1.4-6.5) Lymph # 0.4 L (1.2-3.4) Pacific # 0.0 L (0.1-0.6) Eos # 0.0 (0.0-0.7) Baso # 0.00 (0.0-2.0) K/mm3 pCO2 59 H (35-45) mm/Hg pO2 67.0 L (80-100) mm/Hg HCO3 36.5 H (21-28) mmol/L ABG pH 7.40 (7.35-7.45) ABG Total CO2 38.3 H (22-28) mmol.L ABG O2 Saturation 95.7 (95-98) % ABG O2 Content 10.7 L (15-23) ML/dl ABG Base Excess 10.4 H (-2.0-3.0) mmol/L ABG Hemoglobin 8.1 L (11.7-17.4) g/dL ABG Carboxyhemoglobin 1.8 H (0.5-1.5) % POC ABG HHb (Measured) 4.2 (0-5) % ABG Methemoglobin 1.2 (0.0-3.0) % ABG O2 Capacity 11.2 L (16-24) mL/dl Hgb O2 Saturation 92.8 L (95.0-98.0) % FiO2 32.0 % Sodium 137 (132-148) mmol/L Potassium 4.6 (3.6-5.0) mmol/L Chloride 101 (98-107) mmol/L Carbon Dioxide 35 H (21-33) mmol/L Anion Gap 6 L (10-20) BUN 36 H (7-21) mg/dL Creatinine 0.4 L (0.5-1.4) mg/dL Est GFR ( Amer) > 60 Est GFR (Non-Af Amer) > 60 Random Glucose 155 H (70-110) mg/dL Calcium 8.1 L (8.4-10.5) mg/dL Phosphorus 2.6 (2.5-4.5) mg/dL Magnesium 2.3 H (1.7-2.2) mg/dL Total Bilirubin 0.8 (0.2-1.3) mg/dL AST 15 (15-39) U/L ALT 40 (7-56) U/L Alkaline Phosphatase 54 (38-133) U/L Total Protein 5.0 L (5.8-8.3) g/dL Albumin 2.5 L (3.0-4.8) g/dL Globulin 2.5 gm/dL Albumin/Globulin Ratio 1.0 L (1.1-1.8) Procalcitonin (0.19-0.49) NG/ML Crossmatch 09/20/16 09/20/16 09/19/16 Range/Units 14:00 07:00 15:10 WBC (4.5-11.0) 10^3/ul RBC (3.5-6.1) 10^6/uL Hgb (12.0-16.0) gm/dL Hct (36.0-48.0) % MCV (80.0-105.0) fL MCH (25.0-35.0) pg MCHC (31.0-37.0) g/dl RDW (11.5-14.5) % Plt Count (120.0-450.0) 10^3/uL Gran % (50.0-68.0) % Lymph % (Auto) (22.0-35.0) % Pacific % (Auto) (1.0-6.0) % Eos % (Auto) (1.5-5.0) % Baso % (Auto) (0.0-3.0) % Gran # (1.4-6.5) Lymph # (1.2-3.4) Pacific # (0.1-0.6) Eos # (0.0-0.7) Baso # (0.0-2.0) K/mm3 pCO2 (35-45) mm/Hg pO2 (80-100) mm/Hg HCO3 (21-28) mmol/L ABG pH (7.35-7.45) ABG Total CO2 (22-28) mmol.L ABG O2 Saturation (95-98) % ABG O2 Content (15-23) ML/dl ABG Base Excess (-2.0-3.0) mmol/L ABG Hemoglobin (11.7-17.4) g/dL ABG Carboxyhemoglobin (0.5-1.5) % POC ABG HHb (Measured) (0-5) % ABG Methemoglobin (0.0-3.0) % ABG O2 Capacity (16-24) mL/dl Hgb O2 Saturation (95.0-98.0) % FiO2 % Sodium (132-148) mmol/L Potassium 4.7 (3.6-5.0) mmol/L Chloride (98-107) mmol/L Carbon Dioxide (21-33) mmol/L Anion Gap (10-20) BUN (7-21) mg/dL Creatinine (0.5-1.4) mg/dL Est GFR ( Amer) Est GFR (Non-Af Amer) Random Glucose (70-110) mg/dL Calcium 8.0 L (8.4-10.5) mg/dL Phosphorus 2.7 (2.5-4.5) mg/dL Magnesium 2.4 H (1.7-2.2) mg/dL Total Bilirubin (0.2-1.3) mg/dL AST (15-39) U/L ALT (7-56) U/L Alkaline Phosphatase (38-133) U/L Total Protein (5.8-8.3) g/dL Albumin (3.0-4.8) g/dL Globulin gm/dL Albumin/Globulin Ratio (1.1-1.8) Procalcitonin 0.10 L (0.19-0.49) NG/ML Crossmatch See Detail Laboratory Results - last 24 hr 09/19/16 09/20/16 09/20/16 15:10 07:00 14:00 WBC RBC Hgb Hct MCV MCH MCHC RDW Plt Count Gran % Lymph % (Auto) Pacific % (Auto) Eos % (Auto) Baso % (Auto) Gran # Lymph # [place] # Eos # Baso # pCO2 pO2 HCO3 ABG pH ABG Total CO2 ABG O2 Saturation ABG O2 Content ABG Base Excess ABG Hemoglobin ABG Carboxyhemoglobin POC ABG HHb (Measured) ABG Methemoglobin ABG O2 Capacity Hgb O2 Saturation FiO2 Sodium Potassium 4.7 Chloride Carbon Dioxide Anion Gap BUN Creatinine Est GFR ( Amer) Est GFR (Non-Af Amer) Random Glucose Calcium 8.0 L Phosphorus 2.7 Magnesium 2.4 H Total Bilirubin AST ALT Alkaline Phosphatase Total Protein Albumin Globulin Albumin/Globulin Ratio Procalcitonin 0.10 L Crossmatch See Detail 09/21/16 09/21/16 09/21/16 05:00 05:30 07:00 WBC 15.3 H RBC 2.86 L Hgb 8.8 L Hct 28.4 L MCV 99.3 MCH 30.8 MCHC 31.0 RDW 27.5 H Plt Count 243 Gran % 97.2 H Lymph % (Auto) 2.4 L Pacific % (Auto) 0.3 L Eos % (Auto) 0.1 L Baso % (Auto) 0.0 Gran # 14.91 H Lymph # 0.4 L Pacific # 0.0 L Eos # 0.0 Baso # 0.00 pCO2 59 H pO2 67.0 L HCO3 36.5 H ABG pH 7.40 ABG Total CO2 38.3 H ABG O2 Saturation 95.7 ABG O2 Content 10.7 L ABG Base Excess 10.4 H ABG Hemoglobin 8.1 L ABG Carboxyhemoglobin 1.8 H POC ABG HHb (Measured) 4.2 ABG Methemoglobin 1.2 ABG O2 Capacity 11.2 L Hgb O2 Saturation 92.8 L FiO2 32.0 Sodium 137 Potassium 4.6 Chloride 101 Carbon Dioxide 35 H Anion Gap 6 L BUN 36 H Creatinine 0.4 L Est GFR ( Amer) > 60 Est GFR (Non-Af Amer) > 60 Random Glucose 155 H Calcium 8.1 L Phosphorus 2.6 Magnesium 2.3 H Total Bilirubin 0.8 AST 15 ALT 40 Alkaline Phosphatase 54 Total Protein 5.0 L Albumin 2.5 L Globulin 2.5 Albumin/Globulin Ratio 1.0 L Procalcitonin Crossmatch EKG/Cardiology Studies: Cardiology / EKG Studies 09/21/16 12:00 EKG [ELECTROCARDIOGRAM] DAILY Comment: Reason For Exam: assess intervals Fingerstick Blood Sugar Results: 206 Review of Systems - Review of Systems Systems not reviewed;Unavailable: Altered Mental Status (still only partially oriented, no acute ROS complaints as noted in Subjective) Critical Care Progress Note - Nutrition Nutrition: Nutrition Category Date Time Status Heart Healthy Diet [DIET] Diets 09/19/16 Dinner Ordered Assessment/Plan - Assessment and Plan (Free Text) Assessment: This is an 86 yo F with PMH of non-metastatic bilateral breast cancer , stage III colon cancer (s/p resection and colostomy), moderate aortic stenosis , paroxysmal atrial fibrillation (not on anticoagulation), HTN, and chronic anemia who was admitted to the ICU for AMS suspected 2/2 HCAP and respiratory acidosis requiring BiPAP. She is currently being managed for AFib with RVR requiring Cardizem drip. Plan: Neuro: -No apparent lethargy today, awake and alert, following all commands and answering questions appropriately -Neurochecks q1h -CT Head 09/18 negative for acute finding -Fall precautions -Avoid xanax or benadryl to prevent further lethargy/AMS Pulm: -meets old criteria for HCAP (previously admitted to [facility] [place] < 45 days prior to this admission) -CXR on admission: New RLL; CXR 09/19: Pulm vasc congestion with bilateral pleural effusions L>R -CXR today: read as increased vascular and interstitial congestion -Pro-BNP 3000 on admit -satting well on NC 3L, previously on BiPAP but patient refused overnight for the last 2 nights -Respiratory Acidosis persists, with compensatory alkalosis -Duoneb Q6 changed from scheduled to PRN as per Pulm -solumedrol 40q12 -HOB >35; Maintain 02 sat >90 -Pulm (Dr. Salinas) following, appreciate all recs Cardio: -Hx paroxysmal atrial fibrillation (not on anticoagulation as per Cardio) -Rapid afib resistant to x1 5mg IVP Cardizem and 1x 0.25mg Digoxin, controlled on Cardizem drip at 14mg/hr; will attempt to wean off Cardizem drip, restart home PO Cardizem, wean down drip; if AFib rate worsens or patient is unable to be weaned, can consider IV Amiodarone bolus x1 -Maintain Map > 65 -600 ASA rectal daily -trops 0.07, 0.08, 0.06 -Cardio (Dr. Saha) following, appreciate all recs GI: -GI ppx with Protonix -Swallow eval: no change in assessment; dysphagia diet with mechanically- altered finely-chopped consistency & thin liquids. Strict aspiration precautions -Dietitian referral Renal: -dehydration and low BP resolved, continue to hold IVF -Cr 0.4, was 0.5 -avoid nephrotoxic drugs where feasible -monitor and replete electrolytes as needed; no repletion needed today Heme: -Hb 8.8, was 8.3 -macrocytic anemia -Fe 83, TIBC 196, % Sat 43, B12 753, folate 10.7, Retic 1.44 -Hypoalbumenia -Heparin 5000u SC q12 for DVT ppx ID: -Leukocytosis 15.3, was to 14.9 -Afebrile -HCAP on Doxy and Merrem, Day 3 -ID following (Dr. Fagan), appreciate all recs Skin: -fungal rash - clotrimazole top -stage 2 sacral ulcer, wound care following -air mattress, turn q2 -dietitian on board, consider nutritional optimization Dispo: ICU, pending weaning off Cardizem drip for Paroxysmal AFib with RVR FEN: dysphagia diet with mechanically-altered finely-chopped consistency & thin liquids Access: Peripheral IV x1 Consult: Cardio, ID, Pulm Ppx: Protonix for GI, Heparin for DVT Patient seen, reviewed, and discussed with attending, Dr. Espitia - Date & Time Date: 09/21/16 Time: 14:33 <Omkar WALLACE,Inal H - Last Filed: 09/21/16 14:56> CCU Objective - Vital Signs / Intake & Output Vital Signs (Last 4 hours): Vital Signs Temp Pulse BP Pulse Ox 09/21/16 13:00 106 H 127/58 L 94 L 09/21/16 12:04 112 H 117/70 09/21/16 12:02 97 H 90/45 L 94 L 09/21/16 12:00 97.8 F 114 H 83 L 09/21/16 11:02 88 117/70 78 L 09/21/16 11:00 82 79 L Intake and Output (Last 8hrs): Intake & Output 09/20/16 09/21/16 09/21/16 22:59 06:59 14:59 Intake Total 1380 540 Output Total 300 380 Balance 1080 160 Weight 151 lb Intake: IV 400 340 Left Hand 400 340 Oral 980 200 Output: Urine 300 350 Urethral ([place]) 300 350 Stool 0 30 Other: Voiding Method Indwelling Catheter Indwelling Catheter - Medications Active Medications: Active Medications Generic Name Dose Route Start Last Admin Trade Name Freq PRN Reason Stop Dose Admin Albuterol/Ipratropium 3 ml 09/20/16 13:13 Duoneb 3 Mg/0.5 Mg (3 Ml) Ud IH [id number] PRN Shortness of Breath Clotrimazole 0.1 gm 09/19/16 18:00 09/21/16 09:39 Lotrimin 1% TOP 1 applic BID MEGAN Administration Diltiazem HCl 120 mg 09/21/16 12:00 09/21/16 12:04 Cardizem Cd PO 120 mg DAILY MEGAN Administration Doxycycline Hyclate 100 mg 09/19/16 22:00 09/21/16 09:27 Doryx PO 09/27/16 22:01 100 mg Q12 MEGAN Administration Protocol Heparin Sodium (Porcine) 5,000 units 09/18/16 22:45 09/21/16 10:11 Heparin SC 5,000 units Q12H MEGAN Administration Protocol Meropenem 1g/NS 100mL IVPB 100 mls @ 100 mls/hr 09/19/16 14:00 09/21/16 13:42 Meropenem 1g/Ns 100ml Ivpb IVPB 09/28/16 14:01 100 mls/hr Q8 MEGAN Administration Protocol diltiaZEM IVPB 100mg in NS 100 mls @ 5 mls/hr 09/20/16 13:19 09/21/16 12:04 Cardizem 100mg In Ns IV 10 mg/hr .Q20H PRN Titration TITRATE PER MD ORDER Protocol 5 MG/HR Methylprednisolone 20 mg 09/19/16 17:46 09/21/16 09:27 Solu-Medrol IVP 20 mg Q12 MEGAN Administration Pantoprazole Sodium 20 mg 09/21/16 07:30 09/21/16 08:21 Protonix Ec Tab PO 20 mg 0730 MEGAN Administration - Patient Studies Lab Studies: Microbiology Studies 09/18/16 23:00 MRSA Culture (Admit) - Final Nose MRSA NOT DETECTED 09/19/16 15:47 Urine Culture - Final Urine No Growth (<1,000 CFU/ML) Lab Studies 09/21/16 09/21/16 09/21/16 Range/Units 07:00 05:30 05:00 WBC 15.3 H (4.5-11.0) 10^3/ul RBC 2.86 L (3.5-6.1) 10^6/uL Hgb 8.8 L (12.0-16.0) gm/dL Hct 28.4 L (36.0-48.0) % MCV 99.3 (80.0-105.0) fL MCH 30.8 (25.0-35.0) pg MCHC 31.0 (31.0-37.0) g/dl RDW 27.5 H (11.5-14.5) % Plt Count 243 (120.0-450.0) 10^3/uL Gran % 97.2 H (50.0-68.0) % Lymph % (Auto) 2.4 L (22.0-35.0) % Pacific % (Auto) 0.3 L (1.0-6.0) % Eos % (Auto) 0.1 L (1.5-5.0) % Baso % (Auto) 0.0 (0.0-3.0) % Gran # 14.91 H (1.4-6.5) Lymph # 0.4 L (1.2-3.4) Pacific # 0.0 L (0.1-0.6) Eos # 0.0 (0.0-0.7) Baso # 0.00 (0.0-2.0) K/mm3 pCO2 59 H (35-45) mm/Hg pO2 67.0 L (80-100) mm/Hg HCO3 36.5 H (21-28) mmol/L ABG pH 7.40 (7.35-7.45) ABG Total CO2 38.3 H (22-28) mmol.L ABG O2 Saturation 95.7 (95-98) % ABG O2 Content 10.7 L (15-23) ML/dl ABG Base Excess 10.4 H (-2.0-3.0) mmol/L ABG Hemoglobin 8.1 L (11.7-17.4) g/dL ABG Carboxyhemoglobin 1.8 H (0.5-1.5) % POC ABG HHb (Measured) 4.2 (0-5) % ABG Methemoglobin 1.2 (0.0-3.0) % ABG O2 Capacity 11.2 L (16-24) mL/dl Hgb O2 Saturation 92.8 L (95.0-98.0) % FiO2 32.0 % Sodium 137 (132-148) mmol/L Potassium 4.6 (3.6-5.0) mmol/L Chloride 101 (98-107) mmol/L Carbon Dioxide 35 H (21-33) mmol/L Anion Gap 6 L (10-20) BUN 36 H (7-21) mg/dL Creatinine 0.4 L (0.5-1.4) mg/dL Est GFR ( Amer) > 60 Est GFR (Non-Af Amer) > 60 Random Glucose 155 H (70-110) mg/dL Calcium 8.1 L (8.4-10.5) mg/dL Phosphorus 2.6 (2.5-4.5) mg/dL Magnesium 2.3 H (1.7-2.2) mg/dL Total Bilirubin 0.8 (0.2-1.3) mg/dL AST 15 (15-39) U/L ALT 40 (7-56) U/L Alkaline Phosphatase 54 (38-133) U/L Total Protein 5.0 L (5.8-8.3) g/dL Albumin 2.5 L (3.0-4.8) g/dL Globulin 2.5 gm/dL Albumin/Globulin Ratio 1.0 L (1.1-1.8) Procalcitonin (0.19-0.49) NG/ML Crossmatch 09/20/16 09/19/16 Range/Units 07:00 15:10 WBC (4.5-11.0) 10^3/ul RBC (3.5-6.1) 10^6/uL Hgb (12.0-16.0) gm/dL Hct (36.0-48.0) % MCV (80.0-105.0) fL MCH (25.0-35.0) pg MCHC (31.0-37.0) g/dl RDW (11.5-14.5) % Plt Count (120.0-450.0) 10^3/uL Gran % (50.0-68.0) % Lymph % (Auto) (22.0-35.0) % Pacific % (Auto) (1.0-6.0) % Eos % (Auto) (1.5-5.0) % Baso % (Auto) (0.0-3.0) % Gran # (1.4-6.5) Lymph # (1.2-3.4) [place] # (0.1-0.6) Eos # (0.0-0.7) Baso # (0.0-2.0) K/mm3 pCO2 (35-45) mm/Hg pO2 (80-100) mm/Hg HCO3 (21-28) mmol/L ABG pH (7.35-7.45) ABG Total CO2 (22-28) mmol.L ABG O2 Saturation (95-98) % ABG O2 Content (15-23) ML/dl ABG Base Excess (-2.0-3.0) mmol/L ABG Hemoglobin (11.7-17.4) g/dL ABG Carboxyhemoglobin (0.5-1.5) % POC ABG HHb (Measured) (0-5) % ABG Methemoglobin (0.0-3.0) % ABG O2 Capacity (16-24) mL/dl Hgb O2 Saturation (95.0-98.0) % FiO2 % Sodium (132-148) mmol/L Potassium (3.6-5.0) mmol/L Chloride (98-107) mmol/L Carbon Dioxide (21-33) mmol/L Anion Gap (10-20) BUN (7-21) mg/dL Creatinine (0.5-1.4) mg/dL Est GFR ( Amer) Est GFR (Non-Af Amer) Random Glucose (70-110) mg/dL Calcium (8.4-10.5) mg/dL Phosphorus (2.5-4.5) mg/dL Magnesium (1.7-2.2) mg/dL Total Bilirubin (0.2-1.3) mg/dL AST (15-39) U/L ALT (7-56) U/L Alkaline Phosphatase (38-133) U/L Total Protein (5.8-8.3) g/dL Albumin (3.0-4.8) g/dL Globulin gm/dL Albumin/Globulin Ratio (1.1-1.8) Procalcitonin 0.10 L (0.19-0.49) NG/ML Crossmatch See Detail Laboratory Results - last 24 hr 09/19/16 09/20/16 09/21/16 15:10 07:00 05:00 WBC 15.3 H RBC 2.86 L Hgb 8.8 L Hct 28.4 L MCV 99.3 MCH 30.8 MCHC 31.0 RDW 27.5 H Plt Count 243 Gran % 97.2 H Lymph % (Auto) 2.4 L Pacific % (Auto) 0.3 L Eos % (Auto) 0.1 L Baso % (Auto) 0.0 Gran # 14.91 H Lymph # 0.4 L Pacific # 0.0 L Eos # 0.0 Baso # 0.00 pCO2 pO2 HCO3 ABG pH ABG Total CO2 ABG O2 Saturation ABG O2 Content ABG Base Excess ABG Hemoglobin ABG Carboxyhemoglobin POC ABG HHb (Measured) ABG Methemoglobin ABG O2 Capacity Hgb O2 Saturation FiO2 Sodium 137 Potassium 4.6 Chloride 101 Carbon Dioxide 35 H Anion Gap 6 L BUN 36 H Creatinine 0.4 L Est GFR ( Amer) > 60 Est GFR (Non-Af Amer) > 60 Random Glucose 155 H Calcium 8.1 L Phosphorus Magnesium Total Bilirubin 0.8 AST 15 ALT 40 Alkaline Phosphatase 54 Total Protein 5.0 L Albumin 2.5 L Globulin 2.5 Albumin/Globulin Ratio 1.0 L Procalcitonin 0.10 L Crossmatch See Detail 09/21/16 09/21/16 05:30 07:00 WBC RBC Hgb Hct MCV MCH MCHC RDW Plt Count Gran % Lymph % (Auto) Pacific % (Auto) Eos % (Auto) Baso % (Auto) Gran # Lymph # Pacific # Eos # Baso # pCO2 59 H pO2 67.0 L HCO3 36.5 H ABG pH 7.40 ABG Total CO2 38.3 H ABG O2 Saturation 95.7 ABG O2 Content 10.7 L ABG Base Excess 10.4 H ABG Hemoglobin 8.1 L ABG Carboxyhemoglobin 1.8 H POC ABG HHb (Measured) 4.2 ABG Methemoglobin 1.2 ABG O2 Capacity 11.2 L Hgb O2 Saturation 92.8 L FiO2 32.0 Sodium Potassium Chloride Carbon Dioxide Anion Gap BUN Creatinine Est GFR ( Amer) Est GFR (Non-Af Amer) Random Glucose Calcium Phosphorus 2.6 Magnesium 2.3 H Total Bilirubin AST ALT Alkaline Phosphatase Total Protein Albumin Globulin Albumin/Globulin Ratio Procalcitonin Crossmatch EKG/Cardiology Studies: Cardiology / EKG Studies 09/21/16 12:00 EKG [ELECTROCARDIOGRAM] DAILY Comment: Reason For Exam: assess intervals Critical Care Progress Note - Nutrition Nutrition: Nutrition Category Date Time Status Heart Healthy Diet [DIET] Diets 09/19/16 Dinner Ordered Attending/Attestation - Attestation I have personally seen and examined this patient.: Yes I have fully participated in the care of the patient.: Yes I have reviewed all pertinent clinical information: Yes Notes (Text): 09/21/16 14:54 86 y/o F w/ resolving respiratory failure from previous PNA and VRE uti In the ICU due to A.Fib w. RVR yesterday placed on Cardizem ggt Plans today to wean cardizem GGt and start P.O cardizem and if need be try Amiodarone for conversion. Pt is not a anticoagulation candidate from prior hospitalizations due to g.i bleed an fall risk. PT/OT On ABX per ID for VRE and resolving PNA. No respiratory distress currently on 3 L NC w/o distress. hep sq tid cc time 45 min
--- NOTE | 2016-09-21 14:33 | CARD ---
APPROVED REPORT EKG Measurement Heart [id number] <Conclusion> Atrial fibrillation ST & T wave abnormality, nonspecific Abnormal ECG
--- NOTE | 2016-09-21 14:41 | CP.PCM.PN ---
Subjective - Date & Time of Evaluation Date of Evaluation: 09/21/16 Time of Evaluation: 08:20 - Subjective Subjective: Comfortable in bed, not in distress, no fevers overnight, no nausea, no diarrhea , no vomiting. Objective - Vital Signs/Intake and Output Vital Signs (last 24 hours): Temp Pulse Resp BP Pulse Ox 97.8 F 106 H 16 127/58 L 94 L 09/21/16 12:00 09/21/16 13:00 09/19/16 13:10 09/21/16 13:00 09/21/16 13:00 Intake and Output: 09/21/16 09/21/16 06:59 18:59 Intake Total 540 Output Total 380 Balance 160 - Medications Medications: Current Medications Albuterol/Ipratropium (Duoneb 3 Mg/0.5 Mg (3 Ml) Ud) 3 ml IH [id number] PRN PRN Reason: Shortness of Breath Clotrimazole (Lotrimin 1%) 0.1 gm TOP BID [facility] Last Admin: 09/21/16 09:39 Dose: 1 applic Diltiazem HCl (Cardizem Cd) 120 mg PO DAILY [facility] Last Admin: 09/21/16 12:04 Dose: 120 mg Doxycycline Hyclate (Doryx) 100 mg PO Q12 MEGAN PRN Reason: Protocol Stop: 09/27/16 22:01 Last Admin: 09/21/16 09:27 Dose: 100 mg Heparin Sodium (Porcine) (Heparin) 5,000 units SC Q12H MEGAN PRN Reason: Protocol Last Admin: 09/21/16 10:11 Dose: 5,000 units Meropenem 1g/NS 100mL IVPB (Meropenem 1g/Ns 100ml Ivpb) 100 mls @ 100 mls/hr IVPB Q8 MEGAN PRN Reason: Protocol Stop: 09/28/16 14:01 Last Admin: 09/21/16 13:42 Dose: 100 mls/hr diltiaZEM IVPB 100mg in NS (Cardizem 100mg In Ns) 100 mls @ 5 mls/hr IV .Q20H PRN; Protocol; 5 MG/HR PRN Reason: TITRATE PER MD ORDER Last Titration: 09/21/16 12:04 Dose: 10 mg/hr Methylprednisolone (Solu-Medrol) 20 mg IVP Q12 [facility] Last Admin: 09/21/16 09:27 Dose: 20 mg Pantoprazole Sodium (Protonix Ec Tab) 20 mg PO 0730 [facility] Last Admin: 09/21/16 08:21 Dose: 20 mg - Labs Labs: 09/21/16 05:00 09/21/16 05:00 PT 12.1 Seconds (9.9-11.8) H 09/18/16 17:53 INR 1.12 (0.93-1.08) H 09/18/16 17:53 APTT 25.5 Seconds (23.7-30.8) 09/18/16 17:53 - Constitutional Appears: Non-toxic, No Acute Distress - Head Exam Head Exam: NORMAL INSPECTION - Neck Exam Neck Exam: absent: Lymphadenopathy, Meningismus - Respiratory Exam Respiratory Exam: Decreased Breath Sounds - Cardiovascular Exam Cardiovascular Exam: +S1, +S2 - GI/Abdominal Exam GI & Abdominal Exam: Soft. absent: Tenderness Assessment and Plan - Assessment and Plan (Free Text) Plan: Assessment Severe sepsis probably secondary to healthcare-associated pneumonia on top of pulmonary vascular congestion, clinically improving Vancomycin-resistant Enterococcus faecium in the urine, probably related to catheter use, without evidence that it is causing infection S/P severe sepsis S/P ventilator-dependent respiratory failure secondary to upper urinary tract infection as well as pneumonia HTN colon cancer stage 3 S/P colon resection and colostomy Plan continue Doxycycline and Merrem, to complete 4-7 days of antibiotics The E. faecium in the urine disappeared from the urine despite no effective treatment for it - will continue to monitor
--- NOTE | 2016-09-21 20:11 | PN ---
DATE: 09/21/2016 REFERRING PHYSICIAN: Dr. Lomas. SUBJECTIVE: The patient is lying in the bed. Son is at bedside. Feels a little better than yesterd ay, on Cardizem drip with controlled heart rate, which is 10 mg per hour being weaned down, p.o. Card izem already given, there is not ____ with minimal exertion. No nausea, no vomiting and no diarrhea. Trace leg swelling. OBJECTIVE: GENERAL: No acute distress. VITAL SIGNS: Temperature is 98, heart rate is 100, respiratory rate is 20, blood pressure is 130/65, pulse ox 93% on nasal cannula. HEENT: Moist mucous membrane. Crowded airway. NECK: Supple. No JVD. LUNGS: Has crackles at the bases, few rhonchi. HEART: Irregularly irregular. ABDOMEN: Soft, nontender. No organomegaly. EXTREMITIES: There is trace edema. NEUROLOGIC: Awake, alert, follows simple command. MEDICATIONS: She is on IV diltiazem, also Cardizem 120 mg p.o. was given, doxycycline 100 mg twice a day, DuoNeb q. 6 hours p.r.n., heparin 5000 units subQ q. 12 hours, Lotrimin 1% topically twice a da y, meropenem 1 gram q. 8 hours, Protonix 20 mg daily, Solu-Medrol 20 mg q. 12 hours. LABORATORY DATA: Shows hemoglobin 8.8, hematocrit 28.4, WBC 15.3, platelet count is 243. ABG showed pH 7.40, pCO2 of 59, O2 is 67, this is on nasal cannula. Sodium 137, potassium 4.6, chloride 106, b icarbonate 35, BUN 36, creatinine 0.4, glucose 155, calcium is 8.1, phosphorus 2.6, magnesium is 2.3, AST 15, ALT 40, alkaline phosphatase is 54, albumin is 2.5. Urine: Enterococcus faecalis. Chest x -ray done today shows vascular congestion and interstitial infiltrates. IMPRESSION AND PLAN: Respiratory failure requiring noninvasive ventilation, has CO2 retention, cardi omyopathy, mild pulmonary hypertension, valvular heart disease, history of atrial fibrillation, histo ry of colon cancer, breast cancer in the past, anemia requiring transfusion, atrial fibrillation with rapid ventricular response, presently on Cardizem drip. Pulmonary point of view, keep head elevated at 45 degrees, aspiration precaution, antiarrhythmic as per cardiology. The patient is started on s teroids, gastric prophylaxis. Sequential compression device to lower extremity. On antibiotics. Fo llow up labs in the morning. Thank you and will follow with you. Camron Salinas MD cc: [phone] TT: 09/21/2016 20:11:05 Confirmation # [id number] Dictation # [id number]
--- NOTE | 2016-09-21 22:52 | PN ---
DATE: 09/21/2016 The patient is in the intensive care unit, 128, bed 4. SUBJECTIVE: The patient is lying in bed. Son is at the bedside. Feels a little bit better than yes terday on Cardizem drip to control the heart rate. The patient has also been started on p.o. Cardize m also. The patient has no significant nausea, vomiting, diarrhea, and has trace leg swelling. OBJECTIVE: GENERAL: The patient is in no acute distress. VITAL SIGNS: Stable. T-max is 98.4, heart rate is 100, respirations 20, blood pressure is 130/65, p ulse ox on nasal cannula is 93%. HEENT: Head is normocephalic, atraumatic. Examination of the oropharynx reveals moist mucous membra zoe. . NECK: Supple. There is no adenopathy. No jugular venous distention noted. LUNGS: Reveals crackles at the bases with scattered rhonchi bilaterally. HEART: Reveals it to be irregularly irregular, tachycardic. BREASTS: Reveal definite masses. The patient has a diagnosis of nonmetastatic bilateral breas t cancer. ABDOMEN: Soft, nontender. Liver and spleen not palpable. EXTREMITIES: Reveals trace edema in the lower extremities. NEUROLOGIC: Higher functions are normal. No focal deficits are noted. MEDICATIONS: Reviewed. She is still on IV Diltiazem, on Cardizem p.o., doxycycline twice a day. Sh kala is on DuoNeb q. 6 hours. She is on heparin 5,000 subQ q. 12, Lotrimin 1% topically twice a day. S he is on meropenem 1 gram IV q. 8 hours, Protonix 20 mg daily, and Solu-Medrol 20 mg IV q. 12 hours. LABORATORY DATA: Reveals a hemoglobin of 8.8, hematocrit 28.4, white count is 15.3, platelet count i s 243. ABG shows a pH of 7.40, pCO2 of 59, pO2 of 67 on nasal cannula. Sodium is 137, K is 4.6, chl oride is 106, BUN is 35, creatinine is 0.4, glucose is 155, calcium is 8.1, phosphorus is 2.6. AST i s 15, ALT is 40, alkaline phosphatase is 54 with an albumin of 2.5. Urine shows Enterococcus faecali s. Chest x-ray shows vascular congestion, interstitial fibrosis. ASSESSMENT NOTES AND PLAN: The patient has respiratory failure had CO2 retention; cardiomyopat hy; pulmonary hypertension; nonmetastatic bilateral breast cancer; atrial fibrillation; valvular hear t disease; history of stage III lung CA, status post colostomy. On Cardizem drip. We will continue aspiration precautions, DVT prophylaxis, and gastric prophylaxis. The patient is on IV steroids, seq uential compression devices for the lower extremities, and continue follow up. Overall prognosis is guarded, and I have discussed in detail with the patient's family. We will follow and make appropria te recommendations depending on the lab work and how the patient is doing over the next 24-48 hours. Shanta Lomas MD cc: [id number] TT: 09/21/2016 22:52:16 Confirmation # [id number] Dictation # [id number]
[2016-09-22 05:54] LABS: HEMATOCRIT 29.4 % (36.0-48.0); MEAN CELL VOLUME 99.7 fL (80.0-105.0); MEAN CORPUSCULAR HEMOGLOBIN 30.8 pg (25.0-35.0); PLATELET COUNT 265 10^3/uL (120.0-450.0); RED CELL DISTRIBUTION WIDTH 27.5 % (11.5-14.5); WHITE BLOOD COUNT 14.9 10^3/ul (4.5-11.0)
[2016-09-22 06:01] LABS: ADD MANUAL DIFF? YES
[2016-09-22] MEDS: Meropenem 1g/NS 100mL IVPB 100 ML IVPB SCH ×3 (06:01→21:09)
[2016-09-22 06:17] LABS: ARTERIAL BLOOD GAS HCO3 35.7 mmol/L (21-28); ARTERIAL BLOOD GAS O2 CAPACITY 12.4 mL/dl (16-24); ARTERIAL BLOOD GAS PH 7.39 (7.35-7.45); CARBOXYHEMOGLOBIN 1.5 % (0.5-1.5); HHB 3.3 % (0-5); METHEMOGLOBIN 1.2 % (0.0-3.0)
[2016-09-22 06:40] LABS: ALB/GLOB RATIO 1.1 (1.1-1.8); ALKALINE PHOSPHATASE 52 U/L (38-133); ALT/SGPT 43 U/L (7-56); AST/SGOT 19 U/L (15-39); BILIRUBIN,TOTAL 0.8 mg/dL (0.2-1.3); BLOOD UREA NITROGEN 44 mg/dL (7-21); CALCIUM 8.6 mg/dL (8.4-10.5); CARBON DIOXIDE 36 mmol/L (21-33); CHLORIDE 99 mmol/L (98-107); GFR AFRICAN-AMERICAN > 60; GLUCOSE,RANDOM 161 mg/dL (70-110); MAGNESIUM 2.2 mg/dL (1.7-2.2); PHOSPHOROUS 2.3 mg/dL (2.5-4.5); POTASSIUM 5.1 mmol/L (3.6-5.0); SODIUM 138 mmol/L (132-148); TOTAL PROTEIN 5.3 g/dL (5.8-8.3)
[2016-09-22 06:57] LABS: BAND 8 % (0-2); HYPOCHROMIA 1+; NEUTROPHIL 90 % (50.0-70.0); NUCLEATED RED BLOOD CELL 2 %; PLATELET ESTIMATE NORMAL (NORMAL)
[2016-09-22 06:58] LABS: ANISOCYTOSIS 1+; POIKILOCYTOSIS SLIGHT
[2016-09-22] MEDS: Pantoprazole 20 mg EC Tab PO SCH (07:45)
[2016-09-22] MEDS: Albuterol-Ipratrop 3 mg / 0.5 (3 ml) UD IH PRN (08:13)
[2016-09-22] MEDS: diltiaZEM 120 mg/24 Hours CD Cap PO SCH (09:14)
[2016-09-22] MEDS: MethylPREDNISolone 40 mg Vial IVP SCH ×2 (09:15→21:09)
[2016-09-22] MEDS: Clotrimazole 1% Cream(30 gm) TOP SCH ×2 (09:35→17:09)
--- NOTE | 2016-09-22 10:03 | RAD ---
HISTORY: f/u COMPARISON: 09/18/2016 FINDINGS: LUNGS: There is interval improved aeration in both lungs. The lungs are hyperinflated and there is peribronchial thickening with chronic changes in both lungs. PLEURA: There is a small right and moderate left pleural effusion. No pneumothorax. CARDIOVASCULAR: There is moderate cardiomegaly. Atherosclerotic aortic arch calcifications are present. . OSSEOUS STRUCTURES: There is diffuse bone demineralization. VISUALIZED UPPER ABDOMEN: Normal. OTHER FINDINGS: None. IMPRESSION: 1. Interval improved aeration in both lungs. Small right and moderate left pleural effusions. 2. Moderate cardiomegaly.
[2016-09-22] MEDS: Digoxin 250 mcg (0.25 mg) Tab PO SCH ×2 (12:00→13:39)
--- NOTE | 2016-09-22 12:01 | CARD ---
APPROVED REPORT EKG Measurement Heart [id number] <Conclusion> Atrial fibrillation with rapid ventricular response Low voltage QRS Nonspecific ST and T wave abnormality, probably digitalis effect Abnormal ECG
--- NOTE | 2016-09-22 13:18 | CP.PCM.CON ---
History of Present Illness - History of Present Illness History of Present Illness: Palliative consult requested by Dr Virginia Almonte Reason: Goals of care/advance care planning 86 year old female admitted with pneumonia. She presented with AMS, family reported she became non ambulatory at home. PMHx: colon cancer s/p resection, colostomy,breast cancer, atherosclerosis, HTN , COPD, aortic stenosis, atrial fibrillation, anemia, DM, cardiomegaly, respiratory failure resulting in intubation. Social History: Non smoker, no alcohol or drug use. She has three sons, she lives with son Chandler. Family History: Non contributory. Advance Care Planning: The patient does not have an Advance Directive. Her son Baldev is POA. Review of Systems: Weakness. gait dysfunction, deconditioning. All other systems reviewed and are negative Past Patient History - Infectious Disease Hx of Infectious Diseases: None - Tetanus Immunizations Tetanus Immunization: Unknown - Past Medical History & Family History Past Medical History?: Yes - Past Social History Smoking Status: Never Smoked - CARDIAC Hx Hypertension: Yes - PULMONARY Hx Chronic Obstructive Pulmonary Disease (COPD): Yes - NEUROLOGICAL Hx Neurological Disorder: No - HEENT Hx HEENT Problems: No - RENAL Hx Chronic Kidney Disease: No - ENDOCRINE/METABOLIC Hx Endocrine Disorders: No - HEMATOLOGICAL/ONCOLOGICAL Hx Cancer: Yes (Breast and colon) - INTEGUMENTARY Hx Dermatological Problems: Yes (COLOSTOMY LEFT) Other/Comment: 09-18-16 SACRAL PRESSURE ULCER STAGE 2 5 X 2.5 CM.,EXTENSIVE REDDENED RASH ALL OVER BACK ,EXTENDING TO BILATERAL BUTTOCKS. HAS IASD INBETWEEN GROIN AND IN BETWEEN BUTTOCK. MASD UNDER THE BREAST FOLD AND STOMACH FOLD. MULTIPLE BRUISING TO FOREARM. BILATERAL ZYGOMATIC ARCH BRUISING. - MUSCULOSKELETAL/RHEUMATOLOGICAL Hx Musculoskeletal Disorders: Yes Hx Falls: Yes Hx Unsteady Gait: Yes - GASTROINTESTINAL Hx Colostomy: Yes (colon resection, cecal mass) Other/Comment: COLOSTOMY LEFT - GENITOURINARY/GYNECOLOGICAL Hx Incontinence: Yes (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) Other/Comment: stage III colon ca - PSYCHIATRIC Hx Anxiety: Yes Hx Substance Use: No - SURGICAL HISTORY Hx Surgeries: Yes Other/Comment: colon resection/colostomy - ANESTHESIA Hx Anesthesia: No Hx Anesthesia Reactions: No Hx Malignant Hyperthermia: No Meds Allergies/Adverse Reactions: Allergies Allergy/AdvReac Type Severity Reaction Status Date / Time No Known Allergies Allergy Verified 09/18/16 22:10 - Medications Medications: Current Medications Albuterol/Ipratropium (Duoneb 3 Mg/0.5 Mg (3 Ml) Ud) 3 ml IH [id number] PRN PRN Reason: Shortness of Breath Last Admin: 09/22/16 08:13 Dose: 3 ml Clotrimazole (Lotrimin 1%) 0.1 gm TOP BID [facility] Last Admin: 09/22/16 09:35 Dose: 1 applic Digoxin (Lanoxin) 0.25 mg PO 1400 [facility] Last Admin: 09/22/16 12:00 Dose: 0.25 mg Diltiazem HCl (Cardizem Cd) 120 mg PO DAILY [facility] Last Admin: 09/22/16 09:14 Dose: 120 mg Doxycycline Hyclate (Doryx) 100 mg PO Q12 [facility] PRN Reason: Protocol Stop: 09/27/16 22:01 Last Admin: 09/22/16 09:15 Dose: 100 mg Heparin Sodium (Porcine) (Heparin) 5,000 units SC Q12H [facility] PRN Reason: Protocol Last Admin: 09/22/16 10:03 Dose: 5,000 units Meropenem 1g/NS 100mL IVPB (Meropenem 1g/Ns 100ml Ivpb) 100 mls @ 100 mls/hr IVPB Q8 [facility] PRN Reason: Protocol Stop: 09/28/16 14:01 Last Admin: 09/22/16 06:01 Dose: 100 mls/hr diltiaZEM IVPB 100mg in NS (Cardizem 100mg In Ns) 100 mls @ 5 mls/hr IV .Q20H PRN; Protocol; 5 MG/HR PRN Reason: TITRATE PER MD ORDER Last Titration: 09/21/16 18:25 Dose: 0 mg/hr Methylprednisolone (Solu-Medrol) 20 mg IVP Q12 [facility] Last Admin: 09/22/16 09:15 Dose: 20 mg Pantoprazole Sodium (Protonix Ec Tab) 20 mg PO 0730 [facility] Last Admin: 09/22/16 07:45 Dose: 20 mg Physical Exam - Constitutional Appears: No Acute Distress, Confused - Head Exam Head Exam: NORMAL INSPECTION - Eye Exam Eye Exam: Normal appearance, PERRL - ENT Exam ENT Exam: Mucous Membranes Moist, Normal Oropharynx - Neck Exam Neck exam: Positive for: Normal Inspection - Respiratory Exam Respiratory Exam: Decreased Breath Sounds, NORMAL BREATHING PATTERN - Cardiovascular Exam Cardiovascular Exam: Irregular Rhythm, +S1, +S2 - GI/Abdominal Exam GI & Abdominal Exam: Normal Bowel Sounds, Soft Additional comments: no tenderness or guarding - Extremities Exam Extremities exam: Positive for: normal inspection, pedal pulses present - Back Exam Back exam: NORMAL INSPECTION - Skin Skin Exam: Dry, Warm Additional comments: sacral decubiti - Additional Findings Additional findings: Palliative performance scale rating 30 % Results - Vital Signs Recent Vital Signs: Last Vital Signs Temp 97.4 F L 09/22/16 12:00 Pulse 141 H 09/22/16 12:00 Resp 16 09/19/16 13:10 BP 82/44 L 09/22/16 12:00 Pulse Ox 93 L 09/22/16 12:00 - Labs Result Diagrams: 09/22/16 05:30 09/22/16 05:30 Labs: Laboratory Results - last 24 hr 09/19/16 09/22/16 09/22/16 15:10 05:30 06:00 WBC 14.9 H RBC 2.95 L Hgb 9.1 L Hct 29.4 L MCV 99.7 MCH 30.8 MCHC 31.0 RDW 27.5 H Plt Count 265 Neutrophils % (Manual) 90 H Band Neutrophils % 8 H Lymphocytes % (Manual) 2 L Monocytes % (Manual) TEST NOT PERFORMED Nucleated RBC % 2 Platelet Evaluation Normal Hypochromasia 1+ Poikilocytosis (manual Slight Anisocytosis (manual) 1+ pCO2 59 H pO2 78.0 L HCO3 35.7 H ABG pH 7.39 ABG Total CO2 37.5 H ABG O2 Saturation 96.6 ABG O2 Content 12.0 L ABG Base Excess 9.3 H ABG Hemoglobin 9.0 L ABG Carboxyhemoglobin 1.5 POC ABG HHb (Measured) 3.3 ABG Methemoglobin 1.2 ABG O2 Capacity 12.4 L Hgb O2 Saturation 94.0 L FiO2 32.0 Sodium 138 Potassium 5.1 H Chloride 99 Carbon Dioxide 36 H Anion Gap 8 L BUN 44 H Creatinine 0.5 Est GFR ( Amer) > 60 Est GFR (Non-Af Amer) > 60 Random Glucose 161 H Calcium 8.6 Phosphorus 2.3 L Magnesium 2.2 Total Bilirubin 0.8 AST 19 ALT 43 Alkaline Phosphatase 52 Total Protein 5.3 L Albumin 2.8 L Globulin 2.5 Albumin/Globulin Ratio 1.1 Blood Type A POSITIVE Antibody Screen Negative Crossmatch See Detail Assessment & Plan - Assessment and Plan (Free Text) Assessment: 86 year old female admitted with pneumonia. [place] [facility] [place]. History of cardiomegaly, pneumonia, colon cancer, breast cancer, HTN, DM, COPD , macrocytic anemia. Patient is alert,pleasantly confused. Patient does not remember why she is hospitalized. Patient's son Chandler at bedside. We had a lengthy discursion about the purpose of initiating an Advance Directive. Benefits and burdens of aggressive resuscitation explained. Son is ope to idea but must discuss enacting an advance directive with brother who is POA. My contact information left with Chandler. Will follow up on our conversation within the next few days. Time spent in discussion with patients son regarding goals of care /advance care planning, 20 minutes Plan: Continue current medical management Will assist with advance care planning
--- NOTE | 2016-09-22 13:21 | PN ---
DATE: 09/22/2016 The patient does not appear to be in any respiratory distress. She is in rapid atrial fibrillation n ow. PHYSICAL EXAMINATION: VITAL SIGNS: Blood pressure 82/44, heart rate 141, temperature 97.4, respiration 22. HEENT: Pale conjunctivae. CHEST: Bibasilar rhonchi. HEART: S1, S2 regular. EXTREMITIES: 1+ pitting edema. LABORATORIES: Hemoglobin and hematocrit 9.1 and 29.4. White count and platelet count are 14.9 and 2 65,000. SMA-7: Sodium 138, potassium 5.1, chloride 99, CO2 of 36, glucose 161, BUN 44, creatinine 0 .5. Today's EKG revealed atrial fibrillation at rate of [address]-T wave changes. Tod garfield's chest x-ray revealed ____ improvement of ____ in both lungs, a small right and moderate left ple ural effusion with mild cardiomegaly. ASSESSMENT: 1. Paroxysmal atrial fibrillation. 2. Vzcl-cw-oztqsrap aortic stenosis. 3. Mildly depressed ejection fraction. 4. Anemia. 5. Bilateral pleural effusion. 6. Stage III colon cancer, status post colostomy. RECOMMENDATIONS: The case was discussed with the ICU team including the electric fan assembler, Dr. Espitia. The patient was taken off intravenous Cardizem, which I agree with, and will be receiving her first oral dose. I recommended initiating oral digoxin 0.25 mg daily, which will be started today. Continue So evelyn-Medrol at 20 mg intravenously q.12 hours and subcutaneous heparin 5000 units twice a day. The pat ient will be transferred to telemetry. Alexei Saha MD cc: [id number] TT: 09/22/2016 13:20:45 Confirmation # [id number] Dictation # [id number]
--- NOTE | 2016-09-22 14:59 | CP.PCM.PN ---
Subjective - Date & Time of Evaluation Date of Evaluation: 09/22/16 Time of Evaluation: 08:30 - Subjective Subjective: Comfortable in bed, not in distress, no fevers overnight, no diarrhea. Objective - Vital Signs/Intake and Output Vital Signs (last 24 hours): Temp Pulse Resp BP Pulse Ox 97.4 F L 141 H 16 82/44 L 93 L 09/22/16 12:00 09/22/16 12:00 09/19/16 13:10 09/22/16 12:00 09/22/16 12:00 Intake and Output: 09/22/16 09/22/16 06:59 18:59 Intake Total 400 Output Total 425 Balance -25 - Medications Medications: Current Medications Albuterol/Ipratropium (Duoneb 3 Mg/0.5 Mg (3 Ml) Ud) 3 ml IH [id number] PRN PRN Reason: Shortness of Breath Last Admin: 09/22/16 08:13 Dose: 3 ml Clotrimazole (Lotrimin 1%) 0.1 gm TOP BID [facility] Last Admin: 09/22/16 09:35 Dose: 1 applic Digoxin (Lanoxin) 0.25 mg PO 1400 [facility] Last Admin: 09/22/16 13:39 Dose: Not Given Diltiazem HCl (Cardizem Cd) 120 mg PO DAILY [facility] Last Admin: 09/22/16 09:14 Dose: 120 mg Doxycycline Hyclate (Doryx) 100 mg PO Q12 [facility] PRN Reason: Protocol Stop: 09/27/16 22:01 Last Admin: 09/22/16 09:15 Dose: 100 mg Heparin Sodium (Porcine) (Heparin) 5,000 units SC Q12H [facility] PRN Reason: Protocol Last Admin: 09/22/16 10:03 Dose: 5,000 units Meropenem 1g/NS 100mL IVPB (Meropenem 1g/Ns 100ml Ivpb) 100 mls @ 100 mls/hr IVPB Q8 [facility] PRN Reason: Protocol Stop: 09/28/16 14:01 Last Admin: 09/22/16 13:39 Dose: 100 mls/hr diltiaZEM IVPB 100mg in NS (Cardizem 100mg In Ns) 100 mls @ 5 mls/hr IV .Q20H PRN; Protocol; 5 MG/HR PRN Reason: TITRATE PER MD ORDER Last Titration: 09/21/16 18:25 Dose: 0 mg/hr Methylprednisolone (Solu-Medrol) 20 mg IVP Q12 [facility] Last Admin: 09/22/16 09:15 Dose: 20 mg Pantoprazole Sodium (Protonix Ec Tab) 20 mg PO 0730 [facility] Last Admin: 09/22/16 07:45 Dose: 20 mg - Labs Labs: 09/22/16 05:30 09/22/16 05:30 PT 12.1 Seconds (9.9-11.8) H 09/18/16 17:53 INR 1.12 (0.93-1.08) H 09/18/16 17:53 APTT 25.5 Seconds (23.7-30.8) 09/18/16 17:53 - Constitutional Appears: Non-toxic, No Acute Distress - Head Exam Head Exam: NORMAL INSPECTION - ENT Exam ENT Exam: Mucous Membranes Moist - Neck Exam Neck Exam: absent: Lymphadenopathy, Meningismus - Respiratory Exam Respiratory Exam: Decreased Breath Sounds - Cardiovascular Exam Cardiovascular Exam: +S1, +S2 - GI/Abdominal Exam GI & Abdominal Exam: Soft. absent: Tenderness Assessment and Plan - Assessment and Plan (Free Text) Plan: Assessment Severe sepsis probably secondary to healthcare-associated pneumonia on top of pulmonary vascular congestion, clinically improving Vancomycin-resistant Enterococcus faecium in the urine, probably related to catheter use, without evidence that it is causing infection S/P severe sepsis S/P ventilator-dependent respiratory failure secondary to upper urinary tract infection as well as pneumonia HTN colon cancer stage 3 S/P colon resection and colostomy Plan continue Doxycycline and Merrem day 4, to complete 4-7 days of antibiotics The E. faecium in the urine disappeared from the urine despite no effective treatment for it - will continue to monitor - currently the patient remains asymptomatic in terms of the urinary tract
[2016-09-22] MEDS ORDERED: Metoprolol 1 mg/ml Inj IVP ONE (15:23)
--- NOTE | 2016-09-22 15:26 | CP.CCUPN ---
<Robert Cisneros - Last Filed: 09/22/16 15:22> CCU Subjective - Physician Review Subjective (Free Text): 09/22/16 15:22 Patient seen and examined at bedside in ICU. Today is hospital day 5. No acute events overnight. Cardizem drip discontinued overnight, HR remained stable at 80's-100. This AM, HR increased to 100's-120's, but patient remains without complaint, resting well. Denies chest pain, shortness of breath, palpitations, sensation of rapid heart rate. She is awake and alert, remains oriented to self and to location, but not to time. CCU Objective - Vital Signs / Intake & Output Vital Signs (Last 4 hours): Vital Signs Temp Pulse BP Pulse Ox 09/22/16 15:00 134 H 101/55 L 97 09/22/16 14:00 114 H 117/64 95 09/22/16 13:00 134 H 101/55 L 97 09/22/16 12:11 137 H 97 09/22/16 12:00 97.4 F L 141 H 82/44 L 93 L Intake and Output (Last 8hrs): Intake & Output 09/22/16 09/22/16 09/22/16 06:59 14:59 22:59 Intake Total 400 Output Total 425 Balance -25 Intake: IV 100 Left Hand 100 Oral 300 Output: Drainage 100 Left Lower Abdomen 100 Urine 325 Urethral (Victoria) 325 Other: Voiding Method Indwelling Catheter - Physical Exam Head: Positive for: Atraumatic, Normocephalic, Abrasion (on bridge of nose likely from mask) Pupils: Positive for: PERRL Extroacular Muscles: Positive for: EOMI. Negative for: Gaze Palsy Conjunctiva: Positive for: Normal. Negative for: Injected, Icteric Ears: Positive for: Normal Mouth: Positive for: Moist Mucous Membranes, Other (wearing nasal canula) Nose (External): Positive for: Atraumatic. Negative for: Abrasion, Contusion, Laceration Neck: Positive for: Normal Range of Motion. Negative for: JVD Respiratory/Chest: Positive for: Good Air Exchange, Decreased Breath Sounds ( decreased in all patrick, improved compared to level at admission). Negative for : Respiratory Distress, Accessory Muscle Use, Wheezes, Rales, Rhonchi Cardiovascular: Positive for: Murmurs (systolic murmur most prominent at right sternal border), Normal S1, S2, Irregular Rhythm (irregularly irregular, HR ranging from 80's - 120's on bedside monitor) Abdomen: Positive for: Normal Bowel Sounds, Ostomy Tubes (left abdominal ostomy bag present, some liquid stool present). Negative for: Tenderness, Distention, Peritoneal Signs, Rebound, Guarding Back: Positive for: Other (Rash present on back, now extending to abdomen anteriorly) Upper Extremity: Positive for: Other (diffuse echymoses). Negative for: Cyanosis Lower Extremity: Positive for: Normal Inspection, Edema (+1 pitting ), Other ( diffuse echymosis) Neurological: Positive for: Speech Normal (one or two words). Negative for: GCS =15 (GCS 14 ([id number])), CN II-XII Intact (unable to assess) Skin: Positive for: Dry, Rashes (Stage 2 sacral ulcer bandaged), Pale, Other ( Scattered Echymosis as noted in Extremities exams, maculopapular rash extending from back to abdomen) Psychiatric: Positive for: Alert (lethargic but awake/alert), Normal Concentration, Normal Affect, Normal Mood. Negative for: Oriented x 3 ( oriented to self and location, not to time), Anxious, Agitated - Medications Active Medications: Active Medications Generic Name Dose Route Start Last Admin Trade Name Freq PRN Reason Stop Dose Admin Albuterol/Ipratropium 3 ml 09/20/16 13:13 09/22/16 08:13 Duoneb 3 Mg/0.5 Mg (3 Ml) Ud IH 3 ml [id number] PRN Administration Shortness of Breath Clotrimazole 0.1 gm 09/19/16 18:00 09/22/16 09:35 Lotrimin 1% TOP 1 applic BID MEGAN Administration Digoxin 0.25 mg 09/22/16 14:00 09/22/16 13:39 Lanoxin PO Not Given 1400 MEGAN Diltiazem HCl 120 mg 09/21/16 12:00 09/22/16 09:14 Cardizem Cd PO 120 mg DAILY MEGAN Administration Doxycycline Hyclate 100 mg 09/19/16 22:00 09/22/16 09:15 Doryx PO 09/27/16 22:01 100 mg Q12 MEGAN Administration Protocol Heparin Sodium (Porcine) 5,000 units 09/18/16 22:45 04/18/17 10:03 Heparin SC 5,000 units Q12H MEGAN Administration Protocol Meropenem 1g/NS 100mL IVPB 100 mls @ 100 mls/hr 09/19/16 14:00 09/22/16 13:39 Meropenem 1g/Ns 100ml Ivpb IVPB 09/28/16 14:01 100 mls/hr Q8 MEGAN Administration Protocol diltiaZEM IVPB 100mg in NS 100 mls @ 5 mls/hr 09/20/16 13:19 09/21/16 18:25 Cardizem 100mg In Ns IV 0 mg/hr .Q20H PRN Titration TITRATE PER MD ORDER Protocol 5 MG/HR Methylprednisolone 20 mg 09/19/16 17:46 09/22/16 09:15 Solu-Medrol IVP 20 mg Q12 MEGAN Administration Pantoprazole Sodium 20 mg 09/21/16 07:30 09/22/16 07:45 Protonix Ec Tab PO 20 mg 0730 MEGAN Administration - Patient Studies Lab Studies: Lab Studies 09/22/16 09/22/16 Range/Units 06:00 05:30 WBC 14.9 H (4.5-11.0) 10^3/ul RBC 2.95 L (3.5-6.1) 10^6/uL Hgb 9.1 L (12.0-16.0) gm/dL Hct 29.4 L (36.0-48.0) % MCV 99.7 (80.0-105.0) fL MCH 30.8 (25.0-35.0) pg MCHC 31.0 (31.0-37.0) g/dl RDW 27.5 H (11.5-14.5) % Plt Count 265 (120.0-450.0) 10^3/uL Neutrophils % (Manual) 90 H (50.0-70.0) % Band Neutrophils % 8 H (0-2) % Lymphocytes % (Manual) 2 L (22.0-35.0) % Monocytes % (Manual) TEST NOT PERFORMED Nucleated RBC % 2 % Platelet Evaluation Normal (NORMAL) Hypochromasia 1+ Poikilocytosis (manual Slight Anisocytosis (manual) 1+ pCO2 59 H (35-45) mm/Hg pO2 78.0 L (80-100) mm/Hg HCO3 35.7 H (21-28) mmol/L ABG pH 7.39 (7.35-7.45) ABG Total CO2 37.5 H (22-28) mmol.L ABG O2 Saturation 96.6 (95-98) % ABG O2 Content 12.0 L (15-23) ML/dl ABG Base Excess 9.3 H (-2.0-3.0) mmol/L ABG Hemoglobin 9.0 L (11.7-17.4) g/dL ABG Carboxyhemoglobin 1.5 (0.5-1.5) % POC ABG HHb (Measured) 3.3 (0-5) % ABG Methemoglobin 1.2 (0.0-3.0) % ABG O2 Capacity 12.4 L (16-24) mL/dl Hgb O2 Saturation 94.0 L (95.0-98.0) % FiO2 32.0 % Sodium 138 (132-148) mmol/L Potassium 5.1 H (3.6-5.0) mmol/L Chloride 99 (98-107) mmol/L Carbon Dioxide 36 H (21-33) mmol/L Anion Gap 8 L (10-20) BUN 44 H (7-21) mg/dL Creatinine 0.5 (0.5-1.4) mg/dL Est GFR ( Amer) > 60 Est GFR (Non-Af Amer) > 60 Random Glucose 161 H (70-110) mg/dL Calcium 8.6 (8.4-10.5) mg/dL Phosphorus 2.3 L (2.5-4.5) mg/dL Magnesium 2.2 (1.7-2.2) mg/dL Total Bilirubin 0.8 (0.2-1.3) mg/dL AST 19 (15-39) U/L ALT 43 (7-56) U/L Alkaline Phosphatase 52 (38-133) U/L Total Protein 5.3 L (5.8-8.3) g/dL Albumin 2.8 L (3.0-4.8) g/dL Globulin 2.5 gm/dL Albumin/Globulin Ratio 1.1 (1.1-1.8) Laboratory Results - last 24 hr 09/22/16 09/22/16 05:30 06:00 WBC 14.9 H RBC 2.95 L Hgb 9.1 L Hct 29.4 L MCV 99.7 MCH 30.8 MCHC 31.0 RDW 27.5 H Plt Count 265 Neutrophils % (Manual) 90 H Band Neutrophils % 8 H Lymphocytes % (Manual) 2 L Monocytes % (Manual) TEST NOT PERFORMED Nucleated RBC % 2 Platelet Evaluation Normal Hypochromasia 1+ Poikilocytosis (manual Slight Anisocytosis (manual) 1+ pCO2 59 H pO2 78.0 L HCO3 35.7 H ABG pH 7.39 ABG Total CO2 37.5 H ABG O2 Saturation 96.6 ABG O2 Content 12.0 L ABG Base Excess 9.3 H ABG Hemoglobin 9.0 L ABG Carboxyhemoglobin 1.5 POC ABG HHb (Measured) 3.3 ABG Methemoglobin 1.2 ABG O2 Capacity 12.4 L Hgb O2 Saturation 94.0 L FiO2 32.0 Sodium 138 Potassium 5.1 H Chloride 99 Carbon Dioxide 36 H Anion Gap 8 L BUN 44 H Creatinine 0.5 Est GFR ( Amer) > 60 Est GFR (Non-Af Amer) > 60 Random Glucose 161 H Calcium 8.6 Phosphorus 2.3 L Magnesium 2.2 Total Bilirubin 0.8 AST 19 ALT 43 Alkaline Phosphatase 52 Total Protein 5.3 L Albumin 2.8 L Globulin 2.5 Albumin/Globulin Ratio 1.1 EKG/Cardiology Studies: Cardiology / EKG Studies 09/22/16 07:00 ELECTROCARDIOGRAM DAILY Comment: Reason For Exam: rapid afib 09/23/16 07:00 ELECTROCARDIOGRAM DAILY Comment: Reason For Exam: rapid afib Fingerstick Blood Sugar Results: 206 Review of Systems - Constitutional Constitutional: absent: Fever, Chills - EENT Eyes: absent: Blurred Vision, Change in Vision, Loss of Vision Ears: absent: Dizziness Nose/Mouth/Throat: absent: Sore Throat, Neck Pain - Cardiovascular Cardiovascular: absent: Chest Pain, Chest Pain at Rest, Dyspnea, Syncope - Respiratory Respiratory: absent: Cough, Dyspnea, Hemoptysis - Gastrointestinal Gastrointestinal: absent: Abdominal Pain, Constipation, Diarrhea, Nausea, Vomiting - Genitourinary Genitourinary: absent: Difficulty Urinating, Dysuria, Flank Pain, Hematuria - Musculoskeletal Musculoskeletal: absent: Neck Pain, Numbness - Integumentary Integumentary: Rash. absent: Pruritus - Neurological Neurological: absent: Dizziness, Numbness - Psychiatric Psychiatric: absent: Anxiety - Endocrine Endocrine: absent: Palpitations Critical Care Progress Note - Nutrition Nutrition: Nutrition Category Date Time Status Heart Healthy Diet [DIET] Diets 09/19/16 Dinner Ordered Assessment/Plan - Assessment and Plan (Free Text) Assessment: This is an 86 yo F with PMH of non-metastatic bilateral breast cancer , stage III colon cancer (s/p resection and colostomy), moderate aortic stenosis , paroxysmal atrial fibrillation (not on anticoagulation), HTN, and chronic anemia who was admitted to the ICU for AMS suspected 2/2 HCAP and respiratory acidosis requiring BiPAP. She is currently being managed for AFib with RVR, and has been successfully weaned off Cardizem drip. Plan: Neuro: -No apparent lethargy today, awake and alert, following all commands and answering questions appropriately -Neurochecks q1h -CT Head 09/18 negative for acute finding -Fall precautions -Avoid xanax or benadryl to prevent further lethargy/AMS Pulm: -meets old criteria for HCAP [place] [facility] [place] -CXR on admission: New RLL; CXR 09/19: Pulm vasc congestion with bilateral pleural effusions L>R -CXR today: improved interval aeration, small right and moderate left pleural effusions -Pro-BNP 3000 on admit -satting well on NC 3L -Respiratory Acidosis improved, compensated -Duoneb Q6 PRN as per Pulm -solumedrol 40q12 -HOB >35; Maintain 02 sat >90 and paO2 > 60 -Pulm (Dr. Salinas) following, appreciate all recs Cardio: -Hx paroxysmal atrial fibrillation (not on anticoagulation as per Cardio) -Rapid afib paroxysmal. Weaned off Cardizem drip, now on PO Cardizem CD 120mg ( home med) and Digoxin 0.25mg PO daily (new med) as per Cardio -Maintain Map > 65 -600 ASA rectal daily -trops 0.07, 0.08, 0.06 -Cardio (Dr. Saha) following, appreciate all recs GI: -GI ppx with Protonix -Swallow eval: no change in assessment; dysphagia diet with mechanically- altered finely-chopped consistency & thin liquids. Strict aspiration precautions -Dietitian referral Renal: -dehydration and low BP resolved, continue to hold IVF -Cr 0.5, was 0.4 -avoid nephrotoxic drugs where feasible -monitor and replete electrolytes as needed; no repletion needed today Heme: -Hb 9.1, was 8.8 -macrocytic anemia -Fe 83, TIBC 196, % Sat 43, B12 753, folate 10.7, Retic 1.44 -Hypoalbumenia -Heparin 5000u SC q12 for DVT ppx ID: -Leukocytosis 14.9, was 15.3 -Afebrile -HCAP on Doxy and Merrem, Day 4 -ID following (Dr. Fagan), appreciate all recs Skin: -fungal rash - clotrimazole top -stage 2 sacral ulcer, wound care following -air mattress, turn q2 -dietitian on board, consider nutritional optimization Dispo: ICU, pending transfer to telemetry after having weaned Cardizem drip FEN: dysphagia diet with mechanically-altered finely-chopped consistency & thin liquids Access: Peripheral IV x1 Consult: Cardio, ID, Pulm Ppx: Protonix for GI, Heparin for DVT Patient seen, reviewed, and discussed with attending, Dr. Espitia - Date & Time Date: 09/22/16 Time: 15:43 <Omkar WALLACE,[facility] - Last Filed: 09/22/16 16:44> CCU Objective - Vital Signs / Intake & Output Vital Signs (Last 4 hours): Vital Signs Pulse BP Pulse Ox 09/22/16 15:34 135 H 101/55 L 09/22/16 15:00 134 H 101/55 L 97 09/22/16 14:00 114 H 117/64 95 09/22/16 13:00 134 H 101/55 L 97 Intake and Output (Last 8hrs): Intake & Output 09/22/16 09/22/16 09/22/16 06:59 14:59 22:59 Intake Total 400 Output Total 425 Balance -25 Intake: IV 100 Left Hand 100 Oral 300 Output: Drainage 100 Left Lower Abdomen 100 Urine 325 Urethral (Victoria) 325 Other: Voiding Method Indwelling Catheter - Medications Active Medications: Active Medications Generic Name Dose Route Start Last Admin Trade Name Freq PRN Reason Stop Dose Admin Albuterol/Ipratropium 3 ml 09/20/16 13:13 09/22/16 08:13 Duoneb 3 Mg/0.5 Mg (3 Ml) Ud IH 3 ml [id number] PRN Administration Shortness of Breath Clotrimazole 0.1 gm 09/19/16 18:00 09/22/16 09:35 Lotrimin 1% TOP 1 applic BID MEGAN Administration Digoxin 0.25 mg 09/22/16 14:00 09/22/16 13:39 Lanoxin PO Not Given 1400 MEGAN Diltiazem HCl 120 mg 09/21/16 12:00 09/22/16 09:14 Cardizem Cd PO 120 mg DAILY MEGAN Administration Doxycycline Hyclate 100 mg 09/19/16 22:00 09/22/16 09:15 Doryx PO 09/27/16 22:01 100 mg Q12 MEGAN Administration Protocol Heparin Sodium (Porcine) 5,000 units 09/18/16 22:45 09/22/16 10:03 Heparin SC 5,000 units Q12H MEGAN Administration Protocol Meropenem 1g/NS 100mL IVPB 100 mls @ 100 mls/hr 09/19/16 14:00 09/22/16 13:39 Meropenem 1g/Ns 100ml Ivpb IVPB 09/28/16 14:01 100 mls/hr Q8 MEGAN Administration Protocol diltiaZEM IVPB 100mg in NS 100 mls @ 5 mls/hr 09/20/16 13:19 09/21/16 18:25 Cardizem 100mg In Ns IV 0 mg/hr .Q20H PRN Titration TITRATE PER MD ORDER Protocol 5 MG/HR Methylprednisolone 20 mg 09/19/16 17:46 09/22/16 09:15 Solu-Medrol IVP 20 mg Q12 MEGAN Administration Pantoprazole Sodium 20 mg 09/21/16 07:30 09/22/16 07:45 Protonix Ec Tab PO 20 mg 0730 MEGAN Administration - Patient Studies Lab Studies: Lab Studies 09/22/16 09/22/16 Range/Units 06:00 05:30 WBC 14.9 H (4.5-11.0) 10^3/ul RBC 2.95 L (3.5-6.1) 10^6/uL Hgb 9.1 L (12.0-16.0) gm/dL Hct 29.4 L (36.0-48.0) % MCV 99.7 (80.0-105.0) fL MCH 30.8 (25.0-35.0) pg MCHC 31.0 (31.0-37.0) g/dl RDW 27.5 H (11.5-14.5) % Plt Count 265 (120.0-450.0) 10^3/uL Neutrophils % (Manual) 90 H (50.0-70.0) % Band Neutrophils % 8 H (0-2) % Lymphocytes % (Manual) 2 L (22.0-35.0) % Monocytes % (Manual) TEST NOT PERFORMED Nucleated RBC % 2 % Platelet Evaluation Normal (NORMAL) Hypochromasia 1+ Poikilocytosis (manual Slight Anisocytosis (manual) 1+ pCO2 59 H (35-45) mm/Hg pO2 78.0 L (80-100) mm/Hg HCO3 35.7 H (21-28) mmol/L ABG pH 7.39 (7.35-7.45) ABG Total CO2 37.5 H (22-28) mmol.L ABG O2 Saturation 96.6 (95-98) % ABG O2 Content 12.0 L (15-23) ML/dl ABG Base Excess 9.3 H (-2.0-3.0) mmol/L ABG Hemoglobin 9.0 L (11.7-17.4) g/dL ABG Carboxyhemoglobin 1.5 (0.5-1.5) % POC ABG HHb (Measured) 3.3 (0-5) % ABG Methemoglobin 1.2 (0.0-3.0) % ABG O2 Capacity 12.4 L (16-24) mL/dl Hgb O2 Saturation 94.0 L (95.0-98.0) % FiO2 32.0 % Sodium 138 (132-148) mmol/L Potassium 5.1 H (3.6-5.0) mmol/L Chloride 99 (98-107) mmol/L Carbon Dioxide 36 H (21-33) mmol/L Anion Gap 8 L (10-20) BUN 44 H (7-21) mg/dL Creatinine 0.5 (0.5-1.4) mg/dL Est GFR ( Amer) > 60 Est GFR (Non-Af Amer) > 60 Random Glucose 161 H (70-110) mg/dL Calcium 8.6 (8.4-10.5) mg/dL Phosphorus 2.3 L (2.5-4.5) mg/dL Magnesium 2.2 (1.7-2.2) mg/dL Total Bilirubin 0.8 (0.2-1.3) mg/dL AST 19 (15-39) U/L ALT 43 (7-56) U/L Alkaline Phosphatase 52 (38-133) U/L Total Protein 5.3 L (5.8-8.3) g/dL Albumin 2.8 L (3.0-4.8) g/dL Globulin 2.5 gm/dL Albumin/Globulin Ratio 1.1 (1.1-1.8) Laboratory Results - last 24 hr 09/22/16 09/22/16 05:30 06:00 WBC 14.9 H RBC 2.95 L Hgb 9.1 L Hct 29.4 L MCV 99.7 MCH 30.8 MCHC 31.0 RDW 27.5 H Plt Count 265 Neutrophils % (Manual) 90 H Band Neutrophils % 8 H Lymphocytes % (Manual) 2 L Monocytes % (Manual) TEST NOT PERFORMED Nucleated RBC % 2 Platelet Evaluation Normal Hypochromasia 1+ Poikilocytosis (manual Slight Anisocytosis (manual) 1+ pCO2 59 H pO2 78.0 L HCO3 35.7 H ABG pH 7.39 ABG Total CO2 37.5 H ABG O2 Saturation 96.6 ABG O2 Content 12.0 L ABG Base Excess 9.3 H ABG Hemoglobin 9.0 L ABG Carboxyhemoglobin 1.5 POC ABG HHb (Measured) 3.3 ABG Methemoglobin 1.2 ABG O2 Capacity 12.4 L Hgb O2 Saturation 94.0 L FiO2 32.0 Sodium 138 Potassium 5.1 H Chloride 99 Carbon Dioxide 36 H Anion Gap 8 L BUN 44 H Creatinine 0.5 Est GFR ( Amer) > 60 Est GFR (Non-Af Amer) > 60 Random Glucose 161 H Calcium 8.6 Phosphorus 2.3 L Magnesium 2.2 Total Bilirubin 0.8 AST 19 ALT 43 Alkaline Phosphatase 52 Total Protein 5.3 L Albumin 2.8 L Globulin 2.5 Albumin/Globulin Ratio 1.1 EKG/Cardiology Studies: Cardiology / EKG Studies 09/22/16 07:00 ELECTROCARDIOGRAM DAILY Comment: Reason For Exam: rapid afib 09/23/16 07:00 ELECTROCARDIOGRAM DAILY Comment: Reason For Exam: rapid afib Critical Care Progress Note - Nutrition Nutrition: Nutrition Category Date Time Status Heart Healthy Diet [DIET] Diets 09/19/16 Dinner Ordered Attending/Attestation - Attestation I have personally seen and examined this patient.: Yes I have fully participated in the care of the patient.: Yes I have reviewed all pertinent clinical information: Yes Notes (Text): 09/22/16 16:42 86 y/o F w/ resolving PNA w/ A FIB RVR Pt was placed on Cardizem drip x 36 hrs weaned off yesterday evening at 6PM. Started on Cardizem 120 and Digoxin today HR between 100-120 with out any new BP issues. Pt is stable w/o any respiratory distress Completing ABX course per ID, CX pending. PT / OT needed Heparin sq tid. No anticoagulation for A FIb per cardiology due to Anemia blood loss in the past and transfusions and fall risk. cc time 45 min
--- NOTE | 2016-09-22 21:34 | PN ---
DATE: 09/22/2016 REFERRING PHYSICIAN: Dr. Lomas. SUBJECTIVELY: She is lying in the bed. Son and nursing staff is at bedside. Feels okay. She is of f IV Cardizem, on p.o. Cardizem. Heart rate is still going up to 130. Got agitated. No cough, no s putum production. Short of breath with minimal exertion. No nausea, no vomiting, no diarrhea. Has trace leg swelling. OBJECTIVELY: No acute distress. Temp is 98, heart rate is 116, respiratory rate is 20, blood pressure 115/79, pulse ox 95% on 3 L gilbert al cannula. HEENT: Moist mucous membranes. Crowded airway. NECK: Supple, no JVD. LUNGS: Has crackles at the bases. HEART: Irregularly irregular. ABDOMEN: Soft, nontender, no organomegaly. EXTREMITIES: Does have edema. NEUROLOGICALLY: Awake, alert. Follows simple commands. MEDICATIONS: She is on Cardizem CD 120 mg daily, doxycycline 100 mg twice a day, albuterol/Atrovent nebulizer q. 6 hours p.r.n., heparin 5000 units subQ q. 12 hours, digoxin 0.25 mg daily added today, metoprolol tartrate 12.5 mg twice a day added, meropenem 1 g q. 8 hours, Protonix 20 mg daily, Solu-M edrol 20 mg q. 12 hours. LABORATORY DATA: Shows hemoglobin 9.1, hematocrit 29.4, WBC 14.9, platelet is 265. Blood gases show pH 7.39, pCO2 of 59, O2 of 78. This is on nasal cannula. Sodium 138, potassium 5.1, chloride 99, b icarbonate 36, BUN 44, creatinine 0.5, glucose is 161, calcium 8.6, phosphorus 2.3, magnesium 2.2. A ST 19, ALT 43, alk phos is 52, albumin 2.8. Repeat urine culture: There is not much growth. Chest x-ray done this morning shows improving aeration in both lungs. Small right and moderate left pleural effusion, moderate cardiomegaly. 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 Case discussed with the nursing staff. Also spoke to the patient's son at bedside. All their questi ons answered. I agree with adding digoxin and a small dose of beta clare to get her out of heart f ailure. Need to control her heart rate. Will also place her on BiPAP tonight. Keep head elevated 4 5 degree. Gastric prophylaxis. DVT prophylaxis. Continue diuretics. Antibiotics as per infectious diseases. Thank you, and will follow with you. Camron Salinas MD cc: [phone] TT: 09/22/2016 21:33:54 Confirmation # [id number] Dictation # [id number] jn
--- NOTE | 2016-09-22 23:18 | PN ---
DATE: 09/22/2016 LOCATION: The patient is in the CCU, bed 4, was being transferred to telemetry once bed is available . SUBJECTIVE: The patient is lying in bed. Son and staff the bedside, feels okay. She was off the IV Cardizem, on p.o. Cardizem. Heart rate is up to 110 per minute. No cough, no sputum producti on, shortness of breath with minimal exertion. No nausea, no vomiting, no diarrhea. Has trace leg e chacha. PHYSICAL EXAMINATION: GENERAL: The patient is in no acute distress. VITAL SIGNS: T-max is 98.4, heart rate is 116, respirations 20 per minute, blood pressure is 115/79 and pulse ox is 95% on 3 liters of nasal cannula. HEENT: Head is normocephalic, atraumatic. Conjunctivae are pale. Sclerae are anicteric. Examinati on of the oropharynx reveals no oropharyngeal lesions. NECK: Supple. There is no adenopathy, no JVD. LUNGS: The patient has crackles at both bases. HEART: Reveals S1 and S2 to be irregularly irregular. ABDOMEN: Soft, nontender. Liver and spleen not palpable. The patient has a colostomy in the left l ower quadrant, which is functioning. EXTREMITIES: The patient has pitting edema of the lower extremities. No cyanosis is noted. NEUROLOGIC: Reveals higher functions to be normal, no focal deficits are noted. MEDICATIONS: The patient's medications were reviewed. She is on Cardizem 120 daily, doxycycline 100 twice a day, Atrovent nebulizer q. 6 hours, heparin 5000 units subQ q. 12 hours, digoxin 0.25 mg dyllan ly, which has been added today, metoprolol tartrate 12.5 mg b.i.d. She is on meropenem 1 gram q. 8 ho urs, Protonix 20 mg daily, Solu-Medrol 20 mg IV q. 12 hours. LABORATORY DATA: Reveals hemoglobin 9.1, hematocrit 28, white count is 14, platelet count is 265. B lood gases revealed pCO2 of 59, of 78. This is on nasal cannula. Sodium is 138, K is 5.1, chl oride 99, BUN 44, creatinine 0.5, phosphorus is 2.3, 2.2, AST of 19, ALT 43, alkaline phosphata se of 52. Albumin is 2.8. Repeat urine culture does not show any significant findings. Chest x-ray showed improved aeration in both lungs. Small right and moderate left pleural effusion noted with m oderate cardiomegaly. ASSESSMENT NOTES AND PLAN: The patient has respiratory failure requiring noninvasive ventilation, st ill having CO2 retention, cardiomyopathy, pulmonary hypertension, valvular heart disease, history of atrial fibrillation with uncontrolled ventricular response, nonmetastatic breast cancer, history of s tage III colon cancer, myelodysplastic syndrome with recurrent anemia. The patient is going to malgorzata nue the current medications. Pulmonary evaluation and input appreciated. Will continue to car diology opinion also reviewed. The patient is being monitored for her cardiac status by both special ists. We need to control her heart rate. In the meantime, the patient is going to be put on BiPAP tonight. Gastric and deep venous thrombosis prophylaxis have been requested. The patient is on diur etics. Routine post exam instructions have been given to the patient. Will continue aggressive [facility] care. Shanta Lomas MD cc: [phone] TT: 09/22/2016 23:17:28 Confirmation # [id number] Dictation # [id number] simon
[2016-09-23] MEDS: Meropenem 1g/NS 100mL IVPB 100 ML IVPB SCH ×3 (05:06→21:48)
[2016-09-23 06:44] LABS: BASO # 0.01 K/mm3 (0.0-2.0); BASO % 0.1 % (0.0-3.0); GRAN # 12.42 (1.4-6.5); GRAN % 95.3 % (50.0-68.0); HEMATOCRIT 30.2 % (36.0-48.0); LYMPH # 0.4 (1.2-3.4); LYMPH % 2.8 % (22.0-35.0); MEAN CELL VOLUME 100.7 fL (80.0-105.0); MEAN CORPUSCULAR HEMOGLOBIN 30.3 pg (25.0-35.0); MEAN CORPUSCULAR HGB CONC 30.1 g/dl (31.0-37.0); MONO # 0.2 (0.1-0.6); MONO % 1.8 % (1.0-6.0); PLATELET COUNT 282 10^3/uL (120.0-450.0); RED CELL DISTRIBUTION WIDTH 27.2 % (11.5-14.5)
[2016-09-23 06:53] LABS: ADD MANUAL DIFF? NO
[2016-09-23 07:14] LABS: ALB/GLOB RATIO 1.1 (1.1-1.8); ALKALINE PHOSPHATASE 52 U/L (38-133); ALT/SGPT 44 U/L (7-56); AST/SGOT 16 U/L (15-39); BILIRUBIN,TOTAL 0.6 mg/dL (0.2-1.3); BLOOD UREA NITROGEN 47 mg/dL (7-21); CALCIUM 8.4 mg/dL (8.4-10.5); CARBON DIOXIDE 36 mmol/L (21-33); CHLORIDE 98 mmol/L (95-110); GFR AFRICAN-AMERICAN > 60; GLUCOSE,RANDOM 166 mg/dL (70-110); PHOSPHOROUS 2.4 mg/dL (2.5-4.5); POTASSIUM 5.2 mmol/L (3.6-5.0); SODIUM 138 mmol/L (132-148); TOTAL PROTEIN 5.1 g/dL (5.8-8.3)
[2016-09-23] MEDS: Pantoprazole 20 mg EC Tab PO SCH (07:58)
[2016-09-23] MEDS: Albuterol-Ipratrop 3 mg / 0.5 (3 ml) UD IH PRN ×2 (08:40→14:07)
--- NOTE | 2016-09-23 09:16 | RAD ---
HISTORY: f/u COMPARISON: 09/22/2016 FINDINGS: LUNGS: No active pulmonary disease. PLEURA: Small left pleural effusion CARDIOVASCULAR: Mild cardiomegaly and mild vascular congestion OSSEOUS STRUCTURES: No significant abnormalities. VISUALIZED UPPER ABDOMEN: Normal. OTHER FINDINGS: None. IMPRESSION: Mild vascular congestion and small left effusion unchanged
[2016-09-23] MEDS: Clotrimazole 1% Cream(30 gm) TOP SCH ×2 (10:30→17:15)
[2016-09-23] MEDS: MethylPREDNISolone 40 mg Vial IVP SCH ×2 (10:58→21:47)
[2016-09-23] MEDS: diltiaZEM 120 mg/24 Hours CD Cap PO SCH (10:59)
--- NOTE | 2016-09-23 13:48 | PN ---
DATE: 09/23/2016 SUBJECTIVE: The patient denies any chest pain or shortness of breath. She is comfortable, eating; h owever, she is still in rapid atrial fibrillation. PHYSICAL EXAMINATION: VITAL SIGNS: Blood pressure 112/57, heart rate 115, respirations 16, temperature 97.5. HEENT: Pale conjunctivae. CHEST: Diminished breath sounds over the bases. HEART: S1, S2 regular. EXTREMITIES: 2+ pitting edema. LABORATORIES: Hemoglobin and hematocrit 9.1 and 30.2, white count 15.0, platelet count 282,000. SMA -7: Sodium 138, potassium 5.2, chloride 98, CO2 36, glucose 166, BUN 47, creatinine 0.5. ASSESSMENT: 1. Paroxysmal atrial fibrillation. 2. Bilateral pleural effusion. 3. Mildly depressed ejection fraction. 4. Mild to moderate aortic stenosis. 5. Stage III colon cancer with colostomy. RECOMMENDATIONS: Continue Cardizem at 120 mg daily, subcutaneous heparin 5000 units twice a day, dig oxin 0.25 mg once a day. Increase Lopressor to 25 mg twice a day. Continue Solu-Medrol 20 mg intrav enous twice a day. Obtain venous Doppler of lower extremities. Start Lasix at 20 mg intravenously d aily. Obtain digoxin level. Alexei Saha MD cc: [id number] TT: 09/23/2016 13:48:21 Confirmation # [id number] Dictation # [id number] sn
--- NOTE | 2016-09-23 14:54 | CP.PCM.PN ---
Subjective - Date & Time of Evaluation Date of Evaluation: 09/23/16 Time of Evaluation: 08:40 - Subjective Subjective: Comfortable in bed, not in distress, no diarrhea, no nausea, no fevers overnight. Objective - Vital Signs/Intake and Output Vital Signs (last 24 hours): Temp Pulse Resp BP Pulse Ox 97.5 F L 103 H 16 112/57 L 96 09/23/16 05:55 09/23/16 10:59 09/23/16 05:55 09/23/16 10:59 09/23/16 05:55 Intake and Output: 09/23/16 09/23/16 06:59 18:59 Intake Total 310 Output Total 550 Balance -240 - Medications Medications: Current Medications Albuterol/Ipratropium (Duoneb 3 Mg/0.5 Mg (3 Ml) Ud) 3 ml IH [id number] PRN PRN Reason: Shortness of Breath Last Admin: 09/23/16 14:07 Dose: 3 ml Clotrimazole (Lotrimin 1%) 0.1 gm TOP BID [facility] Last Admin: 09/23/16 10:30 Dose: 1 applic Digoxin (Lanoxin) 0.25 mg PO 1400 [facility] Last Admin: 09/22/16 13:39 Dose: Not Given Diltiazem HCl (Cardizem Cd) 120 mg PO DAILY [facility] Last Admin: 09/23/16 10:59 Dose: 120 mg Doxycycline Hyclate (Doryx) 100 mg PO Q12 [facility] PRN Reason: Protocol Stop: 09/27/16 22:01 Last Admin: 09/23/16 10:59 Dose: 100 mg Furosemide (Lasix) 20 mg IVP DAILY [facility] Heparin Sodium (Porcine) (Heparin) 5,000 units SC Q12H [facility] PRN Reason: Protocol Last Admin: 09/23/16 10:58 Dose: 5,000 units Meropenem 1g/NS 100mL IVPB (Meropenem 1g/Ns 100ml Ivpb) 100 mls @ 100 mls/hr IVPB Q8 [facility] PRN Reason: Protocol Stop: 09/28/16 14:01 Last Admin: 09/23/16 05:06 Dose: 100 mls/hr Methylprednisolone (Solu-Medrol) 20 mg IVP Q12 [facility] Last Admin: 09/23/16 10:58 Dose: 20 mg Metoprolol Tartrate (Lopressor) 25 mg PO 0800,1800 [facility] Pantoprazole Sodium (Protonix Ec Tab) 20 mg PO 0730 [facility] Last Admin: 09/23/16 07:58 Dose: 20 mg - Labs Labs: 09/23/16 06:30 09/23/16 06:30 PT 12.1 Seconds (9.9-11.8) H 09/18/16 17:53 INR 1.12 (0.93-1.08) H 09/18/16 17:53 APTT 25.5 Seconds (23.7-30.8) 09/18/16 17:53 - Constitutional Appears: Non-toxic, No Acute Distress - ENT Exam ENT Exam: Mucous Membranes Moist - Neck Exam Neck Exam: absent: Lymphadenopathy, Meningismus - Respiratory Exam Respiratory Exam: Decreased Breath Sounds - Cardiovascular Exam Cardiovascular Exam: +S1, +S2 - GI/Abdominal Exam GI & Abdominal Exam: Soft. absent: Tenderness Assessment and Plan - Assessment and Plan (Free Text) Plan: Assessment Severe sepsis probably secondary to healthcare-associated pneumonia on top of pulmonary vascular congestion, clinically improving Vancomycin-resistant Enterococcus faecium in the urine, probably related to catheter use, without evidence that it is causing infection S/P severe sepsis S/P ventilator-dependent respiratory failure secondary to upper urinary tract infection as well as pneumonia HTN colon cancer stage 3 S/P colon resection and colostomy Plan continue Doxycycline and Merrem day 5, to complete 4-7 days of antibiotics; should be able to d/c antibiotics in the next 24-48 hours The E. faecium in the urine disappeared from the urine despite no effective treatment for it - will continue to monitor - currently the patient remains asymptomatic in terms of the urinary tract
[2016-09-23] MEDS: Digoxin 250 mcg (0.25 mg) Tab PO SCH (14:55)
--- NOTE | 2016-09-23 15:51 | PN ---
DATE: 09/23/2016 REFERRING PHYSICIAN: Dr. Lomas SUBJECTIVE: She is lying in the bed, son is bedside. No acute distress. Still in sinus rhythm with rapid ventricular response. Heart rate has been into 140. Hemodynamically stable though. No cough , no sputum production. Tolerating p.o. diet well. No abdominal pain. Does have leg swelling. OBJECTIVE: GENERAL: No acute distress. VITAL SIGNS: Temp is 98, heart rate is 140, respiratory rate is 22, blood pressure 129/76, pulse ox 94% on nasal cannula. HEENT: Moist mucous membranes. Small oral cavity. NECK: Supple. No JVD. LUNGS: Has crackles at the bases. HEART: Irregularly irregular with tachycardia. ABDOMEN: Soft, nontender, no organomegaly. EXTREMITIES: There is some edema. NEUROLOGIC: Awake, alert, follows simple command. MEDICATIONS: She is on Cardizem-CD 120 mg daily, doxycycline 100 mg twice a day, DuoNeb q.6 hours p. r.n., heparin 5000 units subQ q.12 hours, digoxin 0.25 mg daily, Lasix 20 mg daily, metoprolol tartra te ____ mg q.8 hours, meropenem 1 gram q.8 hours, Protonix 40 mg daily, Solu-Medrol 20 mg q.12 hours. LABORATORY DATA: Shows hemoglobin 9.1, hematocrit 30.2, WBC 13.0, platelet is 282. Sodium 138, pota ssium 5.2, chloride 98, bicarbonate 36, BUN 47, creatinine 0.5, glucose 166, calcium is 8.4, phosphor us 2.4, magnesium 2.0. AST 16, ALT 44, alk phos is 52. Albumin is 2.7. MICROBIOLOGY: Urine culture on 09/18 has Enterococcus faecium but repeat culture next day, so far the re is no growth. Chest x-ray done today shows vascular congestion with small left pleural effusion. IMPRESSION AND PLAN: Status post respiratory failure, presently on nasal cannula, still has CO2 rete ntion, pulmonary hypertension, cardiomyopathy, valvular heart disease, paroxysmal atrial fibrillation with uncontrolled heart rate. Cardiology note reviewed. Recommended to continue Cardizem. Continu e digoxin and metoprolol is increased. Her nebulizer treatment is only p.r.n. basis. I will decreas e her Solu-Medrol to 20 mg daily basis. Keep head elevated at 45 degrees. Spoke to patient's son at bedside. All the questions answered. If we are unable to control the heart rate, which is putting her in pulmonary edema and causing respiratory issue with CO2 retention, may need to maximize beta bl ocker and Cardizem. If that does not work, may add amiodarone. If she becomes bradycardic, we will have no choice to place pacemaker. Need to communicate that to family. Follow up labs in the [facility] Thank you and we will follow with you. Camron Salinas MD cc: [id number] TT: 09/23/2016 15:50:17 Confirmation # [id number] Dictation # [id number] sn
[2016-09-23] MEDS ORDERED: Digoxin 500 mcg/2ml (0.5 mg/2ml) Inj IVP ONE (16:25)
--- NOTE | 2016-09-23 18:00 | CARD ---
APPROVED REPORT EKG Measurement Heart [id number] <Conclusion> Atrial fibrillation Low voltage QRS Nonspecific ST and T wave abnormality, probably digitalis effect Abnormal ECG
--- NOTE | 2016-09-23 19:25 | PN ---
DATE: 09/23/2016 This is the patient's hospital visit in the intensive care unit. For Dr. Lomas. SUBJECTIVE: The patient is an 86-year-old female seen lying awake in bed. She was out of bed to the chair earlier today, with the patient now feeling better; to be transferred to telemetry once a bed is available in the near future. She still has uncontrolled atrial fibrillation. Shortness of breath is now modestly improved, with t he patient having respiratory failure, however not requiring ventilation. She is in no acute distress at this time. OBJECTIVE: PHYSICAL EXAMINATION: VITAL SIGNS: Temperature 98, pulse 92, respirations 20, blood pressure 152/88, pulse ox 95%. HENT: Unremarkable. NECK: Supple. HEART: Irregularly irregular, rapid rate. LUNGS: Crackles at the bases. ABDOMEN: Soft, nontender. EXTREMITIES: Faint +1 edema. NEUROLOGIC: Awake and alert. SKIN: Warm, dry. The patient's labs were done. White blood cell count of 13.0, hemoglobin of 9.1, hematocrit 30.2, pl atelet count 282,000, with an ABG done yesterday showing a pCO2 of 78, pH 7.39, pCO2 of 59. A chem m etabolic panel showed a potassium of 5.2, BUN of 47, creatinine of 0.5. The patient's urine culture grew Enterococcus faecium. The patient did have a chest x-ray done earlier today. It was read as mild vascular congestion with small left effusion unchanged. She had an EKG done earlier today. It was read as atrial fibrillatio n, nonspecific ST-T wave; abnormal EKG with heart rate of 82 at that time. The assessment for this patient is that of status post respiratory failure on nasal cannula, CO2 rete ntion, pulmonary hypertension, cardiomyopathy, mild congestive heart failure, paroxysmal atrial fibri llation, history of urinary tract infection, history of non-metastatic breast cancer, stage III colon cancer, myelodysplastic syndrome with recurrent anemia. Plan for this patient is to transfer to the medical floor, correction of electrolytes as per ICU inte nsivist with the patient to be monitored clinically and with labs, with transfer to telemetry floor o nce a bed is available. Stephen Almonte MD cc: [phone] TT: 09/23/2016 19:24:49 Confirmation # [id number] Dictation # [id number] jn
[2016-09-24] MEDS: Meropenem 1g/NS 100mL IVPB 100 ML IVPB SCH ×3 (05:08→21:11)
[2016-09-24 05:57] LABS: BASO # 0.01 K/mm3 (0.0-2.0); BASO % 0.1 % (0.0-3.0); GRAN # 12.37 (1.4-6.5); GRAN % 95.8 % (50.0-68.0); HEMATOCRIT 28.3 % (36.0-48.0); LYMPH # 0.4 (1.2-3.4); LYMPH % 2.9 % (22.0-35.0); MEAN CELL VOLUME 99.3 fL (80.0-105.0); MEAN CORPUSCULAR HEMOGLOBIN 30.9 pg (25.0-35.0); MEAN CORPUSCULAR HGB CONC 31.1 g/dl (31.0-37.0); MONO # 0.2 (0.1-0.6); MONO % 1.2 % (1.0-6.0); PLATELET COUNT 250 10^3/uL (120.0-450.0); RED CELL DISTRIBUTION WIDTH 26.5 % (11.5-14.5); WHITE BLOOD COUNT 12.9 10^3/ul (4.5-11.0)
[2016-09-24 06:38] LABS: ADD MANUAL DIFF? NO
[2016-09-24 06:42] LABS: ALB/GLOB RATIO 1.1 (1.1-1.8); ALKALINE PHOSPHATASE 49 U/L (38-133); ALT/SGPT 41 U/L (7-56); AST/SGOT 16 U/L (15-39); BILIRUBIN,TOTAL 0.6 mg/dL (0.2-1.3); BLOOD UREA NITROGEN 41 mg/dL (7-21); CALCIUM 8.2 mg/dL (8.4-10.5); CARBON DIOXIDE 37 mmol/L (21-33); CHLORIDE 97 mmol/L (98-107); GFR AFRICAN-AMERICAN > 60; GLUCOSE,RANDOM 168 mg/dL (70-110); PHOSPHOROUS 2.2 mg/dL (2.5-4.5); POTASSIUM 4.8 mmol/L (3.6-5.0); SODIUM 136 mmol/L (132-148); TOTAL PROTEIN 4.6 g/dL (5.8-8.3)
[2016-09-24] MEDS: Pantoprazole 20 mg EC Tab PO SCH (08:02)
[2016-09-24] MEDS: diltiaZEM 120 mg/24 Hours CD Cap PO SCH (09:36)
[2016-09-24] MEDS: Clotrimazole 1% Cream(30 gm) TOP SCH ×2 (09:50→17:49)
[2016-09-24] MEDS: MethylPREDNISolone 40 mg Vial IVP SCH ×2 (10:00→21:10)
[2016-09-24] MEDS: Digoxin 250 mcg (0.25 mg) Tab PO SCH (14:20)
[2016-09-24 14:31] VITALS: PULSE 79
--- NOTE | 2016-09-24 14:38 | PN ---
DATE: 09/24/2016 The patient appears comfortable in ICU. Her atrial fibrillation rate is controlled. She denies any chest pain. PHYSICAL EXAMINATION: VITAL SIGNS: Blood pressure 132/101, heart rate 84, temperature 97.9, respirations 23. HEENT: Pale conjunctivae. CHEST: Absent breath sounds at the bases. HEART: S1, S2 irregular. EXTREMITIES: Improvement of the leg edema compared to yesterday. LABORATORIES: CBC: WBC 12.9, hemoglobin 8.8, hematocrit 28.3, platelet count 250,000. Today's BUN and creatinine are 41 and 0.4, potassium is within normal limits at 4.8, glucose 168, calcium is 8.2. Yesterday's EKG revealed atrial fibrillation at rate of 82, low voltage QRS complex, and nonspecific ST-T wave changes. Today's digoxin level is 1.9. ASSESSMENT: 1. Persistent atrial fibrillation. 2. Mildly depressed ejection fraction. 3. Mild to moderate aortic stenosis. 4. Stage III colon cancer with colostomy. 5. Bilateral pleural effusion. RECOMMENDATIONS: Reduce digoxin to 0.125 mg every other day. Continue subcutaneous heparin 5000 uni ts twice a day, Solu-Medrol 20 mg intravenous twice a day, IV meropenem at 1 gram q. 8 hours, Cardize m-CD at 120 mg once a day. Case was discussed with the patient's son. Alexei Saha MD cc: [id number] TT: 09/24/2016 14:38:28 Confirmation # [id number] Dictation # [id number] nc
--- NOTE | 2016-09-24 17:01 | CP.PCM.PN ---
Subjective - Date & Time of Evaluation Date of Evaluation: 09/24/16 Time of Evaluation: 08:30 - Subjective Subjective: Comfortable in bed, not in distress, no SOB at rest, no nausea, no diarrhea. Objective - Vital Signs/Intake and Output Vital Signs (last 24 hours): Temp Pulse Resp BP Pulse Ox 97.8 F 78 20 126/70 95 09/24/16 12:00 09/24/16 14:00 09/24/16 12:00 09/24/16 12:00 09/24/16 12:00 Intake and Output: 09/24/16 09/24/16 06:59 18:59 Intake Total 420 Output Total 275 Balance 145 - Medications Medications: Current Medications Albuterol/Ipratropium (Duoneb 3 Mg/0.5 Mg (3 Ml) Ud) 3 ml IH [id number] PRN PRN Reason: Shortness of Breath Last Admin: 09/23/16 14:07 Dose: 3 ml Clotrimazole (Lotrimin 1%) 0.1 gm TOP BID [facility] Last Admin: 09/24/16 09:50 Dose: 1 applic Diltiazem HCl (Cardizem Cd) 120 mg PO DAILY [facility] Last Admin: 09/24/16 09:36 Dose: 120 mg Doxycycline Hyclate (Doryx) 100 mg PO Q12 [facility] PRN Reason: Protocol Stop: 09/27/16 22:01 Last Admin: 09/24/16 09:36 Dose: 100 mg Furosemide (Lasix) 20 mg IVP DAILY [facility] Last Admin: 09/24/16 09:37 Dose: 20 mg Heparin Sodium (Porcine) (Heparin) 5,000 units SC Q12H [facility] PRN Reason: Protocol Last Admin: 09/24/16 09:49 Dose: 5,000 units Meropenem 1g/NS 100mL IVPB (Meropenem 1g/Ns 100ml Ivpb) 100 mls @ 100 mls/hr IVPB Q8 [facility] PRN Reason: Protocol Stop: 09/28/16 14:01 Last Admin: 09/24/16 14:24 Dose: 100 mls/hr Methylprednisolone (Solu-Medrol) 20 mg IVP Q12 [facility] Last Admin: 09/24/16 10:00 Dose: 20 mg Metoprolol Tartrate (Lopressor) 25 mg PO 0800,1800 [facility] Last Admin: 09/24/16 08:02 Dose: 25 mg Pantoprazole Sodium (Protonix Ec Tab) 20 mg PO 0730 [facility] Last Admin: 09/24/16 08:02 Dose: 20 mg - Labs Labs: 09/24/16 05:30 09/24/16 05:30 PT 12.1 Seconds (9.9-11.8) H 09/18/16 17:53 INR 1.12 (0.93-1.08) H 09/18/16 17:53 APTT 25.5 Seconds (23.7-30.8) 09/18/16 17:53 - Constitutional Appears: Non-toxic, No Acute Distress - Head Exam Head Exam: NORMAL INSPECTION - ENT Exam ENT Exam: Mucous Membranes Moist - Neck Exam Neck Exam: absent: Lymphadenopathy, Meningismus - Respiratory Exam Respiratory Exam: Decreased Breath Sounds - Cardiovascular Exam Cardiovascular Exam: +S1, +S2 - GI/Abdominal Exam GI & Abdominal Exam: Soft. absent: Tenderness Assessment and Plan - Assessment and Plan (Free Text) Plan: Assessment Severe sepsis probably secondary to healthcare-associated pneumonia on top of pulmonary vascular congestion, clinically improving Vancomycin-resistant Enterococcus faecium in the urine, probably related to catheter use, without evidence that it is causing infection S/P severe sepsis S/P ventilator-dependent respiratory failure secondary to upper urinary tract infection as well as pneumonia HTN colon cancer stage 3 S/P colon resection and colostomy Plan continue Doxycycline and Merrem day 6, to complete 4-7 days of antibiotics; should be able to d/c antibiotics in the next 24 hours The E. faecium in the urine disappeared from the urine despite no effective treatment for it - will continue to monitor - currently the patient remains asymptomatic in terms of the urinary tract
--- NOTE | 2016-09-24 22:13 | PN ---
DATE: 09/24/2016 This is the patient's hospital visit in the ICU. For Dr. Lomas. SUBJECTIVE: The patient is an 86-year-old female seen lying awake in bed. She is now to be transfer red once an isolation bed is known for her. She has VRE in the urine, with the patient reporting she feels better with her uncontrolled atrial fibrillation being treated. She is modestly improved now with vascular congestion also improved on Lasix, as per Dr. Salinas. OBJECTIVE AND PHYSICAL EXAMINATION: VITAL SIGNS: Temperature 98.6, pulse 90, respirations 22, blood pressure 132/58, pulse ox 99%. HEENT: Is unremarkable. NECK: Is supple. HEART: Irregularly irregular. LUNGS: Decreased breath sounds at the bases. ABDOMEN: Soft, nontender. Viable colostomy. EXTREMITIES: Faint +1 edema. NEUROLOGIC: Awake, alert, but with a history of confusion, with mild dementia. LABORATORY DATA: The patient's labs were done. White blood cell count of 12.9; hemoglobin 8.8; zackery tocrit 28.3; platelet count of 250,000. A chem metabolic panel showing a BUN of 41, creatinine of 0. 4, with a carbon dioxide of 37, calcium of 8.2. The patient had digoxin level 1.9 today. ASSESSMENT: Atrial fibrillation with rapid rate, improved, congestive heart failure, respiratory yanet lure, on nasal cannula, CO2 retention, pulmonary hypertension, cardiomyopathy, history of urinary tra ct infection with vancomycin-resistant Enterococcus, nonmetastatic breast cancer, stage III colon can cer, myelodysplastic syndrome, persistent anemia, severe sepsis secondary to pneumonia. PLAN: Is to continue present medical regimen with transfer to a monitored floor once a bed is availa ble in isolation as per Dr. Fagan's recommendation and Dr. Caceres's recommendation, infectious di sease. The patient needs to be out of bed on a daily basis, with physiotherapy to continue. Stephen Almonte MD cc: [phone] TT: 09/24/2016 22:12:25 Confirmation # [id number] Dictation # [id number]
--- NOTE | 2016-09-25 | PN ---
DATE: 09/24/2016 REFERRING PHYSICIAN: Dr. Lomas. SUBJECTIVE: The patient is lying in the bed. Family is at bedside. Night was unremarkable, feels a little better, heart rate is well-controlled which is less than 100, mild cough. No nausea, no vomi ting, no diarrhea, does have leg swelling. OBJECTIVE: GENERAL: No acute distress. VITAL SIGNS: Temperature is 98, heart rate is 90, respiratory rate is 22, blood pressure 132/58, pul se ox 99% on 2 liter nasal cannula. HEENT: Moist mucous membrane. No ulcer or oral thrush noted. NECK: Supple. No JVD. LUNGS: Has crackles at the bases. HEART: Irregularly irregular. ABDOMEN: Soft, nontender. No organomegaly. EXTREMITIES: There is no edema. NEUROLOGIC: Awake, alert, follows simple commands. MEDICATIONS: She is on Cardizem-CD 120 mg daily, doxycycline 100 mg twice a day, DuoNeb q. 6 hours p.r.n., heparin 5000 units subQ q. 12 hours, Lasix 20 mg daily, metoprolol tartrate 25 mg twice a da y, meropenem 1 g IV q. 8 hours, Protonix 20 mg daily, Solu-Medrol 20 mg q. 12 hours. LABORATORY DATA: Shows hemoglobin 8.8, hematocrit 28.3, WBC 12.9, platelet count is 250. Sodium 136 , potassium 4.8, chloride 97, bicarbonate is 37, BUN 41, creatinine 0.4, glucose 168, calcium is 8.2, phosphorus is 2.2, magnesium 2.0. AST 16, ALT 41, alkaline phosphatase is 49, albumin is 2.4. IMPRESSION AND PLAN: Status post respiratory failure, requiring nasal cannula ____ noninvasive vent ilation with CO2 retention, hypoxemia, pulmonary hypertension, cardiomyopathy, valvular heart disease , paroxysmal atrial fibrillation with uncontrolled heart rate. Pulmonary point of view, she is doing well. Continue p.r.n. bronchodilators, supplemental oxygen, keep head elevated at 45 degree. Aspir ation precaution. Antibiotics as per infectious diseases, calcium channel clare, beta clare, dig oxin as per cardiology, needs better heart rate control. Once the heartrate controlled, will get her out of bed to chair ____ therapy. Follow up labs in the morning. We will follow with you. Camron Salinas MD cc: [facility] TT: 09/24/2016 23:59:40 Confirmation # [id number] Dictation # [id number] jn
[2016-09-25] MEDS: Meropenem 1g/NS 100mL IVPB 100 ML IVPB SCH ×3 (05:59→22:01)
[2016-09-25 06:04] LABS: BASO # 0.01 K/mm3 (0.0-2.0); BASO % 0.1 % (0.0-3.0); GRAN # 11.23 (1.4-6.5); GRAN % 95.2 % (50.0-68.0); HEMATOCRIT 29.8 % (36.0-48.0); LYMPH # 0.4 (1.2-3.4); LYMPH % 3.2 % (22.0-35.0); MEAN CORPUSCULAR HEMOGLOBIN 30.3 pg (25.0-35.0); MEAN CORPUSCULAR HGB CONC 30.9 g/dl (31.0-37.0); MONO # 0.2 (0.1-0.6); MONO % 1.5 % (1.0-6.0); PLATELET COUNT 249 10^3/uL (120.0-450.0); RED CELL DISTRIBUTION WIDTH 26.4 % (11.5-14.5); WHITE BLOOD COUNT 11.8 10^3/ul (4.5-11.0)
[2016-09-25 06:13] LABS: ALB/GLOB RATIO 1.1 (1.1-1.8); ALKALINE PHOSPHATASE 55 U/L (38-133); ALT/SGPT 44 U/L (7-56); AST/SGOT 16 U/L (15-39); BILIRUBIN,TOTAL 0.7 mg/dL (0.2-1.3); BLOOD UREA NITROGEN 38 mg/dL (7-21); CALCIUM 8.3 mg/dL (8.4-10.5); CARBON DIOXIDE 35 mmol/L (21-33); CHLORIDE 95 mmol/L (95-110); GFR AFRICAN-AMERICAN > 60; GLUCOSE,RANDOM 176 mg/dL (70-110); MAGNESIUM 1.9 mg/dL (1.7-2.2); PHOSPHOROUS 1.8 mg/dL (2.5-4.5); POTASSIUM 4.7 mmol/L (3.6-5.0); SODIUM 136 mmol/L (132-148); TOTAL PROTEIN 4.8 g/dL (5.8-8.3)
[2016-09-25 07:08] LABS: ADD MANUAL DIFF? NO
[2016-09-25] MEDS: Pantoprazole 20 mg EC Tab PO SCH (08:10)
[2016-09-25] MEDS: diltiaZEM 120 mg/24 Hours CD Cap PO SCH (09:37)
[2016-09-25] MEDS: MethylPREDNISolone 40 mg Vial IVP SCH (09:38)
[2016-09-25] MEDS: Clotrimazole 1% Cream(30 gm) TOP SCH ×2 (09:50→17:29)
--- NOTE | 2016-09-25 11:20 | CP.PCM.PN ---
Subjective - Date & Time of Evaluation Date of Evaluation: 09/25/16 Time of Evaluation: 08:50 - Subjective Subjective: Comfortable in bed, not in distress, no fevers overnight. Objective - Vital Signs/Intake and Output Vital Signs (last 24 hours): Temp Pulse Resp BP Pulse Ox 97.2 F L 86 18 142/50 L 95 09/25/16 08:00 09/25/16 09:37 09/25/16 08:00 09/25/16 09:37 09/25/16 08:00 Intake and Output: 09/25/16 09/25/16 06:59 18:59 Intake Total 300 Output Total 600 Balance -300 - Medications Medications: Current Medications Albuterol/Ipratropium (Duoneb 3 Mg/0.5 Mg (3 Ml) Ud) 3 ml IH [id number] PRN PRN Reason: Shortness of Breath Last Admin: 09/23/16 14:07 Dose: 3 ml Clotrimazole (Lotrimin 1%) 0.1 gm TOP BID [facility] Last Admin: 09/25/16 09:50 Dose: 1 applic Diltiazem HCl (Cardizem Cd) 120 mg PO DAILY [facility] Last Admin: 09/25/16 09:37 Dose: 120 mg Doxycycline Hyclate (Doryx) 100 mg PO Q12 [facility] PRN Reason: Protocol Stop: 09/27/16 22:01 Last Admin: 09/25/16 09:37 Dose: 100 mg Furosemide (Lasix) 20 mg IVP DAILY [facility] Last Admin: 09/25/16 09:37 Dose: 20 mg Heparin Sodium (Porcine) (Heparin) 5,000 units SC Q12H [facility] PRN Reason: Protocol Last Admin: 09/25/16 09:49 Dose: 5,000 units Meropenem 1g/NS 100mL IVPB (Meropenem 1g/Ns 100ml Ivpb) 100 mls @ 100 mls/hr IVPB Q8 [facility] PRN Reason: Protocol Stop: 09/28/16 14:01 Last Admin: 09/25/16 05:59 Dose: 100 mls/hr Methylprednisolone (Solu-Medrol) 20 mg IVP Q12 [facility] Last Admin: 09/25/16 09:38 Dose: 20 mg Metoprolol Tartrate (Lopressor) 25 mg PO 0800,1800 [facility] Last Admin: 09/25/16 08:10 Dose: 25 mg Pantoprazole Sodium (Protonix Ec Tab) 20 mg PO 0730 [facility] Last Admin: 09/25/16 08:10 Dose: 20 mg - Labs Labs: 09/25/16 05:30 09/25/16 05:30 PT 12.1 Seconds (9.9-11.8) H 09/18/16 17:53 INR 1.12 (0.93-1.08) H 09/18/16 17:53 APTT 25.5 Seconds (23.7-30.8) 09/18/16 17:53 - Constitutional Appears: Non-toxic, No Acute Distress - Head Exam Head Exam: NORMAL INSPECTION - ENT Exam ENT Exam: Mucous Membranes Moist - Neck Exam Neck Exam: absent: Lymphadenopathy, Meningismus - Respiratory Exam Respiratory Exam: Decreased Breath Sounds - Cardiovascular Exam Cardiovascular Exam: +S1, +S2 - GI/Abdominal Exam GI & Abdominal Exam: Soft. absent: Tenderness Assessment and Plan - Assessment and Plan (Free Text) Plan: Assessment Severe sepsis probably secondary to healthcare-associated pneumonia on top of pulmonary vascular congestion, clinically improving Vancomycin-resistant Enterococcus faecium in the urine, probably related to catheter use, without evidence that it is causing infection S/P severe sepsis S/P ventilator-dependent respiratory failure secondary to upper urinary tract infection as well as pneumonia HTN colon cancer stage 3 S/P colon resection and colostomy Plan continue Doxycycline and Merrem day 7, to complete 7 days of antibiotics; should be able to d/c antibiotics after today The E. faecium in the urine disappeared from the urine despite no effective treatment for it - will continue to monitor - currently the patient remains asymptomatic in terms of the urinary tract
--- NOTE | 2016-09-25 18:39 | PN ---
DATE: 09/25/2016 REFERRING PHYSICIAN: Dr. Lomas SUBJECTIVE: She is lying in the bed, head up 35 degrees. unremarkable, feels a little better, decreased cough and decreased shortness breath, refused to use BiPAP last night. No nausea, no vomi ting, no diarrhea. Still having leg swelling. OBJECTIVE: GENERAL: No acute distress. VITAL SIGNS: Temperature is 98, heart rate is 81, respiratory rate is 20, blood pressure 114/53, pul se ox 95% on nasal cannula. HEENT: Moist mucous membranes. Crowded airway. Mallampati score is 4. NECK: Supple. No JVD. LUNGS: Crackles at the bases, scattered rhonchi. HEART: S1, S2. ABDOMEN: Soft, nontender. No organomegaly. EXTREMITIES: Does have edema. NEUROLOGIC: Awake, alert, follows simple command. MEDICATIONS: She is on Cardizem-CD 120 mg daily, doxycycline 100 mg twice a day, DuoNeb q. 6 hours p.r.n., heparin 5000 units subQ q. 12 hours, Lasix 20 mg IV daily, metoprolol tartrate 25 mg twice a day, meropenem 1 gram q. 8 hours, Protonix 20 mg daily, Solu-Medrol 20 mg q. 12 hours. LABORATORY DATA: Shows hemoglobin 9.2, hematocrit 29.8, WBC 11.8, platelet is 249. Sodium 136, pota ssium 4.7, chloride 95, bicarbonate is 35, BUN 38, creatinine 0.4, glucose 176, calcium is 8.3, phosp horus 1.8, magnesium 1.9, AST 16, ALT 44, alkaline phosphatase is 65, albumin is 2.6. IMPRESSION AND PLAN: Status post respiratory failure requiring noninvasive ventilation, may have sle ep apnea syndrome. Presently noncompliant with the CPAP, place on BiPAP. Has CO2 retention and hypox emia, pulmonary hypertension, cardiomyopathy, valvular heart disease, paroxysmal atrial fibrillation with paroxysmal uncontrolled heart rate. We will decrease Solu-Medrol to 20 mg daily. Cardiol ogy followup to control afebrile and heart rate, encourage BiPAP use, keep head at 45 degrees. Follo w up labs in the morning. We will get ABG, chest x-rays. Thank you and will follow with you. Camron Salinas MD cc: [phone] TT: 09/25/2016 18:37:58 Confirmation # [id number] Dictation # [id number]
--- NOTE | 2016-09-25 19:12 | PN ---
DATE: 09/25/2016 SUBJECTIVE: The patient is oriented to place. She denies any chest pain. She is currently in contr olled atrial fibrillation. PHYSICAL EXAMINATION: VITAL SIGNS: Blood pressure 114/53, heart rate 81, temperature 98.1, respirations 21. HEENT: Pale conjunctivae. CHEST: Absent breath sounds over the bases. HEART: S1, S2 regular. EXTREMITIES: Improved leg edema. LABORATORIES: Hemoglobin and hematocrit 9.1 and 29.8, white count 11.8, platelet count 249,000. Tod garfield's BUN and creatinine are 38 and 0.4, potassium is within normal limits, calcium is within normal a t 8.3. ASSESSMENT: 1. Persistent atrial fibrillation. 2. Bilateral pleural effusion. 3. Mildly depressed ejection fraction. 4. Stage III colon cancer. RECOMMENDATIONS: Continue current Cardizem at 120 mg once a day, doxycycline 100 mg p.o. twice a day , Solu-Medrol 20 mg intravenously daily and IV meropenem at 1 gram q. 8 hours and Lopressor 25 mg twi ce a day. Discontinue intravenous Lasix. Alexei Saha MD cc: [id number] TT: 09/25/2016 19:11:24 Confirmation # [id number] Dictation # [id number] natalie
--- NOTE | 2016-09-25 23:02 | PN ---
DATE: 09/25/2016 SUBJECTIVE: The patient is lying in bed. Head is up to 35 degrees. Feels a little bit better. Decrea sed cough, decreased shortness of breath and did not use the BiPAP last night, noted no sense of naus ea, vomiting, fevers or chills. PHYSICAL EXAMINATION: GENERAL: The patient is in no acute distress. VITAL SIGNS: T-max is 98.4, heart rate is 81, respirations 20, blood pressure 114/53, pulse ox is 95 % on nasal cannula. HEENT: Head is normocephalic, atraumatic. Conjunctivae pale. The patient has crowded airway. NECK: Supple. There is no adenopathy. No jugular venous distention. LUNGS: Crackles at the bases with scattered wheezes and rhonchi. HEART: S1 and S2 with tachycardia noted at time of examination. ABDOMEN: Soft and nontender. The patient has a colostomy in the left lower quadrant. BREASTS: No definite masses. EXTREMITIES: Do not show any edema. No cyanosis or clubbing is noted. NEUROLOGIC: Higher functions are normal. The patient is able to recognize me, follows simple comman ds. MEDICATIONS: Reviewed. She is on Cardizem-CD 120 daily, doxycycline 100 b.i.d., DuoNeb q. 6 hours p .r.n., heparin 5000 units subQ q. 12 hours, Lasix 20 mg IV daily, metoprolol 25 mg b.i.d., meropenem 1 gram IV q. 8 hours, Protonix 20 mg daily, Solu-Medrol 20 mg IV q. 24 hours. LABORATORY DATA: Hemoglobin of 9.2, white count of 11.8, hematocrit 29, platelet count of 249,000. Sodium is 136, potassium is , chloride is 95, bicarbonate is 35, BUN is 38, creatinine is 0.4, g lucose is 176, calcium is 8.3, phosphorus is 1.8. Magnesium is 1.9. AST and ALT are within normal l imits. Alkaline phosphatase is 65, albumin is 2.6. ASSESSMENT NOTES AND PLAN: The patient has still significant requirement for ventilatory support, no t using the CPAP. The patient is going to be placed on BiPAP. Has CO2 retention. Has been having in termittent tachycardia with paroxysmal atrial fibrillation, on multiple medicines for the same, and d oes still require ICU monitoring for the next 24 hours. The patient had pulmonary hypertension, card iomyopathy, valvular heart disease, uncontrolled heart rate. Along with this, the patient has a diag nosis of stage carcinoma of the colon and nonmetastatic bilateral breast cancer. Will continue current medicines and follow the labs. Prognosis appears to be guarded. We will try to discuss prog nostication with both cardiology and pulmonary as well. We will talk to the family as well. Shanta Lomas MD cc: [phone] TT: 09/25/2016 23:01:45 Confirmation # [id number] Dictation # [id number] ln
[2016-09-26] MEDS: Meropenem 1g/NS 100mL IVPB 100 ML IVPB SCH ×3 (05:46→22:43)
[2016-09-26] MEDS: Pantoprazole 20 mg EC Tab PO SCH (08:30)
--- NOTE | 2016-09-26 08:36 | RAD ---
HISTORY: infiltrate COMPARISON: No prior. FINDINGS: LUNGS: Bilateral interstitial changes. PLEURA: Small bilateral pleural effusions, left greater than right. CARDIOVASCULAR: Normal. OSSEOUS STRUCTURES: No significant abnormalities. VISUALIZED UPPER ABDOMEN: Normal. OTHER FINDINGS: None. IMPRESSION: Bilateral interstitial changes with small bilateral pleural effusions, left greater than right.
[2016-09-26] MEDS: diltiaZEM 120 mg/24 Hours CD Cap PO SCH (09:46)
[2016-09-26] MEDS: Clotrimazole 1% Cream(30 gm) TOP SCH ×2 (09:46→17:56)
[2016-09-26] MEDS: MethylPREDNISolone 40 mg Vial IVP SCH (09:48)
[2016-09-26 11:51] LABS: ADD MANUAL DIFF? NO
[2016-09-26 12:00] LABS: BASO # 0.01 K/mm3 (0.0-2.0); BASO % 0.1 % (0.0-3.0); EOS # 0.2 (0.0-0.7); EOS % 1.4 % (1.5-5.0); HEMATOCRIT 28.5 % (36.0-48.0); LYMPH # 0.6 (1.2-3.4); LYMPH % 4.5 % (22.0-35.0); MEAN CELL VOLUME 96.9 fL (80.0-105.0); MEAN CORPUSCULAR HEMOGLOBIN 30.6 pg (25.0-35.0); MEAN CORPUSCULAR HGB CONC 31.6 g/dl (31.0-37.0); MONO # 0.3 (0.1-0.6); PLATELET COUNT 234 10^3/uL (120.0-450.0); RED CELL DISTRIBUTION WIDTH 26.2 % (11.5-14.5); WHITE BLOOD COUNT 13.9 10^3/ul (4.5-11.0)
[2016-09-26 12:08] LABS: ALB/GLOB RATIO 1.1 (1.1-1.8); ALKALINE PHOSPHATASE 57 U/L (38-133); ALT/SGPT 46 U/L (7-56); AST/SGOT 16 U/L (15-39); BILIRUBIN,TOTAL 0.7 mg/dL (0.2-1.3); BLOOD UREA NITROGEN 34 mg/dL (7-21); CALCIUM 8.1 mg/dL (8.4-10.5); CARBON DIOXIDE 39 mmol/L (21-33); CHLORIDE 93 mmol/L (98-107); GFR AFRICAN-AMERICAN > 60; GLUCOSE,RANDOM 191 mg/dL (70-110); MAGNESIUM 1.8 mg/dL (1.7-2.2); PHOSPHOROUS 1.7 mg/dL (2.5-4.5); POTASSIUM 4.5 mmol/L (3.6-5.0); SODIUM 134 mmol/L (132-148); TOTAL PROTEIN 4.8 g/dL (5.8-8.3)
[2016-09-26] MEDS: Potassium Chloride 10 mEq ER Tab PO SCH (13:00)
--- NOTE | 2016-09-26 13:02 | PN ---
DATE: 09/26/2016 SUBJECTIVE: The patient was noticed to have worsening of her leg swelling. She is in a slightly rap id atrial fibrillation. The patient's son is at the bedside. PHYSICAL EXAMINATION: VITAL SIGNS: Blood pressure 162/91, heart rate 94, temperature 97.8, respirations 20. HEENT: Pale conjunctivae. CHEST: Absent breath sounds over the bases. HEART: S1, S2 regular. EXTREMITIES: 2+ pitting edema. LABORATORIES: Hemoglobin and hematocrit 9 and 28.5, white count 13.9, platelet count 234,000. Today 's BUN and creatinine are 34 and 0.4. Glucose 191. Today's chest x-ray report, bilateral interstiti al changes with small bilateral pleural effusion, left greater than right. ASSESSMENT: 1. Rapid atrial fibrillation. 2. Congestive heart failure. 3. Bilateral pleural effusion. 4. Stage III colon cancer. RECOMMENDATIONS: Increase Lopressor to 50 mg twice a day. Restart Lasix 20 mg intravenously once a day and K-Dur 20 mEq once a day. Continue Cardizem-CD at 20 mg once a day. Alexei Saha MD cc: [id number] TT: 09/26/2016 13:00:19 Confirmation # [id number] Dictation # [id number] marysol
--- NOTE | 2016-09-26 16:01 | PN ---
DATE: 09/26/2016 REFERRING PHYSICIAN: Dr. Lomas. SUBJECTIVE: She is out of bed to reclining chair. Son is at bedside. Today feels better. Refused to use BiPAP. On supplemental oxygen. Still short of breath and cough. No nausea, no vomiting or d iarrhea. Decreased leg swelling. OBJECTIVE: GENERAL: No acute distress. VITAL SIGNS: Temperature is 98, heart rate is 94, respiratory rate is 20, blood pressure 103/65, pul se ox 100% on 40% oxygen. HEENT: Moist mucous membrane. Crowded airway. NECK: Supple. No JVD. LUNGS: Have basilar crackles. HEART: S1, S2 irregular. ABDOMEN: Soft, nontender. No organomegaly. EXTREMITIES: Still has edema but decreased. NEUROLOGIC: Awake, alert, follows simple commands. MEDICATIONS: She is on Cardizem-CD 120 mg daily, DuoNeb q. 6 hours, heparin 5000 units subQ q. 12 ho urs, potassium 10 mEq daily, Lasix 20 mg daily, metoprolol tartrate 50 mg twice a day, Lotrimin to af fected area twice a day, meropenem is 1 gram q. 8 hours, Protonix 20 mg daily, Solu-Medrol 20 mg edil y. LABORATORY DATA: Shows hemoglobin 9.0, hematocrit 28.5, WBC 13.9, platelet is 234. Sodium 134, pota ssium 4.5, chloride 93, bicarbonate 39, BUN 34, creatinine 0.4, glucose is 191, calcium is 8.1, phosp horus 1.7, magnesium 1.7, AST 16, ALT 46, alkaline phosphatase is 57, albumin is 2.5. Urine culture has Enterococcus faecium. Chest x-ray done today shows bilateral interstitial edema with small pleur al effusion. IMPRESSION AND PLAN: Pulmonary infiltrate with pleural effusion, may have a sleep apnea syndrome, CO 2 retention, could be component of hypoventilation syndrome, cardiomyopathy with recurrent atrial fib rillation and rapid ventricular response, history of hypertension. I spoke to patient and patient's son at bedside. All their questions answered. Also spoke to nursing staff. Continue antibiotics, I V and inhaled bronchodilator. Encourage BiPAP use. Continue to make effort to control the heart rat e in the 70s and 80s. That may help her to with cardiopulmonary system. Will follow with you. Camron Salinas MD cc: [id number] TT: 09/26/2016 16:00:47 Confirmation # [id number] Dictation # [id number] rn
[2016-09-27] MEDS: Meropenem 1g/NS 100mL IVPB 100 ML IVPB SCH (05:34)
[2016-09-27 07:25] LABS: ADD MANUAL DIFF? NO
[2016-09-27 07:31] LABS: EOS # 0.2 (0.0-0.7); EOS % 1.6 % (1.5-5.0); GRAN # 9.22 (1.4-6.5); HEMATOCRIT 28.3 % (36.0-48.0); LYMPH # 0.5 (1.2-3.4); LYMPH % 5.2 % (22.0-35.0); MEAN CELL VOLUME 97.9 fL (80.0-105.0); MEAN CORPUSCULAR HEMOGLOBIN 31.1 pg (25.0-35.0); MEAN CORPUSCULAR HGB CONC 31.8 g/dl (31.0-37.0); MONO # 0.2 (0.1-0.6); MONO % 2.2 % (1.0-6.0); RED CELL DISTRIBUTION WIDTH 25.9 % (11.5-14.5); WHITE BLOOD COUNT 10.1 10^3/ul (4.5-11.0)
[2016-09-27 07:45] LABS: ALKALINE PHOSPHATASE 50 U/L (38-133); ALT/SGPT 43 U/L (7-56); AST/SGOT 19 U/L (15-39); BILIRUBIN,TOTAL 0.7 mg/dL (0.2-1.3); BLOOD UREA NITROGEN 35 mg/dL (7-21); CALCIUM 7.9 mg/dL (8.4-10.5); CARBON DIOXIDE 39 mmol/L (21-33); CHLORIDE 96 mmol/L (95-110); GFR AFRICAN-AMERICAN > 60; GLUCOSE,RANDOM 139 mg/dL (70-110); MAGNESIUM 1.9 mg/dL (1.7-2.2); PHOSPHOROUS 1.8 mg/dL (2.5-4.5); POTASSIUM 4.7 mmol/L (3.6-5.0); SODIUM 136 mmol/L (132-148); TOTAL PROTEIN 4.6 g/dL (5.8-8.3)
[2016-09-27 07:47] LABS: PLATELET COUNT 193 10^3/uL (120.0-450.0)
[2016-09-27] MEDS: Pantoprazole 20 mg EC Tab PO SCH (08:30)
[2016-09-27] MEDS: Potassium Chloride 10 mEq ER Tab PO SCH (09:01)
[2016-09-27] MEDS: diltiaZEM 120 mg/24 Hours CD Cap PO SCH (10:01)
[2016-09-27] MEDS: Clotrimazole 1% Cream(30 gm) TOP SCH ×2 (10:02→17:42)
[2016-09-27] MEDS: MethylPREDNISolone 40 mg Vial IVP SCH (10:04)
--- NOTE | 2016-09-27 15:38 | CP.PCM.PN ---
Subjective - Date & Time of Evaluation Date of Evaluation: 09/26/16 Time of Evaluation: 15:15 - Subjective Subjective: No acute symptoms or complaitns. Feels that breathing is better. About to go to sleep. Children visited patient earlier today ROS: 12 ROS negative. Objective - Vital Signs/Intake and Output Vital Signs (last 24 hours): Temp Pulse Resp BP Pulse Ox 98.2 F 67 18 116/70 99 09/27/16 08:30 09/27/16 10:01 09/27/16 08:30 09/27/16 10:03 09/27/16 08:30 Intake and Output: 09/27/16 09/27/16 06:59 18:59 Intake Total 600 540 Balance 600 540 - Medications Medications: Current Medications Albuterol/Ipratropium (Duoneb 3 Mg/0.5 Mg (3 Ml) Ud) 3 ml IH [id number] PRN PRN Reason: Shortness of Breath Last Admin: 09/23/16 14:07 Dose: 3 ml Clotrimazole (Lotrimin 1%) 0.1 gm TOP BID [facility] Last Admin: 09/27/16 10:02 Dose: 1 applic Diltiazem HCl (Cardizem Cd) 120 mg PO DAILY [facility] Last Admin: 09/27/16 10:01 Dose: 120 mg Furosemide (Lasix) 20 mg IVP DAILY [facility] Last Admin: 09/27/16 10:03 Dose: 20 mg Methylprednisolone (Solu-Medrol) 20 mg IVP DAILY [facility] Last Admin: 09/27/16 10:04 Dose: 20 mg Metoprolol Tartrate (Lopressor) 50 mg PO 0800,1800 [facility] Last Admin: 09/27/16 10:01 Dose: 50 mg Pantoprazole Sodium (Protonix Ec Tab) 20 mg PO 0730 [facility] Last Admin: 09/27/16 08:30 Dose: 20 mg Potassium Chloride (Klor-Con 10) 10 meq PO BRK [facility] Last Admin: 09/27/16 09:01 Dose: 10 meq - Labs Labs: 09/27/16 07:23 09/27/16 07:23 PT 12.1 Seconds (9.9-11.8) H 09/18/16 17:53 INR 1.12 (0.93-1.08) H 09/18/16 17:53 APTT 25.5 Seconds (23.7-30.8) 09/18/16 17:53 - Constitutional Appears: Well - Respiratory Exam Respiratory Exam: Decreased Breath Sounds, Wheezes. absent: Accessory Muscle Use, Respiratory Distress - Cardiovascular Exam Cardiovascular Exam: REGULAR RHYTHM, +S1, +S2. absent: Murmur - Extremities Exam Extremities Exam: Full ROM, Normal Capillary Refill, Normal Inspection. absent : Joint Swelling, Pedal Edema Assessment and Plan (1) Pneumonia Status: Acute - Assessment and Plan (Free Text) Assessment: Ms. Maldonado suleiman 86 y/o woman with remote hx of colon ca (in remission) and b/l localized breast cancer (on hormonal therapy) who is currently re-admitted to the hospital with b/l infiltrate concerning for CHF vs pna and afit and who has required intermittent bipap. Patient breathing continues to improve with abx, steroids, and going diuresis. Will continue current management in conjunction with pulmonary and cardiology
--- NOTE | 2016-09-27 15:40 | CP.PCM.PN ---
Subjective - Date & Time of Evaluation Date of Evaluation: 09/27/16 Time of Evaluation: 15:00 - Subjective Subjective: No acute complaints. ROS: 12 ROS otherwise negative Objective - Vital Signs/Intake and Output Vital Signs (last 24 hours): Temp Pulse Resp BP Pulse Ox 98.2 F 67 18 116/70 99 09/27/16 08:30 09/27/16 10:01 09/27/16 08:30 09/27/16 10:03 09/27/16 08:30 Intake and Output: 09/27/16 09/27/16 06:59 18:59 Intake Total 600 540 Balance 600 540 - Medications Medications: Current Medications Albuterol/Ipratropium (Duoneb 3 Mg/0.5 Mg (3 Ml) Ud) 3 ml IH [id number] PRN PRN Reason: Shortness of Breath Last Admin: 09/23/16 14:07 Dose: 3 ml Clotrimazole (Lotrimin 1%) 0.1 gm TOP BID [facility] Last Admin: 09/27/16 10:02 Dose: 1 applic Diltiazem HCl (Cardizem Cd) 120 mg PO DAILY [facility] Last Admin: 09/27/16 10:01 Dose: 120 mg Furosemide (Lasix) 20 mg IVP DAILY [facility] Last Admin: 09/27/16 10:03 Dose: 20 mg Methylprednisolone (Solu-Medrol) 20 mg IVP DAILY [facility] Last Admin: 09/27/16 10:04 Dose: 20 mg Metoprolol Tartrate (Lopressor) 50 mg PO 0800,1800 [facility] Last Admin: 09/27/16 10:01 Dose: 50 mg Pantoprazole Sodium (Protonix Ec Tab) 20 mg PO 0730 [facility] Last Admin: 09/27/16 08:30 Dose: 20 mg Potassium Chloride (Klor-Con 10) 10 meq PO BRK [facility] Last Admin: 09/27/16 09:01 Dose: 10 meq - Labs Labs: 09/27/16 07:23 09/27/16 07:23 PT 12.1 Seconds (9.9-11.8) H 09/18/16 17:53 INR 1.12 (0.93-1.08) H 09/18/16 17:53 APTT 25.5 Seconds (23.7-30.8) 09/18/16 17:53 - Constitutional Appears: Non-toxic, Chronically Ill - Head Exam Head Exam: ATRAUMATIC, NORMAL INSPECTION, NORMOCEPHALIC - Respiratory Exam Respiratory Exam: Decreased Breath Sounds, Wheezes. absent: Accessory Muscle Use, Respiratory Distress - Cardiovascular Exam Cardiovascular Exam: Tachycardia, REGULAR RHYTHM - GI/Abdominal Exam GI & Abdominal Exam: Soft, Normal Bowel Sounds. absent: Tenderness - Extremities Exam Extremities Exam: Full ROM, Normal Capillary Refill, Normal Inspection. absent : Joint Swelling, Pedal Edema - Back Exam Back Exam: NORMAL INSPECTION Assessment and Plan (1) Pneumonia Status: Acute - Assessment and Plan (Free Text) Plan: Ms. Maldonado suleiman 86 y/o woman with remote hx of colon ca (in remission) and b/l localized breast cancer (on hormonal therapy) who is currently re-admitted to the hospital with b/l infiltrate concerning for CHF vs pna and afib and who has required intermittent bipap. Patient breathing continues to improve with abx, steroids, and going diuresis. Will continue current management in conjunction with pulmonary and cardiology Dat Lomas MD Oncology Service
--- NOTE | 2016-09-27 16:57 | CP.PCM.PN ---
Subjective - Date & Time of Evaluation Date of Evaluation: 09/27/16 Time of Evaluation: 11:30 - Subjective Subjective: Comfortable in bed, not in distress, no fevers overnight. Objective - Vital Signs/Intake and Output Vital Signs (last 24 hours): Temp Pulse Resp BP Pulse Ox 98.2 F 88 20 110/58 L 98 09/27/16 16:46 09/27/16 16:46 09/27/16 16:46 09/27/16 16:46 09/27/16 16:46 Intake and Output: 09/27/16 09/27/16 06:59 18:59 Intake Total 600 540 Balance 600 540 - Medications Medications: Current Medications Albuterol/Ipratropium (Duoneb 3 Mg/0.5 Mg (3 Ml) Ud) 3 ml IH [id number] PRN PRN Reason: Shortness of Breath Last Admin: 09/23/16 14:07 Dose: 3 ml Clotrimazole (Lotrimin 1%) 0.1 gm TOP BID [facility] Last Admin: 09/27/16 10:02 Dose: 1 applic Diltiazem HCl (Cardizem Cd) 120 mg PO DAILY [facility] Last Admin: 09/27/16 10:01 Dose: 120 mg Furosemide (Lasix) 20 mg IVP DAILY [facility] Last Admin: 09/27/16 10:03 Dose: 20 mg Methylprednisolone (Solu-Medrol) 20 mg IVP DAILY [facility] Last Admin: 09/27/16 10:04 Dose: 20 mg Metoprolol Tartrate (Lopressor) 50 mg PO 0800,1800 [facility] Last Admin: 09/27/16 10:01 Dose: 50 mg Pantoprazole Sodium (Protonix Ec Tab) 20 mg PO 0730 [facility] Last Admin: 09/27/16 08:30 Dose: 20 mg Potassium Chloride (Klor-Con 10) 10 meq PO BRK [facility] Last Admin: 09/27/16 09:01 Dose: 10 meq - Labs Labs: 09/27/16 07:23 09/27/16 07:23 PT 12.1 Seconds (9.9-11.8) H 09/18/16 17:53 INR 1.12 (0.93-1.08) H 09/18/16 17:53 APTT 25.5 Seconds (23.7-30.8) 09/18/16 17:53 - Constitutional Appears: Non-toxic, No Acute Distress - Head Exam Head Exam: NORMAL INSPECTION - ENT Exam ENT Exam: Mucous Membranes Moist - Neck Exam Neck Exam: absent: Lymphadenopathy, Meningismus - Respiratory Exam Respiratory Exam: Decreased Breath Sounds - Cardiovascular Exam Cardiovascular Exam: +S1, +S2 - GI/Abdominal Exam GI & Abdominal Exam: Soft. absent: Tenderness Assessment and Plan - Assessment and Plan (Free Text) Plan: Assessment Severe sepsis probably secondary to healthcare-associated pneumonia on top of pulmonary vascular congestion, clinically improved Vancomycin-resistant Enterococcus faecium in the urine, probably related to catheter use, without evidence that it is causing infection S/P severe sepsis S/P ventilator-dependent respiratory failure secondary to upper urinary tract infection as well as pneumonia HTN colon cancer stage 3 S/P colon resection and colostomy Plan has had 7 days of Doxycycline and Merrem - will d/c antibiotics today and observe The E. faecium in the urine disappeared from the urine despite no effective treatment for it - will continue to monitor - currently the patient remains asymptomatic in terms of the urinary tract
--- NOTE | 2016-09-27 18:21 | PN ---
DATE: 09/27/2016 REFERRING PHYSICIAN: Dr. Lomas. SUBJECTIVE: She is sitting up in a bed, having lunch. Night was unremarkable, complaining about itc rosalva of the eyes and watery eyes, no rhinitis. Cough is better. No chest pain, no nausea, no vomiti ng, no diarrhea. Has trace leg swelling. OBJECTIVE: GENERAL: No acute distress. VITAL SIGNS: Temperature is 98, heart rate is 88, respiratory rate is 20, blood pressure 110/58, pul se ox 98% on room air. HEENT: Moist mucous membranes. Crowded airway. NECK: Supple. No JVD. LUNGS: Has a fair airflow with few rhonchi at the bases with crackles. HEART: S1, S2. ABDOMEN: Soft, nontender. No organomegaly. EXTREMITIES: There is trace edema. NEUROLOGIC: Awake, alert, follows simple commands. MEDICATIONS: She is on Cardizem-CD 120 mg daily, DuoNeb q. 6 hours, potassium 10 mEq daily, Lasix 20 mg IV daily, metoprolol tartrate 50 mg twice a day, Protonix 20 mg daily, Solu-Medrol 20 mg daily. LABORATORY DATA: Shows hemoglobin 9.0, hematocrit 28.3, WBC 10, platelet count is 193. Sodium 136, potassium 4.7, chloride 96, bicarbonate 39, BUN 35, creatinine 0.3, calcium is 7.9, phosphorus 1.3, m agnesium 1.9, AST 19, ALT 43, alkaline phosphatase is 50, albumin is 2.3. IMPRESSION AND PLAN: Resolving pulmonary infiltrate and effusion, may have a sleep apnea syndrome, s tatus post respiratory failure, cardiomyopathy with recurrent atrial fibrillation with rapid ventricu lar response, hypertension. Pulmonary point of view, doing okay. I spoke to the patient's son at [facility]. All the questions were answered. We will add Zyrtec or Claritin 10 mg at bedtime, continue d iuretics. We will discontinue Solu-Medrol. Tapered dose of prednisone. Out of bed to chair. Physi nilesh therapy. Fall precautions. Has a history of breast cancer and colon cancer, being followed by Mike Lomas. Thank you and will follow. Camron Salinas MD cc: [phone] TT: 09/27/2016 18:21:04 Confirmation # [id number] Dictation # [id number] mn
[2016-09-28 08:16] LABS: EOS % 0.4 % (1.5-5.0); GRAN # 8.72 (1.4-6.5); GRAN % 93.4 % (50.0-68.0); LYMPH # 0.4 (1.2-3.4); LYMPH % 4.1 % (22.0-35.0); MEAN CELL VOLUME 97.1 fL (80.0-105.0); MEAN CORPUSCULAR HEMOGLOBIN 30.2 pg (25.0-35.0); MEAN CORPUSCULAR HGB CONC 31.1 g/dl (31.0-37.0); MONO # 0.2 (0.1-0.6); MONO % 2.1 % (1.0-6.0); PLATELET COUNT 156 10^3/uL (120.0-450.0); RED CELL DISTRIBUTION WIDTH 25.6 % (11.5-14.5); WHITE BLOOD COUNT 9.3 10^3/ul (4.5-11.0)
[2016-09-28 08:20] LABS: ADD MANUAL DIFF? NO
[2016-09-28 08:40] LABS: ALB/GLOB RATIO 1.1 (1.1-1.8); ALKALINE PHOSPHATASE 55 U/L (38-133); ALT/SGPT 44 U/L (7-56); AST/SGOT 18 U/L (15-39); BILIRUBIN,TOTAL 0.6 mg/dL (0.2-1.3); BLOOD UREA NITROGEN 35 mg/dL (7-21); CARBON DIOXIDE 39 mmol/L (21-33); CHLORIDE 94 mmol/L (95-110); GFR AFRICAN-AMERICAN > 60; GLUCOSE,RANDOM 141 mg/dL (70-110); MAGNESIUM 1.9 mg/dL (1.7-2.2); PHOSPHOROUS 1.8 mg/dL (2.5-4.5); SODIUM 136 mmol/L (132-148); TOTAL PROTEIN 4.5 g/dL (5.8-8.3)
[2016-09-28] MEDS: Pantoprazole 20 mg EC Tab PO SCH (08:45)
[2016-09-28] MEDS: Potassium Chloride 10 mEq ER Tab PO SCH (08:45)
[2016-09-28 09:02] LABS: POTASSIUM 4.6 mmol/L (3.6-5.0)
--- NOTE | 2016-09-28 09:04 | PN ---
DATE: 09/28/2016 FOLLOWUP The patient denies any palpitations, chest pain, or shortness of breath. She is in AFib with control led rate on the monitor. PHYSICAL EXAMINATION: VITAL SIGNS: Blood pressure 110/58, heart rate 88, temperature 98.2, respirations 20. HEENT: Pale conjunctivae. CHEST: Absent breath sounds over the bases. HEART: S1, S2 regular. EXTREMITIES: 2-3+ pitting edema. LABORATORIES: Hemoglobin and hematocrit 8.4 and 27.0. White count and platelet counts are within no rmal limits. BUN and creatinine 35 and 0.3. Glucose 139. Potassium is within normal limits 4.7. C alcium is below normal at 7.9. ASSESSMENT: 1. Congestive heart failure. 2. Persistent atrial fibrillation. 3. Stage III colon cancer. 4. Mild to moderate aortic stenosis. 5. Anemia. RECOMMENDATIONS: Continue Cardizem CD at 120 mg once a day, Lopressor 50 mg twice a day, Lasix 20 mg intravenously daily, Klor-Con 10 mEq once a day, prednisone 10 mg daily. Alexei Saha MD cc: [id number] TT: 09/28/2016 09:03:29 Confirmation # [id number] Dictation # [id number] jn
[2016-09-28] MEDS: Clotrimazole 1% Cream(30 gm) TOP SCH ×2 (09:40→18:05)
[2016-09-28] MEDS: diltiaZEM 120 mg/24 Hours CD Cap PO SCH (09:41)
--- NOTE | 2016-09-28 19:23 | PN ---
DATE: 09/28/2016 REFERRING PHYSICIAN: Dr. Lomas SUBJECTIVE: She is lying in the bed, head at 45 degrees. Night was unremarkable. Mild cough and sh ortness of breath. No nausea, no vomiting, no diarrhea. Does have leg swelling. OBJECTIVE: GENERAL: No acute distress. VITAL SIGNS: Temperature is 98, heart rate 66, respiratory rate is 20, blood pressure 122/74, pulse ox 98% on 3 liter nasal cannula. HEENT: Moist mucous membranes. Crowded airway. NECK: Supple. No JVD. LUNGS: Have basilar crackles. HEART: Irregularly irregular, tachycardic. ABDOMEN: Soft, nontender. No organomegaly. EXTREMITIES: Do have edema. NEUROLOGIC: Awake, alert, follows simple commands. MEDICATIONS: She is on Cardizem-CD 120 mg daily, Claritin 10 mg daily, DuoNeb q. 6 hours, potassium 10 mEq daily, Lasix 20 mg IV daily, metoprolol tartrate 50 mg q. 12 hours, prednisone 10 mg daily, Pr otonix 20 mg daily, Tylenol p.r.n. basis. LABORATORY DATA: Shows hemoglobin 8.4, hematocrit , WBC 9.3, platelet is 156. Sodium 136, pota ssium 4.6, chloride 94, bicarbonate 39, BUN 35, creatinine 0.3, glucose 141, calcium is 8.0, phosphor us , magnesium 1.9, AST 18, ALT 44, alkaline phosphatase is , albumin 2.4. Urine culture h as Enterococcus faecalis. IMPRESSION AND PLAN: Resolving pulmonary infiltrate and pleural effusions. May have sleep apnea synd butch, status post respiratory failure, cardiomyopathy with atrial fibrillation and recurrent rapid ve ntricular response, hypertension. Pulmonary point of view, she is okay, but she keeps going into pul monary edema because of cardiac issues. Need to control her heart rate. Will do best with heart rat e 60-70. Spoke to nurse practitioner today. Pulmonary point of view, she needs CPAP, but refusing i t. Keep head elevated at 45 degrees. Discontinue prednisone next 2-3 days. Physical therapy, out of bed to chair. Being followed by cardiology. We will follow with you. Camron Salinas MD cc: [phone] TT: 09/28/2016 19:22:15 Confirmation # [id number] Dictation # [id number] ln
--- NOTE | 2016-09-28 23:45 | PN ---
DATE: 09/28/2016 The patient is in room 377, bed 1. SUBJECTIVE: The patient is lying in bed with head at 45 degrees. The patient had an unremarkable ni ght, still continues to have mild cough and shortness of breath. No history of nausea, vomiting, sha rrhea, fevers, or chills. Does have some ankle edema. OBJECTIVE: GENERAL: The patient is in no acute distress. VITAL SIGNS: T-max is 98.4, heart rate is 66, respirations 20, blood pressure is 122/74, pulse ox is 98% on 3 liters of nasal cannula. HEENT: Head is normocephalic, atraumatic. Conjunctivae pale. Sclerae are anicteric. are not ed. NECK: Supple. There is no adenopathy. No jugular venous distention noted. Examination of the orop harynx reveals no oropharyngeal lesions. LUNGS: Reveal bibasilar crackles. HEART: Reveals it to be irregularly irregular, tachycardic. ABDOMEN: Soft, nontender. The patient has a colostomy in the left lower quadrant. No enlargement o f the liver or spleen is noted. No rebound, rigidity or guarding is noted. EXTREMITIES: Reveals no cyanosis, clubbing or edema. NEUROLOGIC: Higher functions are normal. No focal deficits are noted. MEDICATIONS: Reviewed. She is on Cardizem-CD 120 daily, Claritin 10 mg daily, DuoNeb q. 6, potassiu m 10 mEq daily, Lasix 20 mg IV daily, metoprolol 50 mg q. 12 hours, prednisone 10 mg daily, Protonix 20 mg daily along with p.r.n. Tylenol. LABORATORY DATA: Reveals a hemoglobin of 8.4, platelet count of 9.3. Potassium of 156,000. Sodium of 136, potassium of 4.6, chloride is 94, bicarbonate is 39, BUN is 35, creatinine is 0.3, glucose is 141. Magnesium is 1.9. AST and ALT and alkaline phosphatase are within normal limits. Albumin is 2.4. Urine culture is Enterococcus faecalis. ASSESSMENT NOTES AND PLAN: The patient has resolving pulmonary infiltrates, pulmonary effusions and may have a sleep apnea syndrome, status post acute respiratory failure, cardiomyopathy, atrial fibril lation with rapid ventricular response, hypertension. PLAN: The patient will continue current medications. We will try to target the heart rate to be kep t between 65 and 70. In view of the patient still requiring a significant amount of pulmonary suppor t, we will try to maximize on the blood work and give the patient 2 units of blood transfusion. Phys ical therapy has been requested to be having the patient put out of the bed to the chair, evaluated f or physical therapy in an aggressive way in the TCU. We will continue to monitor the patient's labs over the next 2 days. Routine post exam instructions have been given to the patient. Shanta Lomas MD cc: [id number] TT: 09/28/2016 23:44:33 Confirmation # [id number] Dictation # [id number] mn
[2016-09-29 07:53] LABS: MEAN CELL VOLUME 97.1 fL (80.0-105.0); MEAN CORPUSCULAR HEMOGLOBIN 31.1 pg (25.0-35.0); PLATELET COUNT 155 10^3/uL (120.0-450.0); RED CELL DISTRIBUTION WIDTH 24.6 % (11.5-14.5); WHITE BLOOD COUNT 10.1 10^3/ul (4.5-11.0)
[2016-09-29 08:10] LABS: ALB/GLOB RATIO 1.1 (1.1-1.8); ALKALINE PHOSPHATASE 58 U/L (38-133); ALT/SGPT 48 U/L (7-56); AST/SGOT 19 U/L (15-39); BILIRUBIN,TOTAL 0.9 mg/dL (0.2-1.3); BLOOD UREA NITROGEN 38 mg/dL (7-21); CALCIUM 8.3 mg/dL (8.4-10.5); CHLORIDE 93 mmol/L (98-107); GFR AFRICAN-AMERICAN > 60; GLUCOSE,RANDOM 128 mg/dL (70-110); POTASSIUM 4.4 mmol/L (3.6-5.0); SODIUM 136 mmol/L (132-148); TOTAL PROTEIN 4.6 g/dL (5.8-8.3)
[2016-09-29 08:21] LABS: CARBON DIOXIDE 43 mmol/L (21-33)
[2016-09-29] MEDS: Potassium Chloride 10 mEq ER Tab PO SCH (09:53)
[2016-09-29] MEDS: diltiaZEM 120 mg/24 Hours CD Cap PO SCH (09:54)
[2016-09-29] MEDS: Pantoprazole 20 mg EC Tab PO SCH (09:54)
[2016-09-29] MEDS: Clotrimazole 1% Cream(30 gm) TOP SCH ×2 (09:55→19:43)
[2016-09-29] MEDS ORDERED: Digoxin 500 mcg/2ml (0.5 mg/2ml) Inj IVP ONE (11:44)
[2016-09-29 13:04] LABS: FREE T4 0.86 ng/dL (0.78-2.19)
[2016-09-29 13:18] LABS: THYROID STIMULATING HORMONE 1.69 mIU/mL (0.46-4.68)
--- NOTE | 2016-09-29 13:26 | RAD ---
HISTORY: CHF COMPARISON: 09/23/2016 FINDINGS: LUNGS: No pulmonary infiltrate. PLEURA: Bilateral small pleural effusion, left greater than right. Right apical pleural thickening noted. This is unchanged as far back as 01/13/2016. CARDIOVASCULAR: Grossly normal heart size. Mitral annular calcification. OSSEOUS STRUCTURES: No significant abnormalities. VISUALIZED UPPER ABDOMEN: Normal. OTHER FINDINGS: None. IMPRESSION: Small bilateral pleural effusion, left greater than right. No acute infiltrate. Stable right apical pleural thickening.
[2016-09-29] MEDS ORDERED: diltiaZEM 120 mg/24 Hours CD Cap PO SCH (14:00)
--- NOTE | 2016-09-29 15:01 | PN ---
DATE: 09/29/2016 SUBJECTIVE: The patient is currently in rapid atrial fibrillation. She received 1 unit of packed RB C transfusion. PHYSICAL EXAMINATION: VITAL SIGNS: Blood pressure 117/50, heart rate is 137, temperature 98.1, respirations 20. HEENT: Pale conjunctivae. CHEST: Absent breath sounds over the bases. HEART: S1, S2 irregular. EXTREMITIES: 2+ pitting edema. LABORATORIES: Hemoglobin and hematocrit are 9.6 and 30.3. White count and platelet count are within normal limits. Today's BUN and creatinine are 38 and 0.4. Potassium is within normal limits at 4.4 . Glucose 128. A portable chest x-ray performed today revealed cardiomegaly, bilateral pleural effusion and mild CHF . Today's EKG revealed atrial fibrillation at rate of 137. Consider anterolateral ischemia versus d igitalis effect. ASSESSMENT: 1. Congestive heart failure. 2. Persistent atrial fibrillation. 3. Anemia. 4. Stage III colon cancer, status post colostomy. 5. Aortic stenosis. RECOMMENDATIONS: I did order Lasix an additional dose of 40 mg intravenously once today. Increase C ardizem to 90 mg q. 8 hours. One dose of digoxin 0.25 was given intravenously today, and the patient will be maintained on 0.25 mg orally daily starting tomorrow. The case was discussed with the patie nt's son at the bedside. Alexei Saha MD cc: [id number] TT: 09/29/2016 15:01:05 Confirmation # [id number] Dictation # [id number] simon
--- NOTE | 2016-09-29 20:45 | CP.PCM.PN ---
Subjective - Date & Time of Evaluation Date of Evaluation: 09/29/16 Time of Evaluation: 13:00 - Subjective Subjective: Comfortable in bed, not in distress, no fevers. Objective - Vital Signs/Intake and Output Vital Signs (last 24 hours): Temp Pulse Resp BP Pulse Ox 98.0 F 81 20 123/69 95 09/29/16 17:25 09/29/16 17:25 09/29/16 17:25 09/29/16 17:25 09/29/16 16:00 Intake and Output: 09/29/16 09/30/16 18:59 06:59 Intake Total 465 Balance 465 - Medications Medications: Current Medications Acetaminophen (Tylenol 325mg Tab) 650 mg PO Q4 PRN PRN Reason: Fever >100.4 F Last Admin: 09/29/16 12:40 Dose: 650 mg Albuterol/Ipratropium (Duoneb 3 Mg/0.5 Mg (3 Ml) Ud) 3 ml IH [id number] PRN PRN Reason: Shortness of Breath Last Admin: 09/23/16 14:07 Dose: 3 ml Clotrimazole (Lotrimin 1%) 0.1 gm TOP BID [facility] Last Admin: 09/29/16 19:43 Dose: 1 applic Digoxin (Lanoxin Elixir Soln) 0.25 mg PO 1400 [facility] Diltiazem HCl (Cardizem) 90 mg PO TID [facility] Last Admin: 09/29/16 17:16 Dose: 90 mg Diltiazem HCl (Cardizem) 90 mg PO STAT [facility] Last Admin: 09/29/16 17:15 Dose: Not Given Furosemide (Lasix) 20 mg IVP DAILY [facility] Last Admin: 09/29/16 09:54 Dose: 20 mg Loratadine (Claritin) 10 mg PO DAILY [facility] Last Admin: 09/29/16 09:54 Dose: 10 mg Metoprolol Tartrate (Lopressor) 50 mg PO 0800,1800 [facility] Last Admin: 09/29/16 17:17 Dose: 50 mg Pantoprazole Sodium (Protonix Ec Tab) 20 mg PO 0730 [facility] Last Admin: 09/29/16 09:54 Dose: 20 mg Potassium Chloride (Klor-Con 10) 10 meq PO BRK [facility] Last Admin: 09/29/16 09:53 Dose: 10 meq Prednisone (Prednisone Tab) 10 mg PO DAILY [facility] Last Admin: 09/29/16 09:54 Dose: 10 mg - Labs Labs: 09/29/16 07:00 09/29/16 07:00 PT 12.1 Seconds (9.9-11.8) H 09/18/16 17:53 INR 1.12 (0.93-1.08) H 09/18/16 17:53 APTT 25.5 Seconds (23.7-30.8) 09/18/16 17:53 - Constitutional Appears: Non-toxic, No Acute Distress - Head Exam Head Exam: NORMAL INSPECTION - ENT Exam ENT Exam: Mucous Membranes Moist - Neck Exam Neck Exam: absent: Lymphadenopathy, Meningismus - Respiratory Exam Respiratory Exam: Decreased Breath Sounds - Cardiovascular Exam Cardiovascular Exam: +S1, +S2 - GI/Abdominal Exam GI & Abdominal Exam: Soft. 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 faecium in the urine disappeared from the urine despite no effective treatment for it - will continue to monitor - currently the patient remains asymptomatic in terms of the urinary tract
--- NOTE | 2016-09-30 02:43 | PN ---
DATE: 09/29/2016 REFERRING PHYSICIAN: Dr. Lomas. SUBJECTIVE: She is lying in the bed, head at 45 degree, getting ready to eat dinner. Night was unre markable. Still has some cough and shortness of breath, refused to use CPAP. No nausea, no vomiting , no diarrhea. Decreased leg swelling. OBJECTIVE: GENERAL: No acute distress. VITAL SIGNS: Temperature is 98, heart rate is 81, respiratory rate is 20, blood pressure 123/69, pul se ox 95% on nasal cannula. HEENT: Moist mucous membranes. Crowded airway. Mallampati score is 4. NECK: Supple. No JVD. LUNGS: Have a few crackles. HEART: S1, S2 irregular. ABDOMEN: Soft, nontender. No organomegaly. EXTREMITIES: Decreased edema. NEUROLOGIC: Awake, alert, follows simple command. MEDICATIONS: She is on Cardizem 90 mg p.o. 3 times a day, also sat Cardizem 90 mg 1 dose was given, Claritin 10 mg daily, DuoNeb q. 6 hours, potassium 10 mEq daily, digoxin 0.25 mg daily, Lasix 20 mg d aily, metoprolol tartrate 50 mg twice a day, prednisone 10 mg daily, Protonix 20 mg daily, Tylenol p. r.n. basis. LABORATORY DATA: Shows hemoglobin 9.6, hematocrit 30.7, WBC 10.1, platelet count is 155. Sodium 136 , potassium 4.4, chloride 96, bicarbonate 43, BUN 38, creatinine 0.4, glucose 128, calcium is 8.3, T 19, ALT 48, alkaline phosphatase is 58, albumin is 2.4. TSH is 1.69. Microbiology shows urine has Enterococcus faecalis. Chest x-ray done today shows small bilateral pleural effusions, left greater than right. No acute infiltrate. Still has a right apical thickening. IMPRESSION AND PLAN: Resolving pulmonary infiltrate and pleural effusions, may have a sleep apnea sy ndrome, status post respiratory failure, cardiomyopathy with atrial fibrillation, rapid ventri cular response, hypertension. Pulmonary point of view, she is doing much better. Since the heart ra te is controlled, taper of prednisone. Keep head elevated at 45 degrees. Supplement oxygen to titra te to pulse ox 19, encourage CPAP use. Gastric prophylaxis. to lower extremity, out of bed t o chair, physical therapy, discharge planning. Thank you and will follow with you. Camron Salinas MD cc: [id number] TT: 09/30/2016 02:43:06 Confirmation # [id number] Dictation # [id number] mn
[2016-09-30 07:16] LABS: HEMATOCRIT 32.7 % (36.0-48.0); MEAN CELL VOLUME 93.7 fL (80.0-105.0); MEAN CORPUSCULAR HEMOGLOBIN 30.4 pg (25.0-35.0); MEAN CORPUSCULAR HGB CONC 32.4 g/dl (31.0-37.0); PLATELET COUNT 111 10^3/uL (120.0-450.0); RED CELL DISTRIBUTION WIDTH 24.2 % (11.5-14.5); WHITE BLOOD COUNT 9.2 10^3/ul (4.5-11.0)
[2016-09-30 07:29] LABS: ALKALINE PHOSPHATASE 58 U/L (38-133); ALT/SGPT 50 U/L (7-56); AST/SGOT 20 U/L (15-39); BLOOD UREA NITROGEN 39 mg/dL (7-21); CALCIUM 8.2 mg/dL (8.4-10.5); CHLORIDE 94 mmol/L (98-107); GFR AFRICAN-AMERICAN > 60; GLUCOSE,RANDOM 157 mg/dL (70-110); POTASSIUM 3.8 mmol/L (3.6-5.0); SODIUM 137 mmol/L (132-148); TOTAL PROTEIN 4.7 g/dL (5.8-8.3)
[2016-09-30 07:42] LABS: CARBON DIOXIDE 44 mmol/L (21-33)
[2016-09-30] MEDS: Pantoprazole 20 mg EC Tab PO SCH (08:05)
[2016-09-30 08:35] VITALS: RESP 20; TEMP 97.6; O2SAT 99
[2016-09-30] MEDS: Potassium Chloride 10 mEq ER Tab PO SCH (09:04)
[2016-09-30] MEDS: Clotrimazole 1% Cream(30 gm) TOP SCH (09:05)
[2016-09-30] MEDS ORDERED: Digoxin 0.05 mg/mL Elixir 5mL PO SCH ×2 (10:00→14:00)
[2016-09-30] MEDS ORDERED: Enoxaparin 30 mg Syringe SC SCH (10:45)
--- NOTE | 2016-09-30 11:12 | PN ---
DATE: 09/30/2016 The patient currently in controlled heart rate. She denies any chest pain or shortness of breath. S he received a second unit of packed RBC transfusion. PHYSICAL EXAMINATION: VITAL SIGNS: Blood pressure 108/57, heart rate 71, temperature 97.6, respirations 20. HEENT: Pale conjunctivae. CHEST: Diminished breath sounds over the bases. HEART: S1, S2 regular. EXTREMITIES: 2+ pitting edema. LABORATORIES: Hemoglobin and hematocrit 10.6 and 32.7, white count 9.2, platelet count 111. Today's BUN and creatinine are 39 and 0.4, respectively. Glucose is 157, calcium 8.2 and potassium is withi n normal limits at 3.8. ASSESSMENT: 1. Congestive heart failure. 2. Aortic stenosis. 3. Stage III colon cancer. 4. Nonmetastatic breast cancer. 5. Possible myelodysplasia. 6. Persistent atrial fibrillation. RECOMMENDATIONS: Continue current Cardizem at 90 mg t.i.d., Lanoxin 0.25 mg orally daily, Lasix 20 m g intravenously once a day. I discussed the case with pill maker, Dr. Lomas, who thinks that the patient's anemia is myelodysplastic and he agreed with initiating low dose Lovenox at 30 mg daily fo r DVT prophylaxis. In my opinion, the patient is not justified to receive full anticoagulation thera py. Obtain digoxin level in a.m. Alexei Saha MD cc: [id number] TT: 09/30/2016 11:11:34 Confirmation # [id number] Dictation # [id number] tn
--- NOTE | 2016-09-30 13:12 | CARD ---
APPROVED REPORT EKG Measurement Heart [id number] <Conclusion> Atrial fibrillation with rapid ventricular response ST & T wave abnormality, consider inferior ischemia or digitalis effect ST & T wave abnormality, consider anterolateral ischemia or digitalis effect Abnormal ECG
[2016-09-30 15:22] VITALS: BP 104/55; PULSE 77
--- NOTE | 2016-09-30 15:48 | PN ---
DATE: 09/30/2016 REFERRING PHYSICIAN: Dr. Lomas SUBJECTIVE: She is lying in the bed, head at 45 degrees. Son is bedside. Night was unremarkable. No cough, no sputum production. No nausea, vomiting, diarrhea. Trace leg swelling. OBJECTIVE: GENERAL: No acute distress. VITAL SIGNS: Temp is 98, heart rate is 71, respiratory rate is 20, blood pressure 108/57, pulse ox 9 9% room air. HEENT: Moist mucous membrane. No ulcer or oral thrush noted. NECK: Supple. No JVD. LUNGS: Has a fair airflow with few rhonchi. HEART: S1 and S2. ABDOMEN: Soft, nontender. No organomegaly. EXTREMITIES: Trace edema. NEUROLOGIC: Awake, alert, follows simple command. MEDICATIONS: She is on Cardizem 90 mg 3 times a day, Claritin 10 mg daily, DuoNeb q.6 hours p.r.n., potassium 10 mEq daily, digoxin 0.25 mg daily, Lasix 20 mg daily, metoprolol tartrate 50 mg twice a d ay, Lovenox 30 mg subQ daily, prednisone 10 mg daily, Protonix 20 mg daily, Tylenol p.r.n. basis. LABORATORY DATA: Shows hemoglobin 10.6, hematocrit 32.7, WBC 9.2, platelet is 111. Sodium 137, pota ssium 3.8, chloride 94, bicarbonate 44, BUN 39, creatinine 0.4, glucose is 157, calcium 8.2. AST 20, ALT 50, alk phos is 58. Albumin is 2.4. TSH is 1.69. IMPRESSION AND PLAN: Resolving pulmonary infiltrate, small pleural effusion, sleep apnea syndrome, s tatus post respiratory failure, cardiomyopathy, atrial fibrillation, status post rapid ventricular re sponse, hypertension. Case discussed with nurse practitioner. I spoke to nursing staff. Spoke to sotero melara's son at bedside. Overall, feeling better. Requested therapy to get patient out of bed to air. May discontinue prednisone in 2-3 days. Antibiotics, now receiving an antibiotic. Continue di uretics. Follow electrolyte closely. History of colon cancer, history of breast cancer. Will benef it from physical therapy. Agree with discharge planning for rehabilitation facility. Needs followup with Dr. Lomas as an outpatient. Thank you and we will follow with you. Camron Salinas MD cc: [id number] TT: 09/30/2016 15:47:24 Confirmation # [id number] Dictation # [id number] sn
--- NOTE | 2016-10-01 00:15 | DS ---
One of several admissions for this 86-year-old female who was admitted with respiratory distress and atrial fibrillation with rapid ventricular response superimposed with pneumonia. The patient was ini tially in the intensive care unit, rates were controlled, pneumonia improved on antibiotics, and the patient was then transferred to the floor. SUBJECTIVE: The patient is seen lying in bed, head at 45 degrees, son is at the bedside, night was u nremarkable. The patient has no significant cough production. No nausea, vomiting or diarrhea. The patient has trace leg swelling. OBJECTIVE: GENERAL: The patient is in no acute distress. VITAL SIGNS: Stable. T-max is 98.4, heart rate is 71, respirations 20, blood pressure 108/57, pulse ox is 96% on room air. NECK: Supple. There is no adenopathy. No jugular venous distention is noted. LUNGS: Clear to percussion and auscultation with scattered rhonchi. HEART: Reveals S1 and S2. Rate has come down to a recent level of 75 per minute. ABDOMEN: Soft, nontender, no organomegaly is noted. The patient has a colostomy in the left lower q uadrant. EXTREMITIES: Reveals trace edema. NEUROLOGIC: Higher functions are normal. No focal deficits are noted. MEDICATIONS: Reviewed. She is on Cardizem 90 mg 3 times a day, Claritin 10 mg daily, DuoNeb q. 6 ho urs p.r.n., potassium 10 mEq daily, digoxin 0.25 mg daily, Lasix 20 mg daily, metoprolol tartrate 50 mg p.o. b.i.d., Lovenox 30 mg subQ daily, prednisone 10 mg daily, Protonix 20 mg daily, Tylenol on a p.r.n. basis. LABORATORY DATA: From today shows a hemoglobin of 10.6, hematocrit 32.2, platelet count of 111,000. The patient did receive 2 units of blood over the last 48 hours. Sodium is 137, potassium is 3.8, c hloride 94, bicarbonate 44, BUN is 39, creatinine 0.4, glucose is 157, calcium of 8.2. AST is 20, AL T is 50, alkaline phosphatase is 58, albumin is 2.5. TSH is 1.69. ASSESSMENT NOTES AND PLAN: The patient is being discharged today with resolving pulmonary infiltrate , small pleural effusions, sleep apnea syndrome, status post respiratory failure, cardiomyopathy, atr ial fibrillation, status post rapid ventricular response, hypertension. I have discussed the case wi th the family, spoke to the nurse practitioner and support services. The patient is being transferre d to rehab for ongoing therapy, especially deconditioning until she becomes more independent. Her st eroids and prednisone will be gradually cut back over the next several days at the rehab facility and will continue the current medications for now. The patient has required blood transfusions almost e very 2 weeks, and we may have to address that issue while she is in the retirement. Shanta Lomas MD cc: [id number] TT: 10/01/2016 00:15:02 simon
== END 2016-09-30 18:32 | DRG 871 ==
LOC: ED 17:16 → ERH 19:08 → CCU 22:42 → 3RSO 09-25 23:08
PROVIDERS: ADMIT Family Medicine; ATTEND Family Medicine
PROC: 5A09457 Assistance with Respiratory Ventilation, 24-96 Consecutive Hours, Continuous Positive Airway Pressure (ICD-10-PCS; principal; 2016-09-18)
PROC: 3E0F7GC Introduction of Other Therapeutic Substance into Respiratory Tract, Via Natural or Artificial Opening (ICD-10-PCS; 2016-09-19)
DX: A41.9 Sepsis, unspecified organism (principal); J18.9 Pneumonia, unspecified organism; J96.92 Respiratory failure, unspecified with hypercapnia; I50.23 Acute on chronic systolic (congestive) heart failure; J44.0 Chronic obstructive pulmonary disease with (acute) lower respiratory infection; E87.2 Acidosis; K50.911 Crohn's disease, unspecified, with rectal bleeding; F03.90 Unspecified dementia, unspecified severity, without behavioral disturbance, psychotic disturbance, mood disturbance, and anxiety; I11.0 Hypertensive heart disease with heart failure; I48.1 Persistent atrial fibrillation; I42.9 Cardiomyopathy, unspecified; R65.20 Severe sepsis without septic shock; E86.0 Dehydration; I48.0 Paroxysmal atrial fibrillation; F41.9 Anxiety disorder, unspecified; I25.10 Atherosclerotic heart disease of native coronary artery without angina pectoris; I35.0 Nonrheumatic aortic (valve) stenosis; E11.9 Type 2 diabetes mellitus without complications; I27.2 Other secondary pulmonary hypertension; D53.1 Other megaloblastic anemias, not elsewhere classified; C50.911 Malignant neoplasm of unspecified site of right female breast; C50.912 Malignant neoplasm of unspecified site of left female breast; D46.9 Myelodysplastic syndrome, unspecified; G47.30 Sleep apnea, unspecified; Y95 Nosocomial condition; Z16.21 Resistance to vancomycin; Z91.19 Patient's noncompliance with other medical treatment and regimen; Z93.3 Colostomy status; Z87.440 Personal history of urinary (tract) infections; Z91.81 History of falling; Z85.038 Personal history of other malignant neoplasm of large intestine; Z90.49 Acquired absence of other specified parts of digestive tract; Z87.01 Personal history of pneumonia (recurrent); Z79.890 Hormone replacement therapy